=== PATIENT | male | born 1950 | race Caucasian/White ===

== ENCOUNTER 2018-03-19 14:00 | Emergency (ER) | payer OTHER, MEDICARE ==
[2018-03-19] MEDS ORDERED: DEXTROSE 50%-WATER 25 GM/50 ML DISP.SYRIN IV ONE ×2 (14:13→15:46)
--- NOTE | 2018-03-19 15:11 | ER Document Report ---
ED General - General Chief Complaint: Low Blood Sugar Stated Complaint: DIABETIC PROBLEM Time Seen by Provider: 03/19/18 14:54 Mode of Arrival: Medic Information source: Patient, Relative, Emergency Med Personnel, [facility] Records Notes: 67-year-old male with type 1 diabetes, hypertension, hyperlipidemia presents via EMS from home after his daughter found him confused, staring off just prior to arrival.Daughter checked his sugar at that time and it was 50. Patient is supposed to take Lantus and NovoLog. Daughters are at the bedside and states that he is noncompliant with his medications. He does not check his sugars regularly. He currently lives alone after being recently and has been making it difficult for his family to help care for him. Daughter states that yesterday evening her father seemed to be more confused. He currently has no complaints including confusion, headache, nausea, chest pain, shortness of breath, weakness, slurred speech, abdominal pain. He denies any recent illness.Daughter does report a recent stroke in October 2017. she believes it left him with left sided weakness but is unsure. She reports that after being seen at the [facility] no further testing was done and she is unsure if her father was put on any additional medications at that time. TRAVEL OUTSIDE OF THE [place] IN LAST 30 DAYS: No - HPI Onset: Just prior to arrival Onset/Duration: Sudden Quality of pain: No pain Severity: None Associated symptoms: Sweating Exacerbated by: Food Relieved by: Denies Similar symptoms previously: Yes Recently seen / treated by doctor: No - Related Data Allergies/Adverse Reactions: No Known Allergies Allergy (Verified 06/03/13 12:05) Past Medical History - General Information source: Patient, Relative, [facility] Records - Social History Smoking Status: Current Every Day Smoker Cigarette use (# per day): Yes - 10 Smoking Education Provided: Yes - 4 minutes of smoking cessation provided Frequency of alcohol use: Occasional Drug Abuse: None Lives with: Alone Family History: Reviewed & Not Pertinent Patient has suicidal ideation: No Patient has homicidal ideation: No - Past Medical History Cardiac Medical History: Reports: Hx Hypercholesterolemia, Hx Hypertension Denies: Hx Heart Attack Pulmonary Medical History: Denies: Hx Asthma Neurological Medical History: Reports: Hx Cerebrovascular Accident - 1 MONTH AGO WEAKNESS. Denies: Hx Seizures Endocrine Medical History: Reports: Hx Diabetes Mellitus Type 1 GI Medical History: Denies: Hx Hepatitis, Hx Hiatal Hernia, Hx Ulcer Infectious Medical History: Denies: Hx Hepatitis Past Surgical History: Reports: Hx Appendectomy. Denies: Hx Open Heart Surgery , Hx Pacemaker - Immunizations Hx Diphtheria, Pertussis, Tetanus Vaccination: No Review of Systems - Review of Systems Notes: REVIEW OF SYSTEMS: CONSTITUTIONAL : Denies fever, chills, or sweats. Denies recent illness. Denies weight loss, recent hospitalizations. EENT: Denies visual changes, eye pain. Denies nasal or sinus congestion or discharge. Denies sore throat, oral lesions, difficulty swallowing. CARDIOVASCULAR: Denies chest pain. Denies palpitations. Denies lower extremity edema. RESPIRATORY: Denies cough, cold, or chest congestion. Denies shortness of breath, wheezing. GASTROINTESTINAL: Denies abdominal pain or distention. Denies nausea, vomiting , or diarrhea. Denies blood in vomitus, stools, or per rectum. Denies black, tarry stools. Denies constipation. GENITOURINARY: Denies difficulty urinating, painful urination, frequency, blood in urine, or vaginal discharge. MUSCULOSKELETAL: Denies back or neck pain or stiffness. Denies joint pain or swelling. SKIN: Denies rash, lesions or sores. HEMATOLOGIC : Denies easy bruising or bleeding. LYMPHATIC: Denies swollen glands. NEUROLOGICAL: Denies passing out or loss of consciousness. Denies dizziness or lightheadedness. Denies headache. Denies weakness or paralysis. Denies problems difficulty with ambulation, slurred speech. Denies sensory loss, numbness, or tingling. Denies seizures. PSYCHIATRIC: Denies anxiety or stress. Denies depression, suicidal ideation, or homicidal ideation. Denies visual or auditory hallucinations. Physical Exam - Vital signs Vitals: Temp Pulse Resp BP Pulse Ox 98.5 F 80 18 132/57 H 97 03/19/18 14:05 03/19/18 14:05 03/19/18 14:05 03/19/18 14:05 03/19/18 14:05 - Notes Notes: PHYSICAL EXAMINATION: GENERAL: Well-appearing, well-nourished and in no acute distress. HEAD: Atraumatic, normocephalic. EYES: Pupils equal round and reactive to light, extraocular movements intact, sclera anicteric, conjunctiva are normal. ENT: Nares patent, oropharynx clear without exudates. Moist mucous membranes. NECK: Normal range of motion, supple without lymphadenopathy LUNGS: Breath sounds clear to auscultation bilaterally and equal. No wheezes rales or rhonchi. HEART: Regular rate and rhythm without murmurs ABDOMEN: Soft, nontender, nondistended abdomen. No guarding, no rebound. No masses appreciated. Musculoskeletal: Normal range of motion, no pitting or edema. No cyanosis. NEUROLOGICAL: Cranial nerves grossly intact. Normal sensory, motor exams. NIH- 2 for left upper extremity drift and inability to tell me what month it is. PSYCH: Normal mood, normal affect. SKIN: Warm, Dry, normal turgor, no rashes or lesions noted. Course - Re-evaluation Re-evalutation: 03/19/18 23:07 Laboratory 03/19/18 03/19/18 03/19/18 14:47 14:47 15:36 WBC 11.5 H RBC 4.28 L Hgb 14.0 Hct 41.8 MCV 98 H MCH 32.8 MCHC 33.5 RDW 13.2 Plt Count 286 Seg Neutrophils % 66.0 Lymphocytes % 22.6 Monocytes % 8.8 Eosinophils % 2.2 Basophils % 0.4 Absolute Neutrophils 7.6 Absolute Lymphocytes 2.6 Absolute Monocytes 1.0 Absolute Eosinophils 0.2 Absolute Basophils 0.0 Sodium 139.6 Potassium 4.0 Chloride 106 Carbon Dioxide 23 Anion Gap 11 BUN 17 Creatinine 0.86 Est GFR ( Amer) > 60 Est GFR (Non-Af Amer) > 60 Glucose 131 H POC Glucose 52 L Calcium 10.0 Total Bilirubin 0.3 Direct Bilirubin 0.3 Neonat Total Bilirubin Not Reportable Neonat Direct Bilirubin Not Reportable Neonat Indirect Bili Not Reportable AST 18 ALT 42 Alkaline Phosphatase 103 Total Protein 6.0 L Albumin 3.1 L 03/19/18 03/19/18 17:14 20:30 WBC RBC Hgb Hct MCV MCH MCHC RDW Plt Count Seg Neutrophils % Lymphocytes % Monocytes % Eosinophils % Basophils % Absolute Neutrophils Absolute Lymphocytes Absolute Monocytes Absolute Eosinophils Absolute Basophils Sodium Potassium Chloride Carbon Dioxide Anion Gap BUN Creatinine Est GFR ( Amer) Est GFR (Non-Af Amer) Glucose POC Glucose 167 H 229 H Calcium Total Bilirubin Direct Bilirubin Neonat Total Bilirubin Neonat Direct Bilirubin Neonat Indirect Bili AST ALT Alkaline Phosphatase Total Protein Albumin Head CT 03/19/18 15:06 IMPRESSION: Right middle cerebral artery infarction chronic versus subacute. Small right posterior parietal infarction. EVIDENCE OF ACUTE STROKE: NO. Head CTA 03/19/18 17:48 IMPRESSION: Limited study because of IV infiltration. Poor visualization of the distal middle cerebral vessels on the right. Possible stenosis of the A1 segment on the left. Neck CTA 03/19/18 17:48 IMPRESSION: IV infiltration resulting essentially a nondiagnostic study. There is suspicion for high-grade stenosis of the left ICA. Extensive calcification of the right ICA. 03/20/18 00:16 67-year-old male with type 1 diabetes, hypertension, hyperlipidemia presents via EMS from home after his daughter found him confused, staring off.Daughter checked his sugar at that time and it was 50. Patient is supposed to take Lantus and NovoLog. Daughters are at the bedside and states that he is noncompliant with his medications. He does not check his sugars regularly. He currently lives alone after being recently and has been making it difficult for his family to help care for him. Upon arrival vitals were reviewed and within normal limits. Patient does not appear toxic or dehydrated. He is in no acute distress. Neuro exam was performed and patient has an NIH of 2 for inability to tell me the month and left upper extremity drift. Head CT was obtained and does show a right middle cerebral artery infarction chronic versus subacute. It also shows a small right posterior parietal infarction but no acute stroke. CTA of the head and neck were obtained but due to poor timing bolus they are stating this is a nondiagnostic study but they do state they have a suspicion for high-grade stenosis of the left ICA. Patient did receive aspirin during his ED course. Repeat NIH remains unchanged. He has been accepted to [facility] by Dr. Nai Hermosillo. I did speak to Dr. Olmstead, neurologist at [facility] who has no further recommendations at this time. 03/20/18 00:16 03/20/18 00:23 03/20/18 02:00 - Vital Signs Vital signs: Temp Pulse Resp BP Pulse Ox 98.5 F 80 18 134/58 H 97 03/19/18 14:05 03/19/18 14:05 03/20/18 00:01 03/20/18 00:01 03/20/18 00:01 - Laboratory Result Diagrams: 03/19/18 14:47 03/19/18 14:47 Laboratory results interpreted by me: 03/19/18 03/19/18 03/19/18 14:47 14:47 15:36 WBC 11.5 H RBC 4.28 L MCV 98 H APTT Glucose 131 H POC Glucose 52 L Total Protein 6.0 L Albumin 3.1 L Urine Glucose (UA) Urine Ketones Urine Urobilinogen 03/19/18 03/19/18 03/19/18 17:14 20:30 23:00 WBC RBC MCV APTT 20.2 L Glucose POC Glucose 167 H 229 H Total Protein Albumin Urine Glucose (UA) Urine Ketones Urine Urobilinogen 03/19/18 23:00 WBC RBC MCV APTT Glucose POC Glucose Total Protein Albumin Urine Glucose (UA) 150 H Urine Ketones TRACE H Urine Urobilinogen 4.0 H - Diagnostic Test Radiology reviewed: Image reviewed, Reports reviewed - EKG Interpretation by Me EKG shows normal: Sinus rhythm Rate: Normal [place]/QRS: RBBB When compared to previous EKG there are: No significant change Discharge - Discharge Clinical Impression: Hypoglycemia, Confusion, Noncompliance with medication regimen Stroke Qualifiers: CVA mechanism: embolism Precerebral and cerebral artery: middle cerebral artery Laterality of affected vessel: right Qualified Code(s): I63.411 - Cerebral infarction due to embolism of right middle cerebral artery Type 1 diabetes Qualifiers: Diabetes mellitus complication status: with unspecified complications Qualified Code(s): E10.8 - Type 1 diabetes mellitus with unspecified complications Condition: Fair Disposition: CRITICAL ACCESS HOSPITAL Referrals: BRIDGET MCCARTHY FNP [NO LOCAL MD] - Follow up as needed ED NIH Stroke Scale - NIH Stroke Scale *: 1. NIH scale should be completed with appropriate accompanying assessment tools. *: 2. The NIH should reflect what the patient is capable of doing and should not be coached by the clinician. 1a. Level of Consciousness: 0=Alert;keenly responsive -: 1=Drowsy -: 2=Obtunded -: 3=Coma/unresponsive or reflex to noxious stimuli. 1a. Responses: 0 1b. Orientation Questions: a. What month is it? -: b. How old are you? -: 0=Answers both questions correctly. -: 1=Answers one question correctly or patient is intubated or has orotracheal trauma. -: 2=Answers neither question correctly. 1b. Responses: 1 1c. Response to commands: a. Open and close eyes? -: b. Generalist and release hand? -: Credit is given despite weakness. Demonstration of task is permitted. Substitute command if hands cannot be used. -: 0=Performs both tasks correctly -: 1=Performs one task correctly -: 2=Performs neither task correctly 1c. Responses: 0 2. Gaze: Establish eye contact and instruct patient to "Follow my finger" -: 0=Normal -: 1=Partial gaze palsy. Gaze is abnormal in one or both eyes, but where forced deviation or total gaze paresis is not present. -: 2=Forced deviation or total gaze paresis. 2. Responses: 0 3. Visual Martinez: Sees fingers in all four quadrants. -: 0=No visual loss. -: 1=Partial hemianopsia. -: 2=Complete hemianopsia. -: 3=Bilateral hemianopsia (including Cortical blindness) 3. Responses: 0 4. Facial Movement: Instruct patient to: -: a. Show me your teeth -: b. Raise your eyebrows -: c. Close your eyes -: d. Smile -: 0=Normal symmetrical movement -: 1=Minor paralysis (flattened nasolabial fold, asymmetry on smiling). -: 2=Partial paralysis (total or near total paralysis of lower face). -: 3=Complete paralysis of upper and lower face 4. Responses: 0 5. Motor functions (left arm): Alternate sides and extend each arm with palms down (90 degrees if sitting or 45 degrees for supine). -: 0=No drift;limb holds for full 10 seconds. -: 1=Drift; limb holds but drifts down before full 10 seconds, but does not hit bed. -: 2=Some effort against gravity; limb cannot get to or maintain position. -: 3=No effort against gravity; limb falls. -: 4=No movement. -: UN=Amputation, joint fusion, explain in comments. 5. Responses (left arm): 1 5. Motor Functions (right arm): Alternate sides and extend each arm with palms down (90 degrees if sitting or 45 degrees for supine). -: 0=No drift;limb holds for full 10 seconds. -: 1=Drift; limb holds but drifts down before full 10 seconds, but does not hit bed. -: 2=Some effort against gravity; limb cannot get to or maintain position. -: 3=No effort against gravity; limb falls. -: 4=No movement. -: UN=Amputation, joint fusion, explain in comments. 5. Responses (right arm): 0 6. Motor Functions (left leg): With patient lying supine, alternate sides and extend each leg (30 degrees always while supine). -: 0=No drift, leg holds position for full 5 seconds -: 1=Drift; leg falls before full 5 seconds but does not hit bed. -: 2=Some effort against gravity, leg falls to bed but some effort against gravity. -: 3=No effort against gravity, leg falls to bed immediately. -: 4=No movement. -: UN=Amputation, joint fusion; explain in comments. 6. Responses (left leg): 0 6. Motor Functions (right leg): With patient lying supine, alternate sides and extend each leg (30 degrees always while supine). -: 0=No drift, leg holds position for full 5 seconds -: 1=Drift; leg falls before full 5 seconds but does not hit bed. -: 2=Some effort against gravity, leg falls to bed but some effort against gravity. -: 3=No effort against gravity, leg falls to bed immediately. -: 4=No movement. -: UN=Amputation, joint fusion; explain in comments. 6. Responses (right leg): 0 7. Limb Ataxia: With eyes open instruct patient to: -: a. "Touch your finger to your nose". -: b. "Touch your heel to your larson" -: 0=Absent -: 1=Present in one limb. -: 2=Present in two limbs. -: UN=Amputation or joint fusion; explain in comments. 7. Responses: 0 8. Sensory: Test sensation using pinprick or noxious stimuli. Test as many body parts as possible. -: 0=Normal;no sensory loss -: 1=Mile to moderate sensory loss (patient feels pin prick but is less sharp on affected side). -: 2=Severe or total sensory loss. 8. Responses: 0 9. Best Language: Instruct patient to: -: a. "Describe what you see in this picture." -: b. "Name the items in this picture." -: c. "Read these sentences." -: 0=No aphasia, normal -: 1=Mild to moderate aphasia. -: 2=Severe aphasia -: 3=Mute, global aphasia, no usable speech or auditory comprehension. 9. Responses: 0 10. Articulation, Dysarthia: Instruct patient to: -: "Read these words" or "Repeat these words" -: 0=Normal -: 1=Mild to moderate; patient may slur some words but can be understood without difficulty. -: 2=Severe; patients speech so slurred as to be unintelligible in the absence of dysphasia. -: UN=Intubated or other physical barrier, explain in comments. 10. Responses: 0 11. Extinction or inattention: 0=No abnormality -: 1= Visual, tactile, auditory, spatial, or personal inattention or extinction to bilateral simulation in one or the sensory modalities. -: 2=Profound sharona-inattention or sharona-inattention to more than one modality; does not recognize own hand. 11. Responses: 0 Total Score: 2
[2018-03-19 15:23] LABS: ABSOLUTE EOSINOPHILS # (AUTO) 0.2 10^3/uL (0.0-0.6); ABSOLUTE LYMPHOCYTES (AUTO) 2.6 10^3/uL (0.5-4.7); ABSOLUTE NEUT (AUTO) 7.6 10^3/uL (1.7-8.2); BASOPHILS % (AUTO) 0.4 % (0-2); EOSINOPHILS % (AUTO) 2.2 % (0-6); HEMATOCRIT 41.8 % (37.9-51.0); LYMPHOCYTES % (AUTO) 22.6 % (13-45); MEAN CORPUSCULAR HEMOGLOBIN 32.8 pg (27.0-33.4); MEAN CORPUSCULAR HGB CONC 33.5 g/dL (32.0-36.0); MEAN CORPUSCULAR VOLUME 98 fl (80-97); MONOCYTES % (AUTO) 8.8 % (3-13); PLATELET COUNT 286 10^3/uL (150-450); RED BLOOD COUNT 4.28 10^6/uL (4.35-5.55); RED CELL DISTRIBUTION WIDTH 13.2 % (11.5-14.0); TOTAL CELLS COUNTED % (AUTO) 100 %; WHITE BLOOD COUNT 11.5 10^3/uL (4.0-10.5)
[2018-03-19 15:29] LABS: ALANINE AMINOTRANSFERASE 42 U/L (21-72); ALBUMIN 3.1 g/dL (3.5-5.0); ALKALINE PHOSPHATASE 103 U/L (38-126); ANION GAP 11 (5-19); ASPARTATE AMINO TRANSFERASE 18 U/L (17-59); BILIRUBIN,DIRECT 0.3 mg/dL (0.0-0.4); BILIRUBIN,TOTAL 0.3 mg/dL (0.2-1.3); BLOOD UREA NITROGEN 17 mg/dL (7-20); CARBON DIOXIDE 23 mmol/L (22-30); CHLORIDE 106 mmol/L (98-107); GLUCOSE 131 mg/dL (75-110); SODIUM 139.6 mmol/L (137-145)
--- NOTE | 2018-03-19 16:26 | RADIOLOGY REPORT (SQ) ---
EXAM DESCRIPTION: CT HEAD WITHOUT COMPLETED DATE/TIME: 03/19/2018 4:10 pm REASON FOR STUDY: confusion COMPARISON: None. TECHNIQUE: Axial images acquired through the brain without intravenous contrast. Images reviewed wi th bone, brain and subdural windows. Additional sagittal and coronal reconstructions were generated. Images stored on PACS. All CT scanners at this facility use dose modulation, iterative reconstruction, and/or weight based d osing when appropriate to reduce radiation dose to as low as reasonably achievable (ALARA). [facility]: Dose Right [facility]: CareDose [facility]: Dose Right [facility]: Teradose 4D [facility]: [employer] RADIATION DOSE: CT Rad equipment meets quality standard of care and radiation dose reduction techniq ues were employed. CTDIvol: 53.2 mGy. DLP: 1124 mGy-cm. mGy. LIMITATIONS: None. FINDINGS: VENTRICLES: Mild ex vacuo enlargement of the right lateral ventricle. CEREBRUM: Encephalomalacia in the distribution of right middle cerebral artery. Small area of enceph alomalacia in the right posterior parietal area. Decreased attenuation in the white matter on the rig ht. There are some areas where the rodriguez/ white differentiation is absent. CEREBELLUM: No masses. No hemorrhage. No alteration of density. No evidence for acute infarction. EXTRAAXIAL SPACES: No fluid collections. No masses. ORBITS AND GLOBE: No intra- or extraconal masses. Normal contour of globe without masses. CALVARIUM: No fracture. PARANASAL SINUSES: No fluid or mucosal thickening. SOFT TISSUES: No mass or hematoma. OTHER: No other significant finding. IMPRESSION: Right middle cerebral artery infarction chronic versus subacute. Small right posterior parietal infarction. EVIDENCE OF ACUTE STROKE: NO. COMMENT: Quality ID # [id number]: Final reports with documentation of one or more dose reduction techniques (e.g., Automated exposure control, adjustment of the mA and/or kV according to patient size, use of iterative reconstruction technique) TECHNICAL DOCUMENTATION: JOB ID: [id number] [employer]- All Rights Reserved Reading location - IP/workstation name: [email or web address]
[2018-03-19] MEDS ORDERED: NICOTINE 21 MG/24 HR PATCH.TD24 TD ONE (20:06)
--- NOTE | 2018-03-19 22:09 | RADIOLOGY REPORT (SQ) ---
EXAM DESCRIPTION: CTA NECK COMPLETED DATE/TIME: 03/19/2018 9:56 pm REASON FOR STUDY: infarct COMPARISON: None. TECHNIQUE: Axial dynamic scanning technique with dynamic contrast enhancement through the extra-cranberry [employer] supervisor nial carotid and vertebral arteries. Multiplanar reconstruction. 3-D MIPS and Volume-rendered imag es acquired at the workstation and saved to PACS. Images are reviewed in soft tissue, bone, lung w indows. All CT scanners at this facility use dose modulation, iterative reconstruction, and/or weight based d osing when appropriate to reduce radiation dose to as low as reasonably achievable (ALARA). [facility]: Dose Right [facility]: CareDose [facility]: Dose Right [facility]: Teradose 4D [facility]: [employer] CONTRAST TYPE AND DOSE: contrast/concentration: Isovue 350.00 mg/ml; Total Contrast Delivered: 70.0 ml; Total Saline Delivered: 50.0 ml RENAL FUNCTION: GFR > 60. LIMITATIONS: IV infiltrated. Nondiagnostic arterial study. FINDINGS: AORTIC ARCH: Normal three-vessel origin. Bilateral subclavian arteries are patent. No d issection. RIGHT CAROTIDS: Extensive calcification. Cannot adequately for degree of stenosis. RIGHT VERTEBRAL: Not adequately visualized. LEFT CAROTIDS: Suspect high-grade stenosis of the ICA. LEFT VERTEBRAL: Cannot adequately assessed. OTHER: No other significant finding. OTHER: 3-D reconstructions confirm findings. IMPRESSION: IV infiltration resulting essentially a nondiagnostic study. There is suspicion for hig h-grade stenosis of the left ICA. Extensive calcification of the right ICA. COMMENT: Recommend duplex carotid scan. Quality ID #[id number]: Measurements of distal internal carotid diameter were used as the denominator for st enosis measurement. TECHNICAL DOCUMENTATION: JOB ID: [id number] Quality ID # [id number]: Final reports with documentation of one or more dose reduction techniques (e.g., Au tomated exposure control, adjustment of the mA and/or kV according to patient size, use of iterative reconstruction technique) 2010 [employer]- All Rights Reserved Reading location - IP/workstation name: [email or web address]
--- NOTE | 2018-03-19 22:11 | RADIOLOGY REPORT (SQ) ---
EXAM DESCRIPTION: CTA HEAD COMPLETED DATE/TIME: 03/19/2018 9:56 pm REASON FOR STUDY: infarct COMPARISON: None. TECHNIQUE: Post IV contrast scanning, thin section axial imaging through the brain to evaluate the a rterial structures. Source and MIP images are saved and reviewed on PACS. Advanced 3D imaging as volume-rendering, MIPs, SSD performed? yes All CT scanners at this facility use dose modulation, iterative reconstruction, and/or weight based d osing when appropriate to reduce radiation dose to as low as reasonably achievable (ALARA). [facility]: Dose Right [facility]: CareDose [facility]: Dose Right [facility]: Teradose 4D [facility]: [employer] CONTRAST TYPE AND DOSE: 63.6 Isovue 370- low osmolar. RENAL FUNCTION: GFR > 60. LIMITATIONS: IV infiltration. Inadequate evaluation of the arterial tree. FINDINGS: TE-MOAK OF OGDEN: The very central vessels are seen to be patent. Cannot evaluate distal vessels. Possible stenosis of the A1 segment on the left. Poor visualization of the distal middle c erebral vessels on the right. POSTERIOR CIRCULATION: Basilar artery is patent. Proximal posterior cerebral artery is. BRAIN: No gross enhancing lesions as visualized. The superior cerebral hemispheres are not included in the field of view. BONES: Intact as visualized. SINUSES: No fluid or mucosal thickening. OTHER: No other significant finding. IMPRESSION: Limited study because of IV infiltration. Poor visualization of the distal middle cereb ral vessels on the right. Possible stenosis of the A1 segment on the left. COMMENT: Consider MRA. TECHNICAL DOCUMENTATION: JOB ID: [id number] Quality ID # [id number]: Final reports with documentation of one or more dose reduction techniques (e.g., Au tomated exposure control, adjustment of the mA and/or kV according to patient size, use of iterative reconstruction technique) 2010 [employer]- All Rights Reserved Reading location - IP/workstation name: [email or web address]
--- NOTE | 2018-03-19 22:53 | EKG REPORT ---
SEVERITY:- ABNORMAL ECG - SINUS RHYTHM PROBABLE LEFT ATRIAL ABNORMALITY RIGHT BUNDLE BRANCH BLOCK : Confirmed by: Janee Orosco 19-Mar-2018 22:52:27
[2018-03-19 23:21] LABS: INTERNATIONAL RATION (INR) 0.87; PROTHROMBIN TIME 12.3 SEC (11.4-15.4)
[2018-03-19 23:22] LABS: PARTIAL THROMBOPLASTIN TIME 20.2 SEC (23.5-35.8)
[2018-03-19 23:24] LABS: APPEARANCE,URINE CLEAR; BILIRUBIN,URINE NEGATIVE (NEGATIVE); COLOR,URINE YELLOW; GLUCOSE, URINE 150 mg/dL (NEGATIVE); KETONES,URINE TRACE mg/dL (NEGATIVE); LEUKOCYTE ESTERASE,URINE NEGATIVE (NEGATIVE); NITRITE,URINE NEGATIVE (NEGATIVE); PROTEIN,URINE NEGATIVE (NEGATIVE); URINE SPECIFIC GRAVITY > 1.060
[2018-03-19] MEDS ORDERED: ASPIRIN 81 MG TABLET, CHEWABLE PO ONE (23:36)
[2018-03-20 02:31] VITALS: BP 128/66
== END 2018-03-20 03:17 | disposition short-term general hospital (02) ==
LOC: ER 14:00
DX: I63.411 Cerebral infarction due to embolism of right middle cerebral artery (principal); R29.702 NIHSS score 2; E10.649 Type 1 diabetes mellitus with hypoglycemia without coma; Z91.14 Patient's other noncompliance with medication regimen; R41.0 Disorientation, unspecified; I10 Essential (primary) hypertension; R61 Generalized hyperhidrosis; I45.10 Unspecified right bundle-branch block; F17.210 Nicotine dependence, cigarettes, uncomplicated; Z71.6 Tobacco abuse counseling
CPT/HCPCS: 93005; 96376; 99406; 99285; 96374; 36415; 82962; 85025; 85610; 85730; 80053; 81001; 70450; 70496; 70498; 93010; J3490

== ENCOUNTER 2018-04-03 03:44 | Inpatient (IN) | payer OTHER, MEDICARE ==
[2018-04-03] MEDS ORDERED: NORMAL SALINE 1000 ML 1,000 ML IV ONE ×3 (04:14→06:41)
[2018-04-03 04:27] LABS: ABSOLUTE LYMPHOCYTES (AUTO) 0.5 10^3/uL (0.5-4.7); ABSOLUTE MONOCYTES (AUTO) 0.4 10^3/uL (0.1-1.4); ABSOLUTE NEUT (AUTO) 2.5 10^3/uL (1.7-8.2); BASOPHILS % (AUTO) 0.2 % (0-2); EOSINOPHILS % (AUTO) 0.1 % (0-6); HEMATOCRIT 49.1 % (37.9-51.0); HEMOGLOBIN 16.5 g/dL (13.5-17.0); LYMPHOCYTES % (AUTO) 14.4 % (13-45); MEAN CORPUSCULAR HGB CONC 33.7 g/dL (32.0-36.0); MEAN CORPUSCULAR VOLUME 98 fl (80-97); PLATELET COUNT 353 10^3/uL (150-450); RED CELL DISTRIBUTION WIDTH 13.8 % (11.5-14.0); SEGMENTED NEUTROPHILS % (AUTO) 74.3 % (42-78); TOTAL CELLS COUNTED % (AUTO) 100 %; WHITE BLOOD COUNT 3.4 10^3/uL (4.0-10.5)
--- NOTE | 2018-04-03 04:30 | ER Document Report ---
ED General <BRENDA HURTADO - Last Filed: 04/03/18 05:31> - General TRAVEL OUTSIDE OF THE [place] IN LAST 30 DAYS: No <DEYSI PONCE - Last Filed: 04/03/18 07:31> - General Chief Complaint: Altered Mental Status Stated Complaint: ALTERED MENTAL STATUS Time Seen by Provider: 04/03/18 03:52 Notes: Patient is a 67-year-old male that comes to the emergency department by EMS from [facility] for chief complaint of vomiting and altered mental status. EMS reports patient has been vomiting all day, was given Phenergan in the evening and continued to vomit, he became confused and less responsive and EMS was called. No fever, diarrhea, shortness of breath, or chest pain reported. Past medical history includes CVA with chronic left- sided deficits, type 2 diabetes, CAD on Plavix, hypertension. Patient is able to tell me his name and his location but is limited in his ability to give history otherwise. (DEYSI PONCE) - Related Data Allergies/Adverse Reactions: No Known Allergies Allergy (Verified 06/03/13 12:05) Past Medical History - General Information source: Patient, Emergency Med Personnel - Social History Smoking Status: Unknown if Ever Smoked Frequency of alcohol use: None Drug Abuse: None Lives with: Senior Living Family History: Reviewed & Not Pertinent - Past Medical History Cardiac Medical History: Reports: Hx Hypercholesterolemia, Hx Hypertension Denies: Hx Heart Attack Pulmonary Medical History: Denies: Hx Asthma Neurological Medical History: Reports: Hx Cerebrovascular Accident - 1 MONTH AGO WEAKNESS. Denies: Hx Seizures Endocrine Medical History: Reports: Hx Diabetes Mellitus Type 1, Hx Diabetes Mellitus Type 2 Renal/ Medical History: Denies: Hx Peritoneal Dialysis GI Medical History: Denies: Hx Hepatitis, Hx Hiatal Hernia, Hx Ulcer Musculoskeletal Medical History: Reports Hx Arthritis Infectious Medical History: Denies: Hx Hepatitis Past Surgical History: Reports: Hx Appendectomy. Denies: Hx Open Heart Surgery , Hx Pacemaker - Immunizations Hx Diphtheria, Pertussis, Tetanus Vaccination: Yes <DEYSI PONCE - Last Filed: 04/03/18 07:31> Review of Systems - Review of Systems Constitutional: No symptoms reported EENT: No symptoms reported Cardiovascular: See HPI Respiratory: No symptoms reported Gastrointestinal: No symptoms reported Genitourinary: No symptoms reported Male Genitourinary: No symptoms reported Musculoskeletal: No symptoms reported Skin: See HPI Hematologic/Lymphatic: No symptoms reported Neurological/Psychological: No symptoms reported <DEYSI PONCE - Last Filed: 04/03/18 07:31> Physical Exam <BRENDA HURTADO - Last Filed: 04/03/18 05:31> <DEYSI PONCE - Last Filed: 04/03/18 07:31> - Vital signs Vitals: Resp Pulse Ox 38 H 97 04/03/18 03:51 04/03/18 03:51 - Notes Notes: GENERAL: Extremely ill-appearing, diaphoretic, pale, difficult to arouse, confused HEAD: Normocephalic, atraumatic. EYES: Pupils equal, round, and reactive to light. Extraocular movements intact. ENT: Very dry mucous membranes, unremarkable oropharyngeal exam NECK: Supple. Trachea midline. LUNGS: Scattered rhonchi and coarse breath sounds, no overt rales or wheezes. HEART: Tachycardia, no extrasystoles, no murmur. Capillary refill intact. ABDOMEN: Soft, non-tender. Non-distended. EXTREMITIES: Moves all 4 extremities spontaneously. No edema, normal radial and dorsalis pedis pulses bilaterally. No cyanosis. BACK: no cervical, thoracic, lumbar midline tenderness. NEUROLOGICAL: Arousable, oriented to person and place, unable to give me any other details SKIN: Pale, diaphoretic (DEYSI PONCE) Course - Laboratory Result Diagrams: 04/03/18 04:08 04/03/18 04:08 <BRENDA HURTADO - Last Filed: 04/03/18 05:31> - Laboratory Result Diagrams: 04/03/18 04:08 04/03/18 04:08 <DEYSI PONCE - Last Filed: 04/03/18 07:31> - Re-evaluation Re-evalutation: 04/03/18 04:43 Patient was initially seen by the PA, and Deysi Ponce. Since he saw the patient noticed that he was very sick you have me immediately. I went to bedside and patient is altered with hypotension. Systolic blood pressures in the mid to upper 60s. She he does have a 20-gauge IV in the right arm however slow and his veins are flat he is a dehydrated appearing. I therefore placed a central line left femoral vein. I used left femoral veins patient is very flat veins on ultrasound and is on Plavix and therefore I do not want a risk sticking the artery in the neck. Central line was placed. A liter bolus will be completed. He is still hypotensive despite IV fluid boluses and pressors will be started. He was recently in discharged from the hospital approximately 1 week ago. Replaying a Whitmore catheter in place. Currently is afebrile however I suspect that he may have underlying sepsis based on his hypotension and recent hospital admission. (BRENDA HURTADO) 04/03/18 04:29 Patient tachycardic, hypotensive, pale, diaphoretic, very ill-appearing. I placed a right-sided ultrasound-guided 20-gauge IV and initiate IV fluids, Dr. Hurtado has evaluated the patient at bedside and he is placing a central line. Initiating broad-spectrum antibiotics. Patient starting to respond to IV fluid bolus, he was taken for CAT scan, CAT scan of the head unremarkable. CBC unremarkable, chemistry shows acute renal failure, lactic acid is elevated at 3.8 consistent with sepsis. Whitmore was placed, urine was obtained, urine is nonspecific. Temperature Whitmore was placed , patient noted to have a fever of 102. Chest x-ray obtained, shows left-sided pneumonia. Suspect this is septic pneumonia. 04/03/18 05:40 Patient became hypotensive again, map is less than 65, initiating Levophed, patient's skin color has improved, capillary refill is intact and less than 3 seconds. 04/03/18 06:05 Blood pressure is 106/57, core temperature 100.8. No urine output yet. Infusing additional fluids. 04/03/18 07:10 Unable to reach patient's with contact number, I was able to reach Fanny, his daughter, informed her that patient is sick with pneumonia and sepsis and is very ill at this time. She states gratefulness and that they will attempt to see him soon. 04/03/18 07:[address] Henry, internal medicine, patient will be admitted to the ICU. ( DEYSI PONCE) - Vital Signs Vital signs: Temp Pulse Resp BP Pulse Ox 101.3 F H 40 H 104/57 L 97 04/03/18 07:05 04/03/18 07:05 04/03/18 07:05 04/03/18 07:05 - Laboratory Laboratory results interpreted by me: 04/03/18 04/03/18 04/03/18 04:08 04:08 04:08 WBC 3.4 L MCV 98 H Potassium 5.1 H BUN 44 H Creatinine 2.37 H Est GFR ( Amer) 33 L Est GFR (Non-Af Amer) 27 L Glucose 300 H POC Glucose Lactic Acid 3.8 H ALT 82 H Alkaline Phosphatase 142 H Urine Protein Urine Glucose (UA) Urine Ketones Urine Blood Urine Bilirubin Urine Urobilinogen Ur Leukocyte Esterase 04/03/18 04/03/18 04:23 04:55 WBC MCV Potassium BUN Creatinine Est GFR ( Amer) Est GFR (Non-Af Amer) Glucose POC Glucose 283 H Lactic Acid ALT Alkaline Phosphatase Urine Protein 30 H Urine Glucose (UA) 150 H Urine Ketones TRACE H Urine Blood MODERATE H Urine Bilirubin SMALL H Urine Urobilinogen 4.0 H Ur Leukocyte Esterase SMALL H Procedures - Central Line Left Femoral Consent obtained: No - Emergent Central line pre-insertion: Sterile PPE donned, Chloraprep applied, Sterile drapes applied Central line lumen type: Triple Ultrasound guided: Yes CM at insertion site: 20 Line secured with sutures: Yes Central line post-insertion: Blood return from lumens, Biopatch applied, Sutured , Sterile dressing applied Number of attempts: 1 Complications: No <BRENDA HURTADO - Last Filed: 04/03/18 05:31> Critical Care Note <BRENDA HURTADO - Last Filed: 04/03/18 05:31> - Critical Care Note Total time excluding time spent on procedures (mins): 45 - septic shock, pneumonia, acute renal failure <DEYSI PONCE - Last Filed: 04/03/18 07:31> - Critical Care Note Comments: Please allow 45 minutes of critical care time excluding any procedures for evaluation and treatment of patient with septic shock, pneumonia, acute renal failure, treatments including fluid resuscitation, antibiotics, IV pressor. Multiple re-evaluations, consultation and admission to the the ICU. (DEYSI PONCE ) Discharge <BRENDA HURTADO - Last Filed: 04/03/18 05:31> - Discharge Admitting Provider: Hospitalist Unit Admitted: ICU <DEYSI PONCE - Last Filed: 04/03/18 07:31> - Discharge Clinical Impression: Septic shock Pneumonia Qualifiers: Pneumonia type: due to unspecified organism Laterality: left Lung location: unspecified part of lung Qualified Code(s): J18.9 - Pneumonia, unspecified organism Acute renal failure Qualifiers: Acute renal failure type: unspecified Qualified Code(s): N17.9 - Acute kidney failure, unspecified Condition: Serious Disposition: ADMITTED INPATIENT
[2018-04-03 04:32] LABS: VENOUS BLOOD BASE EXCESS -0.2 mmol/L; VENOUS BLOOD HCO3 24.7 mmol/L (20-32); VENOUS BLOOD PCO2 41.2 mmHg (35-63); VENOUS BLOOD PH 7.4 (7.30-7.42)
[2018-04-03 04:33] LABS: INTERNATIONAL RATION (INR) 0.98; PROTHROMBIN TIME 13.4 SEC (11.4-15.4)
[2018-04-03 04:42] LABS: ALANINE AMINOTRANSFERASE 82 U/L (21-72); ALBUMIN 3.6 g/dL (3.5-5.0); ALKALINE PHOSPHATASE 142 U/L (38-126); ANION GAP 18 (5-19); ASPARTATE AMINO TRANSFERASE 39 U/L (17-59); BILIRUBIN,DIRECT 0.4 mg/dL (0.0-0.4); BILIRUBIN,TOTAL 0.7 mg/dL (0.2-1.3); BLOOD UREA NITROGEN 44 mg/dL (7-20); CALCIUM 10.2 mg/dL (8.4-10.2); CARBON DIOXIDE 22 mmol/L (22-30); CHLORIDE 100 mmol/L (98-107); GLUCOSE 300 mg/dL (75-110); POTASSIUM 5.1 mmol/L (3.6-5.0); SODIUM 139.9 mmol/L (137-145); TOTAL PROTEIN 6.8 g/dL (6.3-8.2)
[2018-04-03] MEDS ORDERED: ACETAMINOPHEN 325 MG TABLET PO ONE (05:00)
[2018-04-03] MEDS ORDERED: ACETAMINOPHEN 325 MG SUPP.RECT PR ONE (05:00)
[2018-04-03] MEDS ORDERED: PIPERACILLIN/TAZOBACTAM 3.375 GM VIAL IV ONE (05:01)
[2018-04-03 05:15] LABS: AMORPHOUS SEDIMENT,URINE TRACE /HPF; APPEARANCE,URINE CLOUDY; BILIRUBIN,URINE SMALL (NEGATIVE); COLOR,URINE AMBER; GLUCOSE, URINE 150 mg/dL (NEGATIVE); KETONES,URINE TRACE mg/dL (NEGATIVE); LEUKOCYTE ESTERASE,URINE SMALL (NEGATIVE); NITRITE,URINE NEGATIVE (NEGATIVE); PROTEIN,URINE 30 mg/dL (NEGATIVE); URINE SPECIFIC GRAVITY 1.024
--- NOTE | 2018-04-03 05:25 | RADIOLOGY REPORT (SQ) ---
EXAM DESCRIPTION: XR CHEST 1 VIEW COMPLETED DATE/TME: 04/03/2018 04:13 CLINICAL HISTORY: hypotension COMPARISON: None. FINDINGS: Single frontal view of the chest. Atherosclerotic calcification and tortuosity of thoracic aorta. Heart is not enlarged. Left basilar airspace opacity. Leads overlie the chest. No acute osseous abnormality. Upper abdominal soft tissues are unremarkable. IMPRESSION: 1. Left basilar airspace opacity compatible with pneumonia. Continued radiographic follow-up to resolution recommended.
--- NOTE | 2018-04-03 05:29 | RADIOLOGY REPORT (SQ) ---
EXAM DESCRIPTION: CT HEAD WITHOUT IV CONTRAST COMPLETED DATE/TME: 04/03/2018 04:13 CLINICAL HISTORY: Altered mental status COMPARISON: 03/19/2018 TECHNIQUE: Axial CT of the head obtained from the skull apex to the skull base without contrast. FINDINGS: No acute intracranial hemorrhage identified. No mass, mass effect, shift of the midline, abnormal extra-axial fluid collection or CT evidence of acute ischemic change identified. The ventricular system and sulcal spaces are mildly enlarged compatible with mild cerebral atrophy. Scattered areas of hypodensity throughout the supratentorial white matter are nonspecific and may be related to chronic small vessel ischemic change. Encephalomalacia in the right cerebral hemisphere compatible with remote right MCA distribution infarction. The visualized paranasal sinuses and the mastoids are clear. No skull fracture identified. Visualized orbits and globes are unremarkable. Atherosclerotic calcification of the intracranial internal carotid arteries. DLP: 1194.44 mGy-cm IMPRESSION: 1. No acute intracranial abnormality by CT criteria. This exam was performed according to our departmental dose-optimization program, which includes automated exposure control, adjustment of the mA and/or kV according to patient size and/or use of iterative reconstruction technique.
[2018-04-03] MEDS ORDERED: VANCOMYCIN HCL INJ 1000 MG VIAL IV ONE (05:31)
[2018-04-03] MEDS ORDERED: DEXTROSE 5%-WATER 250 ML with NOREPINEPHRINE BITARTRATE 4 MG IV PRN ×2 (05:33)
[2018-04-03] MEDS ORDERED: NOREPINEPHRINE BITARTRATE INJ/PF 4 MG/4 ML SDV IV ONE (05:49)
--- NOTE | 2018-04-03 07:25 | EKG REPORT ---
SEVERITY:- ABNORMAL ECG - SINUS TACHYCARDIA RBBB AND LPFB : Confirmed by: Stanislav Joseph MD 03-Apr-2018 07:25:20
[2018-04-03] MEDS ORDERED: IPRATROPIUM/ALBUTEROL 0.5-2.5 MG/3 ML AMPUL NEB PRN (09:52)
[2018-04-03] MEDS ORDERED: PHARMACY COMMUNICATION ORDER MC NR (10:15)
[2018-04-03] MEDS ORDERED: DEXTROSE 40% GEL 15 GM TUBE PO PRN ×2 (10:25)
[2018-04-03] MEDS ORDERED: GLUCAGON,HUMAN RECOMB 1 MG INJ IM PRN (10:25)
[2018-04-03] MEDS ORDERED: DEXTROSE 50%-WATER 25 GM/50 ML DISP.SYRIN IV PRN ×2 (10:25)
--- NOTE | 2018-04-03 10:31 | PDOC H&P ---
History of Present Illness Admission Date/PCP: 04/03/18 07:43 Patient complains of: altered mental status History of Present Illness: STACI MCWILLIAMS is a 67 year old male with a past medical history of uncontrolled diabetes, CVA with left-sided deficit, hypertension, coronary artery disease, recent admission to rehab, and poor compliance with medication, who was brought via EMS from [facility] due to altered mental status and abnormal vitals. Unfortunately patient is a poor historian and family at bedside is unable to provide me with presenting history of illness. As per ED physician's documentation patient was having nausea and vomiting at the nursing facility and altered mental status and early this morning was brought in to the ER for evaluation. Patient is much more alert right now although his mentation is still altered and he is not completely oriented yet. He does know his name and date of but does not know where he is or time/date. He is unable to tell me what happened to him at the nursing facility and why he was brought to the ER today. Family at bedside tells me that they were called by the nursing facility and told to meet in the ER since patient was sent here. They tell me that he has been declining in health the last few months and was recently admitted to the nursing facility for unclear reason but states that he recently had a carotid stenting/CEA done prior to that. Patient at this time tells me that he is not in any pain-denies chest pain, shortness of breath, abdominal pain, nausea/vomiting, diarrhea or headache. He does have poor vision which is likely due to diabetes and unable to see clearly-as per family In the ED he was found to have a fever and a lower lobe pneumonia-he was given 1 dose of vancomycin and Zosyn. He was also found to be hypotensive and hence Levophed was started. Past Medical History Cardiac Medical History: Reports: Hyperlipidema, Hypertension Denies: Myocardial Infarction Pulmonary Medical History: Denies: Asthma Neurological Medical History: Denies: Seizures Endocrine Medical History: Reports: Diabetes Mellitus Type 1, Diabetes Mellitus Type 2 GI Medical History: Denies: Hepatitis, Hiatal Hernia Musculoskeltal Medical History: Reports: Arthritis Hematology: Denies: Anemia, Sickle Cell Disease Past Surgical History Past Surgical History: Reports: Appendectomy Denies: Pacemaker Social History Information Source: Patient, Relative, Emergency Med Personnel Lives with: Senior Living Smoking Status: Former Smoker - Advance Directive Resuscitation Status: Full Code Family History Family History: Reviewed & Not Pertinent Parental Family History Reviewed: No - Patient unable to provide history at this time due to his altered mentation Children Family History Reviewed: No - Patient unable to provide history Sibling(s) Family History Reviewed.: Unknown Medication/Allergy Allergies/Adverse Reactions: No Known Allergies Allergy (Verified 06/03/13 12:05) Review of Systems ROS unobtainable: Due to mental status, Other - Partial ROS and inaccurate most likely due to patient altered mental status All systems: reviewed and no additional remarkable complaints except as stated Constitutional: PRESENT: fever(s) Physical Exam Vital Signs: Temp Pulse Resp BP Pulse Ox 101.1 F H 36 H 100/55 L 97 04/03/18 09:15 04/03/18 09:15 04/03/18 09:15 04/03/18 09:15 Intake & Output 04/02/18 04/03/18 04/04/18 06:59 06:59 06:59 Intake Total 111 Balance 111 General appearance: PRESENT: no acute distress, other - Appears older than stated age Head exam: PRESENT: atraumatic, normocephalic Eye exam: PRESENT: other - Pinpoint pupils, decreased vision unable to follow commands. ABSENT: conjunctival injection, scleral icterus Ear exam: PRESENT: normal external ear exam Mouth exam: PRESENT: dry mucosa Neck exam: ABSENT: tracheal deviation Respiratory exam: PRESENT: symmetrical - Decreased bilaterally and mostly at the bases with some occasional expiratory wheezing, wheezes Cardiovascular exam: PRESENT: +S1, +S2 Pulses: PRESENT: +1 pedal pulses bilateral GI/Abdominal exam: PRESENT: normal bowel sounds, soft. ABSENT: tenderness Extremities exam: ABSENT: joint swelling, pedal edema Neurological exam: PRESENT: awake, oriented to person, CN II-XII grossly intact , other - Sleepy and lethargic-he is not following verbal commands appropriately given his encephalopathy and hence I cannot appropriately assess his neuro exam at this time. ABSENT: oriented to place, oriented to time, oriented to situation Skin exam: PRESENT: dry, warm, other - Lower extremities are cooler than upper Results Laboratory Results: 04/03/18 07:53 Lactic Acid 2.2 H Impressions: Chest X-Ray 04/03/18 04:13 IMPRESSION: 1. Left basilar airspace opacity compatible with pneumonia. Continued radiographic follow-up to resolution recommended. Head CT 04/03/18 04:13 IMPRESSION: 1. No acute intracranial abnormality by CT criteria. This exam was performed according to our departmental dose-optimization program, which includes automated exposure control, adjustment of the mA and/or kV according to patient size and/or use of iterative reconstruction technique. Assessment & Plan - Diagnosis (1) Severe sepsis Is this a current diagnosis for this admission?: Yes Plan: Lactic acid on arrival was 3.8 and he has an AK I with a white count of 3.4. I do think he has end-organ damage with his renal function. hypotension and likely encephalopathy secondary to sepsis. I am not completely sure if this is metabolic versus septic encephalopathy. He did receive 2 L bolus and since his systolic blood pressure was low-he was started on levophed. I think he is volume depleted and hence his systolic blood pressure was low to begin with. When she is also leading to the acute renal injury. I think we can titrate him off the Levophed and hydrate him with IV fluids for his dehydration. He also had nausea and vomiting-I am not sure how much-which could also have led to his current status. Blood cultures and urine cultures are drawn and pending. Started on IV fluids and IV antibiotics. Lactic acid is already trending down. (2) Pneumonia Qualifiers: Pneumonia type: aspiration pneumonia Laterality: left Lung location: unspecified part of lung Qualified Code(s): J18.9 - Pneumonia, unspecified organism Is this a current diagnosis for this admission?: Yes Plan: Given the packed that he was brought in for nausea or vomiting and chest x-ray had shown basilar infiltrate-is likely that he might have aspirated and this is causing his pneumonia. He was started on Zosyn and bank in the ED and will continue. Blood cultures drawn and pending. (3) Acute renal failure Qualifiers: Acute renal failure type: unspecified Qualified Code(s): N17.9 - Acute kidney failure, unspecified Is this a current diagnosis for this admission?: Yes Plan: His creatinine was less than 1 a few weeks ago and today it is 2.37. I think this is all due to volume depletion and prerenal causes. He is received 3 L of IV fluids already and I will continue him on normal saline at 1 25 cc an hour for now. Reassess his volume status and adjust as needed. Hold all nephrotoxic agents and monitor urine output (4) Diabetes mellitus type 2 in nonobese Is this a current diagnosis for this admission?: Yes Plan: As per family he is uncontrolled diabetes and I am not sure how much insulin or oral meds he is on at home since patient is unable to give me a proper history. His medications are being reconciled by pharmacy and still pending. At this time we will start him on sliding scale insulin and monitor. I do not think he is in DKA at this time although his sugar on arrival was 300. We will keep a close eye on him and repeat BMP. Once we know his home regimen will start him on it. (5) Essential hypertension Is this a current diagnosis for this admission?: Yes Plan: He was hypertensive when he arrived in the ED and he was given 2 L fluid bolus but as per ED documentation his hypotension persisted secondary to "septic shock " and hence he was started on levophed through left femoral line. I do not believe he is in septic shock-I do believe that he is volume depleted and needs fluid resuscitation. (6) History of CVA (cerebrovascular accident) Is this a current diagnosis for this admission?: Yes Plan: He has left-sided weakness but at this time given his altered mental status he is unable to appropriately follow commands and I cannot evaluate him appropriately due to that reason. (7) Coronary artery disease Qualifiers: Coronary Disease-Associated Artery/Lesion type: hoh artery Is this a current diagnosis for this admission?: Yes Plan: Stable-we will continue with his home medications which are still in the process of being reconciled by pharmacy (8) Acute encephalopathy Is this a current diagnosis for this admission?: Yes Plan: Please see plan for severe sepsis-he is improving-septic versus metabolic- unclear at this time - Time Critical Time spent with patient: 35 or more minutes Anticipated discharge: SNF Within: Other - Unclear at this time due to ongoing management - Inpatient Certification Medical Necessity: Need Close Monitoring Due to Risk of Patient Decompensation, Need For IV Fluids, Need For Continuous Telemetry Monitoring, Need for IV Antibiotics - Plan Summary Plan Summary: At this time we will admit him to the ICU for close observation and IV Levophed. He will likely stay for greater than 2 midnights
[2018-04-03] MEDS ORDERED: ONDANSETRON HCL INJ/PF 4 MG/2 ML SDV IV PRN (11:37)
[2018-04-03] MEDS: NORMAL SALINE 1000 ML 1,000 ML IV PRN ×2 (12:30→19:58)
[2018-04-03] MEDS: FAMOTIDINE INJ/PF 20 MG/2 ML SDV IV SCH ×2 (13:20→22:44)
[2018-04-03] MEDS ORDERED: PIPERACILLIN/TAZOBACTAM 3.375 GM VIAL IV SCH (14:00)
[2018-04-03] MEDS ORDERED: HEPARIN SOD (PORCINE) 5,000 UNIT/ML 1 ML SYRINGE SUBCUT SCH (14:00)
[2018-04-03] MEDS ORDERED: HEPARIN SOD (PORCINE) 1,000 UNIT/ML 10 ML VIAL IV ONE (14:17)
--- NOTE | 2018-04-03 14:39 | Progress Note ---
Provider Note Provider Note: Called by ICU nurse- Troponin now 5.1. NSTEMI- will consult Dr Orosco, start on Heparin drip and get ECHO now. Repeat troponins Q3H until trending down. Repeat EKG now. I have held his plavix and ASA as home meds.
[2018-04-03] MEDS: HEPARIN SODIUM,PORCINE/D5W 25,000 UNIT/250 ML RTUINJ IV PRN (15:12)
[2018-04-03] MEDS: PIPERACILLIN SODIUM/TAZOBACTAM 3.375 GM in NORMAL SALINE 100 ML IV SCH ×2 (15:14→22:45)
[2018-04-03 15:17] LABS: ABSOLUTE LYMPHOCYTES (AUTO) 0.9 10^3/uL (0.5-4.7); ABSOLUTE MONOCYTES (AUTO) 0.8 10^3/uL (0.1-1.4); ABSOLUTE NEUT (AUTO) 9.4 10^3/uL (1.7-8.2); BASOPHILS % (AUTO) 0.1 % (0-2); EOSINOPHILS % (AUTO) 0.1 % (0-6); HEMATOCRIT 36.4 % (37.9-51.0); LYMPHOCYTES % (AUTO) 7.8 % (13-45); MEAN CORPUSCULAR HEMOGLOBIN 32.9 pg (27.0-33.4); MEAN CORPUSCULAR HGB CONC 33.3 g/dL (32.0-36.0); MEAN CORPUSCULAR VOLUME 99 fl (80-97); MONOCYTES % (AUTO) 7.3 % (3-13); PLATELET COUNT 236 10^3/uL (150-450); RED BLOOD COUNT 3.69 10^6/uL (4.35-5.55); RED CELL DISTRIBUTION WIDTH 13.8 % (11.5-14.0); SEGMENTED NEUTROPHILS % (AUTO) 84.7 % (42-78); TOTAL CELLS COUNTED % (AUTO) 100 %
[2018-04-03 15:21] LABS: HEMOGLOBIN 12.1 g/dL (13.5-17.0); WHITE BLOOD COUNT 11.1 10^3/uL (4.0-10.5)
[2018-04-03 15:26] LABS: APPEARANCE,URINE CLOUDY; BILIRUBIN,URINE NEGATIVE (NEGATIVE); COLOR,URINE YELLOW; GLUCOSE, URINE >=500 mg/dL (NEGATIVE); KETONES,URINE NEGATIVE (NEGATIVE); LEUKOCYTE ESTERASE,URINE NEGATIVE (NEGATIVE); NITRITE,URINE NEGATIVE (NEGATIVE); PROTEIN,URINE 30 mg/dL (NEGATIVE); URINE SPECIFIC GRAVITY 1.023
[2018-04-03 15:32] LABS: INTERNATIONAL RATION (INR) 1.24; PROTHROMBIN TIME 16.2 SEC (11.4-15.4)
[2018-04-03 15:33] LABS: PARTIAL THROMBOPLASTIN TIME 40.5 SEC (23.5-35.8)
[2018-04-03 16:55] LABS: ANION GAP 7 (5-19); BLOOD UREA NITROGEN 47 mg/dL (7-20); CALCIUM 8.6 mg/dL (8.4-10.2); CARBON DIOXIDE 24 mmol/L (22-30); CHLORIDE 105 mmol/L (98-107); POTASSIUM 4.3 mmol/L (3.6-5.0); SODIUM 135.8 mmol/L (137-145)
[2018-04-03 17:16] LABS: GLUCOSE 399 mg/dL (75-110)
[2018-04-03] MEDS ORDERED: HEPARIN SOD (PORCINE) 1,000 UNIT/ML 10 ML VIAL IV PRN (17:19)
--- NOTE | 2018-04-03 18:28 | PDOC CONSULTATION ---
Consultation Consult Date: 04/03/18 Attending physician:: KATRIN RUEDA Consult reason:: Troponin I elevation History of Present Illness Admission Date/PCP: 04/03/18 07:43 Patient complains of: Patient has underlying confusion. History of Present Illness: STACI MCWILLIAMS is a 67 year old male with a past medical history of uncontrolled diabetes, CVA with left-sided deficit, hypertension, coronary artery disease, recent admission to rehab, and poor compliance with medication, who was brought via EMS from [facility] due to altered mental status and abnormal vitals. Unfortunately patient is a poor historian and family at bedside is unable to provide me with presenting history of illness. As per ED physician's documentation patient was having nausea and vomiting at the nursing facility and altered mental status and early this morning was brought in to the ER for evaluation. Patient is much more alert right now although his mentation is still altered and he is not completely oriented yet. He does know his name and date of but does not know where he is or time/date. He is unable to tell me what happened to him at the nursing facility and why he was brought to the ER today. Family at bedside tells me that they were called by the nursing facility and told to meet in the ER since patient was sent here. They tell me that he has been declining in health the last few months and was recently admitted to the nursing facility for unclear reason but states that he recently had a carotid stenting/CEA done prior to that. Patient at this time tells me that he is not in any pain-denies chest pain, shortness of breath, abdominal pain, nausea/vomiting, diarrhea or headache. He does have poor vision which is likely due to diabetes and unable to see clearly-as per family. Patient was noted to be hypotensive. He was briefly started on Levophed drip in the emergency room. Initial troponin I was minimally abnormal but subsequently it jumped to over 5.0. I was consulted because of abnormal troponin I. Twelve-lead EKG obtained 2, showed sinus tachycardia with right bundle branch block pattern but no acute ST-T wave changes are noted. Past Medical History Cardiac Medical History: Reports: Coronary Artery Disease, Hyperlipidema, Hypertension Denies: Myocardial Infarction Pulmonary Medical History: Denies: Asthma Neurological Medical History: Denies: Seizures Endocrine Medical History: Reports: Diabetes Mellitus Type 1, Diabetes Mellitus Type 2 GI Medical History: Denies: Hepatitis, Hiatal Hernia Musculoskeltal Medical History: Reports: Arthritis Hematology: Denies: Anemia, Sickle Cell Disease Past Surgical History Past Surgical History: Reports: Appendectomy Denies: Pacemaker Social History Information Source: Patient Lives with: Retirement Smoking Status: Current Every Day Smoker Frequency of Alcohol Use: None Hx Recreational Drug Use: No Drugs: None Hx Prescription Drug Abuse: No - Advance Directive Resuscitation Status: Full Code Family History Family History: Reviewed & Not Pertinent Parental Family History Reviewed: Yes Children Family History Reviewed: Yes Sibling(s) Family History Reviewed.: Yes Medication/Allergy Home Medications: Aspirin [Aspirin 325 mg Tablet] 325 mg PO DAILY 04/03/18 Atorvastatin Calcium [Lipitor 80 mg Tablet] 80 mg PO DAILY 04/03/18 Bupropion HCl [Wellbutrin Xl 300mg 24hr Tablet] 300 mg PO DAILY 04/03/18 Clopidogrel Bisulfate [Plavix 75 mg Tablet] 75 mg PO DAILY 04/03/18 Cyanocobalamin (Vitamin B-12) [Vitamin B-12] 100 mcg PO DAILY 04/03/18 Diclofenac Sodium [Voltaren] 75 mg PO BIDP PRN 04/03/18 Insulin Glargine,Hum.rec.anlog [Lantus] 35 unit SQ DAILY 04/03/18 Insulin Lispro [Humalog Insulin 100 Unit/1 ml 3 ml Vial] 0 unit SUBCUT .SLD SCALE 04/03/18 Insulin Lispro [Humalog Insulin 100 Unit/1 ml 3 ml Vial] 12 unit SUBCUT AC 04/03 Losartan Potassium [Cozaar 50 mg Tablet] 50 mg PO DAILY 04/03/18 Nicotine [Nicoderm 21 mg/24 Hr Transderm Patch] 1 patch TD DAILY 04/03/18 Allergies/Adverse Reactions: No Known Allergies Allergy (Verified 06/03/13 12:05) Review of Systems ROS unobtainable: Due to mental status Physical Exam Vital Signs: Temp Pulse Resp BP Pulse Ox 100.6 F H 94 20 132/66 H 95 04/03/18 11:54 04/03/18 11:54 04/03/18 18:04 04/03/18 18:04 04/03/18 18:04 Intake & Output 04/02/18 04/03/18 04/04/18 06:59 06:59 06:59 Intake Total 132 Output Total 400 Balance -268 Weight 78.4 kg Exam: GENERAL: well-nourished and in no acute distress. Patient is alert but not oriented to place time or person. HEAD: Atraumatic, normocephalic. EYES: Pupils equal round and reactive to light, extraocular movements intact, sclera anicteric, conjunctiva are normal. ENT: TMs normal, nares patent, oropharynx clear without exudates. Moist mucous membranes. No oral ulcerations or bleeding gums noted NECK: supple without lymphadenopathy or JVD. Trachea is central. No cervical or axillary lymphadenopathy noted. Carotids are 2+ LUNGS: Breath sounds bibasilar fine crackles at bases. No significant dullness noted. CHEST: Palpation of chest wall shows no significant chest wall tenderness. HEART: [place] [employer]ER, No PSH, 2/6 MYRON aortic area, 1/6 hernandez systolic murmur mitral area, rubs or gallops. ABDOMEN: Soft, no significant tenderness appreciated, normoactive bowel sounds. No guarding, no rebound. No rigidity noted . No masses appreciated. EXTREMITIES: Pedal pulses are 1-2+, no calf tenderness noted, Trace + pedal edema noted. No clubbing or cyanosis. NEUROLOGICAL: Patient is alert but is not able to participate in neurological exam because of patient's current mental status PSYCH: Patient cannot participate in a neurologic and psych exam because of the patient's current mental status SKIN: No significant ecchymosis, rash, ulcerations or signs of pruritus noted. MUSCULOSKELETAL EXAM: No significant joint swelling noted. Results Laboratory Results: 04/03/18 14:55 04/03/18 16:15 04/03/18 04/03/18 04/03/18 07:53 14:55 14:55 WBC 11.1 H D RBC 3.69 L Hgb 12.1 L D Hct 36.4 L MCV 99 H MCH 32.9 MCHC 33.3 RDW 13.8 Plt Count 236 Seg Neutrophils % 84.7 H Lymphocytes % 7.8 L Monocytes % 7.3 Eosinophils % 0.1 Basophils % 0.1 Absolute Neutrophils 9.4 H Absolute Lymphocytes 0.9 Absolute Monocytes 0.8 Absolute Eosinophils 0.0 Absolute Basophils 0.0 Sodium Potassium Chloride Carbon Dioxide Anion Gap BUN Creatinine Est GFR ( Amer) Est GFR (Non-Af Amer) Glucose Lactic Acid 2.2 H Calcium Urine Color YELLOW Urine Appearance CLOUDY Urine pH 5.0 Ur Specific [place] 1.023 Urine Protein 30 H Urine Glucose (UA) >=500 H Urine Ketones NEGATIVE Urine Blood LARGE H Urine Nitrite NEGATIVE Ur Leukocyte Esterase NEGATIVE Urine WBC (Auto) 2 Urine RBC (Auto) 2 04/03/18 16:15 WBC RBC Hgb Hct MCV MCH MCHC RDW Plt Count Seg Neutrophils % Lymphocytes % Monocytes % Eosinophils % Basophils % Absolute Neutrophils Absolute Lymphocytes Absolute Monocytes Absolute Eosinophils Absolute Basophils Sodium 135.8 L Potassium 4.3 Chloride 105 Carbon Dioxide 24 Anion Gap 7 BUN 47 H Creatinine 1.92 H Est GFR ( Amer) 42 L Est GFR (Non-Af Amer) 35 L Glucose 399 H Lactic Acid Calcium 8.6 Urine Color Urine Appearance Urine pH Ur Specific [place] Urine Protein Urine Glucose (UA) Urine Ketones Urine Blood Urine Nitrite Ur Leukocyte Esterase Urine WBC (Auto) Urine RBC (Auto) 04/03/18 04/03/18 13:30 16:15 Troponin I 5.170 4.740 EKG Comments: Sinus tachycardia with right bundle branch block pattern but no acute ST-T wave changes are noted Impressions: Chest X-Ray 04/03/18 04:13 IMPRESSION: 1. Left basilar airspace opacity compatible with pneumonia. Continued radiographic follow-up to resolution recommended. Head CT 04/03/18 04:13 IMPRESSION: 1. No acute intracranial abnormality by CT criteria. This exam was performed according to our departmental dose-optimization program, which includes automated exposure control, adjustment of the mA and/or kV according to patient size and/or use of iterative reconstruction technique. Assessment & Plan - Diagnosis (1) NSTEMI (non-ST elevated myocardial infarction) Is this a current diagnosis for this admission?: Yes (2) Hypotension Qualifiers: Hypotension type: unspecified hypotension type Qualified Code(s): I95.9 - Hypotension, unspecified Is this a current diagnosis for this admission?: Yes (3) Severe sepsis Is this a current diagnosis for this admission?: Yes (4) Coronary artery disease Qualifiers: Coronary Disease-Associated Artery/Lesion type: [place] artery [place] vs. transplanted heart: [place] heart Associated angina: angina presence unspecified Qualified Code(s): I25.10 - Atherosclerotic heart disease of [place] coronary artery without angina pectoris Is this a current diagnosis for this admission?: Yes (5) Diabetes mellitus type 2 in nonobese Is this a current diagnosis for this admission?: Yes (6) Essential hypertension Is this a current diagnosis for this admission?: Yes (7) History of CVA (cerebrovascular accident) Is this a current diagnosis for this admission?: Yes (8) Pneumonia Qualifiers: Pneumonia type: due to unspecified organism Laterality: left Lung location: unspecified part of lung Qualified Code(s): J18.9 - Pneumonia, unspecified organism Is this a current diagnosis for this admission?: Yes (9) Septic shock Is this a current diagnosis for this admission?: Yes - Notes Notes: Non-STEMI: Troponin I elevation in the non-STEMI range. Patient however not able to complain of any chest pain because of underlying confusion and possible dementia. Patient does not have any ST-T wave changes. At this point would recommend anticoagulation with heparin or Lovenox for total of 96 hours. Patient would not be a candidate for aggressive intervention however will obtain a 2D echocardiogram, as this will help in managing the patient better. This has already been ordered by the hospitalist. Hypotension: Possibly related to combination of sepsis and dehydration. Patient getting volume infusion. Patient was briefly on Levophed drip which was turned off as blood pressure improved. Severe sepsis: Patient is noted to have pneumonia. Agree with broad-spectrum antibiotic therapy. Coronary artery disease: Recommend treatment with statins, aspirin, Plavix, heparin, institute LUCHO inhibitor and ARB. I am told by the nurse that patient not able to take anything p.o. therefore once blood pressure is stabilized may consider IV beta-kasia at low dose and IV LUCHO inhibitor at low-dose. Diabetes: Would recommend adequate control of blood sugar but avoid any hyper or hypoglycemia. History of CVA: Currently stable. Pneumonia: Continue with antibiotic therapy. Septic shock: Currently improved. Initial lactate level was elevated but only mildly so. - Time Time Spent: 30 to 50 Minutes - More than 50% of the time spent coordinating care , discussing management plans with involved caregivers. Management plans discussed with involved personnels. Medical decision making was of moderate to high complexity, patient's has multiple comorbidities. Medications reviewed and adjusted accordingly: Yes
--- NOTE | 2018-04-03 19:25 | EKG REPORT ---
SEVERITY:- ABNORMAL ECG - SINUS RHYTHM RIGHT BUNDLE BRANCH BLOCK : Confirmed by: Stanislav Joseph MD 03-Apr-2018 19:24:16
[2018-04-03] MEDS ORDERED: INSULIN GLARGINE,HUM.REC.ANLOG 1,000 UNIT/10 ML UNIT SUBCUT SCH (22:00)
[2018-04-03] MEDS: BUPROPION HCL 75 MG TABLET PO SCH (22:51)
[2018-04-04 03:43] LABS: ABSOLUTE LYMPHOCYTES (AUTO) 1.4 10^3/uL (0.5-4.7); ABSOLUTE MONOCYTES (AUTO) 0.8 10^3/uL (0.1-1.4); ABSOLUTE NEUT (AUTO) 11.1 10^3/uL (1.7-8.2); BASOPHILS % (AUTO) 0.4 % (0-2); EOSINOPHILS % (AUTO) 0.1 % (0-6); HEMATOCRIT 31.3 % (37.9-51.0); HEMOGLOBIN 10.5 g/dL (13.5-17.0); LYMPHOCYTES % (AUTO) 10.6 % (13-45); MEAN CORPUSCULAR HGB CONC 33.5 g/dL (32.0-36.0); MEAN CORPUSCULAR VOLUME 98 fl (80-97); PLATELET COUNT 214 10^3/uL (150-450); RED BLOOD COUNT 3.18 10^6/uL (4.35-5.55); RED CELL DISTRIBUTION WIDTH 13.8 % (11.5-14.0); SEGMENTED NEUTROPHILS % (AUTO) 82.9 % (42-78); TOTAL CELLS COUNTED % (AUTO) 100 %; WHITE BLOOD COUNT 13.3 10^3/uL (4.0-10.5)
[2018-04-04 03:46] LABS: APPEARANCE,URINE SLIGHTLY-CLOUDY; BILIRUBIN,URINE NEGATIVE (NEGATIVE); COLOR,URINE YELLOW; GLUCOSE, URINE >=500 mg/dL (NEGATIVE); KETONES,URINE NEGATIVE (NEGATIVE); LEUKOCYTE ESTERASE,URINE NEGATIVE (NEGATIVE); NITRITE,URINE NEGATIVE (NEGATIVE); PROTEIN,URINE 30 mg/dL (NEGATIVE); URIC ACID CRYSTALS,URINE RARE /HPF; URINE SPECIFIC GRAVITY 1.023; UROBILINOGEN,URINE NEGATIVE mg/dL (<2.0)
[2018-04-04 04:03] LABS: BLOOD UREA NITROGEN 44 mg/dL (7-20); CALCIUM 8.3 mg/dL (8.4-10.2); GLUCOSE 263 mg/dL (75-110)
[2018-04-04 04:18] LABS: CARBON DIOXIDE 23 mmol/L (22-30); CHLORIDE 108 mmol/L (98-107); POTASSIUM 3.9 mmol/L (3.6-5.0); SODIUM 138.3 mmol/L (137-145)
[2018-04-04 04:20] LABS: ANION GAP 7 (5-19)
[2018-04-04] MEDS: PIPERACILLIN SODIUM/TAZOBACTAM 3.375 GM in NORMAL SALINE 100 ML IV SCH ×3 (05:45→21:37)
--- NOTE | 2018-04-04 07:38 | EKG REPORT ---
SEVERITY:- ABNORMAL ECG - SINUS RHYTHM RIGHT BUNDLE BRANCH BLOCK DIFFUSE NONSPECIFIC ST-T CHANGES : Confirmed by: Stanislav Joseph MD 04-Apr-2018 07:37:59
[2018-04-04] MEDS ORDERED: VANCOMYCIN HCL 750 MG in DEXTROSE 5%-WATER 250 ML IV SCH (08:00)
--- NOTE | 2018-04-04 08:29 | RADIOLOGY REPORT (SQ) ---
EXAM DESCRIPTION: CHEST SINGLE VIEW COMPLETED DATE/TIME: 04/04/2018 6:16 am REASON FOR STUDY: pnuemonia COMPARISON: 04/03/2018 NUMBER OF VIEWS: One view. TECHNIQUE: Single frontal radiographic image of the chest acquired. LIMITATIONS: None. FINDINGS: LUNGS AND PLEURA: Persistent airspace disease left lower lobe not significantly changed. Patchy airspace disease in the right lower lung. No large effusions. MEDIASTINUM AND HEART: Stable heart size and mediastinal structures. BONY STRUCTURES: No acute findings. HARDWARE: None. OTHER: No other significant finding. IMPRESSION: Rehydration versus progressing bilateral pneumonia. TECHNICAL DOCUMENTATION: JOB ID: [id number] Reading location - IP/workstation name: [facility]
[2018-04-04] MEDS: ATORVASTATIN CALCIUM 80 MG TABLET PO SCH (11:34)
[2018-04-04] MEDS: BUPROPION HCL 75 MG TABLET PO SCH ×2 (11:35→21:37)
[2018-04-04] MEDS: FAMOTIDINE INJ/PF 20 MG/2 ML SDV IV SCH ×2 (11:38→21:37)
[2018-04-04] MEDS: NORMAL SALINE 1000 ML 1,000 ML IV PRN ×2 (14:13→21:41)
--- NOTE | 2018-04-04 15:57 | PDOC PROGRESS REPORT ---
Subjective Progress Note for:: 04/04/18 Subjective:: Mr. Marquis does not offer any significant complaints today stating he feels like he is breathing better. He has noted to be somewhat confused and has significant short and long-term memory deficits plus limiting the meaningful value of his historical input. Reason For Visit: PNEUMONIA,SEVERE SEPSIS Physical Exam Vital Signs: Temp Pulse Resp BP Pulse Ox 100.2 F 86 18 149/85 H 96 04/04/18 12:00 04/04/18 14:50 04/04/18 14:50 04/04/18 14:19 04/04/18 14:50 Intake & Output 04/03/18 04/04/18 04/05/18 06:59 06:59 06:59 Intake Total 2424 Output Total 1240 575 Balance 1184 -575 Weight 78.3 kg General appearance: PRESENT: no acute distress, cooperative, well-developed, well-nourished Head exam: PRESENT: atraumatic, normocephalic Eye exam: PRESENT: conjunctiva pink, EOMI. ABSENT: nystagmus, scleral icterus Ear exam: PRESENT: normal external ear exam. ABSENT: bleeding, drainage Mouth exam: PRESENT: moist, neck supple, tongue midline Neck exam: PRESENT: full ROM. ABSENT: tenderness, thyromegaly, tracheal deviation Respiratory exam: PRESENT: rales - Bibasilar posterior, wheezes - Bibasilar posterior. ABSENT: rhonchi, unlabored Cardiovascular exam: PRESENT: RRR. ABSENT: clicks, diastolic murmur, gallop, rubs, systolic murmur Pulses: PRESENT: normal radial pulses, +2 pedal pulses bilateral Vascular exam: PRESENT: normal capillary refill GI/Abdominal exam: PRESENT: normal bowel sounds, soft. ABSENT: distended, tenderness Extremities exam: ABSENT: clubbing Musculoskeletal exam: PRESENT: normal inspection. ABSENT: deformity, dislocation, tenderness Neurological exam: PRESENT: alert, oriented to person. ABSENT: oriented to place, oriented to time, oriented to situation, motor sensory deficit Psychiatric exam: PRESENT: appropriate affect, normal mood Skin exam: ABSENT: rash, urticaria Results Laboratory Results: 04/04/18 03:28 04/04/18 03:28 04/03/18 04/04/18 04/04/18 16:15 03:28 03:28 WBC 13.3 H RBC 3.18 L Hgb 10.5 L Hct 31.3 L MCV 98 H MCH 33.0 MCHC 33.5 RDW 13.8 Plt Count 214 Seg Neutrophils % 82.9 H Lymphocytes % 10.6 L Monocytes % 6.0 Eosinophils % 0.1 Basophils % 0.4 Absolute Neutrophils 11.1 H Absolute Lymphocytes 1.4 Absolute Monocytes 0.8 Absolute Eosinophils 0.0 Absolute Basophils 0.0 Sodium 135.8 L 138.3 Potassium 4.3 3.9 Chloride 105 108 H Carbon Dioxide 24 23 Anion Gap 7 7 BUN 47 H 44 H Creatinine 1.92 H 1.41 H Est GFR ( Amer) 42 L > 60 Est GFR (Non-Af Amer) 35 L 50 L Glucose 399 H 263 H Calcium 8.6 8.3 L Urine Color Urine Appearance Urine pH Ur Specific [place] Urine Protein Urine Glucose (UA) Urine Ketones Urine Blood Urine Nitrite Ur Leukocyte Esterase Urine WBC (Auto) Urine RBC (Auto) 04/04/18 03:28 WBC RBC Hgb Hct MCV MCH MCHC RDW Plt Count Seg Neutrophils % Lymphocytes % Monocytes % Eosinophils % Basophils % Absolute Neutrophils Absolute Lymphocytes Absolute Monocytes Absolute Eosinophils Absolute Basophils Sodium Potassium Chloride Carbon Dioxide Anion Gap BUN Creatinine Est GFR ( Amer) Est GFR (Non-Af Amer) Glucose Calcium Urine Color YELLOW Urine Appearance SLIGHTLY-CLOUDY Urine pH 5.0 Ur Specific [place] 1.023 Urine Protein 30 H Urine Glucose (UA) >=500 H Urine Ketones NEGATIVE Urine Blood LARGE H Urine Nitrite NEGATIVE Ur Leukocyte Esterase NEGATIVE Urine WBC (Auto) 1 Urine RBC (Auto) 2 04/03/18 04/03/18 04/03/18 13:30 16:15 20:11 Troponin I 5.170 4.740 3.710 Impressions: Head CT 04/03/18 04:13 IMPRESSION: 1. No acute intracranial abnormality by CT criteria. This exam was performed according to our departmental dose-optimization program, which includes automated exposure control, adjustment of the mA and/or kV according to patient size and/or use of iterative reconstruction technique. Chest X-Ray 04/04/18 06:00 IMPRESSION: Rehydration versus progressing bilateral pneumonia. Assessment & Plan - Diagnosis (1) Acute encephalopathy Is this a current diagnosis for this admission?: Yes Plan: Patient continues to be oriented to himself and is fairly well oriented to person however is not otherwise well oriented. He is able to respond concerning. However he has significant short and long-term memory deficits. Would appear that there is not been a significant change since his admission, perhaps there was more chronic encephalopathy present then was first thought. (2) NSTEMI (non-ST elevated myocardial infarction) Is this a current diagnosis for this admission?: Yes Plan: Continue supportive cares. All therapeutics and further investigations will be at the direction of cardiology. (3) Pneumonia Qualifiers: Pneumonia type: aspiration pneumonia Aspiration pneumonia type: unspecified Laterality: bilateral Lung location: lower lobe of lung Qualified Code(s): J69.0 - Pneumonitis due to inhalation of food and vomit Is this a current diagnosis for this admission?: Yes Plan: Continue current antibiotic therapy. He is now noted to be involving the right lower lobe as well as the left on chest x-ray. Blood cultures positive for gram -negative shoaib. Hypertension is been essentially resolved over the last 24 hours without pressors. Continue IV fluids, supplemental oxygen and supportive therapy. (4) Severe sepsis Is this a current diagnosis for this admission?: Yes Plan: Gram-negative shoaib identified on blood cultures. Continue current IV antibiotic therapy until culture and sensitivity is completed and therapy can be better focused. Continue supportive cares and blood pressure support as required for hypotension. Continue IV fluids.
--- NOTE | 2018-04-04 18:05 | XCELERA REPORT ---
[address] [address] Transthoracic Echocardiogram Report Name: STACI MCWILLIAMS Age: 67 yrs Gender: Male : 1950 Patient Status: Inpatient Patient Location: ICU^611^A Study Date: 04/04/2018 09:44 AM Height: 69 in Weight: 172 lb BSA: 1.9 m2 Procedure: A complete two-dimensional transthoracic echocardiogram was performed (2D, M-mode, spectral and color flow Doppler). The study was technically difficult with many images being suboptimal in quality. Reason For Study: NSTEMI Ordering Physician: KATRIN RUEDA Performed By: Syeda Moctezuma Interpretation Summary The left ventricular ejection fraction is normal. There is borderline concentric left ventricular hypertrophy. The left ventricle is grossly normal size. Doppler measurements suggest pseudonormalized left ventricular relaxation, which is associated with grade II/IV or mild to moderate diastolic dysfunction Regional wall motion abnormalities cannot be excluded due to limited visualization. Borderline right ventricular enlargement. The right ventricular systolic function is normal. The right atrium is mildly dilated. The left atrial size is normal. There is a trace amount of mitral regurgitation There is no mitral valve stenosis. No aortic regurgitation is present. There is no aortic valve stenosis There is a trace or physiologic amount of tricuspid regurgitation There is no tricuspid stenosis. The aortic root is not well visualized. The inferior vena cava appeared normal and decreased < 50% with respiration (RAP 10-15 mmHg) There is no pericardial effusion. MMode/2D Measurements & Calculations RVDd: 2.6 cm LVIDd: 5.2 cm FS: 37.9 % Ao root diam: 2.6 cm IVSd: 0.89 cm LVIDs: 3.2 cm EDV(Teich): 129.9 ml Ao root area: 5.2 cm2 LVPWd: 0.97 cm ESV(Teich): 42.1 ml LA dimension: 3.3 cm EF(Teich): 67.6 % Doppler Measurements & Calculations MV E max sariah: MV P1/2t max sariah: Ao V2 max: LV V1 max P.1 cm/sec 74.0 cm/sec 106.3 cm/sec 2.0 mmHg MV A max sariah: MV P1/2t: 66.3 msec Ao max P.5 mmHg LV V1 max: 86.4 cm/sec MVA(P1/2t): 3.3 cm2 71.1 cm/sec MV E/A: 0.83 MV dec slope: 327.1 cm/sec2 MV dec time: 0.22 sec PA V2 max: TR max sariah: MV P1/2t-pr_phl: 76.5 cm/sec 200.9 cm/sec 66.3 msec PA max PG: TR max P.1 mmHg 2.3 mmHg Left Ventricle The left ventricle is grossly normal size. There is borderline concentric left ventricular hypertrophy. The left ventricular ejection fraction is normal. Doppler measurements suggest pseudonormalized left ventricular relaxation, which is associated with grade II/IV or mild to moderate diastolic dysfunction. Regional wall motion abnormalities cannot be excluded due to limited visualization. Right Ventricle Borderline right ventricular enlargement. The right ventricular systolic function is normal. Atria The right atrium is mildly dilated. The left atrial size is normal. Interarterial septum not well visualized and not well dopplered. Cannot comment on ASD/PFO presence. Mitral Valve The mitral valve is grossly normal. There is no mitral valve stenosis. There is a trace amount of mitral regurgitation. Aortic Valve The aortic valve is not well visualized secondary to technical limitations. There is no aortic valve stenosis. No aortic regurgitation is present. Tricuspid Valve The tricuspid valve is not well visualized, but is grossly normal. There is no tricuspid stenosis. There is a trace or physiologic amount of tricuspid regurgitation. Pulmonic Valve The pulmonic valve is not well visualized. Great Vessels The aortic root is not well visualized. The inferior vena cava appeared normal and decreased < 50% with respiration (RAP 10-15 mmHg). Effusions There is no pericardial effusion. : KATRIN RUEDA > Janee Orosco
--- NOTE | 2018-04-04 19:33 | PDOC PROGRESS REPORT ---
Subjective Progress Note for:: 04/04/18 Subjective:: Patient seems to be doing somewhat better and is showing some improvement in general status. Patient is not noted to have any chest arm or neck discomfort. Patient not noted to have or describing any PND, orthopnea.. Patient not noted to have fever chills. Patient does not seem to be in any other significant discomfort. Patient is sinus rhythm with right bundle branch block pattern heart rate somewhat on the high side System review: No significant changes Medications reviewed. Reason For Visit: PNEUMONIA,SEVERE SEPSIS Physical Exam Vital Signs: Temp Pulse Resp BP Pulse Ox 100.2 F 93 26 H 152/69 H 92 04/04/18 16:00 04/04/18 16:00 04/04/18 18:19 04/04/18 18:19 04/04/18 18:19 Intake & Output 04/03/18 04/04/18 04/05/18 06:59 06:59 06:59 Intake Total 2424 Output Total 1240 885 Balance 1184 -885 Weight 78.3 kg Exam: GENERAL: well-nourished and in no acute distress. Patient is alert but noted to be intermittently confused. HEAD: Atraumatic, normocephalic. EYES: Pupils equal round and reactive to light, extraocular movements intact, sclera anicteric, conjunctiva are normal. ENT: TMs normal, nares patent, oropharynx clear without exudates. Moist mucous membranes. No oral ulcerations or bleeding gums noted NECK: supple without lymphadenopathy or JVD. Trachea is central. No cervical or axillary lymphadenopathy noted. Carotids are 2+ LUNGS: Breath sounds bibasilar fine crackles at bases. No significant dullness noted. CHEST: Palpation of chest wall shows no significant chest wall tenderness. 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 ABDOMEN: Soft, no significant tenderness appreciated, normoactive bowel sounds. No guarding, no rebound. No rigidity noted . No masses appreciated. EXTREMITIES: Pedal pulses are 1-2+, no calf tenderness noted, Trace + pedal edema noted. No clubbing or cyanosis. NEUROLOGICAL: Patient is alert, patient has been noted to be confused. Patient however noted to move all 4 extremities. PSYCH: Mood seems normal, judgment and insight not checked. SKIN: No significant ecchymosis, rash, ulcerations or signs of pruritus noted. MUSCULOSKELETAL EXAM: No significant joint swelling noted. Results Laboratory Results: 04/04/18 03:28 04/04/18 03:28 04/04/18 04/04/18 04/04/18 03:28 03:28 03:28 WBC 13.3 H RBC 3.18 L Hgb 10.5 L Hct 31.3 L MCV 98 H MCH 33.0 MCHC 33.5 RDW 13.8 Plt Count 214 Seg Neutrophils % 82.9 H Lymphocytes % 10.6 L Monocytes % 6.0 Eosinophils % 0.1 Basophils % 0.4 Absolute Neutrophils 11.1 H Absolute Lymphocytes 1.4 Absolute Monocytes 0.8 Absolute Eosinophils 0.0 Absolute Basophils 0.0 Sodium 138.3 Potassium 3.9 Chloride 108 H Carbon Dioxide 23 Anion Gap 7 BUN 44 H Creatinine 1.41 H Est GFR ( Amer) > 60 Est GFR (Non-Af Amer) 50 L Glucose 263 H Calcium 8.3 L Urine Color YELLOW Urine Appearance SLIGHTLY-CLOUDY Urine pH 5.0 Ur Specific Bradley 1.023 Urine Protein 30 H Urine Glucose (UA) >=500 H Urine Ketones NEGATIVE Urine Blood LARGE H Urine Nitrite NEGATIVE Ur Leukocyte Esterase NEGATIVE Urine WBC (Auto) 1 Urine RBC (Auto) 2 04/03/18 04/03/18 04/03/18 13:30 16:15 20:11 Troponin I 5.170 4.740 3.710 EKG Comments: EKG shows sinus rhythm with right bundle branch block pattern. No acute ST-T wave changes are noted. Impressions: Head CT 04/03/18 04:13 IMPRESSION: 1. No acute intracranial abnormality by CT criteria. This exam was performed according to our departmental dose-optimization program, which includes automated exposure control, adjustment of the mA and/or kV according to patient size and/or use of iterative reconstruction technique. Chest X-Ray 04/04/18 06:00 IMPRESSION: Rehydration versus progressing bilateral pneumonia. Assessment & Plan - Diagnosis (1) NSTEMI (non-ST elevated myocardial infarction) Is this a current diagnosis for this admission?: Yes (2) Hypotension Qualifiers: Hypotension type: unspecified hypotension type Qualified Code(s): I95.9 - Hypotension, unspecified Is this a current diagnosis for this admission?: Yes (3) Severe sepsis Is this a current diagnosis for this admission?: Yes (4) Coronary artery disease Qualifiers: Coronary Disease-Associated Artery/Lesion type: [place] artery [place] vs. transplanted heart: [place] heart Associated angina: angina presence unspecified Qualified Code(s): I25.10 - Atherosclerotic heart disease of [place] coronary artery without angina pectoris Is this a current diagnosis for this admission?: Yes (5) Diabetes mellitus type 2 in nonobese Is this a current diagnosis for this admission?: Yes (6) Essential hypertension Is this a current diagnosis for this admission?: Yes (7) History of CVA (cerebrovascular accident) Is this a current diagnosis for this admission?: Yes (8) Pneumonia Qualifiers: Pneumonia type: aspiration pneumonia Aspiration pneumonia type: unspecified Laterality: bilateral Lung location: lower lobe of lung Qualified Code(s): J69.0 - Pneumonitis due to inhalation of food and vomit Is this a current diagnosis for this admission?: Yes (9) Septic shock Is this a current diagnosis for this admission?: Yes - Notes Notes: Non-STEMI: Troponin I elevation in the non-STEMI range. Patient does not seem to be having any chest discomfort or any other significant discomfort today. Patient does not have any ST-T wave changes. At this point would recommend anticoagulation with heparin or Lovenox for total of 96 hours. Patient would not be a candidate for aggressive intervention. 2D echo shows normal LVEF, therefore patient is likely to do well. Hypotension: Possibly related to combination of sepsis and dehydration. Now resolved with blood pressure being normal. Will start beta-aksia therapy and LUCHO inhibitor therapy when able to take p.o. Severe sepsis: Patient is noted to have pneumonia. Agree with broad-spectrum antibiotic therapy. Coronary artery disease: Recommend treatment with statins, aspirin, Plavix, heparin, institute LUCHO inhibitor and ARB. I am told by the nurse that patient not able to take anything p.o. therefore once blood pressure is stabilized may consider IV beta-kasia at low dose and IV LUCHO inhibitor at low-dose. Diabetes: Would recommend adequate control of blood sugar but avoid any hyper or hypoglycemia. History of CVA: Currently stable. Pneumonia: Continue with antibiotic therapy. Septic shock: Currently improved. Initial lactate level was elevated but only mildly so. - Time Time with patient: Greater than 35 minutes - DNR, More than 50% of the time spent coordinating care, discussing management plans with involved caregivers. Management plans discussed with involved personnels. Medical decision making was of moderate to high complexity, patient's has multiple comorbidities.
[2018-04-04] MEDS: INSULIN GLARGINE,HUM.REC.ANLOG 1,000 UNIT/10 ML UNIT SUBCUT SCH (21:36)
[2018-04-04] MEDS: VANCOMYCIN HCL 750 MG in DEXTROSE 5%-WATER 250 ML IV SCH (21:37)
[2018-04-04] MEDS: HEPARIN SODIUM,PORCINE/D5W 25,000 UNIT/250 ML RTUINJ IV PRN (21:38)
[2018-04-04] MEDS ORDERED: METOPROLOL SUCCINATE 25 MG TAB.SR.24H PO SCH (22:00)
[2018-04-05] MEDS: PIPERACILLIN SODIUM/TAZOBACTAM 3.375 GM in NORMAL SALINE 100 ML IV SCH ×3 (09:48→21:22)
[2018-04-05] MEDS: ATORVASTATIN CALCIUM 80 MG TABLET PO SCH (11:15)
[2018-04-05] MEDS: FAMOTIDINE INJ/PF 20 MG/2 ML SDV IV SCH (11:15)
[2018-04-05] MEDS: BUPROPION HCL 75 MG TABLET PO SCH ×2 (11:15→21:23)
[2018-04-05] MEDS: VANCOMYCIN HCL 750 MG in DEXTROSE 5%-WATER 250 ML IV SCH ×2 (11:17→21:26)
[2018-04-05] MEDS ORDERED: ONDANSETRON 4 MG TAB.RAPDIS PO PRN (15:50)
--- NOTE | 2018-04-05 17:13 | PDOC PROGRESS REPORT ---
Subjective Progress Note for:: 04/05/18 Subjective:: STACI MCWILLIAMS is a 67 year old male who was brought via EMS from [facility] due to altered mental status and abnormal vitals. He was having nausea and vomiting at the nursing facility and developed altered mental status (poor responsiveness). In the ED he was found to have a fever and a lower lobe pneumonia-he was given 1 dose of vancomycin and Zosyn. He was also found to be hypotensive and hence Levophed was started requiring his admission to the ICU. When seen on 04/04 Mr. Mcwilliams did not offer any significant complaints stating he felt like he was breathing better, but he was noted to be somewhat confused and had significant short and long-term memory deficits thus limiting the meaningful value of his historical input. 04/05/18: The patient states, "I feel a lot better today. I can breath much better. I think I'm ready to go home." He denies pain in his chest or abdomen today and has noticed his breathing is much better and he has a good appetite with no dyspepsia, nausea or vomiting. Memory status was noted to be slightly improved. Reason For Visit: PNEUMONIA,SEVERE SEPSIS Physical Exam Vital Signs: Temp Pulse Resp BP Pulse Ox 98.8 F 82 22 H 162/96 H 93 04/05/18 16:00 04/05/18 16:00 04/05/18 16:00 04/05/18 16:00 04/05/18 16:00 Intake & Output 04/04/18 04/05/18 04/06/18 06:59 06:59 06:59 Intake Total 2424 1546 150 Output Total 1240 1960 950 Balance 1184 414 -800 Weight 78.3 kg 78.6 kg General appearance: PRESENT: no acute distress, cooperative Head exam: PRESENT: atraumatic, normocephalic Eye exam: PRESENT: conjunctiva pink. ABSENT: nystagmus, scleral icterus Ear exam: PRESENT: normal external ear exam. ABSENT: bleeding, drainage Mouth exam: PRESENT: neck supple, tongue midline Neck exam: PRESENT: full ROM. ABSENT: JVD, meningismus, tracheal deviation Respiratory exam: PRESENT: rales - bibasalar, unlabored. ABSENT: rhonchi, wheezes Cardiovascular exam: PRESENT: RRR. ABSENT: clicks, diastolic murmur, gallop, rubs, systolic murmur Pulses: PRESENT: normal radial pulses, normal dorsalis pedis pul Vascular exam: PRESENT: normal capillary refill. ABSENT: pallor GI/Abdominal exam: PRESENT: normal bowel sounds, soft. ABSENT: distended, tenderness Rectal exam: PRESENT: deferred Extremities exam: ABSENT: clubbing, joint swelling, pedal edema Musculoskeletal exam: PRESENT: full ROM, normal inspection. ABSENT: tenderness Neurological exam: PRESENT: alert, oriented to person, oriented to place, oriented to situation, CN II-XII grossly intact. ABSENT: oriented to time, motor sensory deficit Psychiatric exam: PRESENT: appropriate affect, normal mood Skin exam: ABSENT: jaundice, rash, urticaria Results Laboratory Results: 04/04/18 03:28 04/04/18 03:28 04/03/18 04/03/18 04/03/18 13:30 16:15 20:11 Troponin I 5.170 4.740 3.710 Impressions: Head CT 04/03/18 04:13 IMPRESSION: 1. No acute intracranial abnormality by CT criteria. This exam was performed according to our departmental dose-optimization program, which includes automated exposure control, adjustment of the mA and/or kV according to patient size and/or use of iterative reconstruction technique. Chest X-Ray 04/04/18 06:00 IMPRESSION: Rehydration versus progressing bilateral pneumonia. Assessment & Plan - Diagnosis (1) Acute encephalopathy Is this a current diagnosis for this admission?: Yes Plan: Improving status, continue treatment of underlying sepsis and observe mental status for improvement. (2) NSTEMI (non-ST elevated myocardial infarction) Is this a current diagnosis for this admission?: Yes Plan: Continue supportive cares. All therapeutics and further investigations will be at the direction of cardiology. (3) Pneumonia Qualifiers: Pneumonia type: aspiration pneumonia Aspiration pneumonia type: unspecified Laterality: bilateral Lung location: lower lobe of lung Qualified Code(s): J69.0 - Pneumonitis due to inhalation of food and vomit Is this a current diagnosis for this admission?: Yes Plan: Continue current antibiotic therapy with Vancomycin and Zosyn. Bilobar PNA on chest x-ray. Blood cultures positive for gram-negative shoaib identified as E. coli with sensitivity pending and a new gram positive cocci has bee identified. Hypotension has been essentially resolved over the last 48 hours without pressors. Out of ICU today, DC IV fluids, continue supplemental oxygen prn and supportive therapy. (4) Severe sepsis Is this a current diagnosis for this admission?: Yes Plan: Out of ICU Stable off pressors Continue current antibiotics IV until C&S results help to narrow therapy. - Time Time Spent with patient: 35 or more minutes Anticipated discharge: SNF
[2018-04-05] MEDS: LOPERAMIDE HCL 2 MG CAPSULE PO PRN (18:31)
[2018-04-05] MEDS: ACETAMINOPHEN 325 MG TABLET PO PRN (19:45)
[2018-04-05] MEDS: FAMOTIDINE 20 MG TABLET PO SCH (21:23)
[2018-04-05] MEDS: INSULIN GLARGINE,HUM.REC.ANLOG 1,000 UNIT/10 ML UNIT SUBCUT SCH (21:24)
[2018-04-06] MEDS: PIPERACILLIN SODIUM/TAZOBACTAM 3.375 GM in NORMAL SALINE 100 ML IV SCH ×3 (05:04→21:26)
[2018-04-06] MEDS: ACETAMINOPHEN 325 MG TABLET PO PRN ×3 (05:05→21:27)
[2018-04-06 05:12] LABS: HEMATOCRIT 31.8 % (37.9-51.0); HEMOGLOBIN 10.8 g/dL (13.5-17.0); MEAN CORPUSCULAR HEMOGLOBIN 32.7 pg (27.0-33.4); MEAN CORPUSCULAR HGB CONC 33.9 g/dL (32.0-36.0); MEAN CORPUSCULAR VOLUME 97 fl (80-97); PLATELET COUNT 188 10^3/uL (150-450); RED BLOOD COUNT 3.29 10^6/uL (4.35-5.55); RED CELL DISTRIBUTION WIDTH 13.2 % (11.5-14.0); WHITE BLOOD COUNT 8.2 10^3/uL (4.0-10.5)
[2018-04-06 05:21] LABS: APPEARANCE,URINE CLEAR; BILIRUBIN,URINE NEGATIVE (NEGATIVE); COLOR,URINE YELLOW; GLUCOSE, URINE 150 mg/dL (NEGATIVE); KETONES,URINE NEGATIVE (NEGATIVE); LEUKOCYTE ESTERASE,URINE NEGATIVE (NEGATIVE); NITRITE,URINE NEGATIVE (NEGATIVE); PROTEIN,URINE NEGATIVE (NEGATIVE); UROBILINOGEN,URINE NEGATIVE mg/dL (<2.0)
[2018-04-06] MEDS ORDERED: HEPARIN SOD (PORCINE) 1,000 UNIT/ML 10 ML VIAL ONE (05:49)
[2018-04-06] MEDS ORDERED: HEPARIN SOD (PORCINE) 1,000 UNIT/ML 10 ML VIAL IV PRN (06:30)
[2018-04-06] MEDS: ATORVASTATIN CALCIUM 80 MG TABLET PO SCH (09:28)
[2018-04-06] MEDS: FAMOTIDINE 20 MG TABLET PO SCH ×2 (09:28→21:27)
[2018-04-06] MEDS: BUPROPION HCL 75 MG TABLET PO SCH ×2 (09:30→21:31)
[2018-04-06] MEDS: VANCOMYCIN HCL 750 MG in DEXTROSE 5%-WATER 250 ML IV SCH (10:35)
[2018-04-06] MEDS: INSULIN REG, HUMAN 100 UNIT/ML 3 ML VIAL (PYX) SUBCUT PRN (12:54)
[2018-04-06] MEDS: HEPARIN SODIUM,PORCINE/D5W 25,000 UNIT/250 ML RTUINJ IV PRN (12:56)
[2018-04-06 13:09] LABS: VANCOMYCIN,TROUGH 8.7 ug/mL (5.0-20.0)
[2018-04-06] MEDS ORDERED: TRAMADOL HCL 50 MG TABLET PO PRN (14:24)
[2018-04-06] MEDS ORDERED: HYDRALAZINE HCL INJ/PF 20 MG/1 ML SDV ONE (18:52)
--- NOTE | 2018-04-06 20:15 | PDOC PROGRESS REPORT ---
Subjective Progress Note for:: 04/05/18 Subjective:: Patient seems to be doing somewhat better and is showing some improvement in general status. Patient is not noted to have any chest arm or neck discomfort. Patient not noted to have or describing any PND, orthopnea.. Patient not noted to have fever chills. Patient does not seem to be in any other significant discomfort. Patient is sinus rhythm with right bundle branch block pattern heart rate somewhat on the high side System review: No significant changes Medications reviewed. Reason For Visit: PNEUMONIA,SEVERE SEPSIS Physical Exam Vital Signs: Temp Pulse Resp BP Pulse Ox 98.5 F 85 18 163/148 H 96 04/05/18 22:00 04/05/18 20:00 04/05/18 23:00 04/05/18 21:20 04/05/18 23:00 Intake & Output 04/04/18 04/05/18 04/06/18 06:59 06:59 06:59 Intake Total 2424 1546 700 Output Total 1240 1960 1450 Balance 1184 414 750 Weight 78.3 kg 78.6 kg Exam: GENERAL: well-nourished and in no acute distress. Alert and oriented x 2, intermittent confusion noted by the nurses. HEAD: Atraumatic, normocephalic. EYES: Pupils equal round and reactive to light, extraocular movements intact, sclera anicteric, conjunctiva are normal. ENT: TMs normal, nares patent, oropharynx clear without exudates. Moist mucous membranes. No oral ulcerations or bleeding gums noted NECK: supple without lymphadenopathy. Trachea is central. No cervical or axillary lymphadenopathy noted. Carotids are 2+, JVD WNL LUNGS: Respiration seems nonlabored, no significant accessory muscle action noted. Bibasilar fine crackles are noted. No wheezes rales or rhonchi noted. No significant dullness noted on percussion. CHEST: Palpation of the chest wall shows no significant chest wall tenderness. 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 ABDOMEN: Soft, no significant tenderness appreciated, normoactive bowel sounds. No guarding, no rebound. No rigidity noted . No masses appreciated. EXTREMITIES: Pedal pulses are 1-2+, no calf tenderness noted. No clubbing or cyanosis. negative pedal edema noted NEUROLOGICAL: Focused neurological exam showed no significant neurologic deficit. Normal speech, no focal weakness appreciated. PSYCH: Normal mood, normal affect. Judgment and insight not checked SKIN: No significant ecchymosis, skin is noted to be warm. MUSCULOSKELETAL EXAM: No significant acute joint swelling noted. Results Laboratory Results: 04/04/18 03:28 04/04/18 03:28 04/03/18 04/03/18 04/03/18 13:30 16:15 20:11 Troponin I 5.170 4.740 3.710 EKG Comments: Sinus rhythm with bundle branch block. Impressions: Head CT 04/03/18 04:13 IMPRESSION: 1. No acute intracranial abnormality by CT criteria. This exam was performed according to our departmental dose-optimization program, which includes automated exposure control, adjustment of the mA and/or kV according to patient size and/or use of iterative reconstruction technique. Chest X-Ray 04/04/18 06:00 IMPRESSION: Rehydration versus progressing bilateral pneumonia. Assessment & Plan - Diagnosis (1) NSTEMI (non-ST elevated myocardial infarction) Is this a current diagnosis for this admission?: Yes (2) Hypotension Qualifiers: Hypotension type: unspecified hypotension type Qualified Code(s): I95.9 - Hypotension, unspecified Is this a current diagnosis for this admission?: Yes (3) Severe sepsis Is this a current diagnosis for this admission?: Yes (4) Coronary artery disease Qualifiers: Coronary Disease-Associated Artery/Lesion type: [place] artery [place] vs. transplanted heart: [place] heart Associated angina: angina presence unspecified Qualified Code(s): I25.10 - Atherosclerotic heart disease of [place] coronary artery without angina pectoris Is this a current diagnosis for this admission?: Yes (5) Diabetes mellitus type 2 in nonobese Is this a current diagnosis for this admission?: Yes (6) Essential hypertension Is this a current diagnosis for this admission?: Yes (7) History of CVA (cerebrovascular accident) Is this a current diagnosis for this admission?: Yes (8) Pneumonia Qualifiers: Pneumonia type: aspiration pneumonia Aspiration pneumonia type: unspecified Laterality: bilateral Lung location: lower lobe of lung Qualified Code(s): J69.0 - Pneumonitis due to inhalation of food and vomit Is this a current diagnosis for this admission?: Yes (9) Septic shock Is this a current diagnosis for this admission?: Yes - Notes Notes: Non-STEMI: Troponin I elevation in the non-STEMI range. Patient mental status has improved but has been intermittently confused. At this point would recommend continue anticoagulation with heparin or Lovenox for total of 72 - 96 hours. Patient would not be a candidate for aggressive intervention however 2D echo reviewed showed normal LVEF without any significant valvular abnormalities. Patient therefore felt likely to do well.. Hypotension: Possibly related to combination of sepsis and dehydration. This seems to have resolved. Severe sepsis: Patient is noted to have pneumonia. Agree with broad-spectrum antibiotic therapy. Coronary artery disease: Recommend treatment with statins, aspirin, Plavix, heparin, institute LUCHO inhibitor and ARB. Diabetes: Would recommend adequate control of blood sugar but avoid any hyper or hypoglycemia. History of CVA: Currently stable. Pneumonia: Continue with antibiotic therapy. Septic shock: Currently improved. Initial lactate level was elevated but only mildly so. - Time Time with patient: Greater than 35 minutes - CODE STATUS was discussed, patient remains full code. Surrogate decision-maker unchanged. Multiple medical problems were addressed. More than 50% of the time spent coordinating care, discussing management plans with involved caregivers. Management plans discussed with involved personnels. Medical decision making was of moderate to high complexity, patient's has multiple comorbidities. Medications reviewed and adjusted accordingly: Yes
--- NOTE | 2018-04-06 20:18 | PDOC PROGRESS REPORT ---
Subjective Progress Note for:: 04/06/18 Subjective:: Patient seems to be doing somewhat better and is showing improvement in general status. Patient wanting to go home. Patient is not noted to have any chest arm or neck discomfort. Patient not noted to have or describing any PND, orthopnea.. Patient not noted to have fever chills. Patient does not seem to be in any other significant discomfort. Patient is sinus rhythm with right bundle branch block pattern heart rate somewhat on the high side. System review: No significant changes Medications reviewed. Reason For Visit: PNEUMONIA,SEVERE SEPSIS Physical Exam Vital Signs: Temp Pulse Resp BP Pulse Ox 99.9 F 83 23 H 177/85 H 96 04/06/18 20:00 04/06/18 14:00 04/06/18 18:34 04/06/18 18:34 04/06/18 00:05 Intake & Output 04/05/18 04/06/18 04/07/18 06:59 06:59 06:59 Intake Total 1546 1301 898 Output Total 1960 3500 1000 Balance -414 -2199 -102 Weight 78.6 kg Exam: GENERAL: well-nourished and in no acute distress. Alert and oriented x 2 HEAD: Atraumatic, normocephalic. EYES: Pupils equal round and reactive to light, extraocular movements intact, sclera anicteric, conjunctiva are normal. ENT: TMs normal, nares patent, oropharynx clear without exudates. Moist mucous membranes. No oral ulcerations or bleeding gums noted NECK: supple without lymphadenopathy. Trachea is central. No cervical or axillary lymphadenopathy noted. Carotids are 2+, JVD WNL LUNGS: Respiration seems nonlabored, no significant accessory muscle action noted. Bibasilar fine crackles are noted. No wheezes rales or rhonchi noted. No significant dullness noted on percussion. CHEST: Palpation of the chest wall shows no significant chest wall tenderness. 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 ABDOMEN: Soft, no significant tenderness appreciated, normoactive bowel sounds. No guarding, no rebound. No rigidity noted . No masses appreciated. EXTREMITIES: Pedal pulses are 1-2+, no calf tenderness noted. No clubbing or cyanosis. negative pedal edema noted NEUROLOGICAL: Focused neurological exam showed no significant neurologic deficit. Normal speech, no focal weakness appreciated. PSYCH: Normal mood, normal affect. Judgment and insight not checked. SKIN: No significant ecchymosis, skin is noted to be warm. MUSCULOSKELETAL EXAM: No significant acute joint swelling noted. Results Laboratory Results: 04/06/18 04:55 04/04/18 03:28 04/06/18 04/06/18 04:55 04:55 WBC 8.2 RBC 3.29 L Hgb 10.8 L Hct 31.8 L MCV 97 MCH 32.7 MCHC 33.9 RDW 13.2 Plt Count 188 Urine Color YELLOW Urine Appearance CLEAR Urine pH 6.0 Ur Specific [place] 1.010 Urine Protein NEGATIVE Urine Glucose (UA) 150 H Urine Ketones NEGATIVE Urine Blood NEGATIVE Urine Nitrite NEGATIVE Ur Leukocyte Esterase NEGATIVE Urine WBC (Auto) 0 04/03/18 07:53 Blood Blood Culture - Final Staphylococcus Simulans 04/03/18 04/03/18 04/03/18 13:30 16:15 20:11 Troponin I 5.170 4.740 3.710 EKG Comments: Shows sinus rhythm without any sustained tachycardia or bradycardia. Impressions: Head CT 04/03/18 04:13 IMPRESSION: 1. No acute intracranial abnormality by CT criteria. This exam was performed according to our departmental dose-optimization program, which includes automated exposure control, adjustment of the mA and/or kV according to patient size and/or use of iterative reconstruction technique. Chest X-Ray 04/04/18 06:00 IMPRESSION: Rehydration versus progressing bilateral pneumonia. Assessment & Plan - Diagnosis (1) NSTEMI (non-ST elevated myocardial infarction) Is this a current diagnosis for this admission?: Yes (2) Hypotension Qualifiers: Hypotension type: unspecified hypotension type Qualified Code(s): I95.9 - Hypotension, unspecified Is this a current diagnosis for this admission?: Yes (3) Severe sepsis Is this a current diagnosis for this admission?: Yes (4) Coronary artery disease Qualifiers: Coronary Disease-Associated Artery/Lesion type: [place] artery [place] vs. transplanted heart: [place] heart Associated angina: angina presence unspecified Qualified Code(s): I25.10 - Atherosclerotic heart disease of [place] coronary artery without angina pectoris Is this a current diagnosis for this admission?: Yes (5) Diabetes mellitus type 2 in nonobese Is this a current diagnosis for this admission?: Yes (6) Essential hypertension Is this a current diagnosis for this admission?: Yes (7) History of CVA (cerebrovascular accident) Is this a current diagnosis for this admission?: Yes (8) Pneumonia Qualifiers: Pneumonia type: aspiration pneumonia Aspiration pneumonia type: unspecified Laterality: bilateral Lung location: lower lobe of lung Qualified Code(s): J69.0 - Pneumonitis due to inhalation of food and vomit Is this a current diagnosis for this admission?: Yes (9) Septic shock Is this a current diagnosis for this admission?: Yes - Notes Notes: Patient now allowed to take p.o. Therefore was started on statins. Will add beta-kasia therapy. Metoprolol succinate 25 mg p.o. every 12 was added. Non-STEMI: Troponin I elevation in the non-STEMI range. Patient mental status has improved but has been intermittently confused. Recommend continue anticoagulation with heparin or Lovenox for total of 72 - 96 hours. Patient would not be a candidate for aggressive intervention. 2D echo reviewed showed normal LVEF without any significant valvular abnormalities. Patient therefore felt likely to do well.. Hypotension: Possibly related to combination of sepsis and dehydration. This seems to have resolved. In fact patient today noted to have high blood pressure. Severe sepsis: Patient is noted to have pneumonia. Agree with broad-spectrum antibiotic therapy. Coronary artery disease: Recommend treatment with statins, aspirin, Plavix, heparin, institute LUCHO inhibitor and ARB. This will be gradually instituted. Diabetes: Would recommend adequate control of blood sugar but avoid any hyper or hypoglycemia. History of CVA: Currently stable. Pneumonia: Continue with antibiotic therapy. Septic shock: Currently resolved. Initial lactate level was elevated but only mildly so. - Time Time with patient: Greater than 35 minutes - CODE STATUS was discussed, patient remains full code. Surrogate decision-maker unchanged. Multiple medical problems were addressed. More than 50% of the time spent coordinating care, discussing management plans with involved caregivers. Management plans discussed with involved personnels. Medical decision making was of moderate to high complexity, patient's has multiple comorbidities. Medications reviewed and adjusted accordingly: Yes
[2018-04-06] MEDS: VANCOMYCIN HCL 1,250 MG in DEXTROSE 5%-WATER 250 ML IV SCH (21:28)
[2018-04-06] MEDS: INSULIN GLARGINE,HUM.REC.ANLOG 1,000 UNIT/10 ML UNIT SUBCUT SCH (21:28)
[2018-04-06] MEDS: METOPROLOL SUCCINATE 25 MG TAB.SR.24H PO SCH (21:31)
--- NOTE | 2018-04-07 00:23 | PDOC PROGRESS REPORT ---
Subjective Progress Note for:: 04/06/18 Subjective:: STACI MCWILLIAMS is a 67 year old male who was brought via EMS from [facility] due to altered mental status and abnormal vitals. He was having nausea and vomiting at the nursing facility and developed altered mental status (poor responsiveness). In the ED he was found to have a fever and a lower lobe pneumonia-he was given 1 dose of vancomycin and Zosyn. He was also found to be hypotensive and hence Levophed was started requiring his admission to the ICU. When seen on 04/04 Mr. Mcwilliams did not offer any significant complaints stating he felt like he was breathing better, but he was noted to be somewhat confused and had significant short and long-term memory deficits thus limiting the meaningful value of his historical input. 04/05/18: The patient states, "I feel a lot better today. I can breath much better. I think I'm ready to go home." He denies pain in his chest or abdomen today and has noticed his breathing is much better and he has a good appetite with no dyspepsia, nausea or vomiting. Memory status was noted to be slightly improved. 04/06/18: "I'm breathing good and I'm eating good so when do I get out of here." he denies pain, nausea, dyspnea, cough, and vomiting. He is still in the ICU as a bed availabilty problem has arisen. Reason For Visit: PNEUMONIA,SEVERE SEPSIS Physical Exam Vital Signs: Temp Pulse Resp BP Pulse Ox 99.9 F 91 21 H 161/68 H 96 04/06/18 23:45 04/06/18 20:00 04/06/18 23:00 04/06/18 22:16 04/06/18 23:00 Intake & Output 04/05/18 04/06/18 04/07/18 06:59 06:59 06:59 Intake Total 1546 1301 993 Output Total 7735 3970 1525 Balance -414 -2199 -532 Weight 78.6 kg General appearance: PRESENT: no acute distress, cooperative Head exam: PRESENT: atraumatic, normocephalic Eye exam: PRESENT: conjunctiva pink. ABSENT: scleral icterus Ear exam: PRESENT: normal external ear exam. ABSENT: drainage Mouth exam: PRESENT: neck supple, tongue midline Neck exam: ABSENT: JVD, tracheal deviation Respiratory exam: PRESENT: rales - coarse at both bases, symmetrical, unlabored Cardiovascular exam: PRESENT: RRR. ABSENT: clicks, diastolic murmur, gallop, rubs, systolic murmur Pulses: PRESENT: normal carotid pulses, normal radial pulses, normal dorsalis pedis pul Vascular exam: PRESENT: normal capillary refill, pallor GI/Abdominal exam: PRESENT: normal bowel sounds, soft. ABSENT: tenderness Extremities exam: ABSENT: joint swelling, pedal edema Musculoskeletal exam: PRESENT: full ROM, normal inspection Neurological exam: PRESENT: alert, awake, oriented to person, oriented to place , CN II-XII grossly intact. ABSENT: oriented to time, oriented to situation, motor sensory deficit Psychiatric exam: PRESENT: appropriate affect, normal mood Skin exam: ABSENT: jaundice, rash, urticaria Results Laboratory Results: 04/06/18 04:55 04/04/18 03:28 04/06/18 04/06/18 04:55 04:55 WBC 8.2 RBC 3.29 L Hgb 10.8 L Hct 31.8 L MCV 97 MCH 32.7 MCHC 33.9 RDW 13.2 Plt Count 188 Urine Color YELLOW Urine Appearance CLEAR Urine pH 6.0 Ur Specific [place] 1.010 Urine Protein NEGATIVE Urine Glucose (UA) 150 H Urine Ketones NEGATIVE Urine Blood NEGATIVE Urine Nitrite NEGATIVE Ur Leukocyte Esterase NEGATIVE Urine WBC (Auto) 0 04/03/18 07:53 Blood Blood Culture - Final Staphylococcus Simulans 04/03/18 04/03/18 04/03/18 13:30 16:15 20:11 Troponin I 5.170 4.740 3.710 Impressions: Head CT 04/03/18 04:13 IMPRESSION: 1. No acute intracranial abnormality by CT criteria. This exam was performed according to our departmental dose-optimization program, which includes automated exposure control, adjustment of the mA and/or kV according to patient size and/or use of iterative reconstruction technique. Chest X-Ray 04/04/18 06:00 IMPRESSION: Rehydration versus progressing bilateral pneumonia. Assessment & Plan - Diagnosis (1) Acute encephalopathy Is this a current diagnosis for this admission?: Yes Plan: Improving status, continue treatment of underlying sepsis and observe mental status for improvement. (2) NSTEMI (non-ST elevated myocardial infarction) Is this a current diagnosis for this admission?: Yes Plan: Continue supportive cares. All therapeutics and further investigations will be at the direction of cardiology. (3) Pneumonia Qualifiers: Pneumonia type: aspiration pneumonia Aspiration pneumonia type: unspecified Laterality: bilateral Lung location: lower lobe of lung Qualified Code(s): J69.0 - Pneumonitis due to inhalation of food and vomit Is this a current diagnosis for this admission?: Yes Plan: Continue current antibiotic therapy with Vancomycin and Zosyn. Bilobar PNA on chest x-ray. Blood cultures positive for gram-negative shoaib identified as E. coli with sensitivity pending and a new gram positive cocci has bee identified. Hypotension has been essentially resolved over the last 48 hours without pressors. Out of ICU when bed available, DC IV fluids, continue supplemental oxygen prn and supportive therapy. (4) Severe sepsis Is this a current diagnosis for this admission?: Yes Plan: Out of ICU Stable off pressors Continue current antibiotics IV until C&S results help to narrow therapy. - Time Time Spent with patient: 35 or more minutes Anticipated discharge: SNF
[2018-04-07] MEDS: HYDRALAZINE HCL INJ/PF 20 MG/1 ML SDV IV PRN ×2 (05:12→23:36)
[2018-04-07] MEDS: PIPERACILLIN SODIUM/TAZOBACTAM 3.375 GM in NORMAL SALINE 100 ML IV SCH (05:40)
[2018-04-07] MEDS: BUPROPION HCL 75 MG TABLET PO SCH ×2 (10:36→21:28)
[2018-04-07] MEDS: ATORVASTATIN CALCIUM 80 MG TABLET PO SCH (10:36)
[2018-04-07] MEDS: FAMOTIDINE 20 MG TABLET PO SCH ×2 (10:36→21:25)
[2018-04-07] MEDS: METOPROLOL SUCCINATE 25 MG TAB.SR.24H PO SCH ×2 (10:36→21:26)
[2018-04-07] MEDS: VANCOMYCIN HCL 1,250 MG in DEXTROSE 5%-WATER 250 ML IV SCH (10:36)
[2018-04-07] MEDS: INSULIN REG, HUMAN 100 UNIT/ML 3 ML VIAL (PYX) SUBCUT PRN (14:08)
--- NOTE | 2018-04-07 14:14 | PDOC PROGRESS REPORT ---
Subjective Progress Note for:: 04/07/18 Subjective:: STACI MCWILLIAMS is a 67 year old male who was brought via EMS from [facility] due to altered mental status and abnormal vitals. He was having nausea and vomiting at the nursing facility and developed altered mental status (poor responsiveness). In the ED he was found to have a fever and a lower lobe pneumonia-he was given 1 dose of vancomycin and Zosyn. He was also found to be hypotensive and hence Levophed was started requiring his admission to the ICU. When seen on 04/04 Mr. Mcwilliams did not offer any significant complaints stating he felt like he was breathing better, but he was noted to be somewhat confused and had significant short and long-term memory deficits thus limiting the meaningful value of his historical input. 04/05/18: The patient states, "I feel a lot better today. I can breath much better. I think I'm ready to go home." He denies pain in his chest or abdomen today and has noticed his breathing is much better and he has a good appetite with no dyspepsia, nausea or vomiting. Memory status was noted to be slightly improved. 04/06/18: "I'm breathing good and I'm eating good so when do I get out of here." he denies pain, nausea, dyspnea, cough, and vomiting. He is still in the ICU as a bed availabilty problem has arisen. 04/07/18: "I think I am doing a lot better than when I came in here. I want to know if when I leave here if I can go home?" No N or V, no cough or dyspnea, E. coli in blood culture is broadly sensitive such that oral antibiotics should suffice for therapy. PT consult and Political Science Research Assistant consult will be obtained per my discussion with Staci today. Reason For Visit: PNEUMONIA,SEVERE SEPSIS Physical Exam Vital Signs: Temp Pulse Resp BP Pulse Ox 99.6 F 83 18 146/60 H 95 04/07/18 07:46 04/07/18 07:46 04/07/18 07:46 04/07/18 07:46 04/07/18 07:46 Intake & Output 04/06/18 04/07/18 04/08/18 06:59 06:59 06:59 Intake Total 1301 1643 222 Output Total 3500 1950 300 Balance -2199 -307 -78 Weight 78.6 kg Results Laboratory Results: 04/06/18 04:55 04/04/18 03:28 04/03/18 07:53 Blood Blood Culture - Final Staphylococcus Simulans 04/03/18 04/03/18 04/03/18 13:30 16:15 20:11 Troponin I 5.170 4.740 3.710 Impressions: Head CT 04/03/18 04:13 IMPRESSION: 1. No acute intracranial abnormality by CT criteria. This exam was performed according to our departmental dose-optimization program, which includes automated exposure control, adjustment of the mA and/or kV according to patient size and/or use of iterative reconstruction technique. Chest X-Ray 04/04/18 06:00 IMPRESSION: Rehydration versus progressing bilateral pneumonia. Assessment & Plan - Diagnosis (1) Acute encephalopathy Is this a current diagnosis for this admission?: Yes Plan: Improving mental status. Re-evaluate for disposition. PT to increase activity. (2) NSTEMI (non-ST elevated myocardial infarction) Is this a current diagnosis for this admission?: Yes Plan: Continue supportive cares. Stop heparin and start ASA + Brilinta. (3) Pneumonia Qualifiers: Pneumonia type: aspiration pneumonia Aspiration pneumonia type: unspecified Laterality: bilateral Lung location: lower lobe of lung Qualified Code(s): J69.0 - Pneumonitis due to inhalation of food and vomit Is this a current diagnosis for this admission?: Yes Plan: Convert to oral antibiotics today. Consider discharge in 1-2 days based on activity tolerance and family considerations for placement (4) Severe sepsis Is this a current diagnosis for this admission?: Yes Plan: Convert to oral antibiotics and observe for adverse changes over next 12-24 hours. - Time Time Spent with patient: 35 or more minutes Medications reviewed and adjusted accordingly: Yes - oral antibiotics, stop heparin drip and start ASA + Brilinta Anticipated discharge: Home Within: within 72 hours
[2018-04-07] MEDS ORDERED: TICAGRELOR 90 MG TABLET PO ONE (16:00)
[2018-04-07] MEDS: ASPIRIN 81 MG TABLET, ENT COATED PO SCH (16:11)
[2018-04-07] MEDS: CEPHALEXIN 500 MG CAPSULE PO SCH ×2 (17:45→23:36)
[2018-04-07] MEDS: INSULIN GLARGINE,HUM.REC.ANLOG 1,000 UNIT/10 ML UNIT SUBCUT SCH (21:24)
[2018-04-07] MEDS: TICAGRELOR 90 MG TABLET PO SCH (21:25)
[2018-04-07] MEDS: LOPERAMIDE HCL 2 MG CAPSULE PO PRN (21:53)
[2018-04-08] MEDS: TRAMADOL HCL 50 MG TABLET PO PRN (02:41)
[2018-04-08] MEDS: CEPHALEXIN 500 MG CAPSULE PO SCH ×3 (06:19→18:36)
[2018-04-08] MEDS: BUPROPION HCL 75 MG TABLET PO SCH ×2 (10:22→22:38)
[2018-04-08] MEDS: FAMOTIDINE 20 MG TABLET PO SCH ×2 (10:22→22:38)
[2018-04-08] MEDS: TICAGRELOR 90 MG TABLET PO SCH ×2 (10:22→22:38)
[2018-04-08] MEDS: METOPROLOL SUCCINATE 25 MG TAB.SR.24H PO SCH ×2 (10:22→22:38)
[2018-04-08] MEDS: ASPIRIN 81 MG TABLET, ENT COATED PO SCH (10:22)
[2018-04-08] MEDS: ATORVASTATIN CALCIUM 80 MG TABLET PO SCH (10:22)
[2018-04-08] MEDS: HYDRALAZINE HCL INJ/PF 20 MG/1 ML SDV IV PRN (18:36)
--- NOTE | 2018-04-08 20:15 | PDOC PROGRESS REPORT ---
Subjective Progress Note for:: 04/08/18 Subjective:: STACI MCWILLIAMS is a 67 year old male who was brought via EMS from [facility] due to altered mental status and abnormal vitals. He was having nausea and vomiting at the nursing facility and developed altered mental status (poor responsiveness). In the ED he was found to have a fever and a lower lobe pneumonia-he was given 1 dose of vancomycin and Zosyn. He was also found to be hypotensive and hence Levophed was started requiring his admission to the ICU. When seen on 04/04 Mr. Mcwilliams did not offer any significant complaints stating he felt like he was breathing better, but he was noted to be somewhat confused and had significant short and long-term memory deficits thus limiting the meaningful value of his historical input. 04/05/18: The patient states, "I feel a lot better today. I can breath much better. I think I'm ready to go home." He denies pain in his chest or abdomen today and has noticed his breathing is much better and he has a good appetite with no dyspepsia, nausea or vomiting. Memory status was noted to be slightly improved. 04/06/18: "I'm breathing good and I'm eating good so when do I get out of here." he denies pain, nausea, dyspnea, cough, and vomiting. He is still in the ICU as a bed availabilty problem has arisen. 04/07/18: "I think I am doing a lot better than when I came in here. I want to know if when I leave here if I can go home?" No N or V, no cough or dyspnea, E. coli in blood culture is broadly sensitive such that oral antibiotics should suffice for therapy. PT consult and Assistant Merchandiser consult will be obtained per my discussion with Staci today. 04/08/18: Staci is doing well today to him to get up and walk a little bit more that he is found that he enjoys getting out of bed. He bemoans the fact the nurses will let him walk all the time. She will have some short-term memory deficits and occasional episodes of confusion which preclude letting him walk on his own. substance abuse services director consult will be obtained on Monday so that we can determine the most appropriate place for Staci to be discharged within the next day or 2. He again denies chest pain, abdominal pain, dyspnea, dyspepsia, nausea and vomiting. He admits to an increased appetite. Reason For Visit: PNEUMONIA,SEVERE SEPSIS Physical Exam Vital Signs: Temp Pulse Resp BP Pulse Ox 98.5 F 77 20 179/72 H 93 04/08/18 15:49 04/08/18 15:49 04/08/18 15:49 04/08/18 15:49 04/08/18 15:49 Intake & Output 04/07/18 04/08/18 04/09/18 06:59 06:59 06:59 Intake Total 1643 1239 300 Output Total 1950 2400 725 Balance -307 -9770 -607 Weight 78.6 kg 79.7 kg General appearance: PRESENT: no acute distress, cooperative Head exam: PRESENT: atraumatic, normocephalic Eye exam: PRESENT: conjunctiva pink. ABSENT: conjunctival injection Ear exam: PRESENT: normal external ear exam. ABSENT: drainage Mouth exam: PRESENT: moist, neck supple Neck exam: ABSENT: thyromegaly, tracheal deviation Respiratory exam: PRESENT: clear to auscultation hunter, symmetrical, unlabored Cardiovascular exam: ABSENT: clicks, gallop, RRR, rubs Vascular exam: PRESENT: normal capillary refill. ABSENT: pallor GI/Abdominal exam: PRESENT: normal bowel sounds, soft. ABSENT: distended, tenderness Extremities exam: ABSENT: joint swelling, pedal edema Musculoskeletal exam: PRESENT: full ROM, normal inspection Neurological exam: PRESENT: alert, awake, oriented to person, oriented to place , CN II-XII grossly intact. ABSENT: oriented to time, oriented to situation, motor sensory deficit Psychiatric exam: PRESENT: appropriate affect, normal mood Skin exam: ABSENT: jaundice, rash, vesicles Results Laboratory Results: 04/06/18 04:55 04/04/18 03:28 04/03/18 04/03/18 04/03/18 13:30 16:15 20:11 Troponin I 5.170 4.740 3.710 Impressions: Head CT 04/03/18 04:13 IMPRESSION: 1. No acute intracranial abnormality by CT criteria. This exam was performed according to our departmental dose-optimization program, which includes automated exposure control, adjustment of the mA and/or kV according to patient size and/or use of iterative reconstruction technique. Chest X-Ray 04/04/18 06:00 IMPRESSION: Rehydration versus progressing bilateral pneumonia. Assessment & Plan - Diagnosis (1) Acute encephalopathy Is this a current diagnosis for this admission?: Yes Plan: Improving mental status with uncertain baseline for target. Re-evaluate for disposition. PT to increase activity. (2) NSTEMI (non-ST elevated myocardial infarction) Is this a current diagnosis for this admission?: Yes Plan: Continue supportive cares. Continue ASA + Brilinta. (3) Pneumonia Qualifiers: Pneumonia type: aspiration pneumonia Aspiration pneumonia type: unspecified Laterality: bilateral Lung location: lower lobe of lung Qualified Code(s): J69.0 - Pneumonitis due to inhalation of food and vomit Is this a current diagnosis for this admission?: Yes Plan: Continue oral antibiotics. Consider discharge in 1-2 days based on activity tolerance and family considerations for placement (4) Severe sepsis Is this a current diagnosis for this admission?: Yes Plan: Continue oral antibiotics and observe for adverse changes. - Time Time Spent with patient: 25-34 minutes Medications reviewed and adjusted accordingly: Yes
[2018-04-08] MEDS: INSULIN GLARGINE,HUM.REC.ANLOG 1,000 UNIT/10 ML UNIT SUBCUT SCH (22:38)
[2018-04-09] MEDS: CEPHALEXIN 500 MG CAPSULE PO SCH ×5 (00:46→23:45)
[2018-04-09 06:50] LABS: HEMATOCRIT 32.9 % (37.9-51.0); HEMOGLOBIN 11.1 g/dL (13.5-17.0); MEAN CORPUSCULAR HEMOGLOBIN 32.8 pg (27.0-33.4); MEAN CORPUSCULAR HGB CONC 33.8 g/dL (32.0-36.0); MEAN CORPUSCULAR VOLUME 97 fl (80-97); PLATELET COUNT 179 10^3/uL (150-450); RED BLOOD COUNT 3.39 10^6/uL (4.35-5.55); RED CELL DISTRIBUTION WIDTH 13.8 % (11.5-14.0); WHITE BLOOD COUNT 6.5 10^3/uL (4.0-10.5)
[2018-04-09 09:29] LABS: ALANINE AMINOTRANSFERASE 34 U/L (21-72); ALBUMIN 2.2 g/dL (3.5-5.0); ALKALINE PHOSPHATASE 76 U/L (38-126); ANION GAP 7 (5-19); ASPARTATE AMINO TRANSFERASE 21 U/L (17-59); BILIRUBIN,DIRECT 0.3 mg/dL (0.0-0.4); BILIRUBIN,TOTAL 0.6 mg/dL (0.2-1.3); BLOOD UREA NITROGEN 17 mg/dL (7-20); CALCIUM 9.2 mg/dL (8.4-10.2); CARBON DIOXIDE 25 mmol/L (22-30); CHLORIDE 105 mmol/L (98-107); GLUCOSE 102 mg/dL (75-110); SODIUM 136.6 mmol/L (137-145)
[2018-04-09] MEDS: ATORVASTATIN CALCIUM 80 MG TABLET PO SCH (10:14)
[2018-04-09] MEDS: METOPROLOL SUCCINATE 50 MG TAB.SR.24H PO SCH (10:14)
[2018-04-09] MEDS: HYDRALAZINE HCL INJ/PF 20 MG/1 ML SDV IV PRN ×2 (10:14→23:47)
[2018-04-09] MEDS: BUPROPION HCL 75 MG TABLET PO SCH ×2 (10:14→21:49)
[2018-04-09] MEDS: FAMOTIDINE 20 MG TABLET PO SCH ×2 (10:14→21:49)
[2018-04-09] MEDS: ASPIRIN 81 MG TABLET, ENT COATED PO SCH (10:14)
[2018-04-09] MEDS: TICAGRELOR 90 MG TABLET PO SCH ×2 (10:15→21:51)
[2018-04-09] MEDS: POTASSIUM CHLORIDE 10 MEQ CAPSULE.ER PO SCH ×3 (12:58→21:49)
--- NOTE | 2018-04-09 17:16 | PDOC PROGRESS REPORT ---
Subjective Progress Note for:: 04/09/18 Subjective:: STACI MCWILLIAMS is a 67 year old male who was brought via EMS from [facility] due to altered mental status and abnormal vitals. He was having nausea and vomiting at the nursing facility and developed altered mental status (poor responsiveness). In the ED he was found to have a fever and a lower lobe pneumonia-he was given 1 dose of vancomycin and Zosyn. He was also found to be hypotensive and hence Levophed was started requiring his admission to the ICU. When seen on 04/04 Mr. Mcwilliams did not offer any significant complaints stating he felt like he was breathing better, but he was noted to be somewhat confused and had significant short and long-term memory deficits thus limiting the meaningful value of his historical input. 04/05/18: The patient states, "I feel a lot better today. I can breath much better. I think I'm ready to go home." He denies pain in his chest or abdomen today and has noticed his breathing is much better and he has a good appetite with no dyspepsia, nausea or vomiting. Memory status was noted to be slightly improved. 04/06/18: "I'm breathing good and I'm eating good so when do I get out of here." he denies pain, nausea, dyspnea, cough, and vomiting. He is still in the ICU as a bed availabilty problem has arisen. 04/07/18: "I think I am doing a lot better than when I came in here. I want to know if when I leave here if I can go home?" No N or V, no cough or dyspnea, E. coli in blood culture is broadly sensitive such that oral antibiotics should suffice for therapy. PT consult and Ward Service Supervisor consult will be obtained per my discussion with Staci today. 04/08/18: Staci is doing well today to him to get up and walk a little bit more that he is found that he enjoys getting out of bed. He bemoans the fact the nurses will let him walk all the time. She will have some short-term memory deficits and occasional episodes of confusion which preclude letting him walk on his own. tax services manager consult will be obtained on Monday so that we can determine the most appropriate place for Staci to be discharged within the next day or 2. He again denies chest pain, abdominal pain, dyspnea, dyspepsia, nausea and vomiting. He admits to an increased appetite. 04/09/18: Staci continues to do well he has been up and taking a few steps with PT though he continues to complain that the nursing staff will not let him walk more often. He is a little more reserved today and less outgoing in his chatting and discussion. Informed that I have asked social media project manager to reevaluate him for possible return home if that is agreeable with both he and his family. He once more states that he has not been having any chest pain, dyspnea, diaphoresis, nausea, vomiting or diarrhea. He was placed when I asked the nurse if he would be able to possibly at least sit on the edge of the bed and stand up using a walker with the nurses helping him and perhaps even taking 1 or 2 steps around the bed and then sitting back down and she agreed to make an effort at getting this done. Reason For Visit: PNEUMONIA,SEVERE SEPSIS Physical Exam Vital Signs: Temp Pulse Resp BP Pulse Ox 98.2 F 69 16 144/57 H 94 04/09/18 15:19 04/09/18 15:19 04/09/18 15:19 04/09/18 15:19 04/09/18 15:19 Intake & Output 04/08/18 04/09/18 04/10/18 06:59 06:59 06:59 Intake Total 1239 400 322 Output Total 2400 1075 400 Balance -1161 -675 -78 Weight 79.7 kg 76.6 kg General appearance: PRESENT: no acute distress, cooperative Head exam: PRESENT: atraumatic, normocephalic Eye exam: PRESENT: conjunctiva pink. ABSENT: conjunctival injection Ear exam: PRESENT: normal external ear exam. ABSENT: drainage Mouth exam: PRESENT: moist, neck supple Neck exam: ABSENT: thyromegaly, tracheal deviation Respiratory exam: PRESENT: clear to auscultation hunter, symmetrical, unlabored Cardiovascular exam: PRESENT: RRR. ABSENT: clicks, gallop, rubs Vascular exam: PRESENT: normal capillary refill. ABSENT: pallor GI/Abdominal exam: PRESENT: normal bowel sounds, soft Extremities exam: ABSENT: clubbing, joint swelling Musculoskeletal exam: ABSENT: deformity, dislocation Neurological exam: PRESENT: alert, awake, oriented to person, oriented to place , oriented to time, oriented to situation, CN II-XII grossly intact, motor sensory deficit Psychiatric exam: PRESENT: appropriate affect, sharmin - Staci appears to have a slightly depressed mood today. Skin exam: ABSENT: jaundice, rash, urticaria Results Laboratory Results: 04/09/18 06:03 04/09/18 06:03 04/09/18 04/09/18 06:03 06:03 WBC 6.5 RBC 3.39 L Hgb 11.1 L Hct 32.9 L MCV 97 MCH 32.8 MCHC 33.8 RDW 13.8 Plt Count 179 Sodium 136.6 L Potassium 3.0 L* Chloride 105 Carbon Dioxide 25 Anion Gap 7 BUN 17 Creatinine 0.81 Est GFR ( Amer) > 60 Est GFR (Non-Af Amer) > 60 Glucose 102 Calcium 9.2 Total Bilirubin 0.6 AST 21 ALT 34 Alkaline Phosphatase 76 Total Protein 5.0 L Albumin 2.2 L 04/03/18 04/03/18 04/03/18 13:30 16:15 20:11 Troponin I 5.170 4.740 3.710 Impressions: Head CT 04/03/18 04:13 IMPRESSION: 1. No acute intracranial abnormality by CT criteria. This exam was performed according to our departmental dose-optimization program, which includes automated exposure control, adjustment of the mA and/or kV according to patient size and/or use of iterative reconstruction technique. Chest X-Ray 04/04/18 06:00 IMPRESSION: Rehydration versus progressing bilateral pneumonia. Assessment & Plan - Diagnosis (1) Acute encephalopathy Is this a current diagnosis for this admission?: Yes Plan: Improved and stable mental status with uncertain baseline for target. Re- evaluate for disposition. PT to increase activity. (2) NSTEMI (non-ST elevated myocardial infarction) Is this a current diagnosis for this admission?: Yes Plan: Continue supportive cares. Continue ASA + Brilinta. (3) Pneumonia Qualifiers: Pneumonia type: aspiration pneumonia Aspiration pneumonia type: unspecified Laterality: bilateral Lung location: lower lobe of lung Qualified Code(s): J69.0 - Pneumonitis due to inhalation of food and vomit Is this a current diagnosis for this admission?: Yes Plan: Continue oral antibiotics for treatment of his sepsis, which will also serve as treatment for his pneumonia. Patient is showing no signs of respiratory distress and is chest exam shows good resolution of the pneumonia on a clinical basis. Follow-up radiograph should be obtained in 3-6 weeks. (4) Severe sepsis Is this a current diagnosis for this admission?: Yes Plan: Continue oral antibiotics for at least another 8 days and observe for adverse changes. - Time Time Spent with patient: 25-34 minutes Medications reviewed and adjusted accordingly: Yes
[2018-04-09] MEDS: TRAMADOL HCL 50 MG TABLET PO PRN (19:37)
[2018-04-09] MEDS: INSULIN GLARGINE,HUM.REC.ANLOG 1,000 UNIT/10 ML UNIT SUBCUT SCH (21:51)
--- NOTE | 2018-04-09 23:03 | EKG REPORT ---
SEVERITY:- ABNORMAL ECG - SINUS RHYTHM RIGHT BUNDLE BRANCH BLOCK : Confirmed by: Janee Orosco 09-Apr-2018 23:02:16
[2018-04-10] MEDS: CEPHALEXIN 500 MG CAPSULE PO SCH (06:00)
[2018-04-10] MEDS: BUPROPION HCL 75 MG TABLET PO SCH ×2 (10:04→22:48)
[2018-04-10] MEDS: TICAGRELOR 90 MG TABLET PO SCH ×2 (10:05→22:48)
[2018-04-10] MEDS: ATORVASTATIN CALCIUM 80 MG TABLET PO SCH (10:05)
[2018-04-10] MEDS: METOPROLOL SUCCINATE 50 MG TAB.SR.24H PO SCH (10:05)
[2018-04-10] MEDS: ASPIRIN 81 MG TABLET, ENT COATED PO SCH (10:05)
[2018-04-10] MEDS: FAMOTIDINE 20 MG TABLET PO SCH ×2 (10:05→22:47)
[2018-04-10] MEDS: INSULIN REG, HUMAN 100 UNIT/ML 3 ML VIAL (PYX) SUBCUT PRN (17:26)
[2018-04-10] MEDS ORDERED: POTASSIUM CHLORIDE 10 MEQ CAPSULE.ER PO ONE ×2 (17:45→23:09)
--- NOTE | 2018-04-10 17:45 | PDOC PROGRESS REPORT ---
Subjective Progress Note for:: 04/10/18 Subjective:: This is 67 years old male patient with multiple comorbidities including hypertension, hyperlipidemia history of CVA with residual left-sided weakness, coronary artery disease and medical noncompliance brought by EMS from [facility] for altered mental status. His initial workup revealed lactic acidosis, leukopenia and acute kidney injury. His altered mental status is possibly due to acute metabolic encephalopathy with severe sepsis. Reason For Visit: PNEUMONIA,SEVERE SEPSIS Physical Exam Vital Signs: Temp Pulse Resp BP Pulse Ox 98.3 F 62 20 147/58 H 98 04/10/18 15:28 04/10/18 15:28 04/10/18 15:28 04/10/18 15:28 04/10/18 15:28 Intake & Output 04/09/18 04/10/18 04/11/18 06:59 06:59 06:59 Intake Total 400 744 459 Output Total 1075 1075 75 Balance -675 -331 384 Weight 76.6 kg 76.2 kg General appearance: PRESENT: no acute distress Mouth exam: PRESENT: moist Neck exam: ABSENT: carotid bruit, JVD, lymphadenopathy, thyromegaly Cardiovascular exam: PRESENT: RRR. ABSENT: diastolic murmur, rubs, systolic murmur GI/Abdominal exam: PRESENT: normal bowel sounds, soft. ABSENT: distended, guarding, mass, organolmegaly, rebound, tenderness Neurological exam: PRESENT: alert, altered Results Laboratory Results: 04/09/18 06:03 04/09/18 06:03 04/03/18 04/03/18 04/03/18 13:30 16:15 20:11 Troponin I 5.170 4.740 3.710 Impressions: Head CT 04/03/18 04:13 IMPRESSION: 1. No acute intracranial abnormality by CT criteria. This exam was performed according to our departmental dose-optimization program, which includes automated exposure control, adjustment of the mA and/or kV according to patient size and/or use of iterative reconstruction technique. Chest X-Ray 04/04/18 06:00 IMPRESSION: Rehydration versus progressing bilateral pneumonia. Assessment & Plan - Diagnosis (1) Acute metabolic encephalopathy Is this a current diagnosis for this admission?: Yes Plan: Most probably due to sepsis. Continue current regimen (2) Severe sepsis Is this a current diagnosis for this admission?: Yes Plan: evidence for severe sepsis include lactic acidosis,leukpenia and end organ involvement. Continue current antibiotics (3) Pneumonia Is this a current diagnosis for this admission?: Yes Plan: Continue Levaquin (4) Acute kidney injury Is this a current diagnosis for this admission?: Yes Plan: Has resolved (5) Hypokalemia Is this a current diagnosis for this admission?: Yes Plan: Replete
[2018-04-10] MEDS: INSULIN GLARGINE,HUM.REC.ANLOG 1,000 UNIT/10 ML UNIT SUBCUT SCH (22:46)
[2018-04-10 23:00] LABS: ANION GAP 7 (5-19); BLOOD UREA NITROGEN 23 mg/dL (7-20); CALCIUM 9.2 mg/dL (8.4-10.2); CARBON DIOXIDE 22 mmol/L (22-30); CHLORIDE 106 mmol/L (98-107); GLUCOSE 194 mg/dL (75-110); POTASSIUM 3.9 mmol/L (3.6-5.0); SODIUM 134.5 mmol/L (137-145)
[2018-04-11 05:35] LABS: HEMATOCRIT 32.6 % (37.9-51.0); HEMOGLOBIN 11.2 g/dL (13.5-17.0); MEAN CORPUSCULAR HEMOGLOBIN 33.2 pg (27.0-33.4); MEAN CORPUSCULAR HGB CONC 34.3 g/dL (32.0-36.0); MEAN CORPUSCULAR VOLUME 97 fl (80-97); PLATELET COUNT 187 10^3/uL (150-450); RED BLOOD COUNT 3.37 10^6/uL (4.35-5.55); WHITE BLOOD COUNT 7.5 10^3/uL (4.0-10.5)
[2018-04-11 06:09] LABS: BLOOD UREA NITROGEN 21 mg/dL (7-20); CALCIUM 9.1 mg/dL (8.4-10.2); GLUCOSE 178 mg/dL (75-110); POTASSIUM 3.9 mmol/L (3.6-5.0)
[2018-04-11 06:15] LABS: CARBON DIOXIDE 25 mmol/L (22-30); CHLORIDE 106 mmol/L (98-107); SODIUM 136.5 mmol/L (137-145)
[2018-04-11 06:19] LABS: ANION GAP 6 (5-19)
[2018-04-11] MEDS: TICAGRELOR 90 MG TABLET PO SCH ×2 (09:17→21:30)
[2018-04-11] MEDS: FAMOTIDINE 20 MG TABLET PO SCH ×2 (09:17→21:30)
[2018-04-11] MEDS: BUPROPION HCL 75 MG TABLET PO SCH ×2 (09:17→21:30)
[2018-04-11] MEDS: METOPROLOL SUCCINATE 50 MG TAB.SR.24H PO SCH (09:17)
[2018-04-11] MEDS: ATORVASTATIN CALCIUM 80 MG TABLET PO SCH (09:17)
[2018-04-11] MEDS: ASPIRIN 81 MG TABLET, ENT COATED PO SCH (09:17)
[2018-04-11] MEDS: LEVOFLOXACIN 500 MG/D5W RTU 500 MG/100 ML RTUPB IV SCH (09:18)
--- NOTE | 2018-04-11 12:31 | PDOC PROGRESS REPORT ---
Subjective Progress Note for:: 04/11/18 Subjective:: I seen patient resting in bed. Looks sleepy and states he did not have gross sleep last night. No new complaint Reason For Visit: PNEUMONIA,SEVERE SEPSIS Physical Exam Vital Signs: Temp Pulse Resp BP Pulse Ox 98.2 F 64 16 163/60 H 96 04/11/18 07:31 04/11/18 07:31 04/11/18 07:31 04/11/18 07:31 04/11/18 07:31 Intake & Output 04/10/18 04/11/18 04/12/18 06:59 06:59 06:59 Intake Total 744 801 Output Total 1075 425 Balance -331 376 Weight 76.2 kg 76.8 kg General appearance: PRESENT: no acute distress, well-developed, well-nourished Head exam: PRESENT: atraumatic, normocephalic Eye exam: PRESENT: conjunctiva pink, EOMI, PERRLA. ABSENT: scleral icterus Ear exam: PRESENT: normal external ear exam Mouth exam: PRESENT: moist, tongue midline Neck exam: ABSENT: carotid bruit, JVD, lymphadenopathy, thyromegaly Respiratory exam: PRESENT: clear to auscultation hunter. ABSENT: rales, rhonchi, wheezes Cardiovascular exam: PRESENT: RRR. ABSENT: diastolic murmur, rubs, systolic murmur Pulses: PRESENT: normal dorsalis pedis pul Vascular exam: PRESENT: normal capillary refill GI/Abdominal exam: PRESENT: normal bowel sounds, soft. ABSENT: distended, guarding, mass, organolmegaly, rebound, tenderness Rectal exam: PRESENT: deferred Extremities exam: PRESENT: full ROM. ABSENT: calf tenderness, clubbing, pedal edema Neurological exam: PRESENT: alert, oriented to person, oriented to place, CN II- XII grossly intact. ABSENT: motor sensory deficit Psychiatric exam: PRESENT: appropriate affect, normal mood. ABSENT: homicidal ideation, suicidal ideation Skin exam: PRESENT: dry, intact, warm. ABSENT: cyanosis, rash Results Laboratory Results: 04/11/18 05:20 04/11/18 05:20 04/10/18 04/11/18 04/11/18 22:40 05:20 05:20 WBC 7.5 RBC 3.37 L Hgb 11.2 L Hct 32.6 L MCV 97 MCH 33.2 MCHC 34.3 RDW 14.0 Plt Count 187 Sodium 134.5 L 136.5 L Potassium 3.9 3.9 Chloride 106 106 Carbon Dioxide 22 25 Anion Gap 7 6 BUN 23 H 21 H Creatinine 0.83 0.89 Est GFR ( Amer) > 60 > 60 Est GFR (Non-Af Amer) > 60 > 60 Glucose 194 H 178 H Calcium 9.2 9.1 04/03/18 04/03/18 04/03/18 13:30 16:15 20:11 Troponin I 5.170 4.740 3.710 Impressions: Head CT 04/03/18 04:13 IMPRESSION: 1. No acute intracranial abnormality by CT criteria. This exam was performed according to our departmental dose-optimization program, which includes automated exposure control, adjustment of the mA and/or kV according to patient size and/or use of iterative reconstruction technique. Chest X-Ray 04/04/18 06:00 IMPRESSION: Rehydration versus progressing bilateral pneumonia. Assessment & Plan - Diagnosis (1) Acute metabolic encephalopathy Is this a current diagnosis for this admission?: Yes Plan: Most probably due to sepsis. Continue current regimen (2) Severe sepsis Is this a current diagnosis for this admission?: Yes Plan: evidence for severe sepsis include lactic acidosis,leukpenia and end organ involvement. Continue current antibiotics (3) Pneumonia Is this a current diagnosis for this admission?: Yes Plan: Continue Levaquin (4) Acute kidney injury Is this a current diagnosis for this admission?: Yes Plan: Has resolved (5) Hypokalemia Is this a current diagnosis for this admission?: Yes Plan: Replete (6) NSTEMI (non-ST elevated myocardial infarction) Is this a current diagnosis for this admission?: Yes Plan: Medical management recommended by Dr. Orosco.
[2018-04-11] MEDS: LOPERAMIDE HCL 2 MG CAPSULE PO PRN (13:35)
[2018-04-11] MEDS: INSULIN REG, HUMAN 100 UNIT/ML 3 ML VIAL (PYX) SUBCUT PRN (17:01)
[2018-04-11] MEDS: INSULIN GLARGINE,HUM.REC.ANLOG 1,000 UNIT/10 ML UNIT SUBCUT SCH (21:31)
[2018-04-12] MEDS: NORMAL SALINE INJ/PF 0.9% 10 ML SDV IV PRN (05:35)
[2018-04-12] MEDS: ATORVASTATIN CALCIUM 80 MG TABLET PO SCH (09:31)
[2018-04-12] MEDS: BUPROPION HCL 75 MG TABLET PO SCH ×2 (09:31→21:56)
[2018-04-12] MEDS: TICAGRELOR 90 MG TABLET PO SCH ×2 (09:32→21:57)
[2018-04-12] MEDS: ASPIRIN 81 MG TABLET, ENT COATED PO SCH (09:32)
[2018-04-12] MEDS: LEVOFLOXACIN 500 MG/D5W RTU 500 MG/100 ML RTUPB IV SCH (09:32)
[2018-04-12] MEDS: METOPROLOL SUCCINATE 50 MG TAB.SR.24H PO SCH (09:32)
[2018-04-12] MEDS: FAMOTIDINE 20 MG TABLET PO SCH ×2 (09:32→21:57)
--- NOTE | 2018-04-12 09:55 | PDOC PROGRESS REPORT ---
Subjective Progress Note for:: 04/12/18 Subjective:: Patient is seen propped up in bed enjoying his breakfast. He is not in pain or any form of acute respiratory distress. He complains of lack of sleep due to noisy surrounding. He is able to tell me his name, his date and the name of current [place] president. Reason For Visit: PNEUMONIA,SEVERE SEPSIS Physical Exam Vital Signs: Temp Pulse Resp BP Pulse Ox 97.8 F 61 18 160/64 H 96 04/12/18 08:06 04/12/18 08:06 04/12/18 08:06 04/12/18 08:06 04/12/18 08:06 Intake & Output 04/11/18 04/12/18 04/13/18 06:59 06:59 06:59 Intake Total 801 894 Output Total 425 950 Balance 376 -56 Weight 76.8 kg 75 kg General appearance: PRESENT: no acute distress, well-developed, well-nourished Head exam: PRESENT: atraumatic, normocephalic Eye exam: PRESENT: conjunctiva pink, EOMI, PERRLA. ABSENT: scleral icterus Ear exam: PRESENT: normal external ear exam Mouth exam: PRESENT: moist, tongue midline Neck exam: ABSENT: carotid bruit, JVD, lymphadenopathy, thyromegaly Respiratory exam: PRESENT: clear to auscultation hunter. ABSENT: rales, rhonchi, wheezes Cardiovascular exam: PRESENT: RRR. ABSENT: diastolic murmur, rubs, systolic murmur Pulses: PRESENT: normal dorsalis pedis pul Vascular exam: PRESENT: normal capillary refill GI/Abdominal exam: PRESENT: normal bowel sounds, soft. ABSENT: distended, guarding, mass, organolmegaly, rebound, tenderness Rectal exam: PRESENT: deferred Extremities exam: PRESENT: full ROM. ABSENT: calf tenderness, clubbing, pedal edema Neurological exam: PRESENT: alert, awake, oriented to person, oriented to place , oriented to situation, CN II-XII grossly intact. ABSENT: motor sensory deficit Psychiatric exam: PRESENT: appropriate affect, normal mood. ABSENT: homicidal ideation, suicidal ideation Skin exam: PRESENT: dry, intact, warm. ABSENT: cyanosis, rash Results Laboratory Results: 04/11/18 05:20 04/11/18 05:20 04/03/18 04/03/18 04/03/18 13:30 16:15 20:11 Troponin I 5.170 4.740 3.710 Impressions: Head CT 04/03/18 04:13 IMPRESSION: 1. No acute intracranial abnormality by CT criteria. This exam was performed according to our departmental dose-optimization program, which includes automated exposure control, adjustment of the mA and/or kV according to patient size and/or use of iterative reconstruction technique. Chest X-Ray 04/04/18 06:00 IMPRESSION: Rehydration versus progressing bilateral pneumonia. Assessment & Plan - Diagnosis (1) Acute metabolic encephalopathy Is this a current diagnosis for this admission?: Yes Plan: Patient relatively improving is oriented to place and person except for time. (2) Severe sepsis Is this a current diagnosis for this admission?: Yes Plan: Improving (3) Pneumonia Is this a current diagnosis for this admission?: Yes Plan: Continue Levaquin (4) Acute kidney injury Is this a current diagnosis for this admission?: Yes Plan: Has resolved (5) Hypokalemia Is this a current diagnosis for this admission?: Yes Plan: Replete (6) NSTEMI (non-ST elevated myocardial infarction) Is this a current diagnosis for this admission?: Yes Plan: Medical management recommended by Dr. Orosco.
[2018-04-12] MEDS: INSULIN REG, HUMAN 100 UNIT/ML 3 ML VIAL (PYX) SUBCUT PRN ×2 (12:07→17:10)
[2018-04-12] MEDS: INSULIN GLARGINE,HUM.REC.ANLOG 1,000 UNIT/10 ML UNIT SUBCUT SCH (21:57)
--- NOTE | 2018-04-12 22:45 | PDOC PROGRESS REPORT ---
Subjective Progress Note for:: 04/07/18 Subjective:: Patient seems to be doing somewhat better and is showing improvement in general status. Patient wanting to go home. Patient today noted to be oriented to place and person but not to time. Patient is not noted to have any chest arm or neck discomfort. Patient not noted to have or describing any PND, orthopnea.. Patient not noted to have fever chills. Patient does not seem to be in any other significant discomfort. Patient is sinus rhythm with right bundle branch block pattern heart rate somewhat on the high side. System review: No significant changes Medications reviewed. Reason For Visit: PNEUMONIA,SEVERE SEPSIS Physical Exam Vital Signs: Temp Pulse Resp BP Pulse Ox 97.3 F 73 20 162/64 H 96 04/07/18 17:28 04/07/18 17:28 04/07/18 17:28 04/07/18 17:28 04/07/18 17:28 Intake & Output 04/06/18 04/07/18 04/08/18 06:59 06:59 06:59 Intake Total 1301 1643 840 Output Total 3500 1950 500 Balance -2199 -307 340 Weight 78.6 kg Exam: GENERAL: well-nourished and in no acute distress. Alert and oriented x 2, noted to be intermittently confused but mental status rapidly improving HEAD: Atraumatic, normocephalic. EYES: Pupils equal round and reactive to light, extraocular movements intact, sclera anicteric, conjunctiva are normal. ENT: TMs normal, nares patent, oropharynx clear without exudates. Moist mucous membranes. No oral ulcerations or bleeding gums noted NECK: supple without lymphadenopathy. Trachea is central. No cervical or axillary lymphadenopathy noted. Carotids are 2+, JVD WNL LUNGS: Respiration seems nonlabored, no significant accessory muscle action noted. Breath sounds clear to auscultation bilaterally and equal noted. No wheezes rales or rhonchi noted. No significant dullness noted on percussion. CHEST: Palpation of the chest wall shows no significant chest wall tenderness. HEART: [place] LICENSED CLUB MANAGER, No PSH, 1/6 MYRON aortic area, 1/6 hernandez systolic murmur mitral area, no rubs, no gallops. ABDOMEN: Soft, no significant tenderness appreciated, normoactive bowel sounds. No guarding, no rebound. No rigidity noted . No masses appreciated. EXTREMITIES: Pedal pulses are 1-2+, no calf tenderness noted. No clubbing or cyanosis. 1+ pedal edema noted NEUROLOGICAL: Focused neurological exam showed no significant neurologic deficit. Normal speech, no focal weakness appreciated. PSYCH: Normal mood, normal affect. Judgment and insight within normal limits. SKIN: No significant ecchymosis, skin is noted to be warm. MUSCULOSKELETAL EXAM: No significant acute joint swelling noted. Results Laboratory Results: 04/06/18 04:55 04/04/18 03:28 04/03/18 04/03/18 04/03/18 13:30 16:15 20:11 Troponin I 5.170 4.740 3.710 EKG Comments: Shows sinus rhythm without any sustained tachycardia or bradycardia. Impressions: Head CT 04/03/18 04:13 IMPRESSION: 1. No acute intracranial abnormality by CT criteria. This exam was performed according to our departmental dose-optimization program, which includes automated exposure control, adjustment of the mA and/or kV according to patient size and/or use of iterative reconstruction technique. Chest X-Ray 04/04/18 06:00 IMPRESSION: Rehydration versus progressing bilateral pneumonia. Assessment & Plan - Diagnosis (1) NSTEMI (non-ST elevated myocardial infarction) Is this a current diagnosis for this admission?: Yes (2) Hypotension Qualifiers: Hypotension type: unspecified hypotension type Qualified Code(s): I95.9 - Hypotension, unspecified Is this a current diagnosis for this admission?: Yes (3) Severe sepsis Is this a current diagnosis for this admission?: Yes (4) Coronary artery disease Qualifiers: Coronary Disease-Associated Artery/Lesion type: crow artery [place] vs. transplanted heart: crow heart Associated angina: angina presence unspecified Qualified Code(s): I25.10 - Atherosclerotic heart disease of crow coronary artery without angina pectoris Is this a current diagnosis for this admission?: Yes (5) Diabetes mellitus type 2 in nonobese Is this a current diagnosis for this admission?: Yes (6) Essential hypertension Is this a current diagnosis for this admission?: Yes (7) History of CVA (cerebrovascular accident) Is this a current diagnosis for this admission?: Yes (8) Pneumonia Qualifiers: Pneumonia type: aspiration pneumonia Aspiration pneumonia type: unspecified Laterality: bilateral Lung location: lower lobe of lung Qualified Code(s): J69.0 - Pneumonitis due to inhalation of food and vomit Is this a current diagnosis for this admission?: Yes (9) Septic shock Is this a current diagnosis for this admission?: Yes - Notes Notes: Non-STEMI: Troponin I elevation in the non-STEMI range. Patient does not seem to be having any chest discomfort or any other significant discomfort today. Patient does not have any ST-T wave changes. At this point would recommend anticoagulation with heparin or Lovenox for total of 96 hours. Patient would not be a candidate for aggressive intervention. This was related to patient, patient family and hospitalist. 2D echo shows normal LVEF, therefore patient is likely to do well. Hypotension: Possibly related to combination of sepsis and dehydration. Now resolved with blood pressure being normal. Will start beta-kasia therapy and LUCHO inhibitor therapy. Severe sepsis: Patient is noted to have pneumonia. Continue with broad- spectrum antibiotic therapy. Coronary artery disease: Recommend treatment with statins, aspirin, Plavix, heparin, institute LUCHO inhibitor and ARB. Diabetes: Would recommend adequate control of blood sugar but avoid any hyper or hypoglycemia. History of CVA: Currently stable. Pneumonia: Continue with antibiotic therapy. Septic shock: Resolved. - Time Time with patient: Greater than 35 minutes - More than 50% of the time spent coordinating care, discussing management plans with involved caregivers. Management plans discussed with involved personnels. Medical decision making was of moderate to high complexity, patient's has multiple comorbidities. Medications reviewed and adjusted accordingly: Yes
[2018-04-12] MEDS: HYDRALAZINE HCL INJ/PF 20 MG/1 ML SDV IV PRN (23:06)
--- NOTE | 2018-04-13 09:01 | PDOC PROGRESS REPORT ---
Subjective Progress Note for:: 04/13/18 Subjective:: No significant event overnight. No new complaints. Reason For Visit: PNEUMONIA,SEVERE SEPSIS Physical Exam Vital Signs: Temp Pulse Resp BP Pulse Ox 98.7 F 63 18 126/50 H 95 04/13/18 07:41 04/13/18 07:41 04/13/18 07:41 04/13/18 07:41 04/13/18 07:41 Intake & Output 04/12/18 04/13/18 04/14/18 06:59 06:59 06:59 Intake Total 894 1160 Output Total 950 2550 Balance -56 -1390 Weight 75 kg 77.9 kg General appearance: PRESENT: no acute distress Head exam: PRESENT: atraumatic Mouth exam: PRESENT: moist Neck exam: ABSENT: carotid bruit, JVD, lymphadenopathy, thyromegaly Respiratory exam: PRESENT: clear to auscultation hunter. ABSENT: rales, rhonchi, wheezes Cardiovascular exam: PRESENT: RRR. ABSENT: diastolic murmur, rubs, systolic murmur GI/Abdominal exam: PRESENT: normal bowel sounds, soft. ABSENT: distended, guarding, mass, organolmegaly, rebound, tenderness Neurological exam: PRESENT: alert, awake, oriented to time, oriented to situation Results Laboratory Results: 04/11/18 05:20 04/11/18 05:20 04/03/18 04/03/18 04/03/18 13:30 16:15 20:11 Troponin I 5.170 4.740 3.710 Impressions: Head CT 04/03/18 04:13 IMPRESSION: 1. No acute intracranial abnormality by CT criteria. This exam was performed according to our departmental dose-optimization program, which includes automated exposure control, adjustment of the mA and/or kV according to patient size and/or use of iterative reconstruction technique. Chest X-Ray 04/04/18 06:00 IMPRESSION: Rehydration versus progressing bilateral pneumonia. Assessment & Plan - Diagnosis (1) Acute metabolic encephalopathy Is this a current diagnosis for this admission?: Yes Plan: Patient relatively improving is oriented to place and person except for time. (2) Severe sepsis Is this a current diagnosis for this admission?: Yes Plan: Improving (3) Pneumonia Is this a current diagnosis for this admission?: Yes Plan: Continue Levaquin (4) Acute kidney injury Is this a current diagnosis for this admission?: Yes Plan: Has resolved (5) Hypokalemia Is this a current diagnosis for this admission?: Yes Plan: Replete (6) NSTEMI (non-ST elevated myocardial infarction) Is this a current diagnosis for this admission?: Yes Plan: Medical management recommended by Dr. Orosco.
[2018-04-13] MEDS: ASPIRIN 81 MG TABLET, ENT COATED PO SCH (09:37)
[2018-04-13] MEDS: TICAGRELOR 90 MG TABLET PO SCH ×2 (09:37→22:05)
[2018-04-13] MEDS: FAMOTIDINE 20 MG TABLET PO SCH ×2 (09:37→22:05)
[2018-04-13] MEDS: LEVOFLOXACIN 500 MG/D5W RTU 500 MG/100 ML RTUPB IV SCH (09:37)
[2018-04-13] MEDS: ATORVASTATIN CALCIUM 80 MG TABLET PO SCH (09:37)
[2018-04-13] MEDS: BUPROPION HCL 75 MG TABLET PO SCH ×2 (09:37→22:05)
[2018-04-13] MEDS: METOPROLOL SUCCINATE 50 MG TAB.SR.24H PO SCH (09:37)
[2018-04-13] MEDS: INSULIN REG, HUMAN 100 UNIT/ML 3 ML VIAL (PYX) SUBCUT PRN (16:55)
[2018-04-13] MEDS: INSULIN GLARGINE,HUM.REC.ANLOG 1,000 UNIT/10 ML UNIT SUBCUT SCH (22:05)
[2018-04-14] MEDS: INSULIN REG, HUMAN 100 UNIT/ML 3 ML VIAL (PYX) SUBCUT PRN ×4 (08:10→21:58)
[2018-04-14] MEDS: FAMOTIDINE 20 MG TABLET PO SCH ×2 (09:34→21:58)
[2018-04-14] MEDS: TICAGRELOR 90 MG TABLET PO SCH ×2 (09:34→21:58)
[2018-04-14] MEDS: ASPIRIN 81 MG TABLET, ENT COATED PO SCH (09:34)
[2018-04-14] MEDS: METOPROLOL SUCCINATE 50 MG TAB.SR.24H PO SCH (09:34)
[2018-04-14] MEDS: BUPROPION HCL 75 MG TABLET PO SCH ×2 (09:34→21:58)
[2018-04-14] MEDS: ATORVASTATIN CALCIUM 80 MG TABLET PO SCH (09:34)
[2018-04-14] MEDS: LEVOFLOXACIN 500 MG/D5W RTU 500 MG/100 ML RTUPB IV SCH (09:35)
--- NOTE | 2018-04-14 10:22 | PDOC PROGRESS REPORT ---
Subjective Subjective:: No new complaints. Patient currently is at his baseline. Reason For Visit: PNEUMONIA,SEVERE SEPSIS Physical Exam Vital Signs: Temp Pulse Resp BP Pulse Ox 97.1 F 62 18 146/66 H 97 04/14/18 08:12 04/14/18 08:12 04/14/18 08:12 04/14/18 08:12 04/14/18 08:12 Intake & Output 04/13/18 04/14/18 04/15/18 06:59 06:59 06:59 Intake Total 1160 737 Output Total 2550 200 Balance -1390 537 Weight 77.9 kg 76.6 kg General appearance: PRESENT: no acute distress, well-developed, well-nourished Head exam: PRESENT: atraumatic, normocephalic Eye exam: PRESENT: conjunctiva pink, EOMI, PERRLA. ABSENT: scleral icterus Ear exam: PRESENT: normal external ear exam Mouth exam: PRESENT: moist, tongue midline Neck exam: ABSENT: carotid bruit, JVD, lymphadenopathy, thyromegaly Respiratory exam: PRESENT: clear to auscultation hunter. ABSENT: rales, rhonchi, wheezes Cardiovascular exam: PRESENT: RRR. ABSENT: diastolic murmur, rubs, systolic murmur Pulses: PRESENT: normal dorsalis pedis pul Vascular exam: PRESENT: normal capillary refill GI/Abdominal exam: PRESENT: normal bowel sounds, soft. ABSENT: distended, guarding, mass, organolmegaly, rebound, tenderness Rectal exam: PRESENT: deferred Extremities exam: PRESENT: full ROM. ABSENT: calf tenderness, clubbing, pedal edema Neurological exam: PRESENT: alert, awake, oriented to person, oriented to time. ABSENT: motor sensory deficit Psychiatric exam: PRESENT: appropriate affect, normal mood. ABSENT: homicidal ideation, suicidal ideation Skin exam: PRESENT: dry, intact, warm. ABSENT: cyanosis, rash Results Laboratory Results: 04/11/18 05:20 04/11/18 05:20 04/03/18 04/03/18 04/03/18 13:30 16:15 20:11 Troponin I 5.170 4.740 3.710 Impressions: Head CT 04/03/18 04:13 IMPRESSION: 1. No acute intracranial abnormality by CT criteria. This exam was performed according to our departmental dose-optimization program, which includes automated exposure control, adjustment of the mA and/or kV according to patient size and/or use of iterative reconstruction technique. Chest X-Ray 04/04/18 06:00 IMPRESSION: Rehydration versus progressing bilateral pneumonia. Assessment & Plan - Diagnosis (1) Acute metabolic encephalopathy Is this a current diagnosis for this admission?: Yes Plan: Patient relatively improving is oriented to place and person except for time. (2) Severe sepsis Is this a current diagnosis for this admission?: Yes Plan: Improving (3) Pneumonia Is this a current diagnosis for this admission?: Yes Plan: Continue Levaquin (4) Acute kidney injury Is this a current diagnosis for this admission?: Yes Plan: Has resolved (5) Hypokalemia Is this a current diagnosis for this admission?: Yes Plan: Replete (6) NSTEMI (non-ST elevated myocardial infarction) Is this a current diagnosis for this admission?: Yes Plan: Medical management recommended by Dr. Orosco.
[2018-04-14] MEDS: ENOXAPARIN SODIUM INJ 40 MG/0.4 ML DISP.SYRIN SUBCUT SCH (13:54)
[2018-04-14] MEDS: NORMAL SALINE INJ/PF 0.9% 10 ML SDV IV PRN (13:54)
[2018-04-14] MEDS: INSULIN GLARGINE,HUM.REC.ANLOG 1,000 UNIT/10 ML UNIT SUBCUT SCH (21:59)
[2018-04-15] MEDS: HYDRALAZINE HCL INJ/PF 20 MG/1 ML SDV IV PRN (01:23)
[2018-04-15] MEDS: NORMAL SALINE INJ/PF 0.9% 10 ML SDV IV PRN (05:15)
[2018-04-15 05:29] LABS: ABSOLUTE EOSINOPHILS # (AUTO) 0.1 10^3/uL (0.0-0.6); ABSOLUTE LYMPHOCYTES (AUTO) 1.8 10^3/uL (0.5-4.7); ABSOLUTE MONOCYTES (AUTO) 0.7 10^3/uL (0.1-1.4); ABSOLUTE NEUT (AUTO) 4.9 10^3/uL (1.7-8.2); BASOPHILS % (AUTO) 0.4 % (0-2); EOSINOPHILS % (AUTO) 1.6 % (0-6); HEMOGLOBIN 11.2 g/dL (13.5-17.0); MEAN CORPUSCULAR HEMOGLOBIN 32.6 pg (27.0-33.4); MEAN CORPUSCULAR HGB CONC 33.8 g/dL (32.0-36.0); MEAN CORPUSCULAR VOLUME 96 fl (80-97); MONOCYTES % (AUTO) 9.5 % (3-13); PLATELET COUNT 238 10^3/uL (150-450); RED BLOOD COUNT 3.43 10^6/uL (4.35-5.55); RED CELL DISTRIBUTION WIDTH 14.2 % (11.5-14.0); SEGMENTED NEUTROPHILS % (AUTO) 64.5 % (42-78); TOTAL CELLS COUNTED % (AUTO) 100 %; WHITE BLOOD COUNT 7.7 10^3/uL (4.0-10.5)
[2018-04-15 06:01] LABS: BLOOD UREA NITROGEN 23 mg/dL (7-20); CALCIUM 9.5 mg/dL (8.4-10.2); CHLORIDE 103 mmol/L (98-107); GLUCOSE 212 mg/dL (75-110)
[2018-04-15 06:37] LABS: ANION GAP 6 (5-19); CARBON DIOXIDE 27 mmol/L (22-30); SODIUM 135.5 mmol/L (137-145)
[2018-04-15] MEDS: INSULIN REG, HUMAN 100 UNIT/ML 3 ML VIAL (PYX) SUBCUT PRN ×4 (09:47→21:58)
[2018-04-15] MEDS: ATORVASTATIN CALCIUM 80 MG TABLET PO SCH (09:48)
[2018-04-15] MEDS: LEVOFLOXACIN 500 MG/D5W RTU 500 MG/100 ML RTUPB IV SCH (09:48)
[2018-04-15] MEDS: BUPROPION HCL 75 MG TABLET PO SCH ×2 (09:49→21:57)
[2018-04-15] MEDS: ASPIRIN 81 MG TABLET, ENT COATED PO SCH (09:49)
[2018-04-15] MEDS: FAMOTIDINE 20 MG TABLET PO SCH ×2 (09:49→21:57)
[2018-04-15] MEDS: METOPROLOL SUCCINATE 50 MG TAB.SR.24H PO SCH (09:49)
[2018-04-15] MEDS: TICAGRELOR 90 MG TABLET PO SCH ×2 (09:49→21:57)
[2018-04-15] MEDS: ENOXAPARIN SODIUM INJ 40 MG/0.4 ML DISP.SYRIN SUBCUT SCH (10:08)
--- NOTE | 2018-04-15 12:13 | PDOC PROGRESS REPORT ---
Subjective Progress Note for:: 04/15/18 Subjective:: No new complaint. Reason For Visit: PNEUMONIA,SEVERE SEPSIS Physical Exam Vital Signs: Temp Pulse Resp BP Pulse Ox 98.3 F 65 14 141/56 H 95 04/15/18 08:36 04/15/18 08:36 04/15/18 08:36 04/15/18 08:36 04/15/18 08:36 Intake & Output 04/14/18 04/15/18 04/16/18 06:59 06:59 06:59 Intake Total 737 1107 100 Output Total 200 Balance 537 1107 100 Weight 76.6 kg 76.8 kg General appearance: PRESENT: no acute distress Head exam: PRESENT: atraumatic Eye exam: PRESENT: conjunctiva pink Neck exam: ABSENT: carotid bruit, JVD, lymphadenopathy, thyromegaly Respiratory exam: PRESENT: clear to auscultation hunter. ABSENT: rales, rhonchi, wheezes Cardiovascular exam: PRESENT: RRR. ABSENT: diastolic murmur, rubs, systolic murmur GI/Abdominal exam: PRESENT: normal bowel sounds, soft. ABSENT: distended, guarding, mass, organolmegaly, rebound, tenderness Neurological exam: PRESENT: alert Results Laboratory Results: 04/15/18 05:15 04/15/18 05:15 04/15/18 04/15/18 05:15 05:15 WBC 7.7 RBC 3.43 L Hgb 11.2 L Hct 33.0 L MCV 96 MCH 32.6 MCHC 33.8 RDW 14.2 H Plt Count 238 Seg Neutrophils % 64.5 Lymphocytes % 24.0 Monocytes % 9.5 Eosinophils % 1.6 Basophils % 0.4 Absolute Neutrophils 4.9 Absolute Lymphocytes 1.8 Absolute Monocytes 0.7 Absolute Eosinophils 0.1 Absolute Basophils 0.0 Sodium 135.5 L Potassium 4.0 Chloride 103 Carbon Dioxide 27 Anion Gap 6 BUN 23 H Creatinine 0.85 Est GFR ( Amer) > 60 Est GFR (Non-Af Amer) > 60 Glucose 212 H Calcium 9.5 04/03/18 04/03/18 04/03/18 13:30 16:15 20:11 Troponin I 5.170 4.740 3.710 Impressions: Head CT 04/03/18 04:13 IMPRESSION: 1. No acute intracranial abnormality by CT criteria. This exam was performed according to our departmental dose-optimization program, which includes automated exposure control, adjustment of the mA and/or kV according to patient size and/or use of iterative reconstruction technique. Chest X-Ray 04/04/18 06:00 IMPRESSION: Rehydration versus progressing bilateral pneumonia. Assessment & Plan - Diagnosis (1) Acute metabolic encephalopathy Is this a current diagnosis for this admission?: Yes Plan: Patient relatively improving is oriented to place and person except for time. (2) Severe sepsis Is this a current diagnosis for this admission?: Yes Plan: Improving (3) Pneumonia Is this a current diagnosis for this admission?: Yes Plan: Continue Levaquin (4) Acute kidney injury Is this a current diagnosis for this admission?: Yes Plan: Has resolved (5) Hypokalemia Is this a current diagnosis for this admission?: Yes Plan: Replete (6) NSTEMI (non-ST elevated myocardial infarction) Is this a current diagnosis for this admission?: Yes Plan: Medical management recommended by Dr. Orosco.
[2018-04-15] MEDS: INSULIN GLARGINE,HUM.REC.ANLOG 1,000 UNIT/10 ML UNIT SUBCUT SCH (21:58)
[2018-04-16] MEDS: NORMAL SALINE INJ/PF 0.9% 10 ML SDV IV PRN (05:55)
[2018-04-16 06:19] LABS: ABSOLUTE EOSINOPHILS # (AUTO) 0.1 10^3/uL (0.0-0.6); ABSOLUTE LYMPHOCYTES (AUTO) 1.7 10^3/uL (0.5-4.7); ABSOLUTE MONOCYTES (AUTO) 0.8 10^3/uL (0.1-1.4); ABSOLUTE NEUT (AUTO) 4.6 10^3/uL (1.7-8.2); BASOPHILS % (AUTO) 0.5 % (0-2); HEMATOCRIT 33.9 % (37.9-51.0); HEMOGLOBIN 11.5 g/dL (13.5-17.0); LYMPHOCYTES % (AUTO) 23.5 % (13-45); MEAN CORPUSCULAR HEMOGLOBIN 32.5 pg (27.0-33.4); MEAN CORPUSCULAR HGB CONC 33.9 g/dL (32.0-36.0); MEAN CORPUSCULAR VOLUME 96 fl (80-97); MONOCYTES % (AUTO) 10.7 % (3-13); PLATELET COUNT 285 10^3/uL (150-450); RED BLOOD COUNT 3.54 10^6/uL (4.35-5.55); RED CELL DISTRIBUTION WIDTH 14.4 % (11.5-14.0); SEGMENTED NEUTROPHILS % (AUTO) 63.3 % (42-78); TOTAL CELLS COUNTED % (AUTO) 100 %; WHITE BLOOD COUNT 7.3 10^3/uL (4.0-10.5)
[2018-04-16 06:40] LABS: BLOOD UREA NITROGEN 19 mg/dL (7-20); CALCIUM 8.3 mg/dL (8.4-10.2); GLUCOSE 154 mg/dL (75-110); POTASSIUM 3.5 mmol/L (3.6-5.0)
[2018-04-16 06:57] LABS: CARBON DIOXIDE 24 mmol/L (22-30); CHLORIDE 109 mmol/L (98-107)
[2018-04-16 07:02] LABS: ANION GAP 3 (5-19)
[2018-04-16] MEDS: ASPIRIN 81 MG TABLET, ENT COATED PO SCH (10:20)
[2018-04-16] MEDS: TICAGRELOR 90 MG TABLET PO SCH ×2 (10:20→21:52)
[2018-04-16] MEDS: FAMOTIDINE 20 MG TABLET PO SCH ×2 (10:20→21:51)
[2018-04-16] MEDS: METOPROLOL SUCCINATE 50 MG TAB.SR.24H PO SCH (10:21)
[2018-04-16] MEDS: ENOXAPARIN SODIUM INJ 40 MG/0.4 ML DISP.SYRIN SUBCUT SCH (10:21)
[2018-04-16] MEDS: BUPROPION HCL 75 MG TABLET PO SCH ×2 (10:21→21:51)
[2018-04-16] MEDS: ATORVASTATIN CALCIUM 80 MG TABLET PO SCH (10:21)
[2018-04-16] MEDS: INSULIN REG, HUMAN 100 UNIT/ML 3 ML VIAL (PYX) SUBCUT PRN ×3 (12:47→21:51)
--- NOTE | 2018-04-16 15:33 | PDOC PROGRESS REPORT ---
Subjective Progress Note for:: 04/16/18 Subjective:: No significant event overnight. Patient has been awaiting placement. Reason For Visit: PNEUMONIA,SEVERE SEPSIS Physical Exam Vital Signs: Temp Pulse Resp BP Pulse Ox 98.3 F 63 18 140/49 H 99 04/16/18 07:28 04/16/18 14:00 04/16/18 07:28 04/16/18 07:28 04/16/18 07:28 Intake & Output 04/15/18 04/16/18 04/17/18 06:59 06:59 06:59 Intake Total 1107 637 237 Output Total 280 Balance 1107 357 237 Weight 76.8 kg 79.4 kg General appearance: PRESENT: no acute distress, well-developed, well-nourished Head exam: PRESENT: atraumatic, normocephalic Eye exam: PRESENT: conjunctiva pink, EOMI, PERRLA. ABSENT: scleral icterus Ear exam: PRESENT: normal external ear exam Mouth exam: PRESENT: moist, tongue midline Neck exam: ABSENT: carotid bruit, JVD, lymphadenopathy, thyromegaly Respiratory exam: PRESENT: clear to auscultation hunter. ABSENT: rales, rhonchi, wheezes Cardiovascular exam: PRESENT: RRR. ABSENT: diastolic murmur, rubs, systolic murmur Pulses: PRESENT: normal dorsalis pedis pul Vascular exam: PRESENT: normal capillary refill GI/Abdominal exam: PRESENT: normal bowel sounds, soft. ABSENT: distended, guarding, mass, organolmegaly, rebound, tenderness Rectal exam: PRESENT: deferred Extremities exam: PRESENT: full ROM. ABSENT: calf tenderness, clubbing, pedal edema Neurological exam: PRESENT: alert, awake, oriented to person, oriented to place , oriented to situation. ABSENT: motor sensory deficit Psychiatric exam: PRESENT: appropriate affect, normal mood. ABSENT: homicidal ideation, suicidal ideation Skin exam: PRESENT: dry, intact, warm. ABSENT: cyanosis, rash Results Laboratory Results: 04/16/18 06:00 04/16/18 06:00 04/16/18 04/16/18 06:00 06:00 WBC 7.3 RBC 3.54 L Hgb 11.5 L Hct 33.9 L MCV 96 MCH 32.5 MCHC 33.9 RDW 14.4 H Plt Count 285 Seg Neutrophils % 63.3 Lymphocytes % 23.5 Monocytes % 10.7 Eosinophils % 2.0 Basophils % 0.5 Absolute Neutrophils 4.6 Absolute Lymphocytes 1.7 Absolute Monocytes 0.8 Absolute Eosinophils 0.1 Absolute Basophils 0.0 Sodium 136.0 L Potassium 3.5 L Chloride 109 H Carbon Dioxide 24 Anion Gap 3 L BUN 19 Creatinine 0.74 Est GFR ( Amer) > 60 Est GFR (Non-Af Amer) > 60 Glucose 154 H Calcium 8.3 L 04/03/18 04/03/18 04/03/18 13:30 16:15 20:11 Troponin I 5.170 4.740 3.710 Impressions: Head CT 04/03/18 04:13 IMPRESSION: 1. No acute intracranial abnormality by CT criteria. This exam was performed according to our departmental dose-optimization program, which includes automated exposure control, adjustment of the mA and/or kV according to patient size and/or use of iterative reconstruction technique. Chest X-Ray 04/04/18 06:00 IMPRESSION: Rehydration versus progressing bilateral pneumonia. Assessment & Plan - Diagnosis (1) Acute metabolic encephalopathy Is this a current diagnosis for this admission?: Yes Plan: Patient relatively improving is oriented to place and person except for time. (2) Severe sepsis Is this a current diagnosis for this admission?: Yes Plan: Improving (3) Pneumonia Is this a current diagnosis for this admission?: Yes Plan: Continue Levaquin (4) Acute kidney injury Is this a current diagnosis for this admission?: Yes Plan: Has resolved (5) Hypokalemia Is this a current diagnosis for this admission?: Yes Plan: Replete (6) NSTEMI (non-ST elevated myocardial infarction) Is this a current diagnosis for this admission?: Yes Plan: Medical management recommended by Dr. Orosco.
[2018-04-16] MEDS: INSULIN GLARGINE,HUM.REC.ANLOG 1,000 UNIT/10 ML UNIT SUBCUT SCH (21:50)
[2018-04-17] MEDS ORDERED: LOSARTAN POTASSIUM 50 MG TABLET PO SCH (10:30)
[2018-04-17] MEDS: ATORVASTATIN CALCIUM 80 MG TABLET PO SCH (10:55)
[2018-04-17] MEDS: ASPIRIN 81 MG TABLET, ENT COATED PO SCH (10:55)
[2018-04-17] MEDS: FAMOTIDINE 20 MG TABLET PO SCH ×2 (10:55→23:12)
[2018-04-17] MEDS: METOPROLOL SUCCINATE 50 MG TAB.SR.24H PO SCH (10:55)
[2018-04-17] MEDS: ENOXAPARIN SODIUM INJ 40 MG/0.4 ML DISP.SYRIN SUBCUT SCH (10:56)
[2018-04-17] MEDS: BUPROPION HCL 75 MG TABLET PO SCH ×2 (10:56→23:13)
[2018-04-17] MEDS: CLOPIDOGREL BISULFATE 75 MG TABLET PO SCH (10:59)
[2018-04-17] MEDS: TICAGRELOR 90 MG TABLET PO SCH (11:06)
[2018-04-17] MEDS: INSULIN REG, HUMAN 100 UNIT/ML 3 ML VIAL (PYX) SUBCUT PRN ×3 (12:42→23:13)
--- NOTE | 2018-04-17 19:09 | PDOC PROGRESS REPORT ---
Subjective Progress Note for:: 04/17/18 Subjective:: No acute events overnight. Patient awaiting placement however placement was delayed due to uncontrolled hypertension. Patient denies any fever, chills, nausea, vomiting, shortness of breath, chest pain, diarrhea, constipation or any urinary symptoms. Reason For Visit: PNEUMONIA,SEVERE SEPSIS Physical Exam Vital Signs: Temp Pulse Resp BP Pulse Ox 97.9 F 64 18 182/74 H 95 04/17/18 07:58 04/17/18 07:58 04/17/18 07:58 04/17/18 13:06 04/17/18 07:58 Intake & Output 04/16/18 04/17/18 04/18/18 06:59 06:59 06:59 Intake Total 263 182 0287 Output Total 280 150 300 Balance 540 452 0344 Weight 79.4 kg 77.2 kg General appearance: PRESENT: no acute distress, well-developed, well-nourished Head exam: PRESENT: atraumatic, normocephalic Eye exam: PRESENT: conjunctiva pink, EOMI, PERRLA. ABSENT: scleral icterus Ear exam: PRESENT: normal external ear exam Mouth exam: PRESENT: moist, tongue midline Neck exam: ABSENT: carotid bruit, JVD, lymphadenopathy, thyromegaly Respiratory exam: PRESENT: clear to auscultation hunter. ABSENT: rales, rhonchi, wheezes Cardiovascular exam: PRESENT: RRR. ABSENT: diastolic murmur, rubs, systolic murmur Pulses: PRESENT: normal dorsalis pedis pul Vascular exam: PRESENT: normal capillary refill GI/Abdominal exam: PRESENT: normal bowel sounds, soft. ABSENT: distended, guarding, mass, organolmegaly, rebound, tenderness Rectal exam: PRESENT: deferred Extremities exam: PRESENT: full ROM. ABSENT: calf tenderness, clubbing, pedal edema Neurological exam: PRESENT: alert, awake, oriented to person, oriented to place , oriented to time, oriented to situation, CN II-XII grossly intact. ABSENT: motor sensory deficit Psychiatric exam: PRESENT: appropriate affect, normal mood. ABSENT: homicidal ideation, suicidal ideation Skin exam: PRESENT: dry, intact, warm. ABSENT: cyanosis, rash Results Laboratory Results: 04/16/18 06:00 04/16/18 06:00 04/03/18 04/03/18 04/03/18 13:30 16:15 20:11 Troponin I 5.170 4.740 3.710 Impressions: Head CT 04/03/18 04:13 IMPRESSION: 1. No acute intracranial abnormality by CT criteria. This exam was performed according to our departmental dose-optimization program, which includes automated exposure control, adjustment of the mA and/or kV according to patient size and/or use of iterative reconstruction technique. Chest X-Ray 04/04/18 06:00 IMPRESSION: Rehydration versus progressing bilateral pneumonia. Assessment & Plan - Diagnosis (1) Acute metabolic encephalopathy Is this a current diagnosis for this admission?: Yes Plan: Improving patient alert and oriented 3. Patient does not remember the address for his residence. Patient waiting to be transferred however was held due to uncontrolled hypertension. (2) Hypokalemia Is this a current diagnosis for this admission?: Yes Plan: Repleted. CMP tomorrow. Replace as needed. (3) Acute kidney injury Is this a current diagnosis for this admission?: Yes Plan: Resolved. Monitor volume status. CMP tomorrow. (4) NSTEMI (non-ST elevated myocardial infarction) Is this a current diagnosis for this admission?: Yes Plan: Medical management as per cardiology recommendation. (5) Pneumonia Qualifiers: Pneumonia type: aspiration pneumonia Aspiration pneumonia type: unspecified Laterality: bilateral Lung location: lower lobe of lung Qualified Code(s): J69.0 - Pneumonitis due to inhalation of food and vomit Is this a current diagnosis for this admission?: Yes Plan: Continue levofloxacin.
[2018-04-17] MEDS: LOSARTAN POTASSIUM 50 MG TABLET PO SCH (23:12)
[2018-04-17] MEDS: INSULIN GLARGINE,HUM.REC.ANLOG 1,000 UNIT/10 ML UNIT SUBCUT SCH (23:13)
[2018-04-18 06:18] LABS: ABSOLUTE EOSINOPHILS # (AUTO) 0.1 10^3/uL (0.0-0.6); ABSOLUTE LYMPHOCYTES (AUTO) 2.1 10^3/uL (0.5-4.7); ABSOLUTE MONOCYTES (AUTO) 0.7 10^3/uL (0.1-1.4); ABSOLUTE NEUT (AUTO) 3.1 10^3/uL (1.7-8.2); BASOPHILS % (AUTO) 0.7 % (0-2); EOSINOPHILS % (AUTO) 2.4 % (0-6); HEMATOCRIT 33.8 % (37.9-51.0); HEMOGLOBIN 11.4 g/dL (13.5-17.0); LYMPHOCYTES % (AUTO) 34.1 % (13-45); MEAN CORPUSCULAR HEMOGLOBIN 32.5 pg (27.0-33.4); MEAN CORPUSCULAR HGB CONC 33.6 g/dL (32.0-36.0); MEAN CORPUSCULAR VOLUME 97 fl (80-97); MONOCYTES % (AUTO) 11.7 % (3-13); PLATELET COUNT 273 10^3/uL (150-450); RED CELL DISTRIBUTION WIDTH 14.4 % (11.5-14.0); SEGMENTED NEUTROPHILS % (AUTO) 51.1 % (42-78); TOTAL CELLS COUNTED % (AUTO) 100 %; WHITE BLOOD COUNT 6.1 10^3/uL (4.0-10.5)
[2018-04-18 06:36] LABS: ALANINE AMINOTRANSFERASE 41 U/L (21-72); ALBUMIN 2.6 g/dL (3.5-5.0); ALKALINE PHOSPHATASE 87 U/L (38-126); ASPARTATE AMINO TRANSFERASE 17 U/L (17-59); BILIRUBIN,DIRECT 0.3 mg/dL (0.0-0.4); BILIRUBIN,TOTAL 0.4 mg/dL (0.2-1.3); BLOOD UREA NITROGEN 22 mg/dL (7-20); CALCIUM 9.7 mg/dL (8.4-10.2); GLUCOSE 227 mg/dL (75-110); POTASSIUM 4.1 mmol/L (3.6-5.0); TOTAL PROTEIN 5.5 g/dL (6.3-8.2)
[2018-04-18 06:42] LABS: CARBON DIOXIDE 29 mmol/L (22-30); CHLORIDE 103 mmol/L (98-107); SODIUM 135.9 mmol/L (137-145)
[2018-04-18 07:24] LABS: ANION GAP 4 (5-19)
[2018-04-18] MEDS: INSULIN REG, HUMAN 100 UNIT/ML 3 ML VIAL (PYX) SUBCUT PRN ×4 (08:00→21:24)
[2018-04-18] MEDS: HYDRALAZINE HCL INJ/PF 20 MG/1 ML SDV IV PRN (09:09)
[2018-04-18] MEDS: FAMOTIDINE 20 MG TABLET PO SCH ×2 (09:09→21:16)
[2018-04-18] MEDS: ENOXAPARIN SODIUM INJ 40 MG/0.4 ML DISP.SYRIN SUBCUT SCH (09:09)
[2018-04-18] MEDS: ATORVASTATIN CALCIUM 80 MG TABLET PO SCH (09:09)
[2018-04-18] MEDS: ASPIRIN 81 MG TABLET, ENT COATED PO SCH (09:10)
[2018-04-18] MEDS: CLOPIDOGREL BISULFATE 75 MG TABLET PO SCH (09:10)
[2018-04-18] MEDS: METOPROLOL SUCCINATE 50 MG TAB.SR.24H PO SCH (09:10)
[2018-04-18] MEDS: BUPROPION HCL 75 MG TABLET PO SCH ×2 (09:10→21:15)
[2018-04-18] MEDS: LOSARTAN POTASSIUM 50 MG TABLET PO SCH ×2 (09:10→21:17)
[2018-04-18] MEDS ORDERED: AMLODIPINE BESYLATE 5 MG TABLET PO SCH (15:15)
--- NOTE | 2018-04-18 15:16 | PDOC TRANSFER SUMMARY ---
General Admission Date/PCP: 04/03/18 07:43 Resuscitation Status: Full Code - Transfer Diagnosis (1) Acute metabolic encephalopathy Is this a current diagnosis for this admission?: Yes Diagnosis Summary: Improving. (2) Hypokalemia Is this a current diagnosis for this admission?: Yes (3) Acute kidney injury Is this a current diagnosis for this admission?: Yes (4) NSTEMI (non-ST elevated myocardial infarction) Is this a current diagnosis for this admission?: Yes Diagnosis Summary: Not a candidate for a candidate for aggressive intervention as per cardiology evaluation. Please refer to cardiology note. Continued medical management while in the hospital. 2D echo showed normal LVEF. (5) Pneumonia Is this a current diagnosis for this admission?: Yes Diagnosis Summary: Patient has completed a course of IV and p.o. antibiotics. Currently asymptomatic. (6) Diabetes mellitus type 2 in nonobese Is this a current diagnosis for this admission?: Yes (7) Coronary artery disease Is this a current diagnosis for this admission?: Yes Diagnosis Summary: Continue aspirin, Plavix, beta-kasia, statins, ARB per cardiology recommendation. - Transfer Medications Home Medications: Aspirin [Aspirin 325 mg Tablet] 325 mg PO DAILY 04/03/18 Atorvastatin Calcium [Lipitor 80 mg Tablet] 80 mg PO DAILY 04/03/18 Bupropion HCl [Wellbutrin Xl 300mg 24hr Tablet] 300 mg PO DAILY 04/03/18 Clopidogrel Bisulfate [Plavix 75 mg Tablet] 75 mg PO DAILY 04/03/18 Cyanocobalamin (Vitamin B-12) [Vitamin B-12] 100 mcg PO DAILY 04/03/18 Diclofenac Sodium [Voltaren] 75 mg PO BIDP PRN 04/03/18 Insulin Glargine,Hum.rec.anlog [Lantus] 35 unit SQ DAILY 04/03/18 Insulin Lispro [Humalog Insulin 100 Unit/1 ml 3 ml Vial] 0 unit SUBCUT .SLD SCALE 04/03/18 Insulin Lispro [Humalog Insulin 100 Unit/1 ml 3 ml Vial] 12 unit SUBCUT AC 04/03 Losartan Potassium [Cozaar 50 mg Tablet] 50 mg PO DAILY 04/03/18 Nicotine [Nicoderm 21 mg/24 Hr Transderm Patch] 1 patch TD DAILY 04/03/18 Transfer Medications: Current Medications Acetaminophen (Tylenol 325 Mg Tablet) 650 mg PO Q4HP PRN PRN Reason: pain or temp greater than 101F Stop: 05/03/18 09:51 Last Admin: 04/06/18 21:27 Dose: 650 mg Albuterol/Ipratropium (Duoneb 3 Ml Ampul) 3 ml NEB RTQ4HP PRN PRN Reason: SHORTNESS OF BREATH Stop: 05/03/18 09:51 Amlodipine Besylate (Norvasc 5 Mg Tablet) 5 mg PO DAILY [facility] Stop: 05/18/18 15:14 Aspirin (Ecotrin 81 Mg Ec Tablet) 81 mg PO DAILY [facility] Stop: 05/07/18 13:59 Last Admin: 04/18/18 09:10 Dose: 81 mg Atorvastatin Calcium (Lipitor 80 Mg Tablet) 80 mg PO DAILY [facility] Stop: 05/04/18 09:59 Last Admin: 04/18/18 09:09 Dose: 80 mg Bupropion HCl (Wellbutrin 75 Mg Tablet) 150 mg PO Q12 ALEC Stop: 05/03/18 21:59 Last Admin: 04/18/18 09:10 Dose: 150 mg Clopidogrel Bisulfate (Plavix 75 Mg Tablet) 75 mg PO DAILY [facility] Stop: 05/17/18 10:29 Last Admin: 04/18/18 09:10 Dose: 75 mg Dextrose (Dextrose Inj 50% Syringe (25 Gm/50 Ml)) 12.5 gm IV PRN PRN; Protocol PRN Reason: FOR BG 50-69 IN ALERT PATIENT Stop: 05/03/18 10:24 Dextrose (Dextrose Inj 50% Syringe (25 Gm/50 Ml)) 25 gm IV PRN PRN; Protocol PRN Reason: PER PROTOCOL Stop: 05/03/18 10:24 Enoxaparin Sodium (Lovenox Inj 40 Mg/0.4 Ml Disp.Syrin) 40 mg SUBCUT DAILY [facility] Stop: 05/14/18 13:59 Last Admin: 04/18/18 09:09 Dose: 40 mg Famotidine (Pepcid 20 Mg Tablet) 20 mg PO Q12 ALEC Stop: 05/05/18 21:59 Last Admin: 04/18/18 09:09 Dose: 20 mg Glucagon (Glucagen Inj 1 Mg Vial) 1 mg IM PRN PRN; Protocol PRN Reason: Evaluate for BG < 70 Stop: 05/03/18 10:24 Glucose (Glutose 40% Gel 15 Gm Tube) 15 gm PO PRN PRN; Protocol PRN Reason: FOR BG 50-69 IN ALERT PATIENT Stop: 05/03/18 10:24 Glucose (Glutose 40% Gel 15 Gm Tube) 30 gm PO PRN PRN; Protocol PRN Reason: FOR BG < 50 IN ALERT PATIENT Stop: 05/03/18 10:24 Heparin Sodium (Porcine) (Heparin Flush 10 Unit/Ml 5 Ml Disp.Syrg) 30 unit IV Q8 ALEC Stop: 05/03/18 13:59 Last Admin: 04/18/18 13:17 Dose: 30 unit Heparin Sodium (Porcine) (Heparin Flush 10 Unit/Ml 5 Ml Disp.Syrg) 30 unit IV .AFTER EACH USE PRN PRN Reason: AFTER EACH INTERMITTENT USE Stop: 05/03/18 12:37 Last Admin: 04/15/18 13:12 Dose: 30 unit Hydralazine HCl (Apresoline Inj/Pf 20 Mg/1 Ml Sdv) 20 mg IV Q4HP PRN PRN Reason: SBP >160, DBP >100 Stop: 05/06/18 19:23 Last Admin: 04/18/18 09:09 Dose: 20 mg Insulin Glargine (Lantus Insulin 100 Unit/1 Ml 10 Ml) 20 unit SUBCUT QHS ALEC Stop: 05/03/18 21:59 Last Admin: 04/17/18 23:13 Dose: 20 units Insulin Human Regular (Humulin R (Pyxis) Insulin 100 Unit/Ml 3ml) 0 - 12 unit SUBCUT ACHSP PRN; Protocol PRN Reason: PER PROTOCOL Stop: 05/03/18 10:24 Last Admin: 04/18/18 12:53 Dose: 6 units Loperamide HCl (Imodium 2 Mg Capsule) 4 mg PO Q6HP PRN PRN Reason: DIARRHEA Stop: 05/05/18 15:42 Last Admin: 04/11/18 13:35 Dose: 4 mg Losartan Potassium (Cozaar 50 Mg Tablet) 50 mg PO Q12 ALEC Stop: 05/17/18 10:29 Last Admin: 04/18/18 09:10 Dose: 50 mg Metoprolol Succinate (Toprol Xl 50 Mg Tab.Sr) 100 mg PO DAILY ALEC Stop: 05/09/18 09:59 Last Admin: 04/18/18 09:10 Dose: 100 mg Ondansetron HCl (Zofran Odt 4 Mg Tablet) 4 mg PO Q4HP PRN PRN Reason: FOR NAUSEA/VOMITING Stop: 05/05/18 15:49 Sodium Chloride (Saline Flush 2.5 Ml Monoject Prefil Syrin) 2.5 ml IV Q8 ALEC Stop: 05/03/18 13:59 Last Admin: 04/18/18 13:17 Dose: 2.5 ml Sodium Chloride (Nacl 0.9% Inj/Pf 10 Ml Sdv) 10 ml IV .AFTER EACH USE PRN PRN Reason: AFTER EACH INTERMITTENT USE Stop: 05/03/18 12:37 Last Admin: 04/16/18 05:55 Dose: 10 ml - Allergies Allergies/Adverse Reactions: No Known Allergies Allergy (Verified 06/03/13 12:05) Hospital Course Hospital Course: STACI MCWILLIAMS is a 67 year old male with a past medical history of uncontrolled diabetes, CVA with left-sided deficit, hypertension, coronary artery disease, recent admission to rehab, and poor compliance with medication, who was brought via EMS from [facility] due to altered mental status and abnormal vitals. As per ED physician's documentation patient was having nausea and vomiting at the nursing facility and altered mental status and superintendent system operation was brought in to the ER for evaluation. Physical Exam Vital Signs: Temp Pulse Resp BP Pulse Ox 98.3 F 68 16 122/62 96 04/18/18 11:34 04/18/18 11:34 04/18/18 11:34 04/18/18 12:00 04/18/18 11:34 Intake & Output 04/17/18 04/18/18 04/19/18 06:59 06:59 06:59 Intake Total 829 1765 474 Output Total 150 300 300 Balance 679 1465 174 Weight 77.2 kg 77.6 kg General appearance: PRESENT: no acute distress, well-developed, well-nourished Head exam: PRESENT: atraumatic, normocephalic Eye exam: PRESENT: conjunctiva pink, EOMI, PERRLA. ABSENT: scleral icterus Ear exam: PRESENT: normal external ear exam Mouth exam: PRESENT: moist, tongue midline Neck exam: ABSENT: carotid bruit, JVD, lymphadenopathy, thyromegaly Respiratory exam: PRESENT: clear to auscultation hunter. ABSENT: rales, rhonchi, wheezes Cardiovascular exam: PRESENT: RRR. ABSENT: diastolic murmur, rubs, systolic murmur Pulses: PRESENT: normal dorsalis pedis pul Vascular exam: PRESENT: normal capillary refill GI/Abdominal exam: PRESENT: normal bowel sounds, soft. ABSENT: distended, guarding, mass, organolmegaly, rebound, tenderness Rectal exam: PRESENT: deferred Extremities exam: PRESENT: full ROM. ABSENT: calf tenderness, clubbing, pedal edema Neurological exam: PRESENT: alert, awake, oriented to person, oriented to place , oriented to time, oriented to situation, CN II-XII grossly intact. ABSENT: motor sensory deficit Psychiatric exam: PRESENT: appropriate affect, normal mood. ABSENT: homicidal ideation, suicidal ideation Skin exam: PRESENT: dry, intact, warm. ABSENT: cyanosis, rash Results Laboratory Results: 04/18/18 06:00 04/18/18 06:00 04/18/18 04/18/18 06:00 06:00 WBC 6.1 RBC 3.50 L Hgb 11.4 L Hct 33.8 L MCV 97 MCH 32.5 MCHC 33.6 RDW 14.4 H Plt Count 273 Seg Neutrophils % 51.1 Lymphocytes % 34.1 Monocytes % 11.7 Eosinophils % 2.4 Basophils % 0.7 Absolute Neutrophils 3.1 Absolute Lymphocytes 2.1 Absolute Monocytes 0.7 Absolute Eosinophils 0.1 Absolute Basophils 0.0 Sodium 135.9 L Potassium 4.1 Chloride 103 Carbon Dioxide 29 Anion Gap 4 L BUN 22 H Creatinine 0.99 Est GFR ( Amer) > 60 Est GFR (Non-Af Amer) > 60 Glucose 227 H Calcium 9.7 Magnesium 2.0 Total Bilirubin 0.4 AST 17 ALT 41 Alkaline Phosphatase 87 Total Protein 5.5 L Albumin 2.6 L 04/03/18 04/03/18 04/03/18 13:30 16:15 20:11 Troponin I 5.170 4.740 3.710 Impressions: Head CT 04/03/18 04:13 IMPRESSION: 1. No acute intracranial abnormality by CT criteria. This exam was performed according to our departmental dose-optimization program, which includes automated exposure control, adjustment of the mA and/or kV according to patient size and/or use of iterative reconstruction technique. Chest X-Ray 04/04/18 06:00 IMPRESSION: Rehydration versus progressing bilateral pneumonia.
[2018-04-18 20:51] VITALS: BP 125/49
[2018-04-18] MEDS: INSULIN GLARGINE,HUM.REC.ANLOG 1,000 UNIT/10 ML UNIT SUBCUT SCH (21:28)
== END 2018-04-18 22:12 | disposition home health service (06) | DRG 177 ==
LOC: ER 03:44 → EH 07:43 → ICU 11:15 → 3S 04-07 04:00 → 3W 04-12 23:36
PROVIDERS: ADMIT Internal Medicine; ATTEND Internal Medicine
PROC: 06HN33Z Insertion of Infusion Device into Left Femoral Vein, Percutaneous Approach (ICD-10-PCS; principal; 2018-04-03)
DX: J69.0 Pneumonitis due to inhalation of food and vomit (principal); G93.41 Metabolic encephalopathy; I21.4 Non-ST elevation (NSTEMI) myocardial infarction; A41.9 Sepsis, unspecified organism; R65.21 Severe sepsis with septic shock; N17.9 Acute kidney failure, unspecified; I69.354 Hemiplegia and hemiparesis following cerebral infarction affecting left non-dominant side; E87.6 Hypokalemia; E11.9 Type 2 diabetes mellitus without complications; I25.10 Atherosclerotic heart disease of native coronary artery without angina pectoris; M19.90 Unspecified osteoarthritis, unspecified site; Z87.891 Personal history of nicotine dependence; E86.0 Dehydration; Z79.4 Long term (current) use of insulin; Z79.899 Other long term (current) drug therapy; B95.7 Other staphylococcus as the cause of diseases classified elsewhere
CPT/HCPCS: 36415; 51702; 70450; 71045; 80048; 80053; 80202; 81001; 82803; 82962; 83605; 83690; 83735; 84484; 85025; 85027; 85610; 85730; 87040; 87077; 87086; 87186; 93005; 93010; 93306; 94799; 96361; 96365; 96366; 96367; 96368; 99291; C1751; G8978-GP; G8979-GP; G8996-GN; G8997-GN; J0360; J1642; J1644; J1650; J1815; J1956; J2543; J3370; J3490; J7030; J7060; S0028

== ENCOUNTER 2018-06-16 16:04 | Emergency (ER) | payer MEDICARE, MEDICAID ==
[2018-06-16] MEDS ORDERED: NORMAL SALINE 1000 ML 1,000 ML IV ONE ×2 (16:26→21:26)
--- NOTE | 2018-06-16 16:41 | ER Document Report ---
ED General - General Stated Complaint: BLOOD SUGAR ISSUES Time Seen by Provider: 06/16/18 16:10 Mode of Arrival: Medic Information source: Emergency Med Personnel Notes: 67-year-old male brought to the emergency department by EMS status post hypoglycemia. Nurse gave the patient a dose of insulin without checking his blood sugar first at the nursing facility. Patient was found to be unresponsive. Blood sugar was checked and found to be in the 30s. Oral glucose was given. Patient's blood sugar is now in the 90s. Per EMS, the patient is more awake and alert. He does have a history of dementia. [facility] staff noted that the patient was not as interactive as his normal self after the glucose. TRAVEL OUTSIDE OF THE [place] IN LAST 30 DAYS: No - HPI Onset: Just prior to arrival Severity: Severe Associated symptoms: None Relieved by: Other - glucose Similar symptoms previously: No Recently seen / treated by doctor: No - Related Data Allergies/Adverse Reactions: No Known Allergies Allergy (Verified 06/03/13 12:05) Past Medical History - Social History Smoking Status: Unknown if Ever Smoked Family History: Reviewed & Not Pertinent - Past Medical History Cardiac Medical History: Reports: Hx Coronary Artery Disease, Hx Hypercholesterolemia, Hx Hypertension Denies: Hx Heart Attack Pulmonary Medical History: Denies: Hx Asthma Neurological Medical History: Reports: Hx Cerebrovascular Accident - 1 MONTH AGO WEAKNESS. Denies: Hx Seizures Endocrine Medical History: Reports: Hx Diabetes Mellitus Type 1, Hx Diabetes Mellitus Type 2 Renal/ Medical History: Denies: Hx Peritoneal Dialysis GI Medical History: Denies: Hx Hepatitis, Hx Hiatal Hernia, Hx Ulcer Musculoskeletal Medical History: Reports Hx Arthritis Infectious Medical History: Denies: Hx Hepatitis Past Surgical History: Reports: Hx Appendectomy. Denies: Hx Open Heart Surgery , Hx Pacemaker - Immunizations Hx Diphtheria, Pertussis, Tetanus Vaccination: Yes Review of Systems - Review of Systems -: Yes ROS unobtainable due to patient's medical condition Physical Exam - Vital signs Vitals: Pulse Ox 95 06/16/18 16:25 - Notes Notes: PHYSICAL EXAMINATION: GENERAL: ill appearing. Will respond to painful stimuli. HEAD: Atraumatic, dementia. EYES: Pupils pinpoint, equal round and reactive to light, extraocular movements intact, sclera anicteric, conjunctiva are normal. ENT: Nares patent, oropharynx clear without exudates. Moist mucous membranes. NECK: Normal range of motion, supple without lymphadenopathy LUNGS: Breath sounds clear to auscultation bilaterally and equal. No wheezes rales or rhonchi. HEART: Regular rate and rhythm without murmurs ABDOMEN: Soft, nontender, nondistended abdomen. No guarding, no rebound. No masses appreciated. Musculoskeletal: Normal range of motion, no pitting or edema. No cyanosis. NEUROLOGICAL: Cranial nerves grossly intact. Normal speech. Normal sensory, motor exams SKIN: Warm, Dry, normal turgor, 2 healing ulcerations noted to the L foot. No signs of infection. Course - Re-evaluation Re-evalutation: 06/16/18 16:47 EKG: Ventricular rate 66, KY interval 168, QRS duration 176, QTc 516, sinus rhythm, right bundle branch block. EKG is similar to that done on 04/03/18. 06/17/18 22:45 Patient monitored. Glucose checked every 30 minutes then every hour once the patient was more alert. It was stable. Patient gradually becoming more awake and alert. Patient consuming orange juice in the ED. He is awake, alert, and has no complaints. Had difficulty obtaining a UA because of a small urethra. Used a pediatric NG tube and was able to get a sample. Labs and imaging obtained. No acute process seen. On re-evaluation, patient is awake, alert, and orientated. I will discharge back to nursing facility. 06/17/18 22:47 06/17/18 22:52 - Vital Signs Vital signs: Temp Pulse Resp BP Pulse Ox 98.0 F 23 H 181/76 H 97 06/17/18 01:00 06/17/18 00:41 06/17/18 00:41 06/17/18 00:41 - Laboratory Result Diagrams: 06/16/18 16:28 06/16/18 19:25 Laboratory results interpreted by me: 06/16/18 06/16/18 06/16/18 16:28 16:28 16:35 WBC 12.1 H RBC 4.13 L Hgb 13.4 L RDW 14.5 H Seg Neutrophils % 81.5 H Lymphocytes % 9.3 L Absolute Neutrophils 9.9 H Carbonic Acid 1.36 H ABG pCO2 45.1 H ABG HCO3 25.8 H ABG Total CO2 27.2 H Chloride BUN 31 H Est GFR (Non-Af Amer) 59 L Glucose 58 L POC Glucose Calcium 10.4 H Total Protein Albumin Ur Leukocyte Esterase Urine Ascorbic Acid 06/16/18 06/16/18 06/16/18 16:41 19:25 19:31 WBC RBC Hgb RDW Seg Neutrophils % Lymphocytes % Absolute Neutrophils Carbonic Acid ABG pCO2 ABG HCO3 ABG Total CO2 Chloride 109 H BUN 34 H Est GFR (Non-Af Amer) Glucose 124 H POC Glucose 120 H 135 H Calcium Total Protein 6.2 L Albumin 3.2 L Ur Leukocyte Esterase Urine Ascorbic Acid 06/16/18 06/16/18 22:22 23:15 WBC RBC Hgb RDW Seg Neutrophils % Lymphocytes % Absolute Neutrophils Carbonic Acid ABG pCO2 ABG HCO3 ABG Total CO2 Chloride BUN Est GFR (Non-Af Amer) Glucose POC Glucose 133 H Calcium Total Protein Albumin Ur Leukocyte Esterase SMALL H Urine Ascorbic Acid 40 H Discharge - Discharge Clinical Impression: Hypoglycemia Condition: Stable Disposition: HOME, SELF-CARE Instructions: Hypoglycemia (OM) Referrals: RAMA BERNARD MD [Primary Care Provider] - Follow up as needed
[2018-06-16] MEDS ORDERED: NALOXONE HCL INJ 2 MG/2 ML DISP.SYRIN IV ONE (16:51)
[2018-06-16] MEDS ORDERED: NALOXONE HCL INJ 2 MG/2 ML DISP.SYRIN ONE (16:52)
[2018-06-16 16:54] LABS: ABSOLUTE EOSINOPHILS # (AUTO) 0.2 10^3/uL (0.0-0.6); ABSOLUTE LYMPHOCYTES (AUTO) 1.1 10^3/uL (0.5-4.7); ABSOLUTE MONOCYTES (AUTO) 0.9 10^3/uL (0.1-1.4); ABSOLUTE NEUT (AUTO) 9.9 10^3/uL (1.7-8.2); BASOPHILS % (AUTO) 0.2 % (0-2); EOSINOPHILS % (AUTO) 1.4 % (0-6); HEMATOCRIT 40.2 % (37.9-51.0); HEMOGLOBIN 13.4 g/dL (13.5-17.0); LYMPHOCYTES % (AUTO) 9.3 % (13-45); MEAN CORPUSCULAR HEMOGLOBIN 32.5 pg (27.0-33.4); MEAN CORPUSCULAR HGB CONC 33.4 g/dL (32.0-36.0); MEAN CORPUSCULAR VOLUME 97 fl (80-97); MONOCYTES % (AUTO) 7.6 % (3-13); PLATELET COUNT 202 10^3/uL (150-450); RED BLOOD COUNT 4.13 10^6/uL (4.35-5.55); RED CELL DISTRIBUTION WIDTH 14.5 % (11.5-14.0); SEGMENTED NEUTROPHILS % (AUTO) 81.5 % (42-78); TOTAL CELLS COUNTED % (AUTO) 100 %; WHITE BLOOD COUNT 12.1 10^3/uL (4.0-10.5)
[2018-06-16 16:59] LABS: ARTERIAL BLOOD BASE EXCESS 0.3 mmol/L; ARTERIAL BLOOD H2CO3 1.36 mmol/L (1.05-1.35); ARTERIAL BLOOD HCO3 25.8 mmol/L (20-24); ARTERIAL BLOOD O2 SATURATION 95.6 % (94-98); ARTERIAL BLOOD PCO2 45.1 mmHg (35-45); ARTERIAL BLOOD PH 7.38 (7.35-7.45); ARTERIAL BLOOD PO2 80.4 mmHg (80-100); ARTERIAL BLOOD TOTAL CO2 27.2 mmol/L (23-27)
[2018-06-16 17:00] LABS: ARTERIAL BLOOD FIO2 ROOM AIR
[2018-06-16 17:07] LABS: ALANINE AMINOTRANSFERASE 35 U/L (21-72); ALBUMIN 3.5 g/dL (3.5-5.0); ALKALINE PHOSPHATASE 99 U/L (38-126); ANION GAP 8 (5-19); ASPARTATE AMINO TRANSFERASE 33 U/L (17-59); BILIRUBIN,DIRECT 0.4 mg/dL (0.0-0.4); BILIRUBIN,TOTAL 0.5 mg/dL (0.2-1.3); BLOOD UREA NITROGEN 31 mg/dL (7-20); CALCIUM 10.4 mg/dL (8.4-10.2); CARBON DIOXIDE 27 mmol/L (22-30); CHLORIDE 107 mmol/L (98-107); GLUCOSE 58 mg/dL (75-110); POTASSIUM 4.4 mmol/L (3.6-5.0); SODIUM 142.4 mmol/L (137-145); TOTAL PROTEIN 6.9 g/dL (6.3-8.2)
--- NOTE | 2018-06-16 17:45 | RADIOLOGY REPORT (SQ) ---
EXAM DESCRIPTION: CT HEAD WITHOUT COMPLETED DATE/TIME: 06/16/2018 5:34 pm REASON FOR STUDY: altered mental status COMPARISON: 04/03/2018 TECHNIQUE: Axial images acquired through the brain without intravenous contrast. Images reviewed wi th bone, brain and subdural windows. Additional sagittal and coronal reconstructions were generated. Images stored on PACS. All CT scanners at this facility use dose modulation, iterative reconstruction, and/or weight based d osing when appropriate to reduce radiation dose to as low as reasonably achievable (ALARA). [facility]: Dose Right [facility]: CareDose [facility]: Dose Right [facility]: Teradose 4D [facility]: [employer] RADIATION DOSE: CT Rad equipment meets quality standard of care and radiation dose reduction techniq ues were employed. CTDIvol: 53.2 mGy. DLP: 1177 mGy-cm. mGy. LIMITATIONS: None. FINDINGS: VENTRICLES: Normal size and contour. CEREBRUM: No masses. No hemorrhage. No midline shift. No evidence for acute infarction. Unchanged right MCA territory encephalomalacia. CEREBELLUM: No masses. No hemorrhage. No alteration of density. No evidence for acute infarction. EXTRAAXIAL SPACES: No fluid collections. No masses. ORBITS AND GLOBE: No intra- or extraconal masses. Normal contour of globe without masses. CALVARIUM: No fracture. PARANASAL SINUSES: No fluid or mucosal thickening. SOFT TISSUES: No mass or hematoma. OTHER: No other significant finding. IMPRESSION: 1. No acute intracranial pathology. 2. Unchanged right MCA territory encephalomalacia. EVIDENCE OF ACUTE STROKE: NO. COMMENT: Quality ID # [id number]: Final reports with documentation of one or more dose reduction techniques (e.g., Automated exposure control, adjustment of the mA and/or kV according to patient size, use of iterative reconstruction technique) TECHNICAL DOCUMENTATION: JOB ID: [id number] [employer]- All Rights Reserved Reading location - IP/workstation name: [email or web address]
--- NOTE | 2018-06-16 17:49 | RADIOLOGY REPORT (SQ) ---
EXAM DESCRIPTION: CHEST SINGLE VIEW COMPLETED DATE/TIME: 06/16/2018 5:37 pm REASON FOR STUDY: altered mental status COMPARISON: 04/03/2018 EXAM PARAMETERS: NUMBER OF VIEWS: One view. TECHNIQUE: Single frontal radiographic view of the chest acquired. RADIATION DOSE: NA LIMITATIONS: None. FINDINGS: LUNGS AND PLEURA: There is nearly resolved heterogeneous opacity of the left lung base. N o new opacities, masses or pneumothorax. No pleural effusion. MEDIASTINUM AND HILAR STRUCTURES: No masses. Contour normal. HEART AND VASCULAR STRUCTURES: Heart normal in size. Normal vasculature. BONES: No acute findings. HARDWARE: None in the chest. OTHER: No other significant finding. IMPRESSION: Nearly resolved heterogeneous opacity of the left lung base, which may reflect residual scarring related to airspace disease seen on prior examination dated 04/03/2018. There is no new airsp rosmery opacity or other acute abnormality of the lungs. TECHNICAL DOCUMENTATION: JOB ID: [id number] [employer]- All Rights Reserved Reading location - IP/workstation name: [email or web address]
[2018-06-16 19:56] LABS: ALANINE AMINOTRANSFERASE 39 U/L (21-72); ALBUMIN 3.2 g/dL (3.5-5.0); ALKALINE PHOSPHATASE 116 U/L (38-126); ANION GAP 8 (5-19); ASPARTATE AMINO TRANSFERASE 25 U/L (17-59); BILIRUBIN,DIRECT 0.2 mg/dL (0.0-0.4); BILIRUBIN,TOTAL 0.4 mg/dL (0.2-1.3); BLOOD UREA NITROGEN 34 mg/dL (7-20); CALCIUM 10.1 mg/dL (8.4-10.2); CARBON DIOXIDE 23 mmol/L (22-30); CHLORIDE 109 mmol/L (98-107); GLUCOSE 124 mg/dL (75-110); POTASSIUM 4.8 mmol/L (3.6-5.0); SODIUM 139.6 mmol/L (137-145); TOTAL PROTEIN 6.2 g/dL (6.3-8.2)
[2018-06-16 23:36] LABS: APPEARANCE,URINE SLIGHTLY-CLOUDY; BILIRUBIN,URINE NEGATIVE (NEGATIVE); COLOR,URINE YELLOW; GLUCOSE, URINE NEGATIVE (NEGATIVE); KETONES,URINE NEGATIVE (NEGATIVE); LEUKOCYTE ESTERASE,URINE SMALL (NEGATIVE); NITRITE,URINE NEGATIVE (NEGATIVE); PROTEIN,URINE NEGATIVE (NEGATIVE); URINE SPECIFIC GRAVITY 1.016; UROBILINOGEN,URINE NEGATIVE mg/dL (<2.0)
[2018-06-16 23:50] LABS: URINE AMPHETAMINES SCREEN NEGATIVE; URINE BARBITURATES SCREEN NEGATIVE; URINE BENZODIAZEPINES SCREEN NEGATIVE; URINE COCAINE SCREEN NEGATIVE; URINE MARIJUANA (THC) SCREEN NEGATIVE; URINE METHADONE SCREEN NEGATIVE; URINE PHENCYCLIDINE SCREEN NEGATIVE
[2018-06-17 00:55] VITALS: BP 181/76
--- NOTE | 2018-06-17 10:48 | EKG REPORT ---
SEVERITY:- ABNORMAL ECG - SINUS RHYTHM RIGHT BUNDLE BRANCH BLOCK : Confirmed by: Janee Orosco 17-Jun-2018 10:47:56
== END 2018-06-17 01:25 | disposition home or self-care (01) ==
LOC: ER 16:04
DX: E11.649 Type 2 diabetes mellitus with hypoglycemia without coma (principal); F03.90 Unspecified dementia, unspecified severity, without behavioral disturbance, psychotic disturbance, mood disturbance, and anxiety; I25.10 Atherosclerotic heart disease of native coronary artery without angina pectoris; E78.00 Pure hypercholesterolemia, unspecified; I10 Essential (primary) hypertension; Z86.73 Personal history of transient ischemic attack (TIA), and cerebral infarction without residual deficits
CPT/HCPCS: 93005; 99285; 96361; 96374; 36415; 87040; 82962; 82803; 82947; 85025; 80053; 81001; 84484; 80307; 83605; 71045; 70450; 93010; C1758; J2310; J7030

== ENCOUNTER → 2018-09-03 | Outpatient (CLI) | payer MEDICARE, MEDICAID ==
--- NOTE | 2018-09-03 14:35 | RADIOLOGY REPORT (SQ) ---
EXAM DESCRIPTION: CTA ABD AORTA AND EXTREMITY COMPLETED DATE/TIME: 09/03/2018 9:02 am REASON FOR STUDY: L97.424 NON-PRESSURE CHRONIC ULCER OF LEFT HEEL AND MIDFOOT WITH NECROSIS O L97.42 4 NON-PRS CHRONIC ULCER OF LEFT HEEL AND MIDFOOT W NEC COMPARISON: 04/09/2013 TECHNIQUE: CT scan of the body and lower extremities performed with intravenous contrast using helic al scanning technique with dynamic intravenous contrast injection. Images reviewed with lung, soft ti ssue, and bone windows. Reconstructed coronal and sagittal MPR images reviewed. All images stored on PACS. Advanced 3D imaging as volume-rendering, MIPs, SSD performed? yes All CT scanners at this facility use dose modulation, iterative reconstruction, and/or weight based d osing when appropriate to reduce radiation dose to as low as reasonably achievable (ALARA). [facility]: Dose Right [facility]: CareDose [facility]: Dose Right [facility]: Teradose 4D [facility]: [employer] CONTRAST TYPE AND DOSE: contrast/concentration: Isovue 350.00 mg/ml; Total Contrast Delivered: 100.0 ml; Total Saline Delivered: 100.0 ml RENAL FUNCTION: Creatinine 1.4 GFR 51. LIMITATIONS: None. FINDINGS: There are kissing stents in the bifurcation. The left limb is occluded. The right limb i s patent. Severe diffuse disease in the right external iliac. 50-75% stenosis proximal external iliac. Severe diffuse disease right lower extremity with chronic occlusion of the SFA and occluded SFA stent. Rush w to the lower extremity is via collaterals. There is 3 vessel runoff initially with occluded perone al artery. On the left, proximal external iliac is occluded with reconstituted flow via collaterals in the proxi mal SFA. Distal SFA is occluded. Minimal flow is visualized below the knee. There is there is a skin ulcer posterior left calcaneus with adjacent cortical disruption. No bone a bscess or soft tissue abscess. No acute findings in the visualized soft tissues of the lower abdomen and pelvis. IMPRESSION: Occluded left common iliac stent. Occluded distal left SFA and popliteal artery with no visualized flow below the knee. Severe disease on the right with occluded SFA stent. TECHNICAL DOCUMENTATION: JOB ID: [id number] Quality ID # [id number]: Final reports with documentation of one or more dose reduction techniques (e.g., Au tomated exposure control, adjustment of the mA and/or kV according to patient size, use of iterative reconstruction technique) 2010 [employer]- All Rights Reserved Reading location - IP/workstation name: [email or web address]
== END ==
LOC: RAD 07:53
PROVIDERS: ATTEND Preventive Medicine Undersea and Hyperbaric Medicine
DX: L97.424 Non-pressure chronic ulcer of left heel and midfoot with necrosis of bone (principal); I77.1 Stricture of artery
CPT/HCPCS: 75635; 82565

== ENCOUNTER 2018-09-15 03:56 | Inpatient (IN) | payer OTHER, MEDICARE, MEDICAID ==
[2018-09-15 05:00] LABS: ABSOLUTE LYMPHOCYTES (AUTO) 1.2 10^3/uL (0.5-4.7); ABSOLUTE MONOCYTES (AUTO) 1.3 10^3/uL (0.1-1.4); ABSOLUTE NEUT (AUTO) 9.7 10^3/uL (1.7-8.2); BASOPHILS % (AUTO) 0.2 % (0-2); EOSINOPHILS % (AUTO) 0.3 % (0-6); HEMATOCRIT 39.3 % (37.9-51.0); HEMOGLOBIN 13.1 g/dL (13.5-17.0); LYMPHOCYTES % (AUTO) 9.5 % (13-45); MEAN CORPUSCULAR HEMOGLOBIN 31.5 pg (27.0-33.4); MEAN CORPUSCULAR HGB CONC 33.4 g/dL (32.0-36.0); MEAN CORPUSCULAR VOLUME 95 fl (80-97); MONOCYTES % (AUTO) 10.4 % (3-13); PLATELET COUNT 311 10^3/uL (150-450); RED BLOOD COUNT 4.16 10^6/uL (4.35-5.55); RED CELL DISTRIBUTION WIDTH 14.5 % (11.5-14.0); SEGMENTED NEUTROPHILS % (AUTO) 79.6 % (42-78); TOTAL CELLS COUNTED % (AUTO) 100 %; WHITE BLOOD COUNT 12.2 10^3/uL (4.0-10.5)
--- NOTE | 2018-09-15 05:00 | RADIOLOGY REPORT (SQ) ---
EXAM DESCRIPTION: XR FOOT 3 OR MORE VIEWS COMPLETED DATE/TME: 09/15/2018 04:26 CLINICAL HISTORY: 67 years Male, wound/fever COMPARISON: None. Findings: Known soft tissue injury; no radioopaque foreign body. No gross radiographic evidence of advanced osteomyelitis. 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 Bone demineralization. Bones, joints, and soft tissues of the LEFT XR FOOT 3 OR MORE VIEWS appear otherwise intact. IMPRESSION: Soft tissue injury; else, no acute findings.
--- NOTE | 2018-09-15 05:07 | RADIOLOGY REPORT (SQ) ---
EXAM DESCRIPTION: XR CHEST 1 VIEW COMPLETED DATE/TME: 09/15/2018 04:26 CLINICAL HISTORY: 67 years Male, cough/fever COMPARISON: None. NUMBER OF VIEWS/TECHNIQUE: 1/AP FINDINGS: Adequate lung volume, clear parenchyma, normal cardiac silhouette, and intact bony thorax. IMPRESSION: No acute cardiopulmonary findings.
[2018-09-15 05:16] LABS: A TYPE INFLUENZA AG NEGATIVE (NEGATIVE); B INFLUENZA AG NEGATIVE (NEGATIVE)
[2018-09-15 06:15] LABS: ALANINE AMINOTRANSFERASE 27 U/L (21-72); ALBUMIN 3.1 g/dL (3.5-5.0); ALKALINE PHOSPHATASE 130 U/L (38-126); ANION GAP 10 (5-19); ASPARTATE AMINO TRANSFERASE 26 U/L (17-59); BILIRUBIN,DIRECT 0.3 mg/dL (0.0-0.4); BILIRUBIN,TOTAL 0.4 mg/dL (0.2-1.3); BLOOD UREA NITROGEN 32 mg/dL (7-20); CALCIUM 9.8 mg/dL (8.4-10.2); CARBON DIOXIDE 22 mmol/L (22-30); CHLORIDE 108 mmol/L (98-107); GLUCOSE 100 mg/dL (75-110); POTASSIUM 4.5 mmol/L (3.6-5.0); SODIUM 139.7 mmol/L (137-145); TOTAL PROTEIN 6.1 g/dL (6.3-8.2)
--- NOTE | 2018-09-15 07:05 | RADIOLOGY REPORT (SQ) ---
CLINICAL HISTORY: left foot pain / wound COMPARISON: None. TECHNIQUE: CT LOWER EXTREMITY WITH IV CONTRAST on 09/15/2018 4:50 AM [employer] This exam was performed according to our departmental dose-optimization program, which includes automated exposure control, adjustment of the mA and/or kV according to patient size and/or use of iterative reconstruction technique. FINDINGS: Severe extends to the bones of the midfoot. There is no sclerosis or osteopenia. There is moderate narrowing of the MTP joint. There is a small amount of subcutaneous air anterior to the distal tibia. There is a soft tissue defect overlying the dorsal aspect of the midfoot. IMPRESSION: Dorsal wound with small mild anterior subcutaneous air. No overt findings of osteopenia or sclerosis to suggest osteomyelitis. MRI would be more sensitive.
[2018-09-15] MEDS ORDERED: PIPERACILLIN/TAZOBACTAM 3.375 GM VIAL IV ONE (07:25)
[2018-09-15] MEDS ORDERED: VANCOMYCIN HCL INJ 1000 MG VIAL IV ONE (07:25)
--- NOTE | 2018-09-15 07:33 | ER Document Report ---
ED General - General TRAVEL OUTSIDE OF THE [place] IN LAST 30 DAYS: No <GAVIN GOSS - Last Filed: 09/15/18 07:38> <SAADRAYRAY Garrett - Last Filed: 09/15/18 07:57> - General Chief Complaint: Abnormal Lab Results Stated Complaint: WEAKNESS Time Seen by Provider: 09/15/18 04:07 Primary Care Provider: RAMA BRENARD MD [Primary Care Provider] - Follow up as needed Notes: Patient is 67-year-old male presents to the emergency department from [facility] for an increase in his white blood cell count. According to staff at [facility] patient has had a fever T-max 101 for the last 2 days. Staff is also stating the patient has had a cough and generalized congestion with decreased p.o. Patient has had increase in his left lower leg swelling within the last 5 days. Staff states patient has been on Bactrim and Cipro for over a month now. Staff states that the patient is supposed to have a lower leg amputation this coming week. Staff is unsure of the surgeon that the patient is supposed to have the amputation with. Staff obtained routine blood work from the patient's today and it returned back with a leukocytosis of 12. Staff stated they called the patient's primary care provider Dr. Bernard who recommends sending the patient to the emergency room. Past medical history: CVA, dementia, diabetes, chronic ulcer of the left lower extremity, hypertension Medications: Humalog, Wellbutrin, Bactrim, aspirin, Lipitor, Cipro, Plavix Allergies: None (GAVIN GOSS) - Related Data Allergies/Adverse Reactions: No Known Allergies Allergy (Verified 06/03/13 12:05) Past Medical History - General Information source: Patient, Transfer Record, Emergency Med Personnel - Social History Smoking Status: Unknown if Ever Smoked Family History: Reviewed & Not Pertinent Patient has suicidal ideation: No Patient has homicidal ideation: No - Past Medical History Cardiac Medical History: Reports: Hx Coronary Artery Disease, Hx Hypercholesterolemia, Hx Hypertension Denies: Hx Heart Attack Pulmonary Medical History: Denies: Hx Asthma Neurological Medical History: Reports: Hx Cerebrovascular Accident - 1 MONTH AGO WEAKNESS. Denies: Hx Seizures Endocrine Medical History: Reports: Hx Diabetes Mellitus Type 1, Hx Diabetes Mellitus Type 2 Renal/ Medical History: Denies: Hx Peritoneal Dialysis GI Medical History: Denies: Hx Hepatitis, Hx Hiatal Hernia, Hx Ulcer Musculoskeletal Medical History: Reports Hx Arthritis Psychiatric Medical History: Reports: Hx Depression Infectious Medical History: Denies: Hx Hepatitis Past Surgical History: Reports: Hx Appendectomy. Denies: Hx Open Heart Surgery, Hx Pacemaker - Immunizations Hx Diphtheria, Pertussis, Tetanus Vaccination: Yes <GAVIN GOSS - Last Filed: 09/15/18 07:38> Review of Systems - Review of Systems Constitutional: See HPI EENT: See HPI Cardiovascular: No symptoms reported Respiratory: See HPI Gastrointestinal: No symptoms reported Genitourinary: No symptoms reported Male Genitourinary: No symptoms reported Musculoskeletal: See HPI Skin: See HPI Hematologic/Lymphatic: No symptoms reported Neurological/Psychological: See HPI <GAVIN GOSS - Last Filed: 09/15/18 07:38> Physical Exam <GAVIN GOSS - Last Filed: 09/15/18 07:38> - Vital signs Vitals: Temp Pulse Resp BP Pulse Ox 97.7 F 93 20 128/66 H 100 09/15/18 04:03 09/15/18 04:03 09/15/18 04:03 09/15/18 04:03 09/15/18 04:03 - Notes Notes: GENERAL: Alert, interacts well. No acute distress. HEAD: Normocephalic, atraumatic. EYES: Pupils equal, round, and reactive to light. Extraocular movements intact. ENT: Oral mucosa moist, tongue midline. NECK: Full range of motion. Supple. Trachea midline. LUNGS: Clear to auscultation bilaterally, no wheezes, rales, or rhonchi. No respiratory distress. HEART: Regular rate and rhythm. No murmur ABDOMEN: Soft, non-tender. Non-distended. Bowel sounds present in all 4 quadrants. EXTREMITIES: Moves all 4 extremities spontaneously. normal radial and dorsalis pedis pulses bilaterally. No cyanosis. Patient has an extensive wound VAC located on the left lower extremity. Ulcer noted to patient's heel does appear to be unwrapped. There is some surrounding cellulitic tissue noted up to mid larson left lower extremity. BACK: no cervical, thoracic, lumbar midline tenderness. No saddle anesthesia, normal distal neurovascular exam. NEUROLOGICAL: Alert and oriented x3. Normal speech. cranial nerves II through XII grossly intact PSYCH: Normal affect, normal mood. SKIN: Warm, dry, normal turgor. (GAVIN GOSS) Course - Laboratory Result Diagrams: 09/15/18 04:50 09/15/18 05:50 <GAVIN GOSS - Last Filed: 09/15/18 07:38> - Laboratory Result Diagrams: 09/15/18 04:50 09/15/18 05:50 <RAYRAY NASH - Last Filed: 09/15/18 07:57> - Re-evaluation Re-evalutation: 09/15/18 07:56 Patient accepted for admission by hospitalist, Dr. Sterling. Consult placed to Dr. Chen with surgery. Patient will be admitted to medical floor. (RAYRAY NASH) - Vital Signs Vital signs: Temp Pulse Resp BP Pulse Ox 97.7 F 93 20 128/66 H 100 09/15/18 04:03 09/15/18 04:03 09/15/18 04:03 09/15/18 04:03 09/15/18 04:03 - Laboratory Laboratory results interpreted by me: 09/15/18 09/15/18 04:50 05:50 WBC 12.2 H RBC 4.16 L Hgb 13.1 L RDW 14.5 H Seg Neutrophils % 79.6 H Lymphocytes % 9.5 L Absolute Neutrophils 9.7 H Chloride 108 H BUN 32 H Alkaline Phosphatase 130 H Total Protein 6.1 L Albumin 3.1 L Discharge <GAVIN GOSS - Last Filed: 09/15/18 07:38> - Discharge Admitting Provider: Hospitalist Unit Admitted: Medical Floor <RAYRAY NASH - Last Filed: 09/15/18 07:57> - Discharge Clinical Impression: Cellulitis Qualifiers: Site of cellulitis: extremity Site of cellulitis of extremity: lower extremity Laterality: left Qualified Code(s): L03.116 - Cellulitis of left lower limb Fever Qualifiers: Fever type: unspecified Qualified Code(s): R50.9 - Fever, unspecified Leukocytosis Qualifiers: Leukocytosis type: unspecified Qualified Code(s): D72.829 - Elevated white blood cell count, unspecified Condition: Stable Disposition: ADMITTED INPATIENT Referrals: RAMA BERNARD MD [Primary Care Provider] - Follow up as needed
[2018-09-15] MEDS ORDERED: ONDANSETRON HCL INJ/PF 4 MG/2 ML SDV IV PRN ×2 (08:16→14:07)
[2018-09-15] MEDS ORDERED: DEXTROSE 40% GEL 15 GM TUBE PO PRN ×2 (08:28)
[2018-09-15] MEDS ORDERED: DEXTROSE 50%-WATER 25 GM/50 ML DISP.SYRIN IV PRN ×2 (08:28)
[2018-09-15] MEDS ORDERED: GLUCAGON,HUMAN RECOMB 1 MG INJ IM PRN (08:28)
[2018-09-15] MEDS ORDERED: VANCOMYCIN HCL 0 MG in DEXTROSE 5%-WATER 250 ML IV NR (08:30)
[2018-09-15] MEDS ORDERED: NORMAL SALINE 1000 ML 1,000 ML IV ONE (08:36)
--- NOTE | 2018-09-15 08:47 | PDOC H&P ---
History of Present Illness Admission Date/PCP: RAMA BERNARD MD History of Present Illness: STACI MCWILLIAMS is a 67 year old male patient brought from [facility] for fever and leukocytosis. Patient states"I have bad memory and I do not know why I am here". No family members in the room during my encounter. Per ER notes patient brought for an increase in his white cell count. According to staff at [facility] patient has had a fever T-max of 101 for the last 2 days. This time he is also stating the patient has had a cough and generalized congestion with decreased p.o. intake. Patient has had increase in his left lower leg swelling within the last 5 days. Staff states patient has been on Bactrim and Cipro for over the mons. Staff states that the patient is supposed to have a lower leg amputation this coming week. Staff is unsure of the surgeon that the patient supposed to have amputation with. Staff obtained routine blood work from the patient's today and it returned back with leukocytosis of 12. Staff states they called the patient's primary care provider Dr. Bernard who recommended sending the patient to the emergency room. Patient has past medical history of coronary artery disease, diabetes mellitus, hypertension and history of CVA. Further detailed history and review of systems unobtainable Past Medical History Cardiac Medical History: Reports: Coronary Artery Disease, Hyperlipidema, H ypertension Denies: Myocardial Infarction Pulmonary Medical History: Denies: Asthma Neurological Medical History: Denies: Seizures Endocrine Medical History: Reports: Diabetes Mellitus Type 1, Diabetes Mellitus Type 2 GI Medical History: Denies: Hepatitis, Hiatal Hernia Musculoskeltal Medical History: Reports: Arthritis Psychiatric Medical History: Reports: Depression Hematology: Denies: Anemia, Sickle Cell Disease Past Surgical History Past Surgical History: Reports: Appendectomy Denies: Pacemaker Social History Smoking Status: Former Smoker Frequency of Alcohol Use: None Hx Recreational Drug Use: No Drugs: None Hx Prescription Drug Abuse: No - Advance Directive Resuscitation Status: Full Code Family History Family History: Reviewed & Not Pertinent Parental Family History Reviewed: Yes Children Family History Reviewed: Yes Sibling(s) Family History Reviewed.: Yes Medication/Allergy Home Medications: Aspirin [Aspirin 325 mg Tablet] 325 mg PO DAILY 04/03/18 Atorvastatin Calcium [Lipitor 80 mg Tablet] 80 mg PO DAILY 04/03/18 Bupropion HCl [Wellbutrin Xl 300mg 24hr Tablet] 300 mg PO DAILY 04/03/18 Clopidogrel Bisulfate [Plavix 75 mg Tablet] 75 mg PO DAILY 04/03/18 Cyanocobalamin (Vitamin B-12) [Vitamin B-12] 100 mcg PO DAILY 04/03/18 Diclofenac Sodium [Voltaren] 75 mg PO BIDP PRN 04/03/18 Insulin Glargine,Hum.rec.anlog [Lantus] 35 unit SQ DAILY 04/03/18 Insulin Lispro [Humalog Insulin (Lispro) 100 unit/mL] 0 unit SUBCUT .SLD SCALE 04/03/18 Insulin Lispro [Humalog Insulin (Lispro) 100 unit/mL] 12 unit SUBCUT AC 04/03/18 Nicotine [Nicoderm 21 mg/24 Hr Transderm Patch] 1 patch TD DAILY 04/03/18 Amlodipine Besylate [Norvasc 5 mg Tablet] 5 mg PO DAILY 30 Days #30 tablet 04/18/18 Losartan Potassium [Cozaar 50 mg Tablet] 50 mg PO BID 30 Days #100 tablet 04/18/18 Metoprolol Succinate [Toprol Xl 50 mg Tab.sr] 100 mg PO DAILY 30 Days #30 tab.sr.24h 04/18/18 Allergies/Adverse Reactions: No Known Allergies Allergy (Verified 06/03/13 12:05) Review of Systems ROS unobtainable: Due to mental status Physical Exam Vital Signs: Temp Pulse Resp BP Pulse Ox 97.7 F 93 20 128/66 H 100 09/15/18 04:03 09/15/18 04:03 09/15/18 04:03 09/15/18 04:03 09/15/18 04:03 General appearance: PRESENT: no acute distress Head exam: PRESENT: atraumatic Eye exam: PRESENT: conjunctiva pink Mouth exam: PRESENT: moist Neck exam: ABSENT: carotid bruit, JVD, lymphadenopathy, thyromegaly Respiratory exam: PRESENT: clear to auscultation hunter. ABSENT: rales, rhonchi, wheezes Cardiovascular exam: PRESENT: RRR. ABSENT: diastolic murmur, rubs, systolic murmur GI/Abdominal exam: PRESENT: normal bowel sounds, soft. ABSENT: distended, guarding, mass, organolmegaly, rebound, tenderness Extremities exam: PRESENT: other - Left foot dressed with his uncle. No oozing or soaking. Neurological exam: PRESENT: alert, awake Psychiatric exam: PRESENT: normal mood Results Laboratory Results: 09/15/18 04:50 09/15/18 05:50 09/15/18 09/15/18 09/15/18 04:50 04:50 05:50 WBC 12.2 H RBC 4.16 L Hgb 13.1 L Hct 39.3 MCV 95 MCH 31.5 MCHC 33.4 RDW 14.5 H Plt Count 311 Seg Neutrophils % 79.6 H Lymphocytes % 9.5 L Monocytes % 10.4 Eosinophils % 0.3 Basophils % 0.2 Absolute Neutrophils 9.7 H Absolute Lymphocytes 1.2 Absolute Monocytes 1.3 Absolute Eosinophils 0.0 Absolute Basophils 0.0 Sodium Cancelled 139.7 Potassium Cancelled 4.5 Chloride Cancelled 108 H Carbon Dioxide Cancelled 22 Anion Gap Cancelled 10 BUN Cancelled 32 H Creatinine Cancelled 1.17 Est GFR ( Amer) Cancelled > 60 Est GFR (Non-Af Amer) Cancelled > 60 Glucose Cancelled 100 Calcium Cancelled 9.8 Total Bilirubin Cancelled 0.4 AST Cancelled 26 ALT Cancelled 27 Alkaline Phosphatase Cancelled 130 H Total Protein Cancelled 6.1 L Albumin Cancelled 3.1 L Impressions: Chest X-Ray 09/15/18 04:26 IMPRESSION: No acute cardiopulmonary findings. Foot X-Ray 09/15/18 04:26 IMPRESSION: Soft tissue injury; else, no acute findings. Lower Extremity CT 09/15/18 04:50 IMPRESSION: Dorsal wound with small mild anterior subcutaneous air. No overt findings of osteopenia or sclerosis to suggest osteomyelitis. MRI would be more sensitive. Assessment & Plan - Diagnosis (1) INFECTED DIABETIC FOOT ULCER Is this a current diagnosis for this admission?: Yes Plan: Patient has a long-standing left diabetic foot ulcer which is secondarily infected. Per ER notes patient supposed to have amputation of the involved foot. Reportedly has leukocytosis and fever. Patient has been started on vancomycin and Zosyn empirically. Dr. Chen consulted on this patient and is going to see him. (2) Type 2 diabetes mellitus Is this a current diagnosis for this admission?: Yes Plan: Patient has been started on sliding scale and will resume his home medication. Hemoglobin A1c requested to evaluate the status of his diabetes. (3) Coronary artery disease Qualifiers: Coronary Disease-Associated Artery/Lesion type: [place] artery Is this a current diagnosis for this admission?: Yes Plan: Patient does not have angina. We will continue his cardioprotective medications. (4) Hypertension Qualifiers: Hypertension type: essential hypertension Qualified Code(s): I10 - Essential (primary) hypertension Is this a current diagnosis for this admission?: Yes Plan: Continue home med (5) Hyperlipidemia Qualifiers: Hyperlipidemia type: unspecified Qualified Code(s): E78.5 - Hyperlipidemia, unspecified Is this a current diagnosis for this admission?: Yes Plan: Continue home med (6) History of CVA (cerebrovascular accident) Is this a current diagnosis for this admission?: Yes Plan: Continue medication for secondary prevention of CVA. - Inpatient Certification Medical Necessity: Need for IV Antibiotics, Need for Surgery
[2018-09-15] MEDS ORDERED: SUCCINYLCHOLINE CHLORIDE INJ 200 MG/10 ML VIAL ONE (09:58)
[2018-09-15] MEDS ORDERED: ENOXAPARIN SODIUM INJ 40 MG/0.4 ML DISP.SYRIN SUBCUT SCH (11:00)
[2018-09-15] MEDS: NORMAL SALINE 1000 ML 1,000 ML IV PRN ×2 (11:40→17:14)
[2018-09-15] MEDS: FAMOTIDINE 20 MG TABLET PO SCH ×2 (11:41→22:33)
[2018-09-15] MEDS: INSULIN LISPRO 100 UNIT/ML 3 ML VIAL SUBCUT SCH ×2 (11:54→16:42)
[2018-09-15] MEDS ORDERED: VANCOMYCIN HCL 1,000 MG in DEXTROSE 5%-WATER 250 ML IV SCH (12:00)
--- NOTE | 2018-09-15 12:06 | RADIOLOGY REPORT (SQ) ---
EXAM DESCRIPTION: MRI LT LOWER EXTREMITY WITHOUT COMPLETED DATE/TIME: 09/15/2018 11:24 am REASON FOR STUDY: r/o osteo left leg, wound left leg COMPARISON: LEFT FOOT CT 09/15/2018 WITHOUT CONTRAST LEFT FOOT FILMS 09/05/2018 TECHNIQUE: Multiplanar imaging to include fat and fluid sensitive sequences. RENAL FUNCTION: Not required LIMITATIONS: Motion artifact throughout the study FINDINGS: Motion artifact throughout all pulse sequences. Very limited exam Patient has a calcaneal soft tissue ulcer. There is edema in the surrounding soft tissues, and edema in the dorsal lateral aspect of the calcaneus deep to the ulcer worrisome for osteomyelitis. This i nvolves the attachment of the Achilles tendon lateral aspect. Findings discussed with Dr. Chen IMPRESSION: Calcaneal osteomyelitis TECHNICAL DOCUMENTATION: JOB ID: [id number] [employer]- All Rights Reserved Reading location - IP/workstation name: [email or web address]
[2018-09-15] MEDS ORDERED: MIDAZOLAM 2 MG/2 ML INJ ONE (12:14)
[2018-09-15] MEDS ORDERED: EPHEDRINE SULFATE INJ 50 MG/1 ML AMPULE ONE (12:14)
[2018-09-15] MEDS ORDERED: FENTANYL CITRATE INJ/PF 100 MCG/2 ML AMPUL ONE ×2 (12:14→12:25)
[2018-09-15] MEDS ORDERED: PROPOFOL INJ 200 MG/20 ML VIAL IV ONE (12:15)
[2018-09-15] MEDS ORDERED: ACETAMINOPHEN 1,000 MG/100 ML RTUPB IV ONE (12:15)
[2018-09-15] MEDS ORDERED: ONDANSETRON HCL INJ/PF 4 MG/2 ML SDV ONE (12:15)
[2018-09-15] MEDS ORDERED: LIDOCAINE 0.5% INJ-PF (5 MG/ML) 50 ML SDV ONE (12:16)
[2018-09-15] MEDS ORDERED: MORPHINE SULFATE 10 MG/ML INJ ONE ×2 (12:25→16:47)
[2018-09-15] MEDS ORDERED: METOPROLOL TARTRATE PF/INJ 5 MG/5 ML SDV IV ONE (14:05)
[2018-09-15] MEDS ORDERED: MEPERIDINE HCL/PF INJ 25 MG/1 ML DISP.SYRIN IV PRN (14:07)
[2018-09-15] MEDS ORDERED: FENTANYL CITRATE INJ/PF 100 MCG/2 ML AMPUL IV PRN ×3 (14:07)
[2018-09-15] MEDS ORDERED: PROMETHAZINE HCL INJ 25 MG/1 ML VIAL IV PRN ×2 (14:07)
[2018-09-15] MEDS ORDERED: DIPHENHYDRAMINE HCL 50 MG/ML VIAL IV PRN (14:07)
[2018-09-15] MEDS ORDERED: MORPHINE SULFATE 10 MG/ML INJ IV PRN (14:07)
[2018-09-15] MEDS ORDERED: OXYCODONE-ACETAMINOPHEN 5-325 MG TABLET PO PRN ×2 (14:07)
--- NOTE | 2018-09-15 15:29 | Operative Report ---
Nonrecallable Operative Report DATE OF SURGERY: 09/15/18 PREOPERATIVE DIAGNOSIS: left distal leg cellulitis and necrotic wound. osteomyelitis of the left foot POSTOPERATIVE DIAGNOSIS: same OPERATION: left below knee amputation SURGEON: CLAU RODRIGUEZ ANESTHESIA: GA TISSUE REMOVED OR ALTERED: left leg and foot COMPLICATIONS: none ESTIMATED BLOOD LOSS: < 5 mL INTRAOPERATIVE FINDINGS: as preop dx; PROCEDURE: see dictation
[2018-09-15] MEDS: PIPERACILLIN SODIUM/TAZOBACTAM 3.375 GM in NORMAL SALINE 100 ML IV SCH ×2 (16:41→17:14)
--- NOTE | 2018-09-15 19:43 | EKG REPORT ---
SEVERITY:- ABNORMAL ECG - SINUS RHYTHM LEFT ATRIAL ABNORMALITY RIGHT BUNDLE BRANCH BLOCK : Confirmed by: Arin Garay MD 15-Sep-2018 19:42:37
--- NOTE | 2018-09-15 19:43 | EKG REPORT ---
SEVERITY:- ABNORMAL ECG - SINUS RHYTHM PROBABLE LEFT ATRIAL ABNORMALITY RIGHT BUNDLE BRANCH BLOCK : Confirmed by: Arin Garay MD 15-Sep-2018 19:42:33
[2018-09-15] MEDS: ASCORBIC ACID 500 MG TABLET PO SCH (20:27)
[2018-09-15] MEDS: VANCOMYCIN HCL 1,000 MG in DEXTROSE 5%-WATER 250 ML IV SCH (22:33)
[2018-09-16] MEDS: INSULIN LISPRO 100 UNIT/ML 3 ML VIAL SUBCUT SCH ×5 (00:26→21:51)
[2018-09-16] MEDS: PIPERACILLIN SODIUM/TAZOBACTAM 3.375 GM in NORMAL SALINE 100 ML IV SCH ×4 (00:36→17:32)
[2018-09-16] MEDS: NORMAL SALINE 1000 ML 1,000 ML IV PRN ×3 (00:37→21:56)
--- NOTE | 2018-09-16 04:37 | OPERATIVE REPORT E ---
Operative Report NAME: STACI MCWILLIAMS : 1950 AGE: 67Y DATE OF SURGERY: 09/15/2018 ROOM: 426 PREOPERATIVE DIAGNOSES: 1. LEFT DISTAL ONE-THIRD LEG CELLULITIS WITH NECROTIC WOUND. 2. OSTEOMYELITIS OF LEFT CALCANEUS. POSTOPERATIVE DIAGNOSES: 1. LEFT DISTAL ONE-THIRD LEG CELLULITIS WITH NECROTIC WOUND 2. OSTEOMYELITIS OF LEFT CALCANEUS. OPERATION: Left below-knee amputation. SURGEON: CLAU RODRIGUEZ M.D. ANESTHESIA: General FLUIDS: 2100 COMPLICATIONS: None. URINE OUTPUT: 400 mL BLOOD LOSS: Less than 5 mL. TOURNIQUET TIME: 69 minutes INDICATION AND FINDINGS: This is a 67-year-old male, senior care resident, not bed-bound, with diabetes, coronary artery disease, and stroke who presented to emergency room with redness of the distal one-third of the left leg with a large wound that measured about 2 cm in diameter located on the anterior aspect of the distal one-third left leg with foul smell. The patient underwent a CAT scan, which revealed inflammatory changes and subcutaneous air of the distal left leg. An MRI of the left leg was done, revealing calcaneous osteomyelitis. Therefore, the patient was approached and he was proposed to undergo a left BKA. The procedure was discussed. Risks, benefits, complications, and alternatives were explained to the patient and the sister. Their questions were answered. He decided to proceed with a left below-knee amputation. In addition, the patient presented with good range of motion of both the right and the left knee. PROCEDURE: It was done in the operating room. The patient was placed in a supine position. General anesthesia induced by endotracheal intubation. The left thigh underwent placement of a tourniquet in the mid upper thigh, by protecting the skin first with Webril, and a large tent and drape was placed. Following this, the left distal thigh and leg and foot were prepped and draped in usual fashion. The foot was encircled with a stockinette. After time-out was informed, the left lower extremity was elevated and an Esmarch bandage was utilized to promote exsanguination. When this was obtained, the tourniquet was inflated to about 200 mmHg above the systolic blood pressure, which was 99, and the Esmarch bandage was removed. Using a surgical marker, tracings were performed for the revision of the BKA flap. The procedure was done by incising the skin along the marker tracings. This was done through subcutaneous tissue and the muscle planes, which were divided with Bovie electrocautery without difficulty. The flap was then divided off the posterior aspect of the left tibia and continued superiorly. The femoral nerve as well as the popliteal artery and veins were identified. They were dissected individually, double clamped, divided, and then tied with 2-0 silk suture on a needle. When this was completed, the flaps were from the tibia and then from the fibula. The dissection of the tibia and fibula was continued superiorly using a periosteum elevator proximal to the distal aspect of the planned bone division. The tibia and the fibula were then divided with a surgical electric saw. The tibia was divided about 2 fingerbreadths below the anterior tibial tuberosity and the fibula at the same level. The edges of the bone were filed with a surgical file to be smooth and surgical wax was applied to the proximal stump of the tibia. The specimen was removed from the surgical bed. No active bleeding was noted. A stab wound was made in the lateral aspect of the left distal thigh and a 10-Uzbek round Marvin drain was inserted through the skin and placed in the surgical field, divided to length, and it was secured to the skin with a 2-0 nylon suture. The large cutaneous muscular flap was then rotated in a posterior to anterior fashion and interrupted [id number] deep 0 Vicryl sutures were placed to secure the fascia of the flap with the proximal knee fascia. When this was accomplished, the flap was in good position, additional [id number] interrupted deep 2-0 Vicryl sutures were placed to keep the subcutaneous tissue in place. The skin was trimmed to length to obtain a good profile of the below-knee amputation stump and the skin edges approximated with ja. The flap 4 x 4's, ABDs, Webril, Kerlix were all then applied. Following this, a padded posterior splint was placed to keep the knee in an extended position and this was secured in place with a 6-inch Beka wrap, which was then stapled to itself. The patient tolerated the procedure well, extubated, and transferred to the recovery room in satisfactory condition. DICTATING PHYSICIAN: CLAU RODRIGUEZ M.D. [id number] PHY#: [id number] ID: [id number] JOB#: [id number] ACCT: [id number] cc:CLAU RODRIGUEZ M.D. > VINCE
[2018-09-16] MEDS: BUPROPION HCL 100 MG TABLET PO SCH ×3 (05:15→21:53)
[2018-09-16] MEDS: MORPHINE SULFATE 10 MG/ML INJ IV PRN ×3 (05:15→13:27)
[2018-09-16 05:42] LABS: ABSOLUTE EOSINOPHILS # (AUTO) 0.1 10^3/uL (0.0-0.6); ABSOLUTE LYMPHOCYTES (AUTO) 1.4 10^3/uL (0.5-4.7); ABSOLUTE MONOCYTES (AUTO) 0.9 10^3/uL (0.1-1.4); ABSOLUTE NEUT (AUTO) 5.1 10^3/uL (1.7-8.2); BASOPHILS % (AUTO) 0.1 % (0-2); EOSINOPHILS % (AUTO) 1.3 % (0-6); HEMATOCRIT 38.1 % (37.9-51.0); HEMOGLOBIN 12.7 g/dL (13.5-17.0); LYMPHOCYTES % (AUTO) 19.2 % (13-45); MEAN CORPUSCULAR HEMOGLOBIN 31.4 pg (27.0-33.4); MEAN CORPUSCULAR HGB CONC 33.4 g/dL (32.0-36.0); MEAN CORPUSCULAR VOLUME 94 fl (80-97); MONOCYTES % (AUTO) 11.6 % (3-13); PLATELET COUNT 274 10^3/uL (150-450); RED BLOOD COUNT 4.05 10^6/uL (4.35-5.55); RED CELL DISTRIBUTION WIDTH 14.2 % (11.5-14.0); SEGMENTED NEUTROPHILS % (AUTO) 67.8 % (42-78); TOTAL CELLS COUNTED % (AUTO) 100 %; WHITE BLOOD COUNT 7.5 10^3/uL (4.0-10.5)
[2018-09-16 06:08] LABS: ANION GAP 9 (5-19); BLOOD UREA NITROGEN 16 mg/dL (7-20); CALCIUM 9.1 mg/dL (8.4-10.2); CARBON DIOXIDE 22 mmol/L (22-30); CHLORIDE 110 mmol/L (98-107); GLUCOSE 85 mg/dL (75-110); POTASSIUM 4.5 mmol/L (3.6-5.0); SODIUM 140.9 mmol/L (137-145)
[2018-09-16] MEDS: ACETAMINOPHEN 325 MG TABLET PO PRN ×2 (07:23→16:06)
[2018-09-16] MEDS ORDERED: (PENDING PHARMACY ID) (Cyanocobalamin (Vitamin B-12) [Vitamin B-12 100 Mcg Tablet] 100 MCG PO SCH (08:00)
[2018-09-16] MEDS: ASCORBIC ACID 500 MG TABLET PO SCH ×2 (09:30→17:32)
[2018-09-16] MEDS: MULTIVITAMIN TABLET PO SCH (09:31)
[2018-09-16] MEDS: FAMOTIDINE 20 MG TABLET PO SCH ×2 (09:31→21:53)
[2018-09-16] MEDS: ATORVASTATIN CALCIUM 80 MG TABLET PO SCH (09:31)
[2018-09-16] MEDS: VANCOMYCIN HCL 1,000 MG in DEXTROSE 5%-WATER 250 ML IV SCH ×2 (09:31→21:52)
--- NOTE | 2018-09-16 09:49 | PDOC PROGRESS REPORT ---
Subjective Progress Note for:: 09/16/18 Subjective:: No c/o Reason For Visit: INFECTED LT DIABETIC FOOT ULCER Physical Exam Vital Signs: Temp Pulse Resp BP Pulse Ox 98.1 F 100 16 192/87 H 94 09/16/18 07:37 09/16/18 07:37 09/16/18 07:37 09/16/18 07:37 09/16/18 07:37 Intake & Output 09/15/18 09/16/18 09/17/18 06:59 06:59 06:59 Intake Total 5771 Output Total 1650 Balance 4121 Weight 81.1 kg General appearance: PRESENT: no acute distress Musculoskeletal exam: PRESENT: other - Left BKA site with dressing C/D/I Results Laboratory Results: 09/16/18 04:47 09/16/18 04:47 09/16/18 09/16/18 04:47 04:47 WBC 7.5 RBC 4.05 L Hgb 12.7 L Hct 38.1 MCV 94 MCH 31.4 MCHC 33.4 RDW 14.2 H Plt Count 274 Seg Neutrophils % 67.8 Lymphocytes % 19.2 Monocytes % 11.6 Eosinophils % 1.3 Basophils % 0.1 Absolute Neutrophils 5.1 Absolute Lymphocytes 1.4 Absolute Monocytes 0.9 Absolute Eosinophils 0.1 Absolute Basophils 0.0 Sodium 140.9 Potassium 4.5 Chloride 110 H Carbon Dioxide 22 Anion Gap 9 BUN 16 Creatinine 0.86 Est GFR ( Amer) > 60 Est GFR (Non-Af Amer) > 60 Glucose 85 Calcium 9.1 09/15/18 17:34 Troponin I < 0.012 Impressions: Lower Extremity MRI 09/15/18 00:00 IMPRESSION: Calcaneal osteomyelitis Chest X-Ray 09/15/18 04:26 IMPRESSION: No acute cardiopulmonary findings. Foot X-Ray 09/15/18 04:26 IMPRESSION: Soft tissue injury; else, no acute findings. Lower Extremity CT 09/15/18 04:50 IMPRESSION: Dorsal wound with small mild anterior subcutaneous air. No overt findings of osteopenia or sclerosis to suggest osteomyelitis. MRI would be more sensitive. Assessment & Plan - Diagnosis (2) INFECTED DIABETIC FOOT ULCER Is this a current diagnosis for this admission?: Yes (3) Osteomyelitis due to secondary diabetes Is this a current diagnosis for this admission?: Yes - Plan Summary Plan Summary: A/ POD #1 after Left BKS VSS, AF, hypertensive Left BKA site clean dressings Drain output none P/ Continue current management Will unveil surgery site in 48 hours
[2018-09-16] MEDS: HEPARIN SOD (PORCINE) 5,000 UNIT/ML 1 ML SYRINGE SUBCUT SCH ×2 (10:49→21:53)
--- NOTE | 2018-09-16 13:23 | PDOC PROGRESS REPORT ---
Subjective Progress Note for:: 09/16/18 Subjective:: This is a 67 years old male patient transferred from [facility] for fever and leukocytosis. Patient has also nonhealing left leg ulcer. Dr. Chen evaluated the left foot with nonhealing ulcer and a performed left BKA since the foot is nonsalvageable. Reportedly patient had ectopy during the induction phase of anesthesia. So patient transferred to ICU for observation now his downgraded to medical floor. His temperature is 98 and his leukocytosis resolved. Patient has been on cefepime and vancomycin. I will discontinue antibiotics tomorrow since the septic focus removed with amputation. Reason For Visit: INFECTED LT DIABETIC FOOT ULCER Physical Exam Vital Signs: Temp Pulse Resp BP Pulse Ox 98.1 F 100 16 192/87 H 94 09/16/18 07:37 09/16/18 07:37 09/16/18 07:37 09/16/18 07:37 09/16/18 07:37 Intake & Output 09/15/18 09/16/18 09/17/18 06:59 06:59 06:59 Intake Total 5771 1350 Output Total 1650 0 Balance 4121 1350 Weight 81.1 kg General appearance: PRESENT: no acute distress Head exam: PRESENT: atraumatic Eye exam: PRESENT: conjunctiva pink Neck exam: ABSENT: carotid bruit, JVD, lymphadenopathy, thyromegaly Respiratory exam: PRESENT: clear to auscultation hunter. ABSENT: rales, rhonchi, wheezes Cardiovascular exam: PRESENT: RRR. ABSENT: diastolic murmur, rubs, systolic murmur Extremities exam: PRESENT: other - Left BKA Neurological exam: PRESENT: alert, awake Results Laboratory Results: 09/16/18 04:47 09/16/18 04:47 09/16/18 09/16/18 04:47 04:47 WBC 7.5 RBC 4.05 L Hgb 12.7 L Hct 38.1 MCV 94 MCH 31.4 MCHC 33.4 RDW 14.2 H Plt Count 274 Seg Neutrophils % 67.8 Lymphocytes % 19.2 Monocytes % 11.6 Eosinophils % 1.3 Basophils % 0.1 Absolute Neutrophils 5.1 Absolute Lymphocytes 1.4 Absolute Monocytes 0.9 Absolute Eosinophils 0.1 Absolute Basophils 0.0 Sodium 140.9 Potassium 4.5 Chloride 110 H Carbon Dioxide 22 Anion Gap 9 BUN 16 Creatinine 0.86 Est GFR ( Amer) > 60 Est GFR (Non-Af Amer) > 60 Glucose 85 Calcium 9.1 09/15/18 17:34 Troponin I < 0.012 Impressions: Lower Extremity MRI 09/15/18 00:00 IMPRESSION: Calcaneal osteomyelitis Chest X-Ray 09/15/18 04:26 IMPRESSION: No acute cardiopulmonary findings. Foot X-Ray 09/15/18 04:26 IMPRESSION: Soft tissue injury; else, no acute findings. Lower Extremity CT 09/15/18 04:50 IMPRESSION: Dorsal wound with small mild anterior subcutaneous air. No overt findings of osteopenia or sclerosis to suggest osteomyelitis. MRI would be more sensitive. Assessment & Plan - Diagnosis (1) INFECTED DIABETIC FOOT ULCER Is this a current diagnosis for this admission?: Yes Plan: Nonhealing left diabetic foot ulcer status post left BKA. (2) Type 2 diabetes mellitus Is this a current diagnosis for this admission?: Yes Plan: Patient has been started on sliding scale and will resume his home medication. Hemoglobin A1c requested to evaluate the status of his diabetes. (3) Coronary artery disease Qualifiers: Coronary Disease-Associated Artery/Lesion type: [place] artery Is this a current diagnosis for this admission?: Yes Plan: Patient does not have angina. We will continue his cardioprotective medications. (4) Hypertension Qualifiers: Hypertension type: essential hypertension Qualified Code(s): I10 - Essential (primary) hypertension Is this a current diagnosis for this admission?: Yes Plan: Continue home med (5) Hyperlipidemia Qualifiers: Hyperlipidemia type: unspecified Qualified Code(s): E78.5 - Hyperlipidemia, unspecified Is this a current diagnosis for this admission?: Yes Plan: Continue home med (6) History of CVA (cerebrovascular accident) Is this a current diagnosis for this admission?: Yes Plan: Continue medication for secondary prevention of CVA.
[2018-09-16] MEDS ORDERED: HYDRALAZINE HCL INJ/PF 20 MG/1 ML SDV ONE (15:37)
[2018-09-16] MEDS ORDERED: METOPROLOL TARTRATE 50 MG TABLET ONE (15:40)
[2018-09-16] MEDS: METOPROLOL TARTRATE 50 MG TABLET PO SCH ×2 (15:46→21:53)
[2018-09-16] MEDS ORDERED: HYDRALAZINE HCL INJ/PF 20 MG/1 ML SDV IV ONE (16:00)
[2018-09-16] MEDS ORDERED: KETOROLAC TROMETHAMINE INJ/PF 30 MG/1 ML SDV IV ONE (16:16)
[2018-09-16] MEDS ORDERED: FENTANYL 25 MCG/HR PATCH.TD72 TD ONE (17:30)
[2018-09-16 19:10] LABS: APPEARANCE,URINE SLIGHTLY-CLOUDY; BILIRUBIN,URINE NEGATIVE (NEGATIVE); COLOR,URINE YELLOW; GLUCOSE, URINE 50 mg/dL (NEGATIVE); KETONES,URINE 80 mg/dL (NEGATIVE); LEUKOCYTE ESTERASE,URINE NEGATIVE (NEGATIVE); NITRITE,URINE NEGATIVE (NEGATIVE); PROTEIN,URINE NEGATIVE (NEGATIVE); URINE SPECIFIC GRAVITY 1.016; UROBILINOGEN,URINE NEGATIVE mg/dL (<2.0)
[2018-09-16 22:02] LABS: VANCOMYCIN,TROUGH 8.6 ug/mL (5.0-20.0)
[2018-09-17] MEDS: PIPERACILLIN SODIUM/TAZOBACTAM 3.375 GM in NORMAL SALINE 100 ML IV SCH ×5 (00:02→23:31)
[2018-09-17] MEDS: BUPROPION HCL 100 MG TABLET PO SCH ×3 (05:32→21:16)
[2018-09-17] MEDS ORDERED: ONDANSETRON HCL INJ/PF 4 MG/2 ML SDV IV PRN (08:00)
--- NOTE | 2018-09-17 08:36 | PDOC PROGRESS REPORT ---
Subjective Progress Note for:: 09/17/18 Subjective:: No c/o Reason For Visit: INFECTED LT DIABETIC FOOT ULCER Physical Exam Vital Signs: Temp Pulse Resp BP Pulse Ox 99.2 F 77 16 181/71 H 98 09/16/18 23:46 09/16/18 23:46 09/16/18 23:46 09/16/18 23:46 09/16/18 23:46 Intake & Output 09/16/18 09/17/18 09/18/18 06:59 06:59 06:59 Intake Total 5771 4385 Output Total 1650 1200 Balance 4121 3185 Weight 81.1 kg 81.6 kg General appearance: PRESENT: no acute distress Musculoskeletal exam: PRESENT: other - Left BKA site: dresssings C/D/I, IMELDA fdrain in place Results Laboratory Results: 09/16/18 04:47 09/16/18 04:47 09/16/18 18:38 Urine Color YELLOW Urine Appearance SLIGHTLY-CLOUDY Urine pH 5.0 Ur Specific [place] 1.016 Urine Protein NEGATIVE Urine Glucose (UA) 50 H Urine Ketones 80 H Urine Blood SMALL H Urine Nitrite NEGATIVE Ur Leukocyte Esterase NEGATIVE Urine WBC (Auto) 2 Urine RBC (Auto) 16 09/15/18 17:34 Troponin I < 0.012 Impressions: Lower Extremity MRI 09/15/18 00:00 IMPRESSION: Calcaneal osteomyelitis Chest X-Ray 09/15/18 04:26 IMPRESSION: No acute cardiopulmonary findings. Foot X-Ray 09/15/18 04:26 IMPRESSION: Soft tissue injury; else, no acute findings. Lower Extremity CT 09/15/18 04:50 IMPRESSION: Dorsal wound with small mild anterior subcutaneous air. No overt findings of osteopenia or sclerosis to suggest osteomyelitis. MRI would be more sensitive. Assessment & Plan - Diagnosis (2) INFECTED DIABETIC FOOT ULCER Is this a current diagnosis for this admission?: Yes (3) Osteomyelitis due to secondary diabetes Is this a current diagnosis for this admission?: Yes - Plan Summary Plan Summary: A/ POD#2 after Left BKA for osteomyelitis left foot VSS< AF BKS stump covered with dressing c/d/i sczant dfrain output P/ BKA stump to be unveiled tomorrow and drain removal as well Afterward, patient can be discharged to home PT on consult Consult to [facility] for stump document preparation specialist
[2018-09-17] MEDS: INSULIN LISPRO 100 UNIT/ML 3 ML VIAL SUBCUT SCH ×4 (09:50→21:15)
[2018-09-17] MEDS: HEPARIN SOD (PORCINE) 5,000 UNIT/ML 1 ML SYRINGE SUBCUT SCH ×2 (10:00→21:15)
[2018-09-17] MEDS: ATORVASTATIN CALCIUM 80 MG TABLET PO SCH (10:00)
[2018-09-17] MEDS: METOPROLOL TARTRATE 50 MG TABLET PO SCH ×2 (10:00→21:16)
[2018-09-17] MEDS: MULTIVITAMIN TABLET PO SCH (10:00)
[2018-09-17] MEDS: VANCOMYCIN HCL 1,000 MG in DEXTROSE 5%-WATER 250 ML IV SCH ×2 (10:00→21:15)
[2018-09-17] MEDS: FAMOTIDINE 20 MG TABLET PO SCH ×2 (10:00→21:16)
[2018-09-17] MEDS: ASCORBIC ACID 500 MG TABLET PO SCH ×2 (10:00→17:57)
[2018-09-17] MEDS: NORMAL SALINE 1000 ML 1,000 ML IV PRN ×2 (10:00→21:11)
[2018-09-17] MEDS: MORPHINE SULFATE 10 MG/ML INJ IV PRN ×2 (10:59→17:58)
--- NOTE | 2018-09-17 17:01 | PDOC PROGRESS REPORT ---
Subjective Progress Note for:: 09/17/18 Subjective:: This is a 67 years old male patient transferred from [facility] for fever and leukocytosis. Patient has also nonhealing left leg ulcer. Dr. Chen evaluated the left foot with nonhealing ulcer and a performed left BKA since the foot is nonsalvageable. Reportedly patient had ectopy during the induction phase of anesthesia. So patient transferred to ICU for observation now his downgraded to medical floor. His temperature is 98 and his leukocytosis resolved. Patient has been on cefepime and vancomycin. I have discontinued his cefepime and Vanco. So far his postoperative course is smooth. Dr. Chen states patient is potential discharge for tomorrow. Reason For Visit: INFECTED LT DIABETIC FOOT ULCER Physical Exam Vital Signs: Temp Pulse Resp BP Pulse Ox 98.1 F 74 19 168/68 H 98 09/17/18 16:00 09/17/18 16:00 09/17/18 16:00 09/17/18 16:00 09/17/18 16:00 Intake & Output 09/16/18 09/17/18 09/18/18 06:59 06:59 06:59 Intake Total 5771 4385 642 Output Total 1650 1200 0 Balance 4121 3185 642 Weight 81.1 kg 81.6 kg General appearance: PRESENT: no acute distress Eye exam: PRESENT: conjunctiva pink Mouth exam: PRESENT: moist Neck exam: ABSENT: carotid bruit, JVD, lymphadenopathy, thyromegaly Respiratory exam: PRESENT: clear to auscultation hunter. ABSENT: rales, rhonchi, wheezes GI/Abdominal exam: PRESENT: normal bowel sounds, soft. ABSENT: distended, guarding, mass, organolmegaly, rebound, tenderness Neurological exam: PRESENT: alert, awake Results Laboratory Results: 09/16/18 04:47 09/16/18 04:47 09/16/18 18:38 Urine Color YELLOW Urine Appearance SLIGHTLY-CLOUDY Urine pH 5.0 Ur Specific [place] 1.016 Urine Protein NEGATIVE Urine Glucose (UA) 50 H Urine Ketones 80 H Urine Blood SMALL H Urine Nitrite NEGATIVE Ur Leukocyte Esterase NEGATIVE Urine WBC (Auto) 2 Urine RBC (Auto) 16 09/15/18 05:00 Foot - Left Heel Gram Stain - Final 09/15/18 17:34 Troponin I < 0.012 Impressions: Lower Extremity MRI 09/15/18 00:00 IMPRESSION: Calcaneal osteomyelitis Chest X-Ray 09/15/18 04:26 IMPRESSION: No acute cardiopulmonary findings. Foot X-Ray 09/15/18 04:26 IMPRESSION: Soft tissue injury; else, no acute findings. Lower Extremity CT 09/15/18 04:50 IMPRESSION: Dorsal wound with small mild anterior subcutaneous air. No overt findings of osteopenia or sclerosis to suggest osteomyelitis. MRI would be more sensitive. Assessment & Plan - Diagnosis (1) INFECTED DIABETIC FOOT ULCER Is this a current diagnosis for this admission?: Yes Plan: Nonhealing left diabetic foot ulcer status post left BKA. (2) Type 2 diabetes mellitus Is this a current diagnosis for this admission?: Yes Plan: Patient has been started on sliding scale and will resume his home medication. Hemoglobin A1c requested to evaluate the status of his diabetes. (3) Coronary artery disease Qualifiers: Coronary Disease-Associated Artery/Lesion type: [place] artery Is this a current diagnosis for this admission?: Yes Plan: Patient does not have angina. We will continue his cardioprotective medications. (4) Hypertension Qualifiers: Hypertension type: essential hypertension Qualified Code(s): I10 - Essential (primary) hypertension Is this a current diagnosis for this admission?: Yes Plan: Continue home med (5) Hyperlipidemia Qualifiers: Hyperlipidemia type: unspecified Qualified Code(s): E78.5 - Hyperlipidemia, unspecified Is this a current diagnosis for this admission?: Yes Plan: Continue home med (6) History of CVA (cerebrovascular accident) Is this a current diagnosis for this admission?: Yes Plan: Continue medication for secondary prevention of CVA.
[2018-09-17] MEDS: ACETAMINOPHEN 325 MG TABLET PO PRN (21:16)
[2018-09-18] MEDS: NORMAL SALINE 1000 ML 1,000 ML IV PRN ×3 (03:22→22:49)
[2018-09-18] MEDS: MORPHINE SULFATE 10 MG/ML INJ IV PRN ×3 (04:11→18:54)
[2018-09-18] MEDS: BUPROPION HCL 100 MG TABLET PO SCH ×3 (05:11→21:32)
[2018-09-18] MEDS: PIPERACILLIN SODIUM/TAZOBACTAM 3.375 GM in NORMAL SALINE 100 ML IV SCH ×2 (05:12→14:55)
[2018-09-18] MEDS: INSULIN LISPRO 100 UNIT/ML 3 ML VIAL SUBCUT SCH ×4 (09:38→21:41)
[2018-09-18] MEDS: FAMOTIDINE 20 MG TABLET PO SCH ×2 (09:39→21:32)
[2018-09-18] MEDS: METOPROLOL TARTRATE 50 MG TABLET PO SCH ×2 (09:39→21:32)
[2018-09-18] MEDS: ASCORBIC ACID 500 MG TABLET PO SCH ×2 (09:40→18:54)
[2018-09-18] MEDS: ATORVASTATIN CALCIUM 80 MG TABLET PO SCH (09:40)
[2018-09-18] MEDS: HEPARIN SOD (PORCINE) 5,000 UNIT/ML 1 ML SYRINGE SUBCUT SCH ×2 (09:41→21:31)
[2018-09-18] MEDS: MULTIVITAMIN TABLET PO SCH (09:41)
[2018-09-18] MEDS: VANCOMYCIN HCL 1,000 MG in DEXTROSE 5%-WATER 250 ML IV SCH (09:41)
--- NOTE | 2018-09-18 12:44 | PDOC PROGRESS REPORT ---
Subjective Progress Note for:: 09/18/18 Subjective:: c/o stump pain Reason For Visit: INFECTED LT DIABETIC FOOT ULCER Physical Exam Vital Signs: Temp Pulse Resp BP Pulse Ox 98.8 F 78 18 110/80 96 09/18/18 08:24 09/18/18 08:24 09/18/18 08:24 09/18/18 08:24 09/18/18 08:24 Intake & Output 09/17/18 09/18/18 09/19/18 06:59 06:59 06:59 Intake Total 4385 3501 250 Output Total 1200 1200 Balance 3185 2301 250 Weight 81.6 kg 81.5 kg General appearance: PRESENT: mild distress, other - patient appears combattive but follows instructions Extremities exam: PRESENT: other - LBKA stump= well healing, soft, minimal edema, sutre line intact, drain in place Results Laboratory Results: 09/16/18 04:47 09/16/18 04:47 09/16/18 18:38 Catheterized Urine Urine Culture - Final NO GROWTH 2 DAYS 09/15/18 05:00 Foot - Left Heel Gram Stain - Final 09/15/18 05:00 Foot - Left Heel Wound Culture - Final Enterococcus Faecalis(Group D) Skin Tania 09/15/18 17:34 Troponin I < 0.012 Impressions: Lower Extremity MRI 09/15/18 00:00 IMPRESSION: Calcaneal osteomyelitis Chest X-Ray 09/15/18 04:26 IMPRESSION: No acute cardiopulmonary findings. Foot X-Ray 09/15/18 04:26 IMPRESSION: Soft tissue injury; else, no acute findings. Lower Extremity CT 09/15/18 04:50 IMPRESSION: Dorsal wound with small mild anterior subcutaneous air. No overt findings of osteopenia or sclerosis to suggest osteomyelitis. MRI would be more sensitive. 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
[2018-09-18] MEDS ORDERED: PIPERACILLIN SODIUM/TAZOBACTAM 3.375 GM in NORMAL SALINE 100 ML IV ONE (14:30)
[2018-09-19] MEDS: BUPROPION HCL 100 MG TABLET PO SCH ×2 (05:16→14:59)
[2018-09-19] MEDS: MORPHINE SULFATE 10 MG/ML INJ IV PRN (05:17)
[2018-09-19] MEDS: INSULIN LISPRO 100 UNIT/ML 3 ML VIAL SUBCUT SCH ×3 (08:12→18:02)
--- NOTE | 2018-09-19 08:20 | PDOC PROGRESS REPORT ---
Subjective Progress Note for:: 09/18/18 Subjective:: Very flat affect. Still with some pain left lower extremity. Reason For Visit: INFECTED LT DIABETIC FOOT ULCER Physical Exam Vital Signs: Temp Pulse Resp BP Pulse Ox 98.2 F 82 17 154/68 H 95 09/18/18 15:36 09/18/18 15:36 09/18/18 15:36 09/18/18 15:36 09/18/18 15:36 Intake & Output 09/17/18 09/18/18 09/19/18 06:59 06:59 06:59 Intake Total 4385 3501 1350 Output Total 1200 1200 700 Balance 3185 2301 650 Weight 81.6 kg 81.5 kg General appearance: PRESENT: no acute distress, well-developed Head exam: PRESENT: normocephalic Respiratory exam: PRESENT: clear to auscultation hunter, symmetrical, unlabored. ABSENT: rales, rhonchi, stridor, wheezes Cardiovascular exam: PRESENT: RRR, +S1, +S2 GI/Abdominal exam: PRESENT: normal bowel sounds, soft. ABSENT: distended, tenderness Neurological exam: PRESENT: alert, awake, oriented to person, oriented to place, oriented to situation Psychiatric exam: PRESENT: flat affect. ABSENT: agitated - Although staff re ports occasional anger, anxious Skin exam: PRESENT: other - Did not unwrap amputation site left leg Results Laboratory Results: 09/16/18 04:47 09/16/18 04:47 09/16/18 18:38 Catheterized Urine Urine Culture - Final NO GROWTH 2 DAYS 09/15/18 05:00 Foot - Left Heel Gram Stain - Final 09/15/18 05:00 Foot - Left Heel Wound Culture - Final Enterococcus Faecalis(Group D) Skin Tania 09/15/18 17:34 Troponin I < 0.012 Impressions: Lower Extremity MRI 09/15/18 00:00 IMPRESSION: Calcaneal osteomyelitis Chest X-Ray 09/15/18 04:26 IMPRESSION: No acute cardiopulmonary findings. Foot X-Ray 09/15/18 04:26 IMPRESSION: Soft tissue injury; else, no acute findings. Lower Extremity CT 09/15/18 04:50 IMPRESSION: Dorsal wound with small mild anterior subcutaneous air. No overt findings of osteopenia or sclerosis to suggest osteomyelitis. MRI would be more sensitive. Assessment & Plan - Diagnosis (1) INFECTED DIABETIC FOOT ULCER Is this a current diagnosis for this admission?: Yes Plan: New BKA on the left. Analgesia available. Will need PT . Will return to [facility] and will need PT. 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 We continue the sliding scale here. Despite the stress of surgery his sugars are mostly under 200. We will continue the same at this time. (3) Depression Qualifiers: Depression Type: unspecified Qualified Code(s): F32.9 - Major depressive disorder, single episode, unspecified Is this a current diagnosis for this admission?: Yes Plan: The patient was on bupropion at [facility] and we have continue the same. He has episodes of acting out with the staff and this is more likely due to the stress of surgery, his depression and trouble coping with his illness. I also believe this is adversely affecting his appetite. Some of this should resolve when he is back in his familiar surroundings. (4) Coronary artery disease Qualifiers: Coronary Disease-Associated Artery/Lesion type: [place] artery Is this a current diagnosis for this admission?: Yes Plan: We will continue his current regimen. No acute symptoms at this time. - Time Time Spent with patient: 15-24 minutes Medications reviewed and adjusted accordingly: Yes Anticipated discharge: SNF
[2018-09-19] MEDS: MULTIVITAMIN TABLET PO SCH (09:59)
[2018-09-19] MEDS: METOPROLOL TARTRATE 50 MG TABLET PO SCH (09:59)
[2018-09-19] MEDS: FAMOTIDINE 20 MG TABLET PO SCH (09:59)
[2018-09-19] MEDS: ASCORBIC ACID 500 MG TABLET PO SCH ×2 (09:59→17:55)
[2018-09-19] MEDS ORDERED: FENTANYL 25 MCG/HR PATCH.TD72 TD SCH (10:00)
[2018-09-19] MEDS: HEPARIN SOD (PORCINE) 5,000 UNIT/ML 1 ML SYRINGE SUBCUT SCH (10:03)
[2018-09-19] MEDS: ATORVASTATIN CALCIUM 80 MG TABLET PO SCH (10:22)
[2018-09-19] MEDS: NORMAL SALINE 1000 ML 1,000 ML IV PRN (10:25)
--- NOTE | 2018-09-19 13:34 | PDOC TRANSFER SUMMARY ---
General - Admit/Disc Date/PCP Admission Date/Primary Care Provider: 09/15/18 08:58 RAMA BERNARD MD Discharge Date: 09/19/18 - Discharge Diagnosis (1) Complete below knee amputation of left lower extremity Is this a current diagnosis for this admission?: Yes Summary: The patient underwent left below-knee amputation. He has been struggling with a diabetic ulcer and was scheduled for elective surgery next week I believe. The surgery was not complicated. The stump is healing well. The patient is going to be seen by orthotics prior to transfer back to [facility]. They will continue to follow with him to develop his prosthesis. The patient will need physical therapy. He is on a low-dose Duragesic patch and as needed analgesia was prescribed as well. He no longer needs antibiotic therapy as the infected bone is now removed. (2) INFECTED DIABETIC FOOT ULCER Is this a current diagnosis for this admission?: Yes Summary: The patient had been struggling with diabetic foot ulcer and believe osteom yelitis. He was scheduled for elective amputation however infection prompted him to present to the hospital earlier. The patient underwent a left below-knee amputation without complication. Surgery feels that he is appropriate for transfer back to [facility]. Prosthetics and orthotics are going to see the patient here and then continue to follow. With the amputation the patient no longer needs antibiotic therapy. (3) Type 2 diabetes mellitus Is this a current diagnosis for this admission?: Yes Summary: Continue sliding scale which is what the patient was on at [facility]. (4) Depression Is this a current diagnosis for this admission?: Yes Summary: No changes in current medication regimen (5) Coronary artery disease Is this a current diagnosis for this admission?: Yes Summary: The patient has been stable. No changes to his medication regimen. - Additional Information Resuscitation Status: Full Code Discharge Diet: Diabetic Discharge Activity: Keep Legs Elevated - Keep left leg elevated. Avoid direct pressure to stump., Other - Advance activity per physical therapy. Prescriptions: Fentanyl [Duragesic 25 mcg/hr Transdermal Patch] 1 each TD Q3DAYS 9 Days #3 patch.[id number] Oxycodone HCl/Acetaminophen [Percocet 5-325 mg Tablet] 1 tab PO Q6HP PRN 10 Days #15 tab PRN Reason: For Pain Home Medications: Ascorbic Acid [Vitamin C 500 mg Tablet] 500 mg PO BID 09/15/18 Aspirin [Aspirin 325 mg Tablet] 325 mg PO QAM 09/15/18 Atorvastatin Calcium [Lipitor 80 mg Tablet] 80 mg PO QAM 09/15/18 Bupropion HCl [Wellbutrin Xl 300mg 24hr Tablet] 300 mg PO QAM 09/15/18 Clopidogrel Bisulfate [Plavix 75 mg Tablet] 75 mg PO QAM 09/15/18 Cyanocobalamin (Vitamin B-12) [Vitamin B-12 100 mcg Tablet] 100 mcg PO QAM 09/15/18 Insulin Lispro [Humalog Insulin (Lispro) 100 unit/mL] 12 unit SUBCUT AC 09/15/18 Multivitamin [Daily Multiple Vitamin] 1 each PO DAILY 09/15/18 Acetaminophen [Tylenol 325 mg Tablet] 650 mg PO Q4HP PRN tablet 09/19/18 Fentanyl [Duragesic 25 mcg/hr Transdermal Patch] 1 each TD Q3DAYS 9 Days #3 patch.[id number] 09/19/18 Insulin Lispro [Humalog Insulin (Lispro) 100 unit/mL] 0 - 12 unit SUBCUT ACHS unit 09/19/18 Metoprolol Tartrate [Lopressor 50 mg Tablet] 50 mg PO Q12 #0 tablet 09/19/18 Oxycodone HCl/Acetaminophen [Percocet 5-325 mg Tablet] 1 tab PO Q6HP PRN 10 Days #15 tab 09/19/18 History of Present Illness Admission Date/PCP: 09/15/18 08:58 RAMA BERNARD MD History of Present Illness: TSACI MCWILLIAMS is a 67 year old male with multiple medical comorbidities. Evidently he has been struggling with a diabetic foot ulcer for some time now. He was scheduled for elective surgery but then presented to the hospital with an elevated fever, white count and worsening of the left leg including swelling. The hospital service was asked to admit the patient. Hospital Course Hospital Course: The patient had a relatively uneventful hospital course. He underwent his surgery. He was on a Humalog sliding scale for his diabetes and his sugars varied somewhat but this is not unexpected considering his surgery. With his history of coronary disease he had no reports of any chest discomfort. His medications remained unchanged. He does have a history of stroke and memory loss. He is also treated for depression and this therapy was continued uninterrupted. The patient is ready to return to [facility] for ongoing therapy. Physical Exam Vital Signs: Temp Pulse Resp BP Pulse Ox 99.2 F 77 18 175/71 H 95 09/19/18 00:00 09/19/18 00:00 09/19/18 00:00 09/19/18 00:00 09/19/18 00:00 Intake & Output 09/18/18 09/19/18 09/20/18 06:59 06:59 06:59 Intake Total 3501 3700 Output Total 1200 1475 Balance 2301 2225 Weight 81.5 kg 82.2 kg General appearance: PRESENT: no acute distress, cooperative Head exam: PRESENT: normocephalic Respiratory exam: PRESENT: clear to auscultation hunter, symmetrical, unlabored. ABSENT: rhonchi, wheezes Cardiovascular exam: PRESENT: RRR, +S1, +S2 GI/Abdominal exam: PRESENT: normal bowel sounds, soft. ABSENT: distended, tenderness Extremities exam: PRESENT: other - New left below-knee amputation Neurological exam: PRESENT: alert, awake, oriented to person, oriented to place, oriented to situation Psychiatric exam: PRESENT: flat affect. ABSENT: agitated, anxious Focused psych exam: ABSENT: delusional, restlessness Results Laboratory Results: 09/16/18 04:47 09/16/18 04:47 09/16/18 18:38 Catheterized Urine Urine Culture - Final NO GROWTH 2 DAYS 09/15/18 05:00 Foot - Left Heel Gram Stain - Final 09/15/18 05:00 Foot - Left Heel Wound Culture - Final Enterococcus Faecalis(Group D) Skin Tania 09/15/18 17:34 Troponin I < 0.012 Impressions: Lower Extremity MRI 09/15/18 00:00 IMPRESSION: Calcaneal osteomyelitis Chest X-Ray 09/15/18 04:26 IMPRESSION: No acute cardiopulmonary findings. Foot X-Ray 09/15/18 04:26 IMPRESSION: Soft tissue injury; else, no acute findings. Lower Extremity CT 09/15/18 04:50 IMPRESSION: Dorsal wound with small mild anterior subcutaneous air. No overt findings of osteopenia or sclerosis to suggest osteomyelitis. MRI would be more sensitive. Transfer Plan - Disposition Transfer Plan: The patient will transfer back to [facility]. No antibiotic therapy as needed. He will return to his original regimen of medications. Prescriptions for a fentanyl patch and acetaminophen with oxycodone tablets were provided at the time of transfer. 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 - Time Spent with Patient Time spent with patient: Greater than 30 Minutes Qualifiers - * PATIENT BEING DISCHARGED WITH ANY OF THE FOLLOWING DIAGNOSIS: No Plan Time Spent: Greater than 30 Minutes
[2018-09-19 15:39] VITALS: BP 175/59
== END 2018-09-19 19:30 | DRG 617 ==
LOC: ER 03:56 → EH 08:58 → ICU 16:08 → 4S 09-16 00:05
PROVIDERS: ADMIT Internal Medicine; ATTEND Internal Medicine
PROC: 0Y6J0Z3 Detachment at Left Lower Leg, Low, Open Approach (ICD-10-PCS; principal; 2018-09-15 12:30)
DX: E11.621 Type 2 diabetes mellitus with foot ulcer (principal); L97.424 Non-pressure chronic ulcer of left heel and midfoot with necrosis of bone; F32.9 Major depressive disorder, single episode, unspecified; I25.10 Atherosclerotic heart disease of native coronary artery without angina pectoris; B95.2 Enterococcus as the cause of diseases classified elsewhere; I10 Essential (primary) hypertension; E78.5 Hyperlipidemia, unspecified; Z79.899 Other long term (current) drug therapy; Z79.82 Long term (current) use of aspirin; Z79.4 Long term (current) use of insulin; Z87.891 Personal history of nicotine dependence; Z86.73 Personal history of transient ischemic attack (TIA), and cerebral infarction without residual deficits
CPT/HCPCS: 01482; 36415; 71045; 80048; 80053; 80202; 81001; 82962; 83036; 84484; 85025; 87040; 87070; 87077; 87086; 87186; 87205; 87804; 88307; 93005; 93010; 96365; 99285; J0131; J0330; J0360; J1644; J1815; J1885; J2250; J2270; J2405; J2543; J2704; J3010; J3370; J3490; J7030; J7060

== ENCOUNTER 2018-10-14 14:41 | Emergency (ER) | payer MEDICARE, MEDICAID ==
[2018-10-14] MEDS ORDERED: INSULIN REG, HUMAN 100 UNIT/ML 3 ML VIAL (PYX) SUBCUT ONE (15:00)
[2018-10-14] MEDS ORDERED: NORMAL SALINE 1000 ML 1,000 ML IV ONE (15:00)
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
[2018-10-14 16:01] LABS: VENOUS BLOOD HCO3 31.1 mmol/L (20-32); VENOUS BLOOD PCO2 51.9 mmHg (35-63); VENOUS BLOOD PH 7.4 (7.30-7.42)
[2018-10-14 16:08] LABS: ABSOLUTE EOSINOPHILS # (AUTO) 0.2 10^3/uL (0.0-0.6); ABSOLUTE LYMPHOCYTES (AUTO) 1.6 10^3/uL (0.5-4.7); ABSOLUTE MONOCYTES (AUTO) 0.7 10^3/uL (0.1-1.4); ABSOLUTE NEUT (AUTO) 4.8 10^3/uL (1.7-8.2); BASOPHILS % (AUTO) 0.2 % (0-2); EOSINOPHILS % (AUTO) 2.3 % (0-6); HEMATOCRIT 42.1 % (37.9-51.0); LYMPHOCYTES % (AUTO) 22.1 % (13-45); MEAN CORPUSCULAR HGB CONC 33.1 g/dL (32.0-36.0); MEAN CORPUSCULAR VOLUME 97 fl (80-97); PLATELET COUNT 177 10^3/uL (150-450); RED BLOOD COUNT 4.37 10^6/uL (4.35-5.55); RED CELL DISTRIBUTION WIDTH 15.5 % (11.5-14.0); SEGMENTED NEUTROPHILS % (AUTO) 66.4 % (42-78); TOTAL CELLS COUNTED % (AUTO) 100 %; WHITE BLOOD COUNT 7.3 10^3/uL (4.0-10.5)
[2018-10-14 16:13] LABS: ANION GAP 10 (5-19); BLOOD UREA NITROGEN 22 mg/dL (7-20); CALCIUM 10.3 mg/dL (8.4-10.2); CARBON DIOXIDE 29 mmol/L (22-30); CHLORIDE 96 mmol/L (98-107); POTASSIUM 3.6 mmol/L (3.6-5.0); SODIUM 134.9 mmol/L (137-145)
[2018-10-14 16:20] LABS: GLUCOSE 408 mg/dL (75-110)
[2018-10-14 19:55] VITALS: BP 172/77
== END 2018-10-14 19:58 | disposition home or self-care (01) ==
LOC: ER 14:41
DX: E11.65 Type 2 diabetes mellitus with hyperglycemia (principal); M79.605 Pain in left leg; I69.959 Hemiplegia and hemiparesis following unspecified cerebrovascular disease affecting unspecified side; Z89.512 Acquired absence of left leg below knee
CPT/HCPCS: 99283; 96360; 96361; 36415; 82962; 85025; 80048; 82803; A9270; J7030; J1815

== ENCOUNTER 2018-10-25 19:43 | Inpatient (IN) | payer MEDICARE, MEDICAID ==
[2018-10-25] MEDS ORDERED: NORMAL SALINE 1000 ML 1,000 ML IV ONE ×2 (20:01→21:51)
[2018-10-25] MEDS ORDERED: VANCOMYCIN HCL INJ 1000 MG VIAL IV ONE (20:01)
[2018-10-25] MEDS ORDERED: PIPERACILLIN/TAZOBACTAM 4.5 GM VIAL IV ONE (20:01)
[2018-10-25 20:44] LABS: ABSOLUTE LYMPHOCYTES (AUTO) 0.7 10^3/uL (0.5-4.7); ABSOLUTE MONOCYTES (AUTO) 0.6 10^3/uL (0.1-1.4); ABSOLUTE NEUT (AUTO) 3.8 10^3/uL (1.7-8.2); BASOPHILS % (AUTO) 0.3 % (0-2); EOSINOPHILS % (AUTO) 0.1 % (0-6); HEMATOCRIT 40.6 % (37.9-51.0); HEMOGLOBIN 13.4 g/dL (13.5-17.0); LYMPHOCYTES % (AUTO) 13.7 % (13-45); MEAN CORPUSCULAR HEMOGLOBIN 31.8 pg (27.0-33.4); MEAN CORPUSCULAR HGB CONC 32.9 g/dL (32.0-36.0); MEAN CORPUSCULAR VOLUME 97 fl (80-97); MONOCYTES % (AUTO) 12.6 % (3-13); PLATELET COUNT 134 10^3/uL (150-450); RED CELL DISTRIBUTION WIDTH 15.4 % (11.5-14.0); SEGMENTED NEUTROPHILS % (AUTO) 73.3 % (42-78); TOTAL CELLS COUNTED % (AUTO) 100 %; WHITE BLOOD COUNT 5.1 10^3/uL (4.0-10.5)
[2018-10-25 21:04] LABS: VENOUS BLOOD BASE EXCESS 2.7 mmol/L; VENOUS BLOOD HCO3 27.5 mmol/L (20-32); VENOUS BLOOD PH 7.42 (7.30-7.42)
--- NOTE | 2018-10-25 21:15 | RADIOLOGY REPORT (SQ) ---
EXAM DESCRIPTION: XR KNEE 1-2 VIEWS COMPLETED DATE/TME: 10/25/2018 20:04 CLINICAL HISTORY: 67 years, Male, eval stump COMPARISON: None. NUMBER OF VIEWS: 2 TECHNIQUE: Two views of the LEFT knee were obtained in AP and crosstable lateral projection postoperatively. LIMITATIONS: None. FINDINGS: The patient is status post osteotomy of the proximal tibia and fibula. The osteotomy margins appear to be sharply demarcated without findings to suggest areas of erosive deformity. Air lucency and soft tissue swelling present at the level of the distal soft tissues of finding which may be seen with sequela of recent surgery. Overlying surgical skin ja are present. Please correlate with patient surgical history. The possibility of superimposed soft tissue infectious process cannot be excluded. No fracture or dislocation. The joint spaces appear to be intact. IMPRESSION: Postoperative changes of the proximal leg as detailed above. copyright 2010 [employer]- All Rights Reserved
--- NOTE | 2018-10-25 21:18 | RADIOLOGY REPORT (SQ) ---
EXAM DESCRIPTION: X-ray single view chest. CLINICAL HISTORY: 67 years Male, sepsis COMPARISON: 09/15/2018 at 4:39 AM TECHNIQUE: Single (one) portable x-ray view of the chest performed on Date and time FINDINGS: The lungs are well expanded and are clear. There is no evidence of a pneumothorax. The cardiac silhouette is normal in size and configuration. The mediastinal contours are normal. No acute osseous abnormality is identified. No focal soft tissue abnormalities are seen. Lines and tubes: None. IMPRESSION: No evidence of acute intrathoracic disease. No significant change when compared to the prior study.
[2018-10-25 21:26] LABS: ALANINE AMINOTRANSFERASE 34 U/L (21-72); ALBUMIN 3.6 g/dL (3.5-5.0); ALKALINE PHOSPHATASE 105 U/L (38-126); ANION GAP 8 (5-19); ASPARTATE AMINO TRANSFERASE 35 U/L (17-59); BILIRUBIN,DIRECT 0.4 mg/dL (0.0-0.4); BILIRUBIN,TOTAL 0.6 mg/dL (0.2-1.3); BLOOD UREA NITROGEN 25 mg/dL (7-20); CALCIUM 10.1 mg/dL (8.4-10.2); CARBON DIOXIDE 29 mmol/L (22-30); CHLORIDE 96 mmol/L (98-107); GLUCOSE 174 mg/dL (75-110); POTASSIUM 4.6 mmol/L (3.6-5.0); SODIUM 132.7 mmol/L (137-145)
[2018-10-25 21:37] LABS: INTERNATIONAL RATION (INR) 0.97; PROTHROMBIN TIME 13.4 SEC (11.4-15.4)
--- NOTE | 2018-10-25 21:54 | ER Document Report ---
ED General - General Chief Complaint: Wound Infection Stated Complaint: LEG PAIN Time Seen by Provider: 10/25/18 19:54 TRAVEL OUTSIDE OF THE [place] IN LAST 30 DAYS: No - HPI Notes: Patient is a 68-year-old gentleman who comes in for evaluation. He is a poor historian. I do note that he had a left BKA in [place] by Dr. Chen. A month later he was seen for mild wound dehiscence after small trauma according to the patient. Since then he has had worsening dehiscence and foul odor. According to intermediate staff he had a fever of 103 at their facility. He was treated with Tylenol and sent here for further evaluation. The patient denies any vomiting. States he is eating and drinking normally. Has been taking his medications as prescribed. - Related Data Allergies/Adverse Reactions: No Known Allergies Allergy (Verified 06/03/13 12:05) Past Medical History - General Information source: Patient, Outside Facility Records - Social History Smoking Status: Former Smoker Chew tobacco use (# tins/day): No Drug Abuse: None Family History: Reviewed & Not Pertinent Patient has suicidal ideation: No Patient has homicidal ideation: No - Past Medical History Cardiac Medical History: Reports: Hx Coronary Artery Disease, Hx Hypercholesterolemia, Hx Hypertension Denies: Hx Heart Attack Pulmonary Medical History: Denies: Hx Asthma Neurological Medical History: Reports: Hx Cerebrovascular Accident - 1 MONTH AGO WEAKNESS. Denies: Hx Seizures Endocrine Medical History: Reports: Hx Diabetes Mellitus Type 1, Hx Diabetes Mellitus Type 2 Renal/ Medical History: Denies: Hx Peritoneal Dialysis GI Medical History: Denies: Hx Hepatitis, Hx Hiatal Hernia, Hx Ulcer Musculoskeletal Medical History: Reports Hx Arthritis Psychiatric Medical History: Reports: Hx Depression Infectious Medical History: Denies: Hx Hepatitis Past Surgical History: Reports: Hx Appendectomy, Hx Orthopedic Surgery - L bka. Denies: Hx Open Heart Surgery, Hx Pacemaker - Immunizations Hx Diphtheria, Pertussis, Tetanus Vaccination: Yes Review of Systems - Review of Systems Constitutional: Fever, Malaise, Weakness EENT: No symptoms reported Cardiovascular: No symptoms reported Respiratory: No symptoms reported Gastrointestinal: No symptoms reported Genitourinary: No symptoms reported Musculoskeletal: See HPI Skin: See HPI Neurological/Psychological: No symptoms reported Physical Exam - Vital signs Vitals: Temp Resp BP Pulse Ox 99.6 F 26 H 144/67 H 98 10/25/18 20:10 10/25/18 20:10 10/25/18 20:10 10/25/18 20:10 Notes: Temperature 99.6 - Notes Notes: Patient is awake and alert, difficult historian. He is disheveled. Head is normocephalic and atraumatic. Pupils are equal and round, reactive to light. Oral mucosa is moist. Heart is regular rate and rhythm, lungs are clear to oscillation bilaterally. Abdomen soft, nontender, normoactive bowel sounds. Examination of the left lower extremity yields a grossly dehisced wound from BKA. There is foul odor and significant induration noted. Sensation is m arkedly diminished in the stump. Course - Re-evaluation Re-evalutation: 10/25/18 22:25 Patient presents the emergency department for evaluation. Laboratory investigations failed to reveal a leukocytosis, but his respiratory rate was initially up, and he was febrile prior to arrival. He was given IV fluids. Laboratory investigations otherwise revealed a normal lactate, unremarkable creatinine. X-ray did not show any obvious signs of osteomyelitis at this point. I did speak with Dr. Boyce at 2113, and he did come down to see the patient. He did decide to admit the patient after further evaluation. He asks that a medicine consult be obtained. Call is currently pending to Dr. Snell. Consult order has been placed. Will admit the patient that ICU for further care. 10/25/18 22:[address] speak with Dr. Snell. He did evaluate the patient here in the ED. - Vital Signs Vital signs: Temp Pulse Resp BP Pulse Ox 99.6 F 26 H 144/67 H 99 10/25/18 20:10 10/25/18 21:00 10/25/18 20:10 10/25/18 21:00 - Laboratory Result Diagrams: 10/25/18 20:35 10/25/18 20:48 Laboratory results interpreted by me: 10/25/18 10/25/18 20:35 20:48 RBC 4.20 L Hgb 13.4 L RDW 15.4 H Plt Count 134 L Sodium 132.7 L Chloride 96 L BUN 25 H Glucose 174 H - EKG Interpretation by Me Additional EKG results interpreted by me: 10/25/18 22:26 Normal sinus mechanism with a rate of 83 bpm. Right bundle branch block. No change when compared to prior study. Discharge - Discharge Clinical Impression: Sepsis, Dehiscence of surgical wound, Cellulitis of left lower extremity stump Condition: Stable Admitting Provider: Surgicalist - [facility] Admitted: ICU
[2018-10-25] MEDS ORDERED: GLUCAGON,HUMAN RECOMB 1 MG INJ IM PRN (23:05)
[2018-10-25] MEDS ORDERED: DEXTROSE 40% GEL 15 GM TUBE PO PRN ×2 (23:05)
[2018-10-25] MEDS ORDERED: DEXTROSE 50%-WATER 25 GM/50 ML DISP.SYRIN IV PRN ×2 (23:05)
[2018-10-25] MEDS ORDERED: VANCOMYCIN HCL INJ 1000 MG VIAL ONE (23:09)
[2018-10-25] MEDS ORDERED: METOPROLOL TARTRATE 50 MG TABLET PO ONE (23:30)
[2018-10-26] MEDS ORDERED: NORMAL SALINE 1000 ML 1,000 ML IV ONE (00:24)
[2018-10-26] MEDS ORDERED: DEXTROSE 40% GEL 15 GM TUBE PO PRN ×4 (00:28→00:36)
[2018-10-26] MEDS ORDERED: DEXTROSE 50%-WATER 25 GM/50 ML DISP.SYRIN IV PRN ×4 (00:28→00:36)
[2018-10-26] MEDS ORDERED: GLUCAGON,HUMAN RECOMB 1 MG INJ SUBCUT PRN (00:28)
--- NOTE | 2018-10-26 00:28 | PDOC H&P ---
History of Present Illness Admission Date/PCP: 10/25/18 22:42 RAMA BERNARD MD Patient complains of: Dehiscence of left below the knee amputation stump History of Present Illness: STACI MCWILLIAMS is a 68 year old male who is status post left below the knee amputation just over a month ago for diabetic foot infections. Patient apparently did well and was subsequently discharged to a assisted facility however the patient was noted with stump dehiscence and was subsequently brought to the emergency department. Unknown how long this dehiscence has been present. Patient has had generalized malaise and was noted with more confusion superimposed on his chronic dementia. Uncertain about fever. Patient is a vasculopath with history of 2 CVAs as well as myocardial infarction within the past couple of years. Patient also has a history of known peripheral artery disease but unknown about the interventions done in the past. Patient had been a longtime smoker as well. He has diabetes. Past Medical History Cardiac Medical History: Reports: Coronary Artery Disease, Hyperlipidema, Hypertension Denies: Myocardial Infarction Pulmonary Medical History: Denies: Asthma Neurological Medical History: Denies: Seizures Endocrine Medical History: Reports: Diabetes Mellitus Type 1, Diabetes Mellitus Type 2 GI Medical History: Denies: Hepatitis, Hiatal Hernia Musculoskeltal Medical History: Reports: Arthritis Psychiatric Medical History: Reports: Depression Hematology: Denies: Anemia, Sickle Cell Disease Past Surgical History Past Surgical History: Reports: Appendectomy, Orthopedic Surgery - L bka Denies: Pacemaker Social History Smoking Status: Former Smoker Frequency of Alcohol Use: None Hx Recreational Drug Use: No Drugs: None Hx Prescription Drug Abuse: No Family History Family History: Reviewed & Not Pertinent Parental Family History Reviewed: No Children Family History Reviewed: No Sibling(s) Family History Reviewed.: No Medication/Allergy Home Medications: Ascorbic Acid [Vitamin C 500 mg Tablet] 500 mg PO BID 09/15/18 Aspirin [Aspirin 325 mg Tablet] 325 mg PO QAM 09/15/18 Atorvastatin Calcium [Lipitor 80 mg Tablet] 80 mg PO QAM 09/15/18 Bupropion HCl [Wellbutrin Xl 300mg 24hr Tablet] 300 mg PO QAM 09/15/18 Clopidogrel Bisulfate [Plavix 75 mg Tablet] 75 mg PO QAM 09/15/18 Cyanocobalamin (Vitamin B-12) [Vitamin B-12 100 mcg Tablet] 100 mcg PO QAM 09/15/18 Insulin Lispro [Humalog Insulin (Lispro) 100 unit/mL] 12 unit SUBCUT AC 09/15/18 Multivitamin [Daily Multiple Vitamin] 1 each PO DAILY 09/15/18 Acetaminophen [Tylenol 325 mg Tablet] 650 mg PO Q4HP PRN tablet 09/19/18 Fentanyl [Duragesic 25 mcg/hr Transdermal Patch] 1 each TD Q3DAYS 9 Days #3 patch.[id number] 09/19/18 Insulin Lispro [Humalog Insulin (Lispro) 100 unit/mL] 0 - 12 unit SUBCUT ACHS unit 09/19/18 Metoprolol Tartrate [Lopressor 50 mg Tablet] 50 mg PO Q12 #0 tablet 09/19/18 Oxycodone HCl/Acetaminophen [Percocet 5-325 mg Tablet] 1 tab PO Q6HP PRN 10 Days #15 tab 09/19/18 Allergies/Adverse Reactions: No Known Allergies Allergy (Verified 06/03/13 12:05) Physical Exam Vital Signs: Temp Pulse Resp BP Pulse Ox 100.1 F 26 H 144/67 H 99 10/25/18 23:42 10/25/18 21:00 10/25/18 20:10 10/25/18 21:00 Intake & Output 10/24/18 10/25/18 10/26/18 06:59 06:59 06:59 Intake Total 1000 Balance 1000 Weight 76.748 kg General appearance: PRESENT: disheveled, other - Patient is confused. Somewhat cooperative. Unable to provide much of a history. Eye exam: PRESENT: conjunctiva pink Respiratory exam: PRESENT: clear to auscultation hunter Cardiovascular exam: PRESENT: RRR Vascular exam: PRESENT: other - 2+ right femoral pulse. Unable to palpate right pedal pulse. Unable to palpate left femoral pulse. Faint Doppler signal of the left femoral artery. GI/Abdominal exam: PRESENT: other - Soft, nondistended, nontender to palpation. Extremities exam: PRESENT: other - The right foot with no ulcerations nor swelling. Left BKA stump with complete dehiscence with blackened eschar of 4-6 cm wide exposed fat and skin edge. The upper anterior skin edge about 2 cm below the palpable tibial bone with an already short stump. No purulent discharge. Minimal surrounding erythema. Psychiatric exam: PRESENT: anxious Results Laboratory Results: 10/25/18 20:35 10/25/18 20:48 10/25/18 10/25/18 10/25/18 20:35 20:48 20:48 WBC 5.1 RBC 4.20 L Hgb 13.4 L Hct 40.6 MCV 97 MCH 31.8 MCHC 32.9 RDW 15.4 H Plt Count 134 L Seg Neutrophils % 73.3 Lymphocytes % 13.7 Monocytes % 12.6 Eosinophils % 0.1 Basophils % 0.3 Absolute Neutrophils 3.8 Absolute Lymphocytes 0.7 Absolute Monocytes 0.6 Absolute Eosinophils 0.0 Absolute Basophils 0.0 VBG pH VBG pCO2 VBG HCO3 VBG Base Excess Sodium 132.7 L Potassium 4.6 Chloride 96 L Carbon Dioxide 29 Anion Gap 8 BUN 25 H Creatinine 0.96 Est GFR ( Amer) > 60 Est GFR (Non-Af Amer) > 60 Glucose 174 H Lactic Acid 1.1 Calcium 10.1 Total Bilirubin 0.6 AST 35 ALT 34 Alkaline Phosphatase 105 Total Protein 7.0 Albumin 3.6 10/25/18 20:48 WBC RBC Hgb Hct MCV MCH MCHC RDW Plt Count Seg Neutrophils % Lymphocytes % Monocytes % Eosinophils % Basophils % Absolute Neutrophils Absolute Lymphocytes Absolute Monocytes Absolute Eosinophils Absolute Basophils VBG pH 7.42 VBG pCO2 43.0 VBG HCO3 27.5 VBG Base Excess 2.7 Sodium Potassium Chloride Carbon Dioxide Anion Gap BUN Creatinine Est GFR ( Amer) Est GFR (Non-Af Amer) Glucose Lactic Acid Calcium Total Bilirubin AST ALT Alkaline Phosphatase Total Protein Albumin Impressions: Chest X-Ray 10/25/18 20:02 IMPRESSION: No evidence of acute intrathoracic disease. No significant change when compared to the prior study. Knee X-Ray 10/25/18 20:04 IMPRESSION: Postoperative changes of the proximal leg as detailed above. copyright 2010 [employer]- All Rights Reserved Assessment & Plan - Diagnosis (1) Dehiscence of amputation stump Is this a current diagnosis for this admission?: Yes Plan: Likely due to vascular compromise of his left leg. With the patient's advanced dementia, it was highly unlikely that he would have ever walked with a prosthesis with a BKA. Revision to an AKA would not significantly diminish this patient's quality of life. Furthermore I do not think that he has sufficient tissue for revision of the stump. Any such attempt would have an extremely high failure rate in this setting. I strongly feel that an AKA is indicated in this patient. Will discuss with our vascular surgeon whether a vascular intervention the left side is needed to allow healing of an [id number] amputation. I had requested that the hospitalist admit this complex patient with multiple medical problems since they had done so in the past and is familiar with the p atient. However hospitalist refused but has agreed to help manage this patient.
[2018-10-26] MEDS ORDERED: GLUCAGON,HUMAN RECOMB 1 MG INJ IM PRN ×2 (00:36→01:00)
[2018-10-26 00:56] LABS: APPEARANCE,URINE CLEAR; BILIRUBIN,URINE NEGATIVE (NEGATIVE); COLOR,URINE YELLOW; GLUCOSE, URINE 150 mg/dL (NEGATIVE); KETONES,URINE 20 mg/dL (NEGATIVE); LEUKOCYTE ESTERASE,URINE NEGATIVE (NEGATIVE); NITRITE,URINE NEGATIVE (NEGATIVE); PROTEIN,URINE NEGATIVE (NEGATIVE); URINE SPECIFIC GRAVITY 1.011; UROBILINOGEN,URINE NEGATIVE mg/dL (<2.0)
[2018-10-26] MEDS: INSULIN LISPRO 100 UNIT/ML 3 ML VIAL SUBCUT SCH ×4 (01:06→17:56)
[2018-10-26] MEDS ORDERED: PIPERACILLIN/TAZOBACTAM 3.375 GM VIAL IV PRN (04:00)
[2018-10-26] MEDS ORDERED: LACTULOSE SYRUP 20 GM/30 ML UDCUP PO PRN (05:16)
--- NOTE | 2018-10-26 05:24 | PDOC CONSULTATION ---
Consultation Consult Date: 10/26/18 Attending physician:: ILIANA RODRIGUEZ Consult reason:: Diabetes and hypertension History of Present Illness Admission Date/PCP: 10/25/18 22:42 RAMA BERNARD MD Patient complains of: Left leg surgical problem History of Present Illness: STACI MCWILLIAMS is a 68 year old male with a past medical history of CVA, diabetes, hypertension, coronary artery disease and peripheral vascular disease presents from nursing facility with recurrent dehiscence of left BKA. Patient denies chest pain, shortness of breath palpitations nausea or vomiting, patient's vitals and labs are found to be at baseline from recent admissions. He is unaware of recent changes to medications, he is admitted to surgery. Past Medical History Cardiac Medical History: Reports: Coronary Artery Disease, Hyperlipidema, Hypert ension Denies: Myocardial Infarction Pulmonary Medical History: Denies: Asthma Neurological Medical History: Denies: Seizures Endocrine Medical History: Reports: Diabetes Mellitus Type 1, Diabetes Mellitus Type 2 GI Medical History: Denies: Hepatitis, Hiatal Hernia Musculoskeltal Medical History: Reports: Arthritis Psychiatric Medical History: Reports: Depression Hematology: Denies: Anemia, Sickle Cell Disease Past Surgical History Past Surgical History: Reports: Appendectomy, Orthopedic Surgery - L bka Denies: Pacemaker Social History Information Source: Patient, H Records Lives with: [facility] Smoking Status: Former Smoker Frequency of Alcohol Use: None Hx Recreational Drug Use: No Drugs: None Hx Prescription Drug Abuse: No - Advance Directive Resuscitation Status: Full Code Family History Family History: Hypertension Parental Family History Reviewed: Yes Children Family History Reviewed: Yes Sibling(s) Family History Reviewed.: Yes Medication/Allergy Home Medications: Ascorbic Acid [Vitamin C 500 mg Tablet] 500 mg PO BID 09/15/18 Aspirin [Aspirin 325 mg Tablet] 325 mg PO QAM 09/15/18 Atorvastatin Calcium [Lipitor 80 mg Tablet] 80 mg PO QAM 09/15/18 Bupropion HCl [Wellbutrin Xl 300mg 24hr Tablet] 300 mg PO QAM 09/15/18 Clopidogrel Bisulfate [Plavix 75 mg Tablet] 75 mg PO QAM 09/15/18 Cyanocobalamin (Vitamin B-12) [Vitamin B-12 100 mcg Tablet] 100 mcg PO QAM 09/15/18 Insulin Lispro [Humalog Insulin (Lispro) 100 unit/mL] 12 unit SUBCUT AC 09/15/18 Multivitamin [Daily Multiple Vitamin] 1 each PO DAILY 09/15/18 Acetaminophen [Tylenol 325 mg Tablet] 650 mg PO Q4HP PRN tablet 09/19/18 Fentanyl [Duragesic 25 mcg/hr Transdermal Patch] 1 each TD Q3DAYS 9 Days #3 patch.[id number] 09/19/18 Insulin Lispro [Humalog Insulin (Lispro) 100 unit/mL] 0 - 12 unit SUBCUT ACHS unit 09/19/18 Metoprolol Tartrate [Lopressor 50 mg Tablet] 50 mg PO Q12 #0 tablet 09/19/18 Oxycodone HCl/Acetaminophen [Percocet 5-325 mg Tablet] 1 tab PO Q6HP PRN 10 Days #15 tab 09/19/18 Allergies/Adverse Reactions: No Known Allergies Allergy (Verified 06/03/13 12:05) Review of Systems ROS unobtainable: Due to mental status Physical Exam Vital Signs: Temp Pulse Resp BP Pulse Ox 98.6 F 85 19 167/69 H 96 10/26/18 04:31 10/26/18 04:31 10/26/18 01:01 10/26/18 04:31 10/26/18 01:01 Intake & Output 10/24/18 10/25/18 10/26/18 11:59 11:59 11:59 Intake Total 1999 Balance 1999 Weight 71.5 kg General appearance: PRESENT: cooperative, mild distress, well-developed, well-nourished Head exam: PRESENT: atraumatic, normocephalic Eye exam: PRESENT: conjunctiva pink, EOMI, PERRLA. ABSENT: scleral icterus Ear exam: PRESENT: normal external ear exam Mouth exam: PRESENT: moist, tongue midline Neck exam: ABSENT: carotid bruit, JVD, lymphadenopathy, thyromegaly Respiratory exam: PRESENT: clear to auscultation hunter. ABSENT: rales, rhonchi, wheezes Cardiovascular exam: PRESENT: RRR. ABSENT: diastolic murmur, rubs, systolic murmur Vascular exam: PRESENT: normal capillary refill GI/Abdominal exam: PRESENT: normal bowel sounds, soft. ABSENT: distended, guarding, mass, organolmegaly, rebound, tenderness Rectal exam: PRESENT: deferred Extremities exam: PRESENT: full ROM, tenderness. ABSENT: pedal edema Musculoskeletal exam: ABSENT: ambulatory Neurological exam: PRESENT: alert, awake, oriented to person, oriented to place, oriented to time, oriented to situation, CN II-XII grossly intact. ABSENT: motor sensory deficit Psychiatric exam: PRESENT: appropriate affect, normal mood. ABSENT: homicidal ideation, suicidal ideation Focused psych exam: ABSENT: internal stimuli, paranoid, pressured speech, psychomotor agitation Skin exam: PRESENT: dry, intact, warm. ABSENT: cyanosis, rash Results Laboratory Results: 10/25/18 20:35 10/25/18 20:48 10/25/18 10/25/18 10/25/18 20:35 20:48 20:48 WBC 5.1 RBC 4.20 L Hgb 13.4 L Hct 40.6 MCV 97 MCH 31.8 MCHC 32.9 RDW 15.4 H Plt Count 134 L Seg Neutrophils % 73.3 Lymphocytes % 13.7 Monocytes % 12.6 Eosinophils % 0.1 Basophils % 0.3 Absolute Neutrophils 3.8 Absolute Lymphocytes 0.7 Absolute Monocytes 0.6 Absolute Eosinophils 0.0 Absolute Basophils 0.0 VBG pH VBG pCO2 VBG HCO3 VBG Base Excess Sodium 132.7 L Potassium 4.6 Chloride 96 L Carbon Dioxide 29 Anion Gap 8 BUN 25 H Creatinine 0.96 Est GFR ( Amer) > 60 Est GFR (Non-Af Amer) > 60 Glucose 174 H Lactic Acid 1.1 Calcium 10.1 Total Bilirubin 0.6 AST 35 ALT 34 Alkaline Phosphatase 105 Total Protein 7.0 Albumin 3.6 Urine Color Urine Appearance Urine pH Ur Specific [place] Urine Protein Urine Glucose (UA) Urine Ketones Urine Blood Urine Nitrite Ur Leukocyte Esterase Urine WBC (Auto) Urine RBC (Auto) 10/25/18 10/26/18 20:48 00:36 WBC RBC Hgb Hct MCV MCH MCHC RDW Plt Count Seg Neutrophils % Lymphocytes % Monocytes % Eosinophils % Basophils % Absolute Neutrophils Absolute Lymphocytes Absolute Monocytes Absolute Eosinophils Absolute Basophils VBG pH 7.42 VBG pCO2 43.0 VBG HCO3 27.5 VBG Base Excess 2.7 Sodium Potassium Chloride Carbon Dioxide Anion Gap BUN Creatinine Est GFR ( Amer) Est GFR (Non-Af Amer) Glucose Lactic Acid Calcium Total Bilirubin AST ALT Alkaline Phosphatase Total Protein Albumin Urine Color YELLOW Urine Appearance CLEAR Urine pH 5.0 Ur Specific [place] 1.011 Urine Protein NEGATIVE Urine Glucose (UA) 150 H Urine Ketones 20 H Urine Blood NEGATIVE Urine Nitrite NEGATIVE Ur Leukocyte Esterase NEGATIVE Urine WBC (Auto) 2 Urine RBC (Auto) 2 Impressions: Chest X-Ray 10/25/18 20:02 IMPRESSION: No evidence of acute intrathoracic disease. No significant change when compared to the prior study. Knee X-Ray 10/25/18 20:04 IMPRESSION: Postoperative changes of the proximal leg as detailed above. copyright 2010 [employer]- All Rights Reserved Assessment and Plan - Diagnosis (1) Diabetes mellitus type 2 in nonobese Is this a current diagnosis for this admission?: Yes Plan: Resumption of outpatient regiment with Humalog sliding scale (2) Essential hypertension Is this a current diagnosis for this admission?: Yes Plan: Resumption of outpatient regiment with as needed IV hydralazine. - Time Time Spent with patient: Less than 15 minutes
[2018-10-26] MEDS: KETOROLAC TROMETHAMINE INJ/PF 30 MG/1 ML SDV IV PRN ×2 (05:40→23:36)
[2018-10-26] MEDS: HYDRALAZINE HCL INJ/PF 20 MG/1 ML SDV IV PRN ×2 (05:41→17:55)
[2018-10-26] MEDS ORDERED: PIPERACILLIN/TAZOBACTAM 3.375 GM VIAL IV ONE (05:46)
[2018-10-26] MEDS: PIPERACILLIN SODIUM/TAZOBACTAM 3.375 GM in NORMAL SALINE 100 ML IV SCH ×4 (07:46→23:35)
[2018-10-26] MEDS ORDERED: CLOPIDOGREL BISULFATE 75 MG TABLET PO SCH (08:00)
--- NOTE | 2018-10-26 08:22 | PDOC PROGRESS REPORT ---
Subjective Progress Note for:: 10/26/18 Reason For Visit: STUMP DEHISCENCE left stump dehissence Physical Exam Vital Signs: Temp Pulse Resp BP Pulse Ox 98.6 F 85 23 H 134/106 H 99 10/26/18 05:21 10/26/18 04:31 10/26/18 06:31 10/26/18 06:31 10/26/18 06:31 Intake & Output 10/25/18 10/26/18 10/27/18 06:59 06:59 06:59 Intake Total 2000 Output Total 375 Balance 1625 Weight 71.5 kg General appearance: PRESENT: no acute distress Head exam: PRESENT: normocephalic Eye exam: PRESENT: EOMI Mouth exam: PRESENT: dry mucosa Neck exam: PRESENT: full ROM Respiratory exam: PRESENT: clear to auscultation hunter Cardiovascular exam: PRESENT: RRR Pulses: PRESENT: other - no palp left femoral pulse extremity warm obvious bka dehissence. with necrosis GI/Abdominal exam: PRESENT: soft Rectal exam: PRESENT: deferred Extremities exam: PRESENT: other - left lower extremity bka dehissence with necrosis of wound no palp femoral pulse extremity warm Neurological exam: PRESENT: alert, awake - known dementia Skin exam: PRESENT: dry, warm Results Laboratory Results: 10/25/18 20:35 10/25/18 20:48 10/25/18 10/25/18 10/25/18 20:35 20:48 20:48 WBC 5.1 RBC 4.20 L Hgb 13.4 L Hct 40.6 MCV 97 MCH 31.8 MCHC 32.9 RDW 15.4 H Plt Count 134 L Seg Neutrophils % 73.3 Lymphocytes % 13.7 Monocytes % 12.6 Eosinophils % 0.1 Basophils % 0.3 Absolute Neutrophils 3.8 Absolute Lymphocytes 0.7 Absolute Monocytes 0.6 Absolute Eosinophils 0.0 Absolute Basophils 0.0 VBG pH VBG pCO2 VBG HCO3 VBG Base Excess Sodium 132.7 L Potassium 4.6 Chloride 96 L Carbon Dioxide 29 Anion Gap 8 BUN 25 H Creatinine 0.96 Est GFR ( Amer) > 60 Est GFR (Non-Af Amer) > 60 Glucose 174 H Lactic Acid 1.1 Calcium 10.1 Total Bilirubin 0.6 AST 35 ALT 34 Alkaline Phosphatase 105 Total Protein 7.0 Albumin 3.6 Urine Color Urine Appearance Urine pH Ur Specific [place] Urine Protein Urine Glucose (UA) Urine Ketones Urine Blood Urine Nitrite Ur Leukocyte Esterase Urine WBC (Auto) Urine RBC (Auto) 10/25/18 10/26/18 20:48 00:36 WBC RBC Hgb Hct MCV MCH MCHC RDW Plt Count Seg Neutrophils % Lymphocytes % Monocytes % Eosinophils % Basophils % Absolute Neutrophils Absolute Lymphocytes Absolute Monocytes Absolute Eosinophils Absolute Basophils VBG pH 7.42 VBG pCO2 43.0 VBG HCO3 27.5 VBG Base Excess 2.7 Sodium Potassium Chloride Carbon Dioxide Anion Gap BUN Creatinine Est GFR ( Amer) Est GFR (Non-Af Amer) Glucose Lactic Acid Calcium Total Bilirubin AST ALT Alkaline Phosphatase Total Protein Albumin Urine Color YELLOW Urine Appearance CLEAR Urine pH 5.0 Ur Specific [place] 1.011 Urine Protein NEGATIVE Urine Glucose (UA) 150 H Urine Ketones 20 H Urine Blood NEGATIVE Urine Nitrite NEGATIVE Ur Leukocyte Esterase NEGATIVE Urine WBC (Auto) 2 Urine RBC (Auto) 2 Impressions: Chest X-Ray 10/25/18 20:02 IMPRESSION: No evidence of acute intrathoracic disease. No significant change when compared to the prior study. Knee X-Ray 10/25/18 20:04 IMPRESSION: Postoperative changes of the proximal leg as detailed above. copyright 2010 [employer]- All Rights Reserved Assessment & Plan - Plan Summary Plan Summary: left lower bka dehissence no palp femoral pulse I have asked Dr Fernandez from vascular surgery to eval for inflow of the left lower extemity and if aka wound be appropriate or only debridement.
[2018-10-26] MEDS: ASPIRIN 325 MG TABLET PO SCH (09:07)
[2018-10-26] MEDS: METOPROLOL TARTRATE 50 MG TABLET PO SCH ×2 (09:08→22:22)
[2018-10-26] MEDS: ATORVASTATIN CALCIUM 80 MG TABLET PO SCH (09:08)
[2018-10-26] MEDS: ENOXAPARIN SODIUM INJ 30 MG/0.3 ML DISP.SYRIN SUBCUT SCH (09:09)
[2018-10-26] MEDS: BUPROPION HCL 100 MG TABLET PO SCH ×2 (15:18→22:22)
[2018-10-26] MEDS: FENTANYL 25 MCG/HR PATCH.TD72 TD SCH (15:27)
--- NOTE | 2018-10-26 15:41 | PDOC PROGRESS REPORT ---
Subjective Progress Note for:: 10/26/18 Subjective:: I seen patient resting in bed comfortably. His blood pressure this is a hypertensive urgency range. I will review his medication and adjust the dosage. Reason For Visit: STUMP DEHISCENCE Physical Exam Vital Signs: Temp Pulse Resp BP Pulse Ox 99.6 F 87 30 H 163/131 H 95 10/26/18 12:00 10/26/18 14:00 10/26/18 14:00 10/26/18 14:00 10/26/18 14:00 Intake & Output 10/25/18 10/26/18 10/27/18 06:59 06:59 06:59 Intake Total 2000 1000 Output Total 375 465 Balance 1625 535 Weight 71.5 kg General appearance: PRESENT: no acute distress Head exam: PRESENT: atraumatic Eye exam: PRESENT: conjunctiva pink Neck exam: ABSENT: carotid bruit, JVD, lymphadenopathy, thyromegaly Respiratory exam: PRESENT: clear to auscultation hunter. ABSENT: rales, rhonchi, wheezes GI/Abdominal exam: PRESENT: normal bowel sounds, soft. ABSENT: distended, guarding, mass, organolmegaly, rebound, tenderness Results Laboratory Results: 10/25/18 20:35 10/25/18 20:48 10/25/18 10/25/18 10/25/18 20:35 20:48 20:48 WBC 5.1 RBC 4.20 L Hgb 13.4 L Hct 40.6 MCV 97 MCH 31.8 MCHC 32.9 RDW 15.4 H Plt Count 134 L Seg Neutrophils % 73.3 Lymphocytes % 13.7 Monocytes % 12.6 Eosinophils % 0.1 Basophils % 0.3 Absolute Neutrophils 3.8 Absolute Lymphocytes 0.7 Absolute Monocytes 0.6 Absolute Eosinophils 0.0 Absolute Basophils 0.0 VBG pH VBG pCO2 VBG HCO3 VBG Base Excess Sodium 132.7 L Potassium 4.6 Chloride 96 L Carbon Dioxide 29 Anion Gap 8 BUN 25 H Creatinine 0.96 Est GFR ( Amer) > 60 Est GFR (Non-Af Amer) > 60 Glucose 174 H Lactic Acid 1.1 Calcium 10.1 Total Bilirubin 0.6 AST 35 ALT 34 Alkaline Phosphatase 105 Total Protein 7.0 Albumin 3.6 Urine Color Urine Appearance Urine pH Ur Specific [place] Urine Protein Urine Glucose (UA) Urine Ketones Urine Blood Urine Nitrite Ur Leukocyte Esterase Urine WBC (Auto) Urine RBC (Auto) 10/25/18 10/26/18 20:48 00:36 WBC RBC Hgb Hct MCV MCH MCHC RDW Plt Count Seg Neutrophils % Lymphocytes % Monocytes % Eosinophils % Basophils % Absolute Neutrophils Absolute Lymphocytes Absolute Monocytes Absolute Eosinophils Absolute Basophils VBG pH 7.42 VBG pCO2 43.0 VBG HCO3 27.5 VBG Base Excess 2.7 Sodium Potassium Chloride Carbon Dioxide Anion Gap BUN Creatinine Est GFR ( Amer) Est GFR (Non-Af Amer) Glucose Lactic Acid Calcium Total Bilirubin AST ALT Alkaline Phosphatase Total Protein Albumin Urine Color YELLOW Urine Appearance CLEAR Urine pH 5.0 Ur Specific [place] 1.011 Urine Protein NEGATIVE Urine Glucose (UA) 150 H Urine Ketones 20 H Urine Blood NEGATIVE Urine Nitrite NEGATIVE Ur Leukocyte Esterase NEGATIVE Urine WBC (Auto) 2 Urine RBC (Auto) 2 Impressions: Chest X-Ray 10/25/18 20:02 IMPRESSION: No evidence of acute intrathoracic disease. No significant change when compared to the prior study. Knee X-Ray 10/25/18 20:04 IMPRESSION: Postoperative changes of the proximal leg as detailed above. copyright 2010 [employer]- All Rights Reserved Assessment and Plan - Diagnosis (1) Dehiscence of amputation stump Is this a current diagnosis for this admission?: Yes Plan: Management per surgical team. 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 (3) Hypertension Qualifiers: Hypertension type: essential hypertension Qualified Code(s): I10 - Essential (primary) hypertension Is this a current diagnosis for this admission?: Yes Plan: Continue home medication. (4) Hyperlipidemia Qualifiers: Hyperlipidemia type: unspecified Qualified Code(s): E78.5 - Hyperlipidemia, unspecified Is this a current diagnosis for this admission?: Yes Plan: Continue home medication.
[2018-10-26] MEDS ORDERED: AMLODIPINE BESYLATE 10 MG TABLET PO ONE (16:30)
[2018-10-26] MEDS: METFORMIN HCL 500 MG TABLET PO SCH (17:54)
--- NOTE | 2018-10-26 19:04 | XCELERA REPORT ---
[address] [address] Lower Extremity Arterial Evaluation Name: STACI MCWILLIAMS Age: 67 yrs Gender: Male : 1950 Patient Status: Inpatient Patient Location: ICU^610^A Study Date: 10/26/2018 03:35 PM Procedure: A color flow and duplex scan of the lower extremity arteries was performed on the left with velocity and waveform anaylsis. 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 Monophasic with low velocity in the Popliteal Below Knee amputation limits the study. Interpretation Summary Severe hemodynamically significant lesions in the left lower extremity only, on duplex imaging, at rest. Inflow disease with sequential changes in the Popliteal noted. Consistent with wound failure at the below knee level. : ANALILIA FERNANDEZ > Analilia Fernandez
--- NOTE | 2018-10-26 19:29 | PDOC PROGRESS REPORT ---
Subjective Progress Note for:: 10/26/18 Subjective:: Failure of left below-knee amputation. Reason For Visit: STUMP DEHISCENCE Physical Exam Vital Signs: Temp Pulse Resp BP Pulse Ox 99.4 F 89 30 H 174/61 H 96 10/26/18 16:00 10/26/18 18:00 10/26/18 18:00 10/26/18 18:00 10/26/18 18:00 Intake & Output 10/25/18 10/26/18 10/27/18 06:59 06:59 06:59 Intake Total 2000 1100 Output Total 375 555 Balance 1625 545 Weight 71.5 kg Additional comments: Constitutional: Well-developed well-nourished gentleman. No apparent acute distress. Respiratory: b normal respiratory effort. S Psychiatric: Judgment, memory, insight seem compromised. The patient is somnolent Extremities: Upper extremities show normal range of movement. Pulses present noted to the radial arteries. Capillary refill normal. No cyanosis noted. No muscle wasting noted. Lower extremities show left below-knee amputation. Jim dry necrosis noted. No obvious purulence, cellulitis or swelling. Hematology/lymph: Groin, neck, axillary nodes normal. Results Laboratory Results: 10/25/18 20:35 10/25/18 20:48 10/25/18 10/25/18 10/25/18 20:35 20:48 20:48 WBC 5.1 RBC 4.20 L Hgb 13.4 L Hct 40.6 MCV 97 MCH 31.8 MCHC 32.9 RDW 15.4 H Plt Count 134 L Seg Neutrophils % 73.3 Lymphocytes % 13.7 Monocytes % 12.6 Eosinophils % 0.1 Basophils % 0.3 Absolute Neutrophils 3.8 Absolute Lymphocytes 0.7 Absolute Monocytes 0.6 Absolute Eosinophils 0.0 Absolute Basophils 0.0 VBG pH VBG pCO2 VBG HCO3 VBG Base Excess Sodium 132.7 L Potassium 4.6 Chloride 96 L Carbon Dioxide 29 Anion Gap 8 BUN 25 H Creatinine 0.96 Est GFR ( Amer) > 60 Est GFR (Non-Af Amer) > 60 Glucose 174 H Lactic Acid 1.1 Calcium 10.1 Total Bilirubin 0.6 AST 35 ALT 34 Alkaline Phosphatase 105 Total Protein 7.0 Albumin 3.6 Urine Color Urine Appearance Urine pH Ur Specific [place] Urine Protein Urine Glucose (UA) Urine Ketones Urine Blood Urine Nitrite Ur Leukocyte Esterase Urine WBC (Auto) Urine RBC (Auto) 10/25/18 10/26/18 20:48 00:36 WBC RBC Hgb Hct MCV MCH MCHC RDW Plt Count Seg Neutrophils % Lymphocytes % Monocytes % Eosinophils % Basophils % Absolute Neutrophils Absolute Lymphocytes Absolute Monocytes Absolute Eosinophils Absolute Basophils VBG pH 7.42 VBG pCO2 43.0 VBG HCO3 27.5 VBG Base Excess 2.7 Sodium Potassium Chloride Carbon Dioxide Anion Gap BUN Creatinine Est GFR ( Amer) Est GFR (Non-Af Amer) Glucose Lactic Acid Calcium Total Bilirubin AST ALT Alkaline Phosphatase Total Protein Albumin Urine Color YELLOW Urine Appearance CLEAR Urine pH 5.0 Ur Specific [place] 1.011 Urine Protein NEGATIVE Urine Glucose (UA) 150 H Urine Ketones 20 H Urine Blood NEGATIVE Urine Nitrite NEGATIVE Ur Leukocyte Esterase NEGATIVE Urine WBC (Auto) 2 Urine RBC (Auto) 2 Impressions: Chest X-Ray 10/25/18 20:02 IMPRESSION: No evidence of acute intrathoracic disease. No significant change when compared to the prior study. Knee X-Ray 10/25/18 20:04 IMPRESSION: Postoperative changes of the proximal leg as detailed above. copyright 2010 [employer]- All Rights Reserved Assessment & Plan - Diagnosis (1) Dehiscence of amputation stump Is this a current diagnosis for this admission?: Yes (6) Coronary artery disease Qualifiers: Coronary Disease-Associated Artery/Lesion type: [place] artery [place] vs. transplanted heart: [place] heart Associated angina: angina presence un specified Qualified Code(s): I25.10 - Atherosclerotic heart disease of [place] coronary artery without angina pectoris Is this a current diagnosis for this admission?: Yes (7) Diabetes mellitus type 2 in nonobese Is this a current diagnosis for this admission?: Yes (8) Essential hypertension Is this a current diagnosis for this admission?: Yes - Plan Summary Plan Summary: This patient with a failed, not grossly infected left below-knee amputation, diabetes and overall compromise, preparation for revision of amputation at the above-knee level seems appropriate. An arterial duplex study, obviously limited, on the left suggests reasonable, moderately compromised arterial flow at the femoral level. Poor functional popliteal down. I would suggest local treatment of a below-knee amputation with Betadine, overa ll attention to the patient's condition and planned revision of the above the knee level would be most appropriate. If the patient fails to respond then above-knee amputation or debridement of the stump would be appropriate as an emergency. Within the next 24 hours or so. I will put him in for above-knee amputation early next week. As mentioned a emergency procedure will be needed if he fails to respond to resuscitative measures.
--- NOTE | 2018-10-26 21:00 | EKG REPORT ---
SEVERITY:- ABNORMAL ECG - SINUS RHYTHM RBBB AND LPFB : Confirmed by: Arin Garay MD 26-Oct-2018 20:59:52
[2018-10-26] MEDS ORDERED: METOCLOPRAMIDE HCL INJ/PF 10 MG/2 ML SDV IV PRN (21:16)
[2018-10-26] MEDS ORDERED: (PENDING PHARMACY ID) (Divalproex Sodium [Depakote] 125 MG) PO SCH (22:00)
[2018-10-26] MEDS: LACTULOSE SYRUP 20 GM/30 ML UDCUP PO ONE ×2 (22:20→22:35)
[2018-10-26] MEDS: DIVALPROEX SODIUM 125 MG CAP.SPRINK PO SCH ×2 (22:21→22:33)
[2018-10-27] MEDS: INSULIN LISPRO 100 UNIT/ML 3 ML VIAL SUBCUT SCH ×5 (00:45→23:32)
[2018-10-27] MEDS: PIPERACILLIN SODIUM/TAZOBACTAM 3.375 GM in NORMAL SALINE 100 ML IV SCH ×4 (05:55→23:33)
[2018-10-27] MEDS: BUPROPION HCL 100 MG TABLET PO SCH ×3 (05:56→22:07)
[2018-10-27] MEDS: HYDRALAZINE HCL INJ/PF 20 MG/1 ML SDV IV PRN (06:33)
[2018-10-27] MEDS ORDERED: (PENDING PHARMACY ID) (Cyanocobalamin (Vitamin B-12) [Vitamin B-12 100 Mcg Tablet] 100 MCG PO SCH (08:00)
[2018-10-27] MEDS ORDERED: VANCOMYCIN HCL 0 MG in DEXTROSE 5%-WATER 250 ML IV NR (08:30)
[2018-10-27] MEDS ORDERED: AMLODIPINE BESYLATE 10 MG TABLET PO SCH (10:00)
[2018-10-27] MEDS: METFORMIN HCL 500 MG TABLET PO SCH ×2 (11:17→17:46)
[2018-10-27] MEDS: METOPROLOL TARTRATE 50 MG TABLET PO SCH ×2 (11:17→22:07)
[2018-10-27] MEDS: ASCORBIC ACID 500 MG TABLET PO SCH (11:17)
[2018-10-27] MEDS: MULTIVITAMIN TABLET PO SCH (11:18)
[2018-10-27] MEDS: ASPIRIN 325 MG TABLET PO SCH ×2 (11:18)
[2018-10-27] MEDS: ENOXAPARIN SODIUM INJ 30 MG/0.3 ML DISP.SYRIN SUBCUT SCH (11:18)
[2018-10-27] MEDS: ATORVASTATIN CALCIUM 80 MG TABLET PO SCH (11:18)
[2018-10-27] MEDS: VANCOMYCIN HCL 750 MG in DEXTROSE 5%-WATER 250 ML IV SCH ×2 (12:12→22:08)
--- NOTE | 2018-10-27 12:19 | PDOC PROGRESS REPORT ---
Subjective Progress Note for:: 10/27/18 Subjective:: Is a 68-year-old male with an infection of his BKA stump. Patient is currently resting comfortably on BiPAP. He denies chest pain or shortness of breath. He denies abdominal pain, nausea, vomiting, hematemesis, melena. He reports pain in his BKA stump. He denies dizziness. He does report malaise and fatigue. Reason For Visit: STUMP DEHISCENCE Physical Exam Vital Signs: Temp Pulse Resp BP Pulse Ox 99.5 F 89 24 H 158/68 H 96 10/27/18 08:00 10/27/18 08:00 10/27/18 10:01 10/27/18 10:00 10/27/18 10:01 Intake & Output 10/26/18 10/27/18 10/28/18 06:59 06:59 06:59 Intake Total 1999 1400 100 Output Total 375 1425 40 Balance 1625 -25 60 Weight 71.5 kg 70 kg General appearance: PRESENT: no acute distress, cooperative Head exam: PRESENT: atraumatic, normocephalic Eye exam: PRESENT: EOMI Neck exam: ABSENT: thyromegaly, tracheal deviation Respiratory exam: ABSENT: chest wall tenderness Pulses: PRESENT: normal radial pulses Vascular exam: PRESENT: normal capillary refill Neurological exam: PRESENT: alert, awake, oriented to person, oriented to place, oriented to time, oriented to situation Psychiatric exam: ABSENT: agitated, anxious, depressed Focused psych exam: ABSENT: delusional Skin exam: PRESENT: other - Dehiscence of BKA stump. Results Laboratory Results: 10/25/18 20:35 10/25/18 20:48 Impressions: Chest X-Ray 10/25/18 20:02 IMPRESSION: No evidence of acute intrathoracic disease. No significant change when compared to the prior study. Knee X-Ray 10/25/18 20:04 IMPRESSION: Postoperative changes of the proximal leg as detailed above. 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 The patient is a long-term diabetic and vasculopath. He has a history of lower extremity infections. Patient has been seen by Dr. Fernandez, who believes his BKA stump is unsalvageable. Dr. Fernandez plans to perform above-knee amputation next week. Continue antibiotics. Continue medical management.
--- NOTE | 2018-10-27 12:20 | PDOC PROGRESS REPORT ---
Subjective Progress Note for:: 10/27/18 Subjective:: No new complaint. I did vancomycin to Zosyn. Reason For Visit: STUMP DEHISCENCE Physical Exam Vital Signs: Temp Pulse Resp BP Pulse Ox 99.5 F 89 24 H 158/68 H 96 10/27/18 08:00 10/27/18 08:00 10/27/18 10:01 10/27/18 10:00 10/27/18 10:01 Intake & Output 10/26/18 10/27/18 10/28/18 06:59 06:59 06:59 Intake Total 1999 1400 100 Output Total 375 1425 40 Balance 1625 -25 60 Weight 71.5 kg 70 kg General appearance: PRESENT: no acute distress Head exam: PRESENT: atraumatic Eye exam: PRESENT: conjunctiva pink Mouth exam: PRESENT: moist Neck exam: ABSENT: carotid bruit, JVD, lymphadenopathy, thyromegaly Respiratory exam: PRESENT: clear to auscultation hunter. ABSENT: rales, rhonchi, w heezes GI/Abdominal exam: PRESENT: normal bowel sounds, soft. ABSENT: distended, guarding, mass, organolmegaly, rebound, tenderness Neurological exam: PRESENT: alert, awake Results Laboratory Results: 10/25/18 20:35 10/25/18 20:48 Impressions: Chest X-Ray 10/25/18 20:02 IMPRESSION: No evidence of acute intrathoracic disease. No significant change when compared to the prior study. Knee X-Ray 10/25/18 20:04 IMPRESSION: Postoperative changes of the proximal leg as detailed above. copyright 2011 [employer]- All Rights Reserved Assessment and Plan - Diagnosis (1) Dehiscence of amputation stump Is this a current diagnosis for this admission?: Yes Plan: Management per surgical team. 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 (3) Hypertension Qualifiers: Hypertension type: essential hypertension Qualified Code(s): I10 - Essential (primary) hypertension Is this a current diagnosis for this admission?: Yes Plan: Continue home medication. (4) Hyperlipidemia Qualifiers: Hyperlipidemia type: unspecified Qualified Code(s): E78.5 - Hyperlipidemia, unspecified Is this a current diagnosis for this admission?: Yes Plan: Continue home medication.
[2018-10-27] MEDS: KETOROLAC TROMETHAMINE INJ/PF 30 MG/1 ML SDV IV PRN (19:44)
[2018-10-27] MEDS: DIVALPROEX SODIUM 125 MG CAP.SPRINK PO SCH (22:07)
[2018-10-28 03:50] LABS: ABSOLUTE LYMPHOCYTES (AUTO) 1.3 10^3/uL (0.5-4.7); ABSOLUTE MONOCYTES (AUTO) 0.6 10^3/uL (0.1-1.4); EOSINOPHILS % (AUTO) 0.2 % (0-6); TOTAL CELLS COUNTED % (AUTO) 100 %
[2018-10-28 03:59] LABS: ABSOLUTE NEUT (AUTO) 4.3 10^3/uL (1.7-8.2); ANION GAP 5 (5-19); BASOPHILS % (AUTO) 0.2 % (0-2); BLOOD UREA NITROGEN 18 mg/dL (7-20); CALCIUM 9.1 mg/dL (8.4-10.2); CARBON DIOXIDE 25 mmol/L (22-30); CHLORIDE 104 mmol/L (98-107); GLUCOSE 193 mg/dL (75-110); HEMATOCRIT 37.6 % (37.9-51.0); HEMOGLOBIN 12.8 g/dL (13.5-17.0); LYMPHOCYTES % (AUTO) 21.4 % (13-45); MEAN CORPUSCULAR HGB CONC 34.1 g/dL (32.0-36.0); MEAN CORPUSCULAR VOLUME 94 fl (80-97); MONOCYTES % (AUTO) 9.6 % (3-13); PLATELET COUNT 136 10^3/uL (150-450); RED BLOOD COUNT 4.01 10^6/uL (4.35-5.55); RED CELL DISTRIBUTION WIDTH 15.1 % (11.5-14.0); SEGMENTED NEUTROPHILS % (AUTO) 68.6 % (42-78); SODIUM 133.9 mmol/L (137-145); WHITE BLOOD COUNT 6.2 10^3/uL (4.0-10.5)
[2018-10-28 04:02] LABS: POTASSIUM 2.7 mmol/L (3.6-5.0)
[2018-10-28] MEDS: POTASSIUM CHLORIDE 20 MEQ/50 ML RTU IV SCH ×4 (04:34→21:37)
[2018-10-28] MEDS ORDERED: POTASSIUM CHLORIDE 10 MEQ CAPSULE.ER PO ONE (05:00)
[2018-10-28] MEDS: PIPERACILLIN SODIUM/TAZOBACTAM 3.375 GM in NORMAL SALINE 100 ML IV SCH ×3 (05:39→18:24)
[2018-10-28] MEDS: BUPROPION HCL 100 MG TABLET PO SCH ×3 (05:39→21:41)
[2018-10-28] MEDS: INSULIN LISPRO 100 UNIT/ML 3 ML VIAL SUBCUT SCH ×3 (05:42→18:50)
[2018-10-28] MEDS: ASPIRIN 325 MG TABLET PO SCH ×3 (08:20→09:24)
[2018-10-28] MEDS: ATORVASTATIN CALCIUM 80 MG TABLET PO SCH (09:20)
[2018-10-28] MEDS: ASCORBIC ACID 500 MG TABLET PO SCH (09:21)
[2018-10-28] MEDS: METOPROLOL TARTRATE 50 MG TABLET PO SCH ×2 (09:21→21:40)
[2018-10-28] MEDS: METFORMIN HCL 500 MG TABLET PO SCH ×2 (09:22→18:23)
[2018-10-28] MEDS: ENOXAPARIN SODIUM INJ 30 MG/0.3 ML DISP.SYRIN SUBCUT SCH (09:22)
[2018-10-28] MEDS: MULTIVITAMIN TABLET PO SCH (09:22)
[2018-10-28] MEDS: VANCOMYCIN HCL 750 MG in DEXTROSE 5%-WATER 250 ML IV SCH (09:23)
--- NOTE | 2018-10-28 11:06 | PDOC PROGRESS REPORT ---
Subjective Subjective:: This is a 68-year-old male with an infection of his BKA stump. Patient is currently resting comfortably on BiPAP. He denies chest pain or shortness of breath. He denies abdominal pain, nausea, vomiting, hematemesis, melena. He reports pain in his BKA stump. He denies dizziness. He does report malaise and fatigue. Reason For Visit: STUMP DEHISCENCE Physical Exam Vital Signs: Temp Pulse Resp BP Pulse Ox 97.9 F 86 20 145/72 H 96 10/28/18 08:00 10/28/18 08:00 10/28/18 08:00 10/28/18 08:00 10/28/18 08:00 Intake & Output 10/27/18 10/28/18 10/29/18 06:59 06:59 06:59 Intake Total 1400 591 400 Output Total 1425 1030 125 Balance -25 -439 275 Weight 70 kg 72 kg Exam: General appearance: PRESENT: no acute distress, cooperative Head exam: PRESENT: atraumatic, normocephalic Eye exam: PRESENT: EOMI Neck exam: ABSENT: thyromegaly, tracheal deviation Respiratory exam: ABSENT: chest wall tenderness Pulses: PRESENT: normal radial pulses Vascular exam: PRESENT: normal capillary refill Neurological exam: PRESENT: alert, awake, oriented to person, oriented to place, oriented to time, oriented to situation Psychiatric exam: ABSENT: agitated, anxious, depressed Focused psych exam: ABSENT: delusional Skin exam: PRESENT: other - Dehiscence of BKA stump. Results Laboratory Results: 10/28/18 03:41 10/28/18 03:41 10/28/18 10/28/18 03:41 03:41 WBC 6.2 RBC 4.01 L Hgb 12.8 L Hct 37.6 L MCV 94 MCH 32.0 MCHC 34.1 RDW 15.1 H Plt Count 136 L Seg Neutrophils % 68.6 Lymphocytes % 21.4 Monocytes % 9.6 Eosinophils % 0.2 Basophils % 0.2 Absolute Neutrophils 4.3 Absolute Lymphocytes 1.3 Absolute Monocytes 0.6 Absolute Eosinophils 0.0 Absolute Basophils 0.0 Sodium 133.9 L Potassium 2.7 L* Chloride 104 Carbon Dioxide 25 Anion Gap 5 BUN 18 Creatinine 0.81 Est GFR ( Amer) > 60 Est GFR (Non-Af Amer) > 60 Glucose 193 H Calcium 9.1 10/26/18 00:36 Clean Catch Midstream Urine Culture - Final Mixed Urogenital Tania Impressions: Chest X-Ray 10/25/18 20:02 IMPRESSION: No evidence of acute intrathoracic disease. No significant change when compared to the prior study. Knee X-Ray 10/25/18 20:04 IMPRESSION: Postoperative changes of the proximal leg as detailed above. copyright 2010 [employer]- All Rights Reserved Assessment & Plan - Diagnosis (1) Dehiscence of amputation stump Is this a current diagnosis for this admission?: Yes (2) Type 2 diabetes mellitus Qualifiers: Diabetes mellitus plate filler insulin use: with plate filler use Diabetes mellitus complication detail: with other circulatory complications Is this a current diagnosis for this admission?: Yes - Plan Summary Plan Summary: This is a 68-year-old male with dehiscence of his BKA stump. The patient is a long-term diabetic and vasculopath. He has a history of lower extremity infections. Patient has been seen by Dr. Fernandez, who believes his BKA stump is unsalvageable. Dr. Fernandez plans to perform above-knee amputation in the coming days. Continue antibiotics. Continue medical management. medicine following.
--- NOTE | 2018-10-28 12:48 | PDOC PROGRESS REPORT ---
Subjective Progress Note for:: 10/28/18 Subjective:: I seen patient sleeping quietly while he is on full mask BiPAP. No significant change overnight. Reason For Visit: STUMP DEHISCENCE Physical Exam Vital Signs: Temp Pulse Resp BP Pulse Ox 98.8 F 76 19 185/75 H 97 10/28/18 12:00 10/28/18 12:00 10/28/18 12:00 10/28/18 12:00 10/28/18 12:00 Intake & Output 10/27/18 10/28/18 10/29/18 06:59 06:59 06:59 Intake Total 1400 591 650 Output Total 1425 1030 275 Balance -25 -439 375 Weight 70 kg 72 kg General appearance: PRESENT: no acute distress Head exam: PRESENT: atraumatic Mouth exam: PRESENT: moist Respiratory exam: PRESENT: clear to auscultation hunter. ABSENT: rales, rhonchi, wheezes Cardiovascular exam: PRESENT: RRR. ABSENT: diastolic murmur, rubs, systolic murmur Results Laboratory Results: 10/28/18 03:41 10/28/18 03:41 10/28/18 10/28/18 03:41 03:41 WBC 6.2 RBC 4.01 L Hgb 12.8 L Hct 37.6 L MCV 94 MCH 32.0 MCHC 34.1 RDW 15.1 H Plt Count 136 L Seg Neutrophils % 68.6 Lymphocytes % 21.4 Monocytes % 9.6 Eosinophils % 0.2 Basophils % 0.2 Absolute Neutrophils 4.3 Absolute Lymphocytes 1.3 Absolute Monocytes 0.6 Absolute Eosinophils 0.0 Absolute Basophils 0.0 Sodium 133.9 L Potassium 2.7 L* Chloride 104 Carbon Dioxide 25 Anion Gap 5 BUN 18 Creatinine 0.81 Est GFR ( Amer) > 60 Est GFR (Non-Af Amer) > 60 Glucose 193 H Calcium 9.1 10/26/18 00:36 Clean Catch Midstream Urine Culture - Final Mixed Urogenital Tania Impressions: Chest X-Ray 10/25/18 20:02 IMPRESSION: No evidence of acute intrathoracic disease. No significant change when compared to the prior study. Knee X-Ray 10/25/18 20:04 IMPRESSION: Postoperative changes of the proximal leg as detailed above. copyright 2011 [employer]- All Rights Reserved Assessment and Plan - Diagnosis (1) Dehiscence of amputation stump Is this a current diagnosis for this admission?: Yes Plan: Management per surgical team. (2) Type 2 diabetes mellitus Qualifiers: Diabetes mellitus residential insulin use: with intermediate card tender use Diabetes mellitus complication detail: with other circulatory complications Is this a current diagnosis for this admission?: Yes Plan: Continue current regimen. (3) Hypertension Qualifiers: Hypertension type: essential hypertension Qualified Code(s): I10 - E ssential (primary) hypertension Is this a current diagnosis for this admission?: Yes Plan: Continue home medication. (4) Hyperlipidemia Qualifiers: Hyperlipidemia type: unspecified Qualified Code(s): E78.5 - Hyperlipidemia, unspecified Is this a current diagnosis for this admission?: Yes Plan: Continue home medication.
[2018-10-28] MEDS: KETOROLAC TROMETHAMINE INJ/PF 30 MG/1 ML SDV IV PRN (13:55)
[2018-10-28 15:08] LABS: POTASSIUM 3.1 mmol/L (3.6-5.0)
[2018-10-28] MEDS: DIVALPROEX SODIUM 125 MG CAP.SPRINK PO SCH (21:40)
[2018-10-28 22:04] LABS: VANCOMYCIN,TROUGH 8.4 ug/mL (5.0-20.0)
[2018-10-29] MEDS: VANCOMYCIN HCL 750 MG in DEXTROSE 5%-WATER 250 ML IV SCH (00:01)
[2018-10-29] MEDS: KETOROLAC TROMETHAMINE INJ/PF 30 MG/1 ML SDV IV PRN ×3 (00:30→22:45)
[2018-10-29] MEDS: INSULIN LISPRO 100 UNIT/ML 3 ML VIAL SUBCUT SCH ×4 (00:43→19:13)
[2018-10-29] MEDS: PIPERACILLIN SODIUM/TAZOBACTAM 3.375 GM in NORMAL SALINE 100 ML IV SCH ×5 (02:01→23:34)
[2018-10-29] MEDS: BUPROPION HCL 100 MG TABLET PO SCH ×3 (05:59→21:12)
[2018-10-29 06:51] LABS: BLOOD UREA NITROGEN 15 mg/dL (7-20); CALCIUM 9.3 mg/dL (8.4-10.2); GLUCOSE 248 mg/dL (75-110); POTASSIUM 3.7 mmol/L (3.6-5.0)
[2018-10-29 06:58] LABS: CARBON DIOXIDE 23 mmol/L (22-30); CHLORIDE 106 mmol/L (98-107); SODIUM 134.6 mmol/L (137-145)
[2018-10-29 07:03] LABS: ANION GAP 6 (5-19)
[2018-10-29] MEDS: VANCOMYCIN HCL 1,000 MG in DEXTROSE 5%-WATER 250 ML IV SCH ×2 (08:31→20:32)
[2018-10-29] MEDS: HYDRALAZINE HCL INJ/PF 20 MG/1 ML SDV IV PRN ×2 (10:42→21:13)
[2018-10-29] MEDS ORDERED: BACITRACIN INJ 50,000 UNIT VIAL ONE (13:44)
[2018-10-29] MEDS ORDERED: BUPIVACAINE HCL 0.25 % INJ/PF (2.5 MG/1 ML) 30 ML VIAL ONE (13:44)
[2018-10-29] MEDS ORDERED: LIDOCAINE 0.5% INJ-PF (5 MG/ML) 50 ML SDV ONE (13:44)
[2018-10-29] MEDS ORDERED: FENTANYL CITRATE INJ/PF 100 MCG/2 ML AMPUL ONE (16:53)
[2018-10-29] MEDS ORDERED: MIDAZOLAM 2 MG/2 ML INJ ONE (16:54)
[2018-10-29] MEDS ORDERED: PROPOFOL INJ 200 MG/20 ML VIAL IV ONE (16:54)
[2018-10-29] MEDS ORDERED: EPHEDRINE SULFATE INJ 50 MG/1 ML AMPULE ONE (16:54)
--- NOTE | 2018-10-29 17:47 | PDOC PROGRESS REPORT ---
Subjective Progress Note for:: 10/29/18 Subjective:: This is a 68 yr old male with a PMH of CVA, diabetes, hypertension, coronary artery disease and peripheral vascular disease who presented with recurrent dehiscence of left BKA stump. Hospitalist service was consulted for comanagement of his medical issues which are pretty stable. No acute event overnight. He was comfortable upon encounter this morning but did complain of mild pain on the left BKA stump. He is oriented to person, place and situation. He is scheduled for a possible AKA by surgery. Reason For Visit: STUMP DEHISCENCE Physical Exam Vital Signs: Temp Pulse Resp BP Pulse Ox 98.0 F 82 18 158/58 H 97 10/29/18 15:31 10/29/18 15:31 10/29/18 15:31 10/29/18 15:31 10/29/18 15:31 Intake & Output 10/28/18 10/29/18 10/30/18 06:59 06:59 06:59 Intake Total 591 1400 350 Output Total 1030 545 600 Balance -439 855 -250 Weight 158 lb 11.725 oz 164 lb 10.965 oz General appearance: PRESENT: no acute distress, well-developed, well-nourished Head exam: PRESENT: atraumatic, normocephalic Eye exam: PRESENT: conjunctiva pink, EOMI, PERRLA. ABSENT: scleral icterus Ear exam: PRESENT: normal external ear exam Mouth exam: PRESENT: moist, tongue midline Neck exam: ABSENT: carotid bruit, JVD, lymphadenopathy, thyromegaly Respiratory exam: PRESENT: clear to auscultation hunter. ABSENT: rales, rhonchi, wheezes Cardiovascular exam: PRESENT: RRR. ABSENT: diastolic murmur, rubs, systolic murmur Pulses: PRESENT: normal dorsalis pedis pul GI/Abdominal exam: PRESENT: normal bowel sounds, soft. ABSENT: distended, guarding, mass, organolmegaly, rebound, tenderness Rectal exam: PRESENT: deferred Musculoskeletal exam: PRESENT: other - +left BKA stump Neurological exam: PRESENT: alert, awake, oriented to person, oriented to place, oriented to situation, CN II-XII grossly intact. ABSENT: motor sensory deficit Results Laboratory Results: 10/28/18 03:41 10/29/18 05:43 10/28/18 10/29/18 21:45 05:43 Sodium 134.6 L Potassium 3.7 Chloride 106 Carbon Dioxide 23 Anion Gap 6 BUN 15 Creatinine 0.72 0.72 Est GFR ( Amer) > 60 > 60 Est GFR (Non-Af Amer) > 60 > 60 Glucose 248 H Calcium 9.3 Impressions: Chest X-Ray 10/25/18 20:02 IMPRESSION: No evidence of acute intrathoracic disease. No significant change when compared to the prior study. Knee X-Ray 10/25/18 20:04 IMPRESSION: Postoperative changes of the proximal leg as detailed above. copyright 2010 [employer]- All Rights Reserved Assessment and Plan - Diagnosis (1) Dehiscence of amputation stump Is this a current diagnosis for this admission?: Yes Plan: Possible AKA by primary service. (2) Diabetes mellitus type 2 in nonobese Is this a current diagnosis for this admission?: Yes Plan: Sugars are close to goal running in the 200s. Hold metformin for now. Continue sliding scale for now. He is on Lantus 20 u HS at home. Will restart Lantus at a lower dose of 8 u HS, to be adjusted based on subsequent blood sugars and NPO/diet status. (3) Hypertension Qualifiers: Hypertension type: essential hypertension Qualified Code(s): I10 - Essential (primary) hypertension Is this a current diagnosis for this admission?: Yes Plan: Blood pressure in the 150/80s. Continue metoprolol. On hydralazine prn. - Time Time Spent with patient: 25-34 minutes
[2018-10-29] MEDS ORDERED: DIPHENHYDRAMINE HCL 50 MG/ML VIAL IV PRN (18:00)
[2018-10-29] MEDS ORDERED: MEPERIDINE HCL/PF INJ 25 MG/1 ML DISP.SYRIN IV PRN (18:00)
[2018-10-29] MEDS ORDERED: FENTANYL CITRATE INJ/PF 100 MCG/2 ML AMPUL IV PRN ×3 (18:00)
[2018-10-29] MEDS: ASCORBIC ACID 500 MG TABLET PO SCH (19:12)
[2018-10-29] MEDS: ATORVASTATIN CALCIUM 80 MG TABLET PO SCH (19:12)
[2018-10-29] MEDS: MULTIVITAMIN TABLET PO SCH (19:12)
[2018-10-29] MEDS: METFORMIN HCL 500 MG TABLET PO SCH (19:13)
[2018-10-29] MEDS: METOPROLOL TARTRATE 50 MG TABLET PO SCH ×2 (19:13→21:12)
--- NOTE | 2018-10-29 19:20 | Operative Report ---
Operative Report DATE OF SURGERY: 10/29/18 PREOPERATIVE DIAGNOSIS: 1. Necrosis of left below-knee amputation site. 2. P ersonal vascular disease. 3. Diabetes mellitus type 2. 4. Hypertension. POSTOPERATIVE DIAGNOSIS: 1. Necrosis of left below-knee amputation site. 2. Personal vascular disease. 3. Diabetes mellitus type 2. 4. Hypertension. OPERATION: Left above-knee amputation. SURGEON: ANALILIA RICHARDS TECHNICAL SOLUTION ARCHITECT: None. ANESTHESIA: Spinal TISSUE REMOVED OR ALTERED: Left lower extremity. Remnant. COMPLICATIONS: None. ESTIMATED BLOOD LOSS: 200 mL. INTRAOPERATIVE FINDINGS: Of a satisfactory apparent blood supply at the level of amputation. Major vessels such as the femoral completely occluded, smaller vessels including some unnamed were patent and were controlled. Muscle alive and pink. Every expectation of healing at the amputated level. PROCEDURE: The right lower extremity was prepared with chlorhexidine from the upper thigh down to the knee it was draped out with sterile linen. After the universal timeout, in which it was verified that the patient continued to get IV antibiotic and it was the right lower extremity that was to be removed, the procedure commenced. A marking pen was used to sketch an anterior and posterior flap. The incision was now made anteriorly and medially down to the femur.. The uppermost portions of the flap, previously marked were now incised. Dissection proceeded through the investing fascia and the muscular tissues down to the interosseous membrane. The dissection was done with scalpel and with cautery as indicated. Hemostasis was obtained using using cautery were indicated the greater saphenous vein was encountered, suture ligated with 2-0 PDS suture. The periosteum of the femur was now incised circumferentially and raised a good 3 cm above the level of the skin amputation. Dissection then proceeded down to the femoral and popliteal vessels which were isolated each was doubly clamped divided and suture ligated with 2-0 PDS. Dissecting further medially and posteriorly the sciatic nerve was encountered. Local anesthetize clamped high and cut. It was ligated with 2-0 PDS. Dissection proceeded circumferentially taking the remainder of fascia and muscle groups. The tibial groups of vessels were encountered and these were sent clamped and suture-ligated as well. The periosteum was raised to about 5 cm above the level of the skin. Hemostasis was now secured in the muscle groups. The area was irrigated with antibiotic-containing solution. The periosteum was approximated anteriorly to posteriorly as far as possible using interrupted 2-0 PDS. 2 0-0 PDS was now used to approximate the deep fascia over the muscle groups using interrupted sutures of 2-0 PDS. The skin was now closed using ja. It was protected with Acticoat dressings held in place with Steri-Strips. This was followed by Kerlix and then Coban tape. The co-band dressing was held in place with 3 inch wide tape. The procedure was now concluded. Copies dictated operative report to Dr. Analilia Fernandez MD.
[2018-10-29] MEDS: FENTANYL 25 MCG/HR PATCH.TD72 TD SCH (21:09)
[2018-10-29] MEDS: DIVALPROEX SODIUM 125 MG CAP.SPRINK PO SCH (21:17)
[2018-10-30] MEDS ORDERED: INSULIN LISPRO 100 UNIT/ML 3 ML VIAL ONE (00:21)
[2018-10-30] MEDS ORDERED: MORPHINE SULFATE 10 MG/ML INJ IV ONE (02:00)
[2018-10-30] MEDS: BUPROPION HCL 100 MG TABLET PO SCH ×3 (06:45→23:07)
[2018-10-30] MEDS: PIPERACILLIN SODIUM/TAZOBACTAM 3.375 GM in NORMAL SALINE 100 ML IV SCH ×3 (06:45→23:07)
[2018-10-30] MEDS: VANCOMYCIN HCL 1,000 MG in DEXTROSE 5%-WATER 250 ML IV SCH ×2 (06:45→18:55)
[2018-10-30] MEDS: HYDRALAZINE HCL INJ/PF 20 MG/1 ML SDV IV PRN (06:50)
[2018-10-30] MEDS: INSULIN LISPRO 100 UNIT/ML 3 ML VIAL SUBCUT SCH ×5 (10:42→23:08)
[2018-10-30] MEDS: MULTIVITAMIN TABLET PO SCH (10:46)
[2018-10-30] MEDS: ASCORBIC ACID 500 MG TABLET PO SCH (10:46)
[2018-10-30] MEDS: METOPROLOL TARTRATE 50 MG TABLET PO SCH ×2 (10:46→23:08)
[2018-10-30] MEDS: ATORVASTATIN CALCIUM 80 MG TABLET PO SCH (10:46)
[2018-10-30] MEDS: ASPIRIN 325 MG TABLET PO SCH (10:46)
[2018-10-30] MEDS: ENOXAPARIN SODIUM INJ 30 MG/0.3 ML DISP.SYRIN SUBCUT SCH (10:47)
[2018-10-30] MEDS: KETOROLAC TROMETHAMINE INJ/PF 30 MG/1 ML SDV IV PRN (16:24)
[2018-10-30] MEDS: DIVALPROEX SODIUM 125 MG CAP.SPRINK PO SCH (23:07)
[2018-10-31] MEDS: HYDRALAZINE HCL INJ/PF 20 MG/1 ML SDV IV PRN (00:32)
[2018-10-31] MEDS: PIPERACILLIN SODIUM/TAZOBACTAM 3.375 GM in NORMAL SALINE 100 ML IV SCH ×4 (04:24→23:51)
[2018-10-31] MEDS: VANCOMYCIN HCL 1,000 MG in DEXTROSE 5%-WATER 250 ML IV SCH ×2 (06:08→18:51)
[2018-10-31] MEDS: BUPROPION HCL 100 MG TABLET PO SCH ×3 (06:08→23:52)
[2018-10-31 06:34] LABS: VANCOMYCIN,TROUGH 15.2 ug/mL (5.0-20.0)
[2018-10-31] MEDS: INSULIN LISPRO 100 UNIT/ML 3 ML VIAL SUBCUT SCH ×4 (12:22→23:54)
[2018-10-31] MEDS: ENOXAPARIN SODIUM INJ 30 MG/0.3 ML DISP.SYRIN SUBCUT SCH (12:24)
[2018-10-31] MEDS: ASPIRIN 325 MG TABLET PO SCH (12:30)
[2018-10-31] MEDS: METOPROLOL TARTRATE 50 MG TABLET PO SCH ×2 (12:30→23:52)
[2018-10-31] MEDS: ASCORBIC ACID 500 MG TABLET PO SCH (12:38)
[2018-10-31] MEDS: ATORVASTATIN CALCIUM 80 MG TABLET PO SCH (14:20)
[2018-10-31] MEDS: MULTIVITAMIN TABLET PO SCH (14:20)
[2018-10-31] MEDS: DIVALPROEX SODIUM 125 MG CAP.SPRINK PO SCH (23:52)
[2018-10-31] MEDS: INSULIN GLARGINE,HUM.REC.ANLOG 1,000 UNIT/10 ML VIAL SUBCUT SCH (23:54)
[2018-11-01] MEDS: PIPERACILLIN SODIUM/TAZOBACTAM 3.375 GM in NORMAL SALINE 100 ML IV SCH ×4 (04:33→22:45)
[2018-11-01] MEDS: VANCOMYCIN HCL 1,000 MG in DEXTROSE 5%-WATER 250 ML IV SCH ×2 (06:47→18:48)
[2018-11-01] MEDS: BUPROPION HCL 100 MG TABLET PO SCH ×3 (06:48→23:25)
[2018-11-01] MEDS: MULTIVITAMIN TABLET PO SCH (08:21)
[2018-11-01] MEDS: ATORVASTATIN CALCIUM 80 MG TABLET PO SCH (08:21)
[2018-11-01] MEDS: ASPIRIN 325 MG TABLET PO SCH (08:21)
[2018-11-01] MEDS: ASCORBIC ACID 500 MG TABLET PO SCH (08:21)
[2018-11-01] MEDS: INSULIN LISPRO 100 UNIT/ML 3 ML VIAL SUBCUT SCH ×4 (08:21→23:26)
[2018-11-01] MEDS: FENTANYL 25 MCG/HR PATCH.TD72 TD SCH (09:29)
[2018-11-01] MEDS: METOPROLOL TARTRATE 50 MG TABLET PO SCH ×2 (09:32→23:25)
[2018-11-01] MEDS ORDERED: LOSARTAN POTASSIUM 25 MG TABLET PO SCH (10:00)
[2018-11-01] MEDS: ENOXAPARIN SODIUM INJ 30 MG/0.3 ML DISP.SYRIN SUBCUT SCH (10:30)
[2018-11-01 12:46] LABS: ABSOLUTE LYMPHOCYTES (AUTO) 1.3 10^3/uL (0.5-4.7); ABSOLUTE MONOCYTES (AUTO) 0.9 10^3/uL (0.1-1.4); ABSOLUTE NEUT (AUTO) 7.5 10^3/uL (1.7-8.2); BASOPHILS % (AUTO) 0.1 % (0-2); EOSINOPHILS % (AUTO) 0.4 % (0-6); HEMATOCRIT 35.4 % (37.9-51.0); HEMOGLOBIN 12.1 g/dL (13.5-17.0); LYMPHOCYTES % (AUTO) 13.4 % (13-45); MEAN CORPUSCULAR HEMOGLOBIN 31.7 pg (27.0-33.4); MEAN CORPUSCULAR HGB CONC 34.1 g/dL (32.0-36.0); MEAN CORPUSCULAR VOLUME 93 fl (80-97); MONOCYTES % (AUTO) 9.3 % (3-13); PLATELET COUNT 167 10^3/uL (150-450); RED BLOOD COUNT 3.81 10^6/uL (4.35-5.55); RED CELL DISTRIBUTION WIDTH 14.6 % (11.5-14.0); SEGMENTED NEUTROPHILS % (AUTO) 76.8 % (42-78); TOTAL CELLS COUNTED % (AUTO) 100 %; WHITE BLOOD COUNT 9.7 10^3/uL (4.0-10.5)
[2018-11-01 13:11] LABS: ANION GAP 8 (5-19); BLOOD UREA NITROGEN 11 mg/dL (7-20); CALCIUM 8.9 mg/dL (8.4-10.2); CARBON DIOXIDE 29 mmol/L (22-30); CHLORIDE 96 mmol/L (98-107); GLUCOSE 237 mg/dL (75-110); SODIUM 132.9 mmol/L (137-145)
[2018-11-01 13:21] LABS: POTASSIUM 2.9 mmol/L (3.6-5.0)
[2018-11-01] MEDS ORDERED: POTASSIUM CHLORIDE 20 MEQ/50 ML RTU IV SCH (14:00)
--- NOTE | 2018-11-01 16:36 | PDOC PROGRESS REPORT ---
Subjective Progress Note for:: 11/01/18 Subjective:: Post amputation follow-up. Reason For Visit: STUMP DEHISCENCE Continuity of care. Physical Exam Vital Signs: Temp Pulse Resp BP Pulse Ox 98.5 F 69 17 172/46 H 97 11/01/18 11:30 11/01/18 11:30 11/01/18 11:30 11/01/18 11:30 11/01/18 11:30 Intake & Output 10/31/18 11/01/18 11/02/18 06:59 06:59 06:59 Intake Total 1318 1368 350 Output Total 2250 400 Balance -932 968 350 Weight 69.1 kg 70.2 kg Additional comments: Constitutional: Well-developed well-nourished gentleman. No apparent acute distress. Eyes: Mucous membranes pink and moist, pupils equal and reactive to light. Conjunctiva normal. Cornea normal. Respiratory: Normal respiratory effort. Psychiatric: Judgment, memory, insight seem normal, little vague. Mood is pleasant and appropriate. Lower extremities show normal range of movement on the right. Fresh left above- knee amputation site clean and healing. Results Laboratory Results: 11/01/18 12:03 11/01/18 12:03 11/01/18 11/01/18 12:03 12:03 WBC 9.7 RBC 3.81 L Hgb 12.1 L Hct 35.4 L MCV 93 MCH 31.7 MCHC 34.1 RDW 14.6 H Plt Count 167 Seg Neutrophils % 76.8 Lymphocytes % 13.4 Monocytes % 9.3 Eosinophils % 0.4 Basophils % 0.1 Absolute Neutrophils 7.5 Absolute Lymphocytes 1.3 Absolute Monocytes 0.9 Absolute Eosinophils 0.0 Absolute Basophils 0.0 Sodium 132.9 L Potassium 2.9 L* Chloride 96 L Carbon Dioxide 29 Anion Gap 8 BUN 11 Creatinine 0.68 Est GFR ( Amer) > 60 Est GFR (Non-Af Amer) > 60 Glucose 237 H Calcium 8.9 Impressions: Chest X-Ray 10/25/18 20:02 IMPRESSION: No evidence of acute intrathoracic disease. No significant change when compared to the prior study. Knee X-Ray 10/25/18 20:04 IMPRESSION: Postoperative changes of the proximal leg as detailed above. copyright 2010 [employer]- All Rights Reserved Assessment & Plan - Diagnosis (1) Dehiscence of amputation stump Is this a current diagnosis for this admission?: Yes (6) Coronary artery disease Qualifiers: Coronary Disease-Associated Artery/Lesion type: [place] artery [place] vs. transplanted heart: [place] heart Associated angina: angina presence unspecified Qualified Code(s): I25.10 - Atherosclerotic heart disease of [place] coronary artery without angina pectoris Is this a current diagnosis for this admission?: Yes (7) Diabetes mellitus type 2 in nonobese Is this a current diagnosis for this admission?: Yes (8) Essential hypertension Is this a current diagnosis for this admission?: Yes - Plan Summary Plan Summary: The patient has left above-knee amputation site looks great. The Acticoat dressing with Steri-Strips are to be left on. A large waffle type dressing may be changed every few days. At this point, as far as the amputation is concerned, I would be happy to see him in office in about a week for staple removal.
[2018-11-01] MEDS ORDERED: POTASSIUM CHLORIDE 20 MEQ/50 ML RTU IV ONE (17:30)
[2018-11-01] MEDS: METFORMIN HCL 500 MG TABLET PO SCH (18:48)
--- NOTE | 2018-11-01 22:06 | PDOC PROGRESS REPORT ---
Subjective Progress Note for:: 10/30/18 Subjective:: The patient is resting comfortably. He is no longer on BiPAP therapy. Reason For Visit: STUMP DEHISCENCE Physical Exam Vital Signs: Temp Pulse Resp BP Pulse Ox 98.9 F 87 16 192/74 H 92 10/30/18 20:00 10/30/18 20:00 10/30/18 20:00 10/30/18 20:00 10/30/18 20:00 Intake & Output 10/29/18 10/30/18 10/31/18 06:59 06:59 06:59 Intake Total 1400 2140 900 Output Total 545 3100 1500 Balance 855 -960 -600 Weight 74.7 kg 71.2 kg General appearance: PRESENT: no acute distress Head exam: PRESENT: normocephalic Eye exam: PRESENT: conjunctiva pink. ABSENT: scleral icterus Mouth exam: PRESENT: dry mucosa, tongue midline Neck exam: ABSENT: carotid bruit, JVD, lymphadenopathy Respiratory exam: PRESENT: clear to auscultation hunter, symmetrical, unlabored. ABSENT: accessory muscle use, rales, rhonchi, tachypnea, wheezes Cardiovascular exam: PRESENT: RRR, +S1, +S2 GI/Abdominal exam: PRESENT: normal bowel sounds, soft. ABSENT: tenderness Rectal exam: PRESENT: deferred Gentrourinary exam: PRESENT: indwelling catheter Extremities exam: PRESENT: other - New left above-knee amputation Neurological exam: PRESENT: awake, oriented to person, oriented to place. ABSENT: alert - Sleepy today Psychiatric exam: PRESENT: flat affect. ABSENT: agitated, anxious Focused psych exam: ABSENT: delusional, restlessness Skin exam: PRESENT: other - Dressing on left surgical site Results Laboratory Results: 10/28/18 03:41 10/29/18 05:43 10/25/18 21:57 Blood Blood Culture - Final NO GROWTH IN 5 DAYS 10/25/18 20:35 Blood Blood Culture - Final NO GROWTH IN 5 DAYS Impressions: Chest X-Ray 10/25/18 20:02 IMPRESSION: No evidence of acute intrathoracic disease. No significant change when compared to the prior study. Knee X-Ray 10/25/18 20:04 IMPRESSION: Postoperative changes of the proximal leg as detailed above. copyright 2010 [employer]- All Rights Reserved Assessment and Plan - Diagnosis (1) Dehiscence of surgical wound Qualifiers: Encounter type: subsequent encounter Qualified Code(s): T81.31XD - Disruption of external operation (surgical) wound, not elsewhere classified, subsequent encounter Is this a current diagnosis for this admission?: Yes Plan: The patient in fact had the amputation revised to an above-knee amputation. Surgical care per Dr. Hong Fernandez. Dressing remains in place. Management of antibiotics will be performed by surgery. (2) Diabetes mellitus type 2 in nonobese Is this a current diagnosis for this admission?: Yes Plan: The patient still has poorly controlled glucose readings. I will increase the Lantus slightly. Continue Accu-Cheks and sliding scale. Adjust Lantus based on sliding scale requirements. (3) Essential hypertension Is this a current diagnosis for this admission?: Yes Plan: Blood pressure still higher than desired. Increased pressure could be related to pain. Will monitor. If no significant improvement will adjust medication. (4) Hyperlipidemia Qualifiers: Hyperlipidemia type: unspecified Qualified Code(s): E78.5 - Hyperlipidemia, unspecified Is this a current diagnosis for this admission?: Yes Plan: Continue atorvastatin - Time Time Spent with patient: Less than 15 minutes Medications reviewed and adjusted accordingly: Yes
--- NOTE | 2018-11-01 22:10 | PDOC PROGRESS REPORT ---
Subjective Progress Note for:: 10/31/18 Subjective:: Patient is resting comfortably again today. Slightly less sleepy. Reason For Visit: STUMP DEHISCENCE Physical Exam Vital Signs: Temp Pulse Resp BP Pulse Ox 98.3 F 90 16 152/75 H 96 10/31/18 12:00 10/31/18 12:00 10/31/18 12:00 10/31/18 12:00 10/31/18 12:00 Intake & Output 10/30/18 10/31/18 11/01/18 06:59 06:59 06:59 Intake Total 2140 1318 100 Output Total 3100 2250 Balance -960 -932 100 Weight 71.2 kg 69.1 kg General appearance: PRESENT: no acute distress, well-developed Head exam: PRESENT: normocephalic Eye exam: PRESENT: conjunctiva pink. ABSENT: scleral icterus Mouth exam: PRESENT: dry mucosa, tongue midline Respiratory exam: PRESENT: clear to auscultation hunter, symmetrical, unlabored. ABSENT: accessory muscle use, rales, rhonchi, tachypnea, wheezes Cardiovascular exam: PRESENT: RRR, +S1, +S2 GI/Abdominal exam: PRESENT: normal bowel sounds, soft. ABSENT: distended, tenderness Rectal exam: PRESENT: deferred Gentrourinary exam: PRESENT: indwelling catheter Neurological exam: PRESENT: alert, awake, oriented to person, oriented to place Psychiatric exam: ABSENT: agitated, anxious Results Laboratory Results: 10/28/18 03:41 10/31/18 05:36 10/31/18 05:36 Creatinine 0.63 Est GFR ( Amer) > 60 Est GFR (Non-Af Amer) > 60 10/25/18 21:57 Blood Blood Culture - Final NO GROWTH IN 5 DAYS 10/25/18 20:35 Blood Blood Culture - Final NO GROWTH IN 5 DAYS Impressions: Chest X-Ray 10/25/18 20:02 IMPRESSION: No evidence of acute intrathoracic disease. No significant change when compared to the prior study. Knee X-Ray 10/25/18 20:04 IMPRESSION: Postoperative changes of the proximal leg as detailed above. copyright 2010 [employer]- All Rights Reserved Assessment and Plan - Diagnosis (1) Dehiscence of surgical wound Qualifiers: Encounter type: subsequent encounter Qualified Code(s): T81.31XD - Disruption of external operation (surgical) wound, not elsewhere classified, subsequent encounter Is this a current diagnosis for this admission?: Yes Plan: Defer to surgical list for management. (2) Diabetes mellitus type 2 in nonobese Is this a current diagnosis for this admission?: Yes Plan: I will resume the Metformin. Continue to monitor Accu-Cheks and sliding scale requirements. Increase Lantus if Accu-Cheks remain above 200. (3) Essential hypertension Is this a current diagnosis for this admission?: Yes Plan: I will add low-dose losartan as we are not maintaining good blood pressure control. (4) Hyperlipidemia Qualifiers: Hyperlipidemia type: unspecified Qualified Code(s): E78.5 - Hyperlipidemia, unspecified Is this a current diagnosis for this admission?: Yes Plan: Continue atorvastatin - Time Time Spent with patient: Less than 15 minutes Medications reviewed and adjusted accordingly: Yes
--- NOTE | 2018-11-01 22:15 | PDOC PROGRESS REPORT ---
Subjective Progress Note for:: 11/01/18 Subjective:: Today the patient is the most awake and alert that I have seen him. He reports pain but appears reasonably comfortable. Reason For Visit: STUMP DEHISCENCE Physical Exam Vital Signs: Temp Pulse Resp BP Pulse Ox 98.3 F 77 16 158/61 H 93 11/01/18 07:27 11/01/18 07:27 11/01/18 07:27 11/01/18 07:27 11/01/18 07:27 Intake & Output 10/31/18 11/01/18 11/02/18 06:59 06:59 06:59 Intake Total 1318 1368 350 Output Total 2250 400 Balance -932 968 350 Weight 69.1 kg 70.2 kg General appearance: PRESENT: no acute distress, cooperative, well-developed Head exam: PRESENT: atraumatic, normocephalic Ear exam: PRESENT: normal external ear exam Mouth exam: PRESENT: dry mucosa, tongue midline Respiratory exam: PRESENT: clear to auscultation uhnter, symmetrical, unlabored. ABSENT: accessory muscle use, rales, rhonchi, wheezes Cardiovascular exam: PRESENT: RRR, +S1, +S2 GI/Abdominal exam: PRESENT: normal bowel sounds, soft. ABSENT: distended, tenderness Gentrourinary exam: PRESENT: indwelling catheter Musculoskeletal exam: PRESENT: other - New left above-knee amputation Neurological exam: PRESENT: alert, awake, oriented to person, oriented to place, oriented to situation Psychiatric exam: PRESENT: appropriate affect. ABSENT: agitated, anxious Results Laboratory Results: 10/28/18 03:41 10/31/18 05:36 Impressions: Chest X-Ray 10/25/18 20:02 IMPRESSION: No evidence of acute intrathoracic disease. No significant change when compared to the prior study. Knee X-Ray 10/25/18 20:04 IMPRESSION: Postoperative changes of the proximal leg as detailed above. copyright 2010 [facility] [employer]- All Rights Reserved Assessment and Plan - Diagnosis (1) Dehiscence of amputation stump Is this a current diagnosis for this admission?: Yes Plan: Management per surgical list. And multidisciplinary rounds a physical therapy consult was requested and so I did give that order. (2) Diabetes mellitus type 2 in nonobese Is this a current diagnosis for this admission?: Yes Plan: Continue metformin and Lantus. Accu-Cheks are still mostly above 200. I may need to increase the Lantus dose again. (3) Essential hypertension Is this a current diagnosis for this admission?: Yes Plan: Now on losartan and metoprolol. Continue to monitor blood pressure. Adjust as clinically indicated. (4) Hyperlipidemia Qualifiers: Hyperlipidemia type: unspecified Qualified Code(s): E78.5 - Hyperlipidemia, unspecified Is this a current diagnosis for this admission?: Yes Plan: Continue atorvastatin - Time Time Spent with patient: Less than 15 minutes Medications reviewed and adjusted accordingly: Yes
[2018-11-01] MEDS ORDERED: INSULIN GLARGINE,HUM.REC.ANLOG 1,000 UNIT/10 ML VIAL (PYX) SUBCUT PRN (22:30)
[2018-11-01] MEDS ORDERED: INSULIN GLARGINE,HUM.REC.ANLOG 1,000 UNIT/10 ML VIAL SUBCUT ONE (22:40)
[2018-11-01] MEDS: DIVALPROEX SODIUM 125 MG CAP.SPRINK PO SCH (23:25)
[2018-11-02] MEDS: PIPERACILLIN SODIUM/TAZOBACTAM 3.375 GM in NORMAL SALINE 100 ML IV SCH ×3 (02:40→17:24)
[2018-11-02] MEDS: VANCOMYCIN HCL 1,000 MG in DEXTROSE 5%-WATER 250 ML IV SCH ×2 (05:14→18:56)
[2018-11-02] MEDS: BUPROPION HCL 100 MG TABLET PO SCH ×4 (07:26→21:44)
[2018-11-02] MEDS: INSULIN GLARGINE,HUM.REC.ANLOG 1,000 UNIT/10 ML VIAL SUBCUT SCH ×3 (07:56→19:02)
[2018-11-02] MEDS: MULTIVITAMIN TABLET PO SCH (09:29)
[2018-11-02] MEDS: ASPIRIN 325 MG TABLET PO SCH (09:29)
[2018-11-02] MEDS: ATORVASTATIN CALCIUM 80 MG TABLET PO SCH (09:29)
[2018-11-02] MEDS: METFORMIN HCL 500 MG TABLET PO SCH (09:30)
[2018-11-02] MEDS: ASCORBIC ACID 500 MG TABLET PO SCH (09:30)
[2018-11-02] MEDS: METOPROLOL TARTRATE 50 MG TABLET PO SCH ×3 (09:31→21:44)
[2018-11-02] MEDS: ENOXAPARIN SODIUM INJ 30 MG/0.3 ML DISP.SYRIN SUBCUT SCH (09:32)
[2018-11-02] MEDS ORDERED: LOSARTAN POTASSIUM 50 MG TABLET PO SCH (10:00)
[2018-11-02] MEDS ORDERED: POTASSIUM CHLORIDE 10 MEQ CAPSULE.ER PO SCH (10:00)
[2018-11-02 10:51] LABS: ABSOLUTE EOSINOPHILS # (AUTO) 0.1 10^3/uL (0.0-0.6); ABSOLUTE LYMPHOCYTES (AUTO) 0.9 10^3/uL (0.5-4.7); ABSOLUTE MONOCYTES (AUTO) 0.9 10^3/uL (0.1-1.4); ABSOLUTE NEUT (AUTO) 6.6 10^3/uL (1.7-8.2); BASOPHILS % (AUTO) 0.2 % (0-2); EOSINOPHILS % (AUTO) 0.7 % (0-6); HEMATOCRIT 36.6 % (37.9-51.0); HEMOGLOBIN 12.3 g/dL (13.5-17.0); LYMPHOCYTES % (AUTO) 10.3 % (13-45); MEAN CORPUSCULAR HEMOGLOBIN 31.5 pg (27.0-33.4); MEAN CORPUSCULAR HGB CONC 33.7 g/dL (32.0-36.0); MEAN CORPUSCULAR VOLUME 94 fl (80-97); MONOCYTES % (AUTO) 10.4 % (3-13); PLATELET COUNT 206 10^3/uL (150-450); RED BLOOD COUNT 3.91 10^6/uL (4.35-5.55); RED CELL DISTRIBUTION WIDTH 14.6 % (11.5-14.0); SEGMENTED NEUTROPHILS % (AUTO) 78.4 % (42-78); TOTAL CELLS COUNTED % (AUTO) 100 %; WHITE BLOOD COUNT 8.4 10^3/uL (4.0-10.5)
[2018-11-02] MEDS ORDERED: METOPROLOL TARTRATE 50 MG TABLET PO SCH (11:00)
[2018-11-02 11:10] LABS: ANION GAP 8 (5-19); BLOOD UREA NITROGEN 9 mg/dL (7-20); CALCIUM 9.3 mg/dL (8.4-10.2); CARBON DIOXIDE 23 mmol/L (22-30); CHLORIDE 108 mmol/L (98-107); GLUCOSE 228 mg/dL (75-110); POTASSIUM 3.3 mmol/L (3.6-5.0); SODIUM 139.3 mmol/L (137-145)
[2018-11-02] MEDS: INSULIN LISPRO 100 UNIT/ML 3 ML VIAL SUBCUT SCH ×4 (11:59→21:45)
[2018-11-02] MEDS: HYDRALAZINE HCL INJ/PF 20 MG/1 ML SDV IV PRN ×2 (12:27→23:49)
[2018-11-02] MEDS: POTASSI CL 20 MEQ/50 ML RIDER 20 MEQ/50 ML RTUPB IV SCH ×4 (12:29→22:04)
[2018-11-02] MEDS: CLOPIDOGREL BISULFATE 75 MG TABLET PO SCH (12:29)
--- NOTE | 2018-11-02 13:18 | PDOC PROGRESS REPORT ---
Subjective Progress Note for:: 11/02/18 Subjective:: No acute events in the last 24 hours. Patient is afebrile. Comfortably in the bed. Denies any problems. Plan is to sign off the patient from medical services from today. Reason For Visit: STUMP DEHISCENCE Physical Exam Vital Signs: Temp Pulse Resp BP Pulse Ox 98.2 F 76 18 180/80 H 95 11/02/18 12:00 11/02/18 12:00 11/02/18 12:00 11/02/18 12:00 11/02/18 12:00 Intake & Output 11/01/18 11/02/18 11/03/18 06:59 06:59 06:59 Intake Total 1368 1080 250 Output Total 400 1400 Balance 968 -320 250 Weight 70.2 kg 71.6 kg General appearance: PRESENT: no acute distress Head exam: PRESENT: atraumatic Eye exam: PRESENT: PERRLA Mouth exam: PRESENT: moist, tongue midline Teeth exam: PRESENT: poor dentation Neck exam: ABSENT: carotid bruit, JVD, lymphadenopathy, thyromegaly Respiratory exam: PRESENT: clear to auscultation hunter. ABSENT: rales, rhonchi, wheezes Cardiovascular exam: PRESENT: RRR. ABSENT: diastolic murmur, rubs, systolic murmur Pulses: PRESENT: normal dorsalis pedis pul GI/Abdominal exam: PRESENT: normal bowel sounds, soft. ABSENT: distended, guarding, mass, organolmegaly, rebound, tenderness Gentrourinary exam: PRESENT: indwelling catheter Extremities exam: PRESENT: other - Left below-knee amputation Neurological exam: PRESENT: alert, awake, oriented to person, oriented to place, oriented to time, oriented to situation, CN II-XII grossly intact. ABSENT: motor sensory deficit Psychiatric exam: PRESENT: appropriate affect, normal mood. ABSENT: homicidal i deation, suicidal ideation Results Laboratory Results: 11/02/18 10:12 11/02/18 10:12 11/01/18 11/02/18 11/02/18 12:03 10:12 10:12 WBC 8.4 RBC 3.91 L Hgb 12.3 L Hct 36.6 L MCV 94 MCH 31.5 MCHC 33.7 RDW 14.6 H Plt Count 206 Seg Neutrophils % 78.4 H Lymphocytes % 10.3 L Monocytes % 10.4 Eosinophils % 0.7 Basophils % 0.2 Absolute Neutrophils 6.6 Absolute Lymphocytes 0.9 Absolute Monocytes 0.9 Absolute Eosinophils 0.1 Absolute Basophils 0.0 Sodium 132.9 L 139.3 Potassium 2.9 L* 3.3 L Chloride 96 L 108 H Carbon Dioxide 29 23 Anion Gap 8 8 BUN 11 9 Creatinine 0.68 0.96 Est GFR ( Amer) > 60 > 60 Est GFR (Non-Af Amer) > 60 > 60 Glucose 237 H 228 H Calcium 8.9 9.3 Magnesium 1.6 Impressions: Chest X-Ray 10/25/18 20:02 IMPRESSION: No evidence of acute intrathoracic disease. No significant change when compared to the prior study. Knee X-Ray 10/25/18 20:04 IMPRESSION: Postoperative changes of the proximal leg as detailed above. copyright 2010 [employer]- All Rights Reserved Assessment and Plan - Diagnosis (1) Dehiscence of amputation stump Is this a current diagnosis for this admission?: Yes Plan: Management per surgical list. And multidisciplinary rounds a physical therapy consult was requested and so I did give that order. 11/02/2018-management as per surgeon. (2) Diabetes mellitus type 2 in nonobese Is this a current diagnosis for this admission?: Yes Plan: Continue metformin and Lantus. Accu-Cheks are still mostly above 200. I may need to increase the Lantus dose again. 11/02/2018-Metformin was discontinued today Lantus dose was increased back to check the labs tomorrow. Including hemoglobin A1c. (3) Essential hypertension Is this a current diagnosis for this admission?: Yes Plan: Now on losartan and metoprolol. Continue to monitor blood pressure. Adjust as clinically indicated. 11/02/2018-patient blood pressure today is 168/61. Presently on losartan 50 mg p.o. daily and metoprolol 50 mg p.o. every 12 hours. And is to increase the losartan to 100 mg p.o. daily. - Time Time Spent with patient: 15-24 minutes Medications reviewed and adjusted accordingly: Yes Anticipated discharge: SNF
[2018-11-02] MEDS: OXYCODONE-ACETAMINOPHEN 5-325 MG TABLET PO PRN (13:23)
[2018-11-02] MEDS: LOSARTAN POTASSIUM 50 MG TABLET PO SCH (14:42)
[2018-11-02 20:20] LABS: ANION GAP 5 (5-19); BLOOD UREA NITROGEN 9 mg/dL (7-20); CALCIUM 9.4 mg/dL (8.4-10.2); CARBON DIOXIDE 24 mmol/L (22-30); CHLORIDE 110 mmol/L (98-107); GLUCOSE 180 mg/dL (75-110); POTASSIUM 3.4 mmol/L (3.6-5.0); SODIUM 139.2 mmol/L (137-145)
[2018-11-02] MEDS: AMLODIPINE BESYLATE 5 MG TABLET PO SCH (21:44)
[2018-11-02] MEDS: DIVALPROEX SODIUM 125 MG CAP.SPRINK PO SCH (21:45)
[2018-11-02] MEDS ORDERED: INSULIN GLARGINE,HUM.REC.ANLOG 1,000 UNIT/10 ML VIAL SUBCUT SCH (22:00)
[2018-11-02] MEDS ORDERED: ATORVASTATIN CALCIUM 80 MG TABLET PO SCH (22:00)
[2018-11-02] MEDS: POTASSIUM CHLORIDE 20 MEQ/50 ML RTU IV SCH (22:01)
[2018-11-03] MEDS: POTASSIUM CHLORIDE 20 MEQ/50 ML RTU IV SCH (01:17)
[2018-11-03 06:25] LABS: ABSOLUTE EOSINOPHILS # (AUTO) 0.1 10^3/uL (0.0-0.6); ABSOLUTE LYMPHOCYTES (AUTO) 1.2 10^3/uL (0.5-4.7); ABSOLUTE MONOCYTES (AUTO) 0.7 10^3/uL (0.1-1.4); ABSOLUTE NEUT (AUTO) 5.1 10^3/uL (1.7-8.2); BASOPHILS % (AUTO) 0.3 % (0-2); EOSINOPHILS % (AUTO) 1.3 % (0-6); HEMOGLOBIN 12.2 g/dL (13.5-17.0); LYMPHOCYTES % (AUTO) 16.5 % (13-45); MEAN CORPUSCULAR HEMOGLOBIN 31.9 pg (27.0-33.4); MEAN CORPUSCULAR HGB CONC 33.9 g/dL (32.0-36.0); MEAN CORPUSCULAR VOLUME 94 fl (80-97); MONOCYTES % (AUTO) 10.3 % (3-13); PLATELET COUNT 258 10^3/uL (150-450); RED BLOOD COUNT 3.83 10^6/uL (4.35-5.55); RED CELL DISTRIBUTION WIDTH 14.4 % (11.5-14.0); SEGMENTED NEUTROPHILS % (AUTO) 71.6 % (42-78); TOTAL CELLS COUNTED % (AUTO) 100 %; WHITE BLOOD COUNT 7.1 10^3/uL (4.0-10.5)
[2018-11-03 06:39] LABS: ALANINE AMINOTRANSFERASE 27 U/L (21-72); ALBUMIN 2.4 g/dL (3.5-5.0); ALKALINE PHOSPHATASE 80 U/L (38-126); ANION GAP 6 (5-19); ASPARTATE AMINO TRANSFERASE 26 U/L (17-59); BILIRUBIN,DIRECT 0.2 mg/dL (0.0-0.4); BILIRUBIN,TOTAL 0.5 mg/dL (0.2-1.3); BLOOD UREA NITROGEN 7 mg/dL (7-20); CALCIUM 9.5 mg/dL (8.4-10.2); CARBON DIOXIDE 24 mmol/L (22-30); CHLORIDE 113 mmol/L (98-107); GLUCOSE 103 mg/dL (75-110); POTASSIUM 3.5 mmol/L (3.6-5.0); SODIUM 143.4 mmol/L (137-145); TOTAL PROTEIN 5.3 g/dL (6.3-8.2)
[2018-11-03] MEDS: BUPROPION HCL 100 MG TABLET PO SCH ×3 (07:18→21:02)
[2018-11-03] MEDS: INSULIN LISPRO 100 UNIT/ML 3 ML VIAL SUBCUT SCH ×4 (08:54→22:00)
[2018-11-03] MEDS: ATORVASTATIN CALCIUM 80 MG TABLET PO SCH (09:30)
[2018-11-03] MEDS: LOSARTAN POTASSIUM 50 MG TABLET PO SCH (09:30)
[2018-11-03] MEDS: OXYCODONE-ACETAMINOPHEN 5-325 MG TABLET PO PRN (09:30)
[2018-11-03] MEDS: ASPIRIN 325 MG TABLET PO SCH (09:30)
[2018-11-03] MEDS: CLOPIDOGREL BISULFATE 75 MG TABLET PO SCH (09:30)
[2018-11-03] MEDS: MULTIVITAMIN TABLET PO SCH (09:31)
[2018-11-03] MEDS: METOPROLOL TARTRATE 50 MG TABLET PO SCH ×2 (09:31→21:01)
[2018-11-03] MEDS: ASCORBIC ACID 500 MG TABLET PO SCH (09:31)
[2018-11-03] MEDS: INSULIN GLARGINE,HUM.REC.ANLOG 1,000 UNIT/10 ML VIAL SUBCUT SCH ×2 (09:32→17:53)
[2018-11-03] MEDS: ENOXAPARIN SODIUM INJ 30 MG/0.3 ML DISP.SYRIN SUBCUT SCH (09:32)
[2018-11-03] MEDS: AMLODIPINE BESYLATE 5 MG TABLET PO SCH (21:01)
[2018-11-03] MEDS: DIVALPROEX SODIUM 125 MG CAP.SPRINK PO SCH (21:01)
[2018-11-04] MEDS: BUPROPION HCL 100 MG TABLET PO SCH ×2 (06:16→14:11)
--- NOTE | 2018-11-04 07:17 | PDOC PROGRESS REPORT ---
Subjective Progress Note for:: 11/04/18 Subjective:: comfortable, confused about situation and place Reason For Visit: STUMP DEHISCENCE Physical Exam Vital Signs: Temp Pulse Resp BP Pulse Ox 98.4 F 67 17 165/63 H 97 11/04/18 04:01 11/04/18 04:01 11/04/18 04:01 11/04/18 04:01 11/04/18 04:01 Intake & Output 11/03/18 11/04/18 11/05/18 06:59 06:59 06:59 Intake Total 870 1018 Output Total 400 Balance 870 618 Weight 71.6 kg 71.4 kg General appearance: PRESENT: no acute distress, other - confused Respiratory exam: PRESENT: clear to auscultation hunter Cardiovascular exam: PRESENT: RRR GI/Abdominal exam: PRESENT: normal bowel sounds, soft Extremities exam: PRESENT: other - Left AKA= soft, no cellulitis, no pain, wound C/D/I Results Laboratory Results: 11/03/18 06:04 11/03/18 06:04 Impressions: Chest X-Ray 10/25/18 20:02 IMPRESSION: No evidence of acute intrathoracic disease. No significant change when compared to the prior study. Knee X-Ray 10/25/18 20:04 IMPRESSION: Postoperative changes of the proximal leg as detailed above. copyright 2010 [employer]- All Rights Reserved Assessment & Plan - Diagnosis (1) Dehiscence of amputation stump Is this a current diagnosis for this admission?: Yes (2) Dehiscence of surgical wound Qualifiers: Encounter type: subsequent encounter Qualified Code(s): T81.31XD - Disruption of external operation (surgical) wound, not elsewhere classified, subsequent encounter Is this a current diagnosis for this admission?: Yes - Plan Summary Plan Summary: A/ POD#6 after Left AKA patient doing well, but confused PE of stump unremarkable P/ D/C to [facility] today dressing change stump every 2 days, apply 4x4 on wound and Tegaderm F/U W/ Dr. Fernandez in 2 weeks resume diet and home meds
[2018-11-04] MEDS: INSULIN LISPRO 100 UNIT/ML 3 ML VIAL SUBCUT SCH ×2 (08:22→12:01)
[2018-11-04] MEDS: CLOPIDOGREL BISULFATE 75 MG TABLET PO SCH (10:27)
[2018-11-04] MEDS: ATORVASTATIN CALCIUM 80 MG TABLET PO SCH (10:28)
[2018-11-04] MEDS: ASCORBIC ACID 500 MG TABLET PO SCH (10:28)
[2018-11-04] MEDS: METOPROLOL TARTRATE 50 MG TABLET PO SCH (10:28)
[2018-11-04] MEDS: LOSARTAN POTASSIUM 50 MG TABLET PO SCH (10:28)
[2018-11-04] MEDS: ASPIRIN 325 MG TABLET PO SCH (10:28)
[2018-11-04] MEDS: MULTIVITAMIN TABLET PO SCH (10:28)
[2018-11-04] MEDS: ENOXAPARIN SODIUM INJ 30 MG/0.3 ML DISP.SYRIN SUBCUT SCH (10:29)
[2018-11-04] MEDS: INSULIN GLARGINE,HUM.REC.ANLOG 1,000 UNIT/10 ML VIAL SUBCUT SCH (10:29)
[2018-11-04 11:58] VITALS: BP 176/72
[2018-11-04] MEDS: HYDRALAZINE HCL INJ/PF 20 MG/1 ML SDV IV PRN (11:58)
--- NOTE | 2018-11-04 12:26 | PDOC TRANSFER SUMMARY ---
General Admission Date/PCP: 10/25/18 22:42 RAMA BERNARD MD Admission Date: 10/24/18 Transfer Date: 11/04/18 Accepting Facility: Other (Comments) - [facility] Accepting Physician: n/a Resuscitation Status: Full Code - Transfer Diagnosis (1) Dehiscence of amputation stump Is this a current diagnosis for this admission?: Yes (2) Dehiscence of surgical wound Is this a current diagnosis for this admission?: Yes - Transfer Medications Home Medications: Acetaminophen [Tylenol 325 mg Tablet] 650 mg PO Q4HP PRN 10/26/18 Ascorbic Acid [Vitamin C 500 mg Tablet] 500 mg PO QAM 10/26/18 Aspirin [Aspirin 325 mg Tablet] 325 mg PO QAM 10/26/18 Atorvastatin Calcium [Lipitor 80 mg Tablet] 80 mg PO QHS 10/26/18 Bupropion HCl [Wellbutrin Xl 300mg 24hr Tablet] 300 mg PO QAM 10/26/18 Clopidogrel Bisulfate [Plavix 75 mg Tablet] 75 mg PO QAM 10/26/18 Cyanocobalamin (Vitamin B-12) [Vitamin B-12 100 mcg Tablet] 100 mcg PO QAM 10/26/18 Divalproex Sodium [Depakote] 125 mg PO QHS 10/26/18 Insulin Aspart [Novolog Insulin (Aspart) 100 unit/mL] 6 units SQ MEALS 10/26/18 Insulin Glargine,Hum.rec.anlog [Lantus Insulin 100 Unit/1 ml 10 ml] 20 units SQ QHS 10/26/18 Metformin HCl [Glucophage] 1,000 mg PO BID 10/26/18 Metoprolol Tartrate [Lopressor 50 mg Tablet] 50 mg PO Q12 10/26/18 Multivitamin [Multiple Vitamins] 1 tab PO QAM 10/26/18 Transfer Medications: Current Medications Amlodipine Besylate (Norvasc 5 Mg Tablet) 5 mg PO QHS [facility] Stop: 12/02/18 21:59 Last Admin: 11/03/18 21:01 Dose: 5 mg Documented by: Ascorbic Acid (Vitamin C 500 Mg Tablet) 500 mg PO QAM [facility] Stop: 11/26/18 07:59 Last Admin: 11/04/18 10:28 Dose: Not Given Documented by: Aspirin (Aspirin 325 Mg Tablet) 325 mg PO QAM [facility] Stop: 04/29/19 07:59 Last Admin: 11/04/18 10:28 Dose: 325 mg Documented by: Atorvastatin Calcium (Lipitor 80 Mg Tablet) 80 mg PO QAM [facility] Stop: 11/25/18 07:59 Last Admin: 11/04/18 10:28 Dose: 80 mg Documented by: Bupropion HCl (Wellbutrin 100 Mg Tablet) 100 mg PO Q8 [facility] Stop: 11/25/18 13:59 Last Admin: 11/04/18 06:16 Dose: 100 mg Documented by: Clopidogrel Bisulfate (Plavix 75 Mg Tablet) 75 mg PO QAM [facility] Stop: 12/02/18 11:29 Last Admin: 11/04/18 10:27 Dose: 75 mg Documented by: Dextrose (Dextrose Inj 50% Syringe (25 Gm/50 Ml)) 12.5 gm IV PRN PRN; Protocol PRN Reason: FOR BG 50-69 IN ALERT PATIENT Stop: 11/25/18 00:35 Dextrose (Dextrose Inj 50% Syringe (25 Gm/50 Ml)) 25 gm IV PRN PRN; Protocol PRN Reason: PER PROTOCOL Stop: 11/25/18 00:35 Divalproex Sodium (Depakote Sprinkle 125 Mg Capsule) 125 mg PO QHS [facility] Stop: 11/25/18 21:59 Last Admin: 11/03/18 21:01 Dose: 125 mg Documented by: Enoxaparin Sodium (Lovenox Inj 30 Mg/0.3 Ml Disp.Syrin) 30 mg SUBCUT DAILY [facility] Stop: 11/25/18 09:59 Last Admin: 11/04/18 10:29 Dose: Not Given Documented by: Glucagon (Glucagen Inj 1 Mg Vial) 1 mg IM PRN PRN; Protocol PRN Reason: Evaluate for BG < 70 Stop: 11/25/18 00:27 Glucose (Glutose 40% Gel 15 Gm Tube) 15 gm PO PRN PRN; Protocol PRN Reason: FOR BG 50-69 IN ALERT PATIENT Stop: 11/25/18 00:35 Glucose (Glutose 40% Gel 15 Gm Tube) 30 gm PO PRN PRN; Protocol PRN Reason: FOR BG < 50 IN ALERT PATIENT Stop: 11/25/18 00:35 Hydralazine HCl (Apresoline Inj/Pf 20 Mg/1 Ml Sdv) 10 mg IV Q6HP PRN PRN Reason: Sbp>160 Stop: 11/25/18 05:14 Last Admin: 11/04/18 11:58 Dose: 10 mg Documented by: Insulin Glargine (Lantus Insulin 100 Unit/1 Ml 10 Ml) 20 unit SUBCUT BID [facility] Stop: 12/02/18 11:59 Last Admin: 11/04/18 10:29 Dose: Not Given Documented by: Insulin Human Lispro (Humalog Insulin 100 Unit/1 Ml 3 Ml Vial) 0 - 12 unit SUBCUT ACHS [facility]; Protocol Stop: 11/29/18 07:59 Last Admin: 11/04/18 12:01 Dose: Not Given Documented by: Lactulose (Cephulac Syrup 20 Gm/30 Ml Udcup) 20 gm PO DAILYP PRN PRN Reason: FOR CONSTIPATION Stop: 11/25/18 05:15 Losartan Potassium (Cozaar 50 Mg Tablet) 100 mg PO DAILY [facility] Stop: 12/02/18 13:59 Last Admin: 11/04/18 10:28 Dose: 100 mg Documented by: Metoclopramide HCl (Reglan Inj/Pf 10 Mg/2 Ml Sdv) 5 mg IV Q6HP PRN PRN Reason: FOR NAUSEA/VOMITING Stop: 11/25/18 21:15 Last Admin: 10/26/18 22:20 Dose: 5 mg Documented by: Metoprolol Tartrate (Lopressor 50 Mg Tablet) 50 mg PO Q12 [facility] Stop: 11/25/18 09:59 Last Admin: 11/04/18 10:28 Dose: 50 mg Documented by: Multivitamins (Tab-A-Britt (Multiple Vitamin) Tablet) 1 tab PO QAM [facility] Stop: 11/26/18 07:59 Last Admin: 11/04/18 10:28 Dose: Not Given Documented by: Oxycodone/Acetaminophen (Percocet 5-325 Mg Tablet) 1 tab PO Q6HP PRN PRN Reason: FOR PAIN Stop: 11/09/18 10:45 Last Admin: 11/03/18 09:30 Dose: 1 tab Documented by: Patient Own Medication (Cyanocobalamin (Vitamin B-12) [Vitamin B-12 100 Mcg Tablet]) 100 mcg PO QAM [facility] Stop: 11/26/18 07:59 Sodium Chloride (Saline Flush 2.5 Ml Monoject Prefil Syrin) 2.5 ml IV Q8 [facility] Stop: 11/25/18 05:59 Last Admin: 11/04/18 06:16 Dose: 2.5 ml Documented by: - Allergies Allergies/Adverse Reactions: No Known Allergies Allergy (Verified 06/03/13 12:05) - Diet/Activity Discharge Diet: Diabetic Hospital Course Hospital Course: Patient admitted on 10/25/18 for dehiscence of left BKA stump, underwent uneventful left completion AKA, with unremarkable postop course. His left AKA wound is well healing with dressing C/D/I, diet is well tolerated and his blood work is WNL. Physical Exam Vital Signs: Temp Pulse Resp BP Pulse Ox 97.3 F 76 20 176/72 H 98 11/04/18 11:22 11/04/18 11:22 11/04/18 11:22 11/04/18 11:22 11/04/18 11:22 Intake & Output 11/03/18 11/04/18 11/05/18 06:59 06:59 06:59 Intake Total 870 1018 Output Total 400 Balance 870 618 Weight 71.6 kg 71.4 kg General appearance: PRESENT: no acute distress Head exam: PRESENT: atraumatic Eye exam: PRESENT: EOMI Mouth exam: PRESENT: moist, neck supple Neck exam: PRESENT: full ROM Respiratory exam: PRESENT: clear to auscultation hunter Cardiovascular exam: PRESENT: RRR GI/Abdominal exam: PRESENT: normal bowel sounds, soft Rectal exam: PRESENT: deferred Extremities exam: PRESENT: full ROM, other - left AKA stump= well healing, soft, no pain, no erythema, no draiange, suture line intact Musculoskeletal exam: PRESENT: full ROM Psychiatric exam: PRESENT: appropriate affect Skin exam: PRESENT: warm Results Laboratory Results: 11/03/18 06:04 11/03/18 06:04 Impressions: Chest X-Ray 10/25/18 20:02 IMPRESSION: No evidence of acute intrathoracic disease. No significant change when compared to the prior study. Knee X-Ray 10/25/18 20:04 IMPRESSION: Postoperative changes of the proximal leg as detailed above. copyright 2010 [employer]- All Rights Reserved Status: Imported from PACS - see EKG Plan Discharge Plan: A/ s/p completion AKA for dehiscence of left BKA postop course unremarkable P/ transfer to [place] today replace wound dressings q2 days with OpSite Keep stump elevated on 1 pillow Patient can shower or sponge bath (water can run on wound, pad dry PT to evaluate patient for walker ambulation vs. wheelchair F/u [facility] 2 [facility] Time Spent: Less than 30 Minutes - 28
--- NOTE | 2019-01-22 09:43 | Physician Advisory Note ---
Physician Advisor ProgressNote .: Pursuant to the plan for [facility], I have reviewed the medical record for this patient. Physician Advisor Statement: Noted in chart, leading to publicity director ?s: 1. Op note states necrosis of Lt BKA site, "personal" vascular dz, ... "major vessels such as the femoral completely occluded" Pathol report states "gangrene w/assoc'd abscess formation & acute & chronic osteomyelitis, mod-severe atherosclerosis" (but coders aren't allowed to count dx.s made by pathologist unless attg reports agreement with those dx.s). 2. ED physician documented that sepsis was present on presentation, noting fever to 103 at facility, tachycardia, tachypnea, malaise, weakness. Pt also had initial thrombocytopenia that improved with infxn tx & amputation. Per H&P pt "was noted with more confusion superimposed on his chronic dementia". [Acute metabolic encephalopathy due to ____?] In ED, pt had a lactate level done, & 2L bolus of IVF along w/IV abx, all consistent with tx for possible sepsis. Attending notes do not indicate whether sepsis was ruled in or out. 3. H&P states h/o 2 CVAs. ED Nursing narrative note states pt has left-sided weakness from prior CVA. --> Attending, please add to DCSummary for completeness/clarity of dx.s: 1. "gangrene of Lt BKA stump site with associated abscess(es), plus acute and chronic osteomyelitis, and mod-severe arterial atherosclerotic dz", - or, if these dx.s were not felt to be present/clinically pertinent, state that. 2. "sepsis was likely present on admission, due to BKA infxn, evidenced by " (include any findings above or elsewhere that support dx) - or, "sepsis was considered in ED, but subsequently felt to have not been present" 3. "Left hemiplegia due to prior CVA" - or, "Left monoplegia of left ___ extremity due to prior CVA", or ... Thanks! CK
--- NOTE | 2019-01-22 10:33 | Progress Note ---
Provider Note Provider Note: Addendum: 1) Gangrene of left BKA stump site with associated abscess plus acute and chronic osteomyelitis and moderately severe arterial aterosclerosis 2) Sepsis was considered in ED, but later was not felt to be present 3) Left hemiplegia due to previous CVA
== END 2018-11-04 15:49 | DRG 475 ==
LOC: ER 19:43 → EH 22:42 → ICU 10-26 03:33 → 3S 10-28 18:49 → 4W 10-30 00:45 → 5 11-02 01:05
PROVIDERS: ADMIT Surgery; ATTEND Surgery
PROC: 0Y6D0Z1 Detachment at Left Upper Leg, High, Open Approach (ICD-10-PCS; principal; 2018-10-29 13:30)
DX: T87.81 Dehiscence of amputation stump (principal); E11.52 Type 2 diabetes mellitus with diabetic peripheral angiopathy with gangrene; I70.269 Atherosclerosis of native arteries of extremities with gangrene, unspecified extremity; L98.496 Non-pressure chronic ulcer of skin of other sites with bone involvement without evidence of necrosis; M86.10 Other acute osteomyelitis, unspecified site; M86.60 Other chronic osteomyelitis, unspecified site; I69.354 Hemiplegia and hemiparesis following cerebral infarction affecting left non-dominant side; T87.44 Infection of amputation stump, left lower extremity; I25.10 Atherosclerotic heart disease of native coronary artery without angina pectoris; E78.5 Hyperlipidemia, unspecified; I10 Essential (primary) hypertension; M19.90 Unspecified osteoarthritis, unspecified site; F32.9 Major depressive disorder, single episode, unspecified; I16.0 Hypertensive urgency; E11.69 Type 2 diabetes mellitus with other specified complication; Z79.4 Long term (current) use of insulin; Z82.49 Family history of ischemic heart disease and other diseases of the circulatory system; I25.2 Old myocardial infarction; Z87.891 Personal history of nicotine dependence; Z79.82 Long term (current) use of aspirin; Z79.891 Long term (current) use of opiate analgesic; Z79.899 Other long term (current) drug therapy
CPT/HCPCS: 01232; 36415; 71045; 80048; 80053; 80202; 81001; 82565; 82803; 82962; 83036; 83605; 83735; 84132; 85025; 85610; 87040; 87086; 88307; 88311; 93005; 93010; 93926; 94660; 94799; 96361; 96365; 99285; C1758; J0360; J1650; J1815; J1885; J2250; J2270; J2543; J2704; J2765; J3010; J3370; J3480; J3490; J7030; J7050; J7060

== ENCOUNTER 2019-01-17 12:54 | Emergency (ER) | payer MEDICARE, MEDICAID ==
--- NOTE | 2019-01-17 13:16 | RADIOLOGY REPORT (SQ) ---
EXAM DESCRIPTION: CT HEAD WITHOUT COMPLETED DATE/TIME: 01/17/2019 1:03 pm REASON FOR STUDY: stroke-like symptoms COMPARISON: 06/16/2018 TECHNIQUE: Axial images acquired through the brain without intravenous contrast. Images reviewed wi th bone, brain and subdural windows. Additional sagittal and coronal reconstructions were generated. Images stored on PACS. All CT scanners at this facility use dose modulation, iterative reconstruction, and/or weight based d osing when appropriate to reduce radiation dose to as low as reasonably achievable (ALARA). [facility]: Dose Right [facility]: CareDose [facility]: Dose Right [facility]: Teradose 4D [facility]: [employer] RADIATION DOSE: CT Rad equipment meets quality standard of care and radiation dose reduction techniq ues were employed. CTDIvol: 23.1 mGy. DLP: 510 mGy-cm. mGy. LIMITATIONS: None. FINDINGS: VENTRICLES: Prominent ventricles secondary to involutional atrophy. CEREBRUM: There is encephalomalacia in the distribution of the right middle cerebral artery. No acut e infarction is seen. There is no hemorrhage. There is no mass. There is no midline shift. Areas o f low density in the white matter most likely chronic small vessel ischemic changes. CEREBELLUM: No masses. No hemorrhage. No alteration of density. No evidence for acute infarction. EXTRAAXIAL SPACES: No fluid collections. No masses. ORBITS AND GLOBE: No intra- or extraconal masses. Normal contour of globe without masses. CALVARIUM: No fracture. PARANASAL SINUSES: No fluid or mucosal thickening. SOFT TISSUES: No mass or hematoma. OTHER: No other significant finding. 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 Chronic microvascular ischemic changes. No acute intracrania l findings. EVIDENCE OF ACUTE STROKE: NO. COMMENT: Pertinent positive or negative findings of the imaging study reported as a CRITICAL EXAM t vikki TAYLOR MD at13:10 on 01/17/2019. Category of Critical Exam: Stroke alert. Quality ID # [id number]: Final reports with documentation of one or more dose reduction techniques (e.g., Au tomated exposure control, adjustment of the mA and/or kV according to patient size, use of iterative reconstruction technique) TECHNICAL DOCUMENTATION: JOB ID: [id number] [employer]- All Rights Reserved Reading location - IP/workstation name: [email or web address]
--- NOTE | 2019-01-17 13:17 | RADIOLOGY REPORT (SQ) ---
EXAM DESCRIPTION: CHEST SINGLE VIEW COMPLETED DATE/TIME: 01/17/2019 1:05 pm REASON FOR STUDY: stroke-like symptoms COMPARISON: 10/25/2018 EXAM PARAMETERS: NUMBER OF VIEWS: One view. TECHNIQUE: Single frontal radiographic view of the chest acquired. RADIATION DOSE: NA LIMITATIONS: None. FINDINGS: LUNGS AND PLEURA: No opacities, masses or pneumothorax. No pleural effusion. MEDIASTINUM AND HILAR STRUCTURES: No masses. Contour normal. HEART AND VASCULAR STRUCTURES: Heart normal in size. Normal vasculature. BONES: No acute findings. HARDWARE: None in the chest. OTHER: No other significant finding. IMPRESSION: NO ACUTE RADIOGRAPHIC FINDING IN THE CHEST. TECHNICAL DOCUMENTATION: JOB ID: [id number] [employer]- All Rights Reserved Reading location - IP/workstation name: [email or web address]
[2019-01-17 13:25] LABS: INTERNATIONAL RATION (INR) 0.92
[2019-01-17 13:26] LABS: PARTIAL THROMBOPLASTIN TIME 24.4 SEC (23.5-35.8)
[2019-01-17 13:28] LABS: ABSOLUTE EOSINOPHILS # (AUTO) 0.2 10^3/uL (0.0-0.6); ABSOLUTE LYMPHOCYTES (AUTO) 1.5 10^3/uL (0.5-4.7); ABSOLUTE MONOCYTES (AUTO) 0.8 10^3/uL (0.1-1.4); BASOPHILS % (AUTO) 0.5 % (0-2); EOSINOPHILS % (AUTO) 3.2 % (0-6); HEMATOCRIT 39.1 % (37.9-51.0); HEMOGLOBIN 13.1 g/dL (13.5-17.0); LYMPHOCYTES % (AUTO) 19.7 % (13-45); MEAN CORPUSCULAR HEMOGLOBIN 32.3 pg (27.0-33.4); MEAN CORPUSCULAR HGB CONC 33.6 g/dL (32.0-36.0); MEAN CORPUSCULAR VOLUME 96 fl (80-97); MONOCYTES % (AUTO) 10.6 % (3-13); PLATELET COUNT 170 10^3/uL (150-450); RED BLOOD COUNT 4.06 10^6/uL (4.35-5.55); RED CELL DISTRIBUTION WIDTH 14.5 % (11.5-14.0); TOTAL CELLS COUNTED % (AUTO) 100 %; WHITE BLOOD COUNT 7.6 10^3/uL (4.0-10.5)
[2019-01-17 13:47] LABS: ALANINE AMINOTRANSFERASE 19 U/L (21-72); ALBUMIN 3.7 g/dL (3.5-5.0); ALKALINE PHOSPHATASE 111 U/L (38-126); ANION GAP 11 (5-19); ASPARTATE AMINO TRANSFERASE 14 U/L (17-59); BILIRUBIN,DIRECT 0.2 mg/dL (0.0-0.4); BILIRUBIN,TOTAL 0.3 mg/dL (0.2-1.3); BLOOD UREA NITROGEN 27 mg/dL (7-20); CALCIUM 10.1 mg/dL (8.4-10.2); CARBON DIOXIDE 26 mmol/L (22-30); CHLORIDE 104 mmol/L (98-107); CREATINE KINASE < 20 U/L (55-170); GLUCOSE 241 mg/dL (75-110); POTASSIUM 4.5 mmol/L (3.6-5.0); SODIUM 140.7 mmol/L (137-145); TOTAL PROTEIN 6.7 g/dL (6.3-8.2)
[2019-01-17 13:58] LABS: CREATINE KINASE MB 1.31 ng/mL (<4.55)
[2019-01-17 14:04] LABS: TROPONIN I < 0.012 ng/mL
[2019-01-17 14:07] LABS: PROTHROMBIN TIME 12.8 SEC (11.4-15.4)
--- NOTE | 2019-01-17 17:47 | ER Document Report ---
ED Neuro Symptoms/Deficit - General Chief Complaint: S/S of Possible Stroke Stated Complaint: POSSIBLE STROKE Time Seen by Provider: 01/17/19 15:51 Primary Care Provider: RAMA BERNARD MD [Primary Care Provider] - Follow up as needed Notes: Patient was referred here from his residence at [facility] for possible stroke. Patient's speech has been noted to be slurred today and he seemed to be weaker on his left side than normal. 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 He reportedly was his usual, normal self this morning, but later was noted to have slurred speech and drooling, which is unusual for him. He does h ave dementia so it is difficult to discern what is chronic, and what acute.. Patient has not been sick otherwise recently. No reported difficulty breathing or shortness of breath or cough. No vomiting or diarrhea. No abdominal pains. No UTI symptoms. No fevers. I spoke with the patient's sister, Fanny Ochoa, at [phone] she says that she noted the patient to seem to be very sleepy and out of it for him when she visited him Monday. She said his eyes were drooping and he seemed not to be able to keep them open. He was also more confused and talking about things that did not make sense such as talking about a possum. He seemed very agitated during this past week. She also reports that he was just recently started on risperidone, 0.5 mg twice a day, started December 31. He also started taking Depakote on December 11. TRAVEL OUTSIDE OF THE [place] IN LAST 30 DAYS: No - Related Data Allergies/Adverse Reactions: No Known Allergies Allergy (Verified 06/03/13 12:05) Past Medical History - Social History Smoking Status: Unknown if Ever Smoked Cigarette use (# per day): No Family History: Reviewed & Not Pertinent - Reviewed by reviewing the patient's chart., Hypertension Patient has suicidal ideation: No Patient has homicidal ideation: No - Past Medical History Cardiac Medical History: Reports: Hx Coronary Artery Disease, Hx Hypercholesterolemia, Hx Hypertension Neurological Medical History: Reports: Hx Cerebrovascular Accident - 1 MONTH AGO WEAKNESS Endocrine Medical History: Reports: Hx Diabetes Mellitus Type 1, Hx Diabetes Mellitus Type 2 Musculoskeletal Medical History: Reports Hx Arthritis Psychiatric Medical History: Reports: Hx Depression Past Surgical History: Reports: Hx Appendectomy, Hx Orthopedic Surgery - L bka - Immunizations Hx Diphtheria, Pertussis, Tetanus Vaccination: Yes Review of Systems - Review of Systems -: Yes ROS unobtainable due to patient's medical condition - Patient cannot relate significant information or answer questions appropria Physical Exam - Vital signs Vitals: Pulse Resp BP Pulse Ox 75 14 132/76 H 98 01/17/19 13:04 01/17/19 13:04 01/17/19 13:04 01/17/19 13:04 Interpretation: Normal Notes: PHYSICAL EXAMINATION: GENERAL: Well-appearing, in no acute distress. Follows commands such as raising arms, wrinkling forehead, etc. HEAD: Atraumatic, normocephalic. EYES: Pupils equal round and reactive to light, extraocular movements intact. ENT: oropharynx clear without exudates. Moist mucous membranes. NECK: Normal range of motion, supple. LUNGS: Breath sounds clear and equal bilaterally. HEART: Regular rate and rhythm without murmurs. ABDOMEN: Soft, nontender. No guarding or rebound. No masses. BACK: No tenderness throughout entire back. EXTREMITIES: Left AKA amputation, otherwise extremities have normal range of motion without pain. NEUROLOGICAL: Patient known dementia. Is able to follow commands such as raising his arms, squeezing fingers, wrinkling forehead, etc. Patient's speech is not slurred to me at this time. He does talk very softly in a whispering voice, but is understandable. Seems to understand what is being said to him, as well. Unable to ambulate. 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 This was reported to us to be residual from prior to strokes. I do not appreciate any facial droop. He is awake, alert, knows he is at [facility]. SKIN: Warm, dry, no rashes. Course - Re-evaluation Re-evalutation: 01/17/19 18:01 I spoke at length with the patient's sister and explained to her that I thought we had done everything that needed to be done for her brother. I do not think he has had a stroke. If he has, he has apparently returned to his normal now. Sister came to the emergency department and visited the patient for short while and says that she does not feel that he was significantly different than he is been in the last few days or even longer. She did relate about the initiation of risperidone twice a day, just started in the past couple of weeks, although she did not know exactly when it was started, we [facility] out [facility]. I think the patient could have had a TIA, but I do not think he is a candidate for thrombolytics because his neurologic exam is very likely close to his normal neurologic status. Additionally, I do not know for sure that this is a neurological problem versus a behavioral issue related to the patient's underlying medical history and his current medications. I do not think he qualified for TPA administration. Sister understands my thoughts and agrees with the plan to send him back to [facility]. We are advising them to cut his risperidone dose in half or to eliminate it entirely and try another medication. Patient's Depakote level was subtherapeutic. I doubt that is contributing anything to the patient's symptoms. - Vital Signs Vital signs: Temp Pulse Resp BP Pulse Ox 97.8 F 75 23 H 152/78 H 100 01/17/19 13:31 01/17/19 13:04 01/17/19 14:01 01/17/19 14:01 01/17/19 14:01 - Laboratory Result Diagrams: 01/17/19 13:10 01/17/19 13:10 Laboratory results interpreted by me: 01/17/19 01/17/19 01/17/19 13:10 13:10 13:10 RBC 4.06 L Hgb 13.1 L RDW 14.5 H BUN 27 H Glucose 241 H AST 14 L ALT 19 L Creatine Kinase < 20 L Valproic Acid 17.7 L - Diagnostic Test Radiology reviewed: Image reviewed, Reports reviewed - CT of the patient's brain shows no stroke and no acute changes. Radiology results interpreted by me: 01/17/19 18:06 Chest x-ray is normal. - EKG Interpretation by Mo EKG shows normal: Sinus rhythm Rate: Normal, Tachycardia Rhythm: NSR [place]/QRS: RBBB Critical Care Note - Critical Care Note Total time excluding time spent on procedures (mins): 40 Discharge - Discharge Clinical Impression: Altered mental status, Medication side effects Condition: Stable Disposition: [facility] Additional Instructions: Altered Mental Status An altered mental status is a change in the normal functioning of the brain. This alteration of function can range from minor decreased brain function with some forgetfulness and confusion to complete loss of consciousness and coma. There are many possible causes of an altered mental status and include brain injuries such as trauma or strokes, problems with oxygen supply to the brain, fever and infections of the brain and/or elsewhere in the body, metabolic abnormalities such as low or high blood sugar, overdoses or excessive medication ingestion, and mental and psychiatric illnesses. Sometimes the altered mental status resolves and a definite cause is not determined. If a cause for your altered mental status was found, it has likely been corrected. Your evaluation has not shown any condition that requires that you be admitted to the hospital. It is believed that you are safe to leave and return to your home. If you have a return of your symptoms, you should return for re-evaluation. Possible medication Side Effects Your unpleasant symptoms are due to a drug you're taking. These symptoms are a common side effect of the medicine. It's not a true allergy. We stop any unnecessary drugs when bothersome side effects occur. Sometimes we'll substitute a different type of drug. In other cases, we must continue the drug. If so, we try to find a way to decrease the side effects. Many side effects decrease with time. Call us if the symptoms don't go away. I recommend that the patient's risperidone medication be stopped completely or reduced by 50% from what he currently is being given at. FOLLOW-UP CARE: If you have been referred to a physician for follow-up care, call the physicians office for an appointment as you were instructed or within the next two days. If you experience worsening or a significant change in your symptoms, notify the physician immediately or return to the Emergency Department at any time for re-evaluation. Referrals: RAMA BERNARD MD [Primary Care Provider] - Follow up as needed
--- NOTE | 2019-01-17 19:36 | EKG REPORT ---
SEVERITY:- ABNORMAL ECG - SINUS RHYTHM RIGHT BUNDLE BRANCH BLOCK : Confirmed by: Arin Garay MD 17-Jan-2019 19:35:20
[2019-01-17 21:24] VITALS: BP 175/85
== END 2019-01-17 21:24 ==
LOC: ER 12:54
DX: R41.82 Altered mental status, unspecified (principal); T43.595A Adverse effect of other antipsychotics and neuroleptics, initial encounter; Y92.129 Unspecified place in nursing home as the place of occurrence of the external cause; I25.10 Atherosclerotic heart disease of native coronary artery without angina pectoris; E78.00 Pure hypercholesterolemia, unspecified; E11.9 Type 2 diabetes mellitus without complications; I10 Essential (primary) hypertension; Z89.612 Acquired absence of left leg above knee
CPT/HCPCS: 36415; 70450; 71045; 80053; 80164; 82550; 82553; 84484; 85025; 85610; 85730; 93005; 93010; 99291

== ENCOUNTER 2019-06-15 19:02 | Emergency (ER) | payer MEDICARE, MEDICAID ==
--- NOTE | 2019-06-15 19:34 | ER Document Report ---
ED General - General Chief Complaint: Other Stated Complaint: BLOOD SUGAR ISSUES Time Seen by Provider: 06/15/19 19:23 Primary Care Provider: RAMA BERNARD MD [Primary Care Provider] - Follow up as needed TRAVEL OUTSIDE OF THE [place] IN LAST 30 DAYS: No - HPI Notes: Patient is a 68-year-old male, brought in from [facility] for hypoglycemia. The patient is an insulin-dependent diabetic. His blood sugar was found to be 175 so he was given 8 units of insulin, as per protocol. He became slightly altered, they checked his blood sugar and found to be in the low 30s. He was given glucagon x2 with minimal response. He was also given oral glucose. He was sent into the emergency department for further evaluation via EMS. The patient states to me that he does not believe he needs to be here. He has no acute complaints or concerns. He does have a history of dementia. - Related Data Allergies/Adverse Reactions: No Known Allergies Allergy (Verified 06/03/13 12:05) Home Medications: List reviewed, please see chart Past Medical History - General Information source: Patient, Outside Facility Records - Social History Smoking Status: Unknown if Ever Smoked Family History: Reviewed & Not Pertinent - Reviewed by reviewing the patient's chart., Hypertension - Past Medical History Cardiac Medical History: Reports: Hx Coronary Artery Disease, Hx Hypercholesterolemia, Hx Hypertension Denies: Hx Heart Attack Pulmonary Medical History: Denies: Hx Asthma Neurological Medical History: Reports: Hx Cerebrovascular Accident - 1 MONTH AGO WEAKNESS. Denies: Hx Seizures Endocrine Medical History: Reports: Hx Diabetes Mellitus Type 2 Renal/ Medical History: Denies: Hx Peritoneal Dialysis GI Medical History: Denies: Hx Hepatitis, Hx Hiatal Hernia, Hx Ulcer Musculoskeletal Medical History: Reports Hx Arthritis Psychiatric Medical History: Reports: Hx Dementia, Hx Depression Infectious Medical History: Denies: Hx Hepatitis Past Surgical History: Reports: Hx Appendectomy, Hx Orthopedic Surgery - L bka. Denies: Hx Open Heart Surgery, Hx Pacemaker - Immunizations Hx Diphtheria, Pertussis, Tetanus Vaccination: Yes Review of Systems - Review of Systems -: Yes ROS unobtainable due to patient's medical condition - Dementia Physical Exam - Vital signs Vitals: Temp Pulse Resp BP Pulse Ox 97.2 F 66 14 136/62 H 96 06/15/19 19:45 06/15/19 19:45 06/15/19 19:45 06/15/19 19:45 06/15/19 19:45 - Notes Notes: This is a pleasant 68-year-old male who appears older than his stated age in no acute distress. Vital signs reviewed, please refer to chart. Head is normocep halic, atraumatic. Pupils equal round, reactive to light. Neck is supple without meningismus. Heart is regular rate and rhythm. Lungs are clear to auscultation bilaterally. Abdomen is soft, nontender, normoactive bowel sounds throughout. Patient has a left AKA, stump without signs of infection or pressure ulcers. Skin is warm and dry. Patient is awake and alert. He is intermittently cooperative, answers some questions appropriately, others inappropriately. I am told this is his baseline dementia. Course - Re-evaluation Re-evalutation: 06/15/19 22:34 Patient was sent to the emergency department for evaluation of hypoglycemia. He was treated with glucagon prior to arrival, then oral glucose. On arrival here his blood glucose was elevated. He ate, remained stable, and his blood glucose remained above 150. Patient remained stable, is anxious to be discharged home. He is sent back to [facility] in stable condition. - Vital Signs Vital signs: Temp Pulse Resp BP Pulse Ox 97.2 F 66 14 136/62 H 96 06/15/19 19:45 06/15/19 19:45 06/15/19 19:45 06/15/19 19:45 06/15/19 19:45 - Laboratory Result Diagrams: 06/15/19 19:39 06/15/19 20:43 Laboratory results interpreted by me: 06/15/19 06/15/19 06/15/19 19:39 20:42 20:43 WBC 14.2 H RBC 4.33 L MCV 103 H MCH 33.5 H Lymph % (Auto) 10.7 L Absolute Neuts (auto) 11.5 H Seg Neutrophils % 80.7 H Chloride 108 H BUN 32 H Glucose 228 H POC Glucose 226 H Total Protein 5.7 L Albumin 3.1 L Discharge - Discharge Clinical Impression: Hypoglycemia Condition: Stable Disposition: HOME-SNF (ED ONLY) Instructions: Hypoglycemia ([facility]) Additional Instructions: Continue your regular medications as prescribed. Follow-up with your primary care doctor next week. Return to the ED with worsening or new concerning symptoms of any sort. Referrals: RAMA BERNARD MD [Primary Care Provider] - Follow up as needed
[2019-06-15 19:56] LABS: ABSOLUTE EOSINOPHILS # (AUTO) 0.3 10^3/uL (0.0-0.6); ABSOLUTE LYMPHOCYTES (AUTO) 1.5 10^3/uL (0.5-4.7); ABSOLUTE MONOCYTES (AUTO) 0.9 10^3/uL (0.1-1.4); ABSOLUTE NEUT (AUTO) 11.5 10^3/uL (1.7-8.2); BASOPHILS % (AUTO) 0.2 % (0-2); EOSINOPHILS % (AUTO) 2.2 % (0-6); HEMATOCRIT 44.5 % (37.9-51.0); HEMOGLOBIN 14.5 g/dL (13.5-17.0); LYMPHOCYTES % (AUTO) 10.7 % (13-45); MEAN CORPUSCULAR HEMOGLOBIN 33.5 pg (27.0-33.4); MEAN CORPUSCULAR HGB CONC 32.6 g/dL (32.0-36.0); MEAN CORPUSCULAR VOLUME 103 fl (80-97); MONOCYTES % (AUTO) 6.2 % (3-13); PLATELET COUNT 150 10^3/uL (150-450); RED BLOOD COUNT 4.33 10^6/uL (4.35-5.55); RED CELL DISTRIBUTION WIDTH 13.9 % (11.5-14.0); SEGMENTED NEUTROPHILS % (AUTO) 80.7 % (42-78); TOTAL CELLS COUNTED % (AUTO) 100 %; WHITE BLOOD COUNT 14.2 10^3/uL (4.0-10.5)
[2019-06-15 21:10] LABS: ALBUMIN 3.1 g/dL (3.5-5.0); ALKALINE PHOSPHATASE 65 U/L (38-126); ANION GAP 12 (5-19); ASPARTATE AMINO TRANSFERASE 17 U/L (17-59); BILIRUBIN,DIRECT 0.1 mg/dL (0.0-0.4); BILIRUBIN,TOTAL 0.3 mg/dL (0.2-1.3); BLOOD UREA NITROGEN 32 mg/dL (7-20); CALCIUM 9.7 mg/dL (8.4-10.2); CARBON DIOXIDE 22 mmol/L (22-30); CHLORIDE 108 mmol/L (98-107); GLUCOSE 228 mg/dL (75-110); POTASSIUM 4.4 mmol/L (3.6-5.0); TOTAL PROTEIN 5.7 g/dL (6.3-8.2)
[2019-06-16 00:18] VITALS: BP 132/60
== END 2019-06-16 00:18 ==
LOC: ER 19:02
DX: E11.649 Type 2 diabetes mellitus with hypoglycemia without coma (principal); Z79.4 Long term (current) use of insulin; R41.82 Altered mental status, unspecified; F03.90 Unspecified dementia, unspecified severity, without behavioral disturbance, psychotic disturbance, mood disturbance, and anxiety; I25.10 Atherosclerotic heart disease of native coronary artery without angina pectoris; I10 Essential (primary) hypertension
CPT/HCPCS: 36415; 80053; 82962; 85025; 99285